=== PATIENT | female | born 1970 | race Caucasian/White ===

== ENCOUNTER 2018-11-06 10:55 | Outpatient (REF) | payer MEDICAID, SELFPAY ==
[2018-11-06 13:35] LABS: HCT 43.5 % (36.0-46.0); HGB 14.4 g/dL (12.0-15.5); Mean Corp. HGB Concentration 33.1 g/dL (32.0-36.0); Mean Corpuscular Hemoglobin 27.6 pg (27.0-33.0); Mean Corpuscular Volume 83.5 fL (80-95); Mean Platelet Volume 10.7 fL (8.0-11.0); Platelet Count 250 x1000/uL (130-400); RBC 5.21 m/cumm (4.00-5.20); RBC Distribution Width 13.8 % (11.7-14.6); White Blood Cell Count 7.76 k/cumm (4.4-10.8)
[2018-11-06 13:46] LABS: Anion Gap 10.7 mmol/L (3-11); BUN 11 mg/dL (7-18); CO2 26.3 mmol/L (21.0-32.0); CREATININE 0.56 mg/dL (0.55-1.02); Chloride 102 mmol/L (98-107); Glucose 98 mg/dL (70-100); Potassium 4.4 mmol/L (3.5-5.1); Sodium 139 mmol/L (136-145)
[2018-11-06 13:55] LABS: Calcium 9.2 mg/dL (8.5-10.1)
[2018-11-11 16:54] LABS: Alpha-1-Antitrypsin 156 mg/dL (100 - 190)
== END 2018-11-06 11:15 ==
LOC: NCHCN 10:55
PROVIDERS: PCP Nurse Practitioner; Visit Provider Family Medicine
DX: R76.0 Raised antibody titer (principal); J44.9 Chronic obstructive pulmonary disease, unspecified
CPT/HCPCS: 80048; 85027; 82103; 82104

== ENCOUNTER 2018-11-20 09:22 | Day surgery (SDC) | payer MEDICAID, SELFPAY ==
--- NOTE | 2018-11-20 07:29 | PDOC.DSDIS_ITS ---
Discharge Plan Disposition Patient Disposition: HOME Condition: Good Discharge Details Reason For Visit: RRF EXCISIONAL BIOPSY Attending Provider: Nitin Bella Primary Care Provider: Rani Turner Home Meds and New Rx's Prescriptions: New meloxicam 7.5 mg tablet 7.5 mg PO BID Qty: 60 RF: 0 acetaminophen 500 mg capsule 1,000 mg PO Q8H PRN (Reason: pain) Qty: 90 RF: 0 Continued atorvastatin 10 mg tablet 10 mg PO DAILY RF: 0 oxybutynin chloride 5 mg tablet 5 mg PO BID RF: 0 aspirin 81 mg tablet,delayed release (DR/EC) 81 mg PO DAILY RF: 0 leflunomide 10 mg tablet 10 mg PO DAILY RF: 0 Protonix [address] for susp in packet 40 mg PO HS RF: 0 Flovent Diskus 50 MCG blister with device 50 mcg Inhalation PRN RF: 0 gabapentin 100 MG capsule 100 mg PO HS RF: 0 Discharge Instructions Stand Alone Forms: Shayne Fairbanks Finger Release Referrals: Nitin Bella MD [ [facility] STAFF PHYSICIAN] - Activity:: Elevate Remove Dressings/Wound Care:: 72 hours Shower/Bathe:: 72 hours Diet:: As Tolerated Discharge Orders Discharge Orders: Discharge Order (Routine); Ordered 11/20/18 Ordered By: Nitin Bella DS: Diagnosis Discharge Diagnosis (1) Mass of right hand: Status: Acute
[2018-11-20 09:41] VITALS: BP 133/46; PULSE 79; RESP 16; TEMP 36.6; O2SAT 98
[2018-11-20] MEDS: Cephalexin 500 MG CAP PO (09:50)
[2018-11-20] MEDS: Bupivacaine 0.25% Pres-Free 30 ML VIAL (10:09)
[2018-11-20] MEDS: Lidocaine 1% Multi-Dose 50 ML VIAL (10:10)
[2018-11-20] MEDS: Sodium Bicarbonate 50 MEQ/50 ML VIAL (10:13)
--- NOTE | 2018-11-21 07:26 | W.PM.OP ---
Date of service: 11/20/18 Time of Service: 13:26 Operative Note DATE OF PROCEDURE: 11/20/18 PRE-OP DIAGNOSIS: Right Ring Finger Mass POST-OP DIAGNOSIS: other (Right Ring Finger Trigger Finger, Flexor Tenosynovitis) PROCEDURE: Trigger Finger Release -right ring finger SURGEON: Nitin Bella ANESTHESIA: local ESTIMATED BLOOD LOSS: 5 PATHOLOGY: none sent COMPLICATIONS: None Patient was transported to: same day Patient's condition: stable Indications: I have seen Gunjan in clinic for symptoms painful mass overlying the A1 patricia of the right ring finger. There had been some catching, clicking, locking, but it was pain that limited function. My initial thoughts is that this was a ganglion cyst arising from the flexor tendon sheath which was symptomatic with direct pressure and some symptoms of triggering. The symptoms had not responded to conservative measures. I discussed the surgery with the patient. I reviewed the risks of the procedure to include, but not limited to, bleeding, infection, pain, stiffness, incomplete release, damage to nerves or vessels, continued catching, recurrence. Despite these risks, the patient elected to proceed. Findings: There was a tightened A1 patricia which was released. The painful nodule was palpated on the A1 patricia itself. This portion of the patricia was excised. The flexor tendons were inspected. There was significant synovitis which was also excised. The patient was able to move the finger without any catching, clicking, or locking. Procedure Description: Gunjan was greeted in the preoperative holding area where the correct side was identified and marked. The consent was reviewed with the patient and signed. All questions were answered. Gunjan was taken back to the operating room. The patient was placed into the supine position on the operating room table with the right arm on an arm board. All bony prominences were well padded. No prophylactic antibiotics were administered since this was a clean, elective hand surgical case. The right arm was then prepped with Chloraprep and draped in a standard fashion with stockinette and extremity drape. A timeout to confirm correct identity, side and site, procedure, allergies, anesthesia, and medical concerns was performed. The surgical site was marked as a longitudinal incision directly over the A1 patricia of the involved digit. This was confirmed with palpation during finger flexion. This area, overlying the metacarpal head, was then anesthetized with 1% Lidocaine. The patient tolerated this well and once the anesthetic had setup, the procedure began. A longitudinal incision was made through skin only, approximately 1cm. The deep tissues were dissected bluntly. The mass was marked on the skin prior and was use a reference point and identified. The prominence appeared to be directly related to the A1 patricia. The A1 patricia was fully identified and there appeared to be no cystic structure but yet a thickening of the distal edge of the A1 patricia. There were no crossing structures over the A1 patricia. The proximal edge of the patricia was identified and the patricia was incised with tenotomy scissors. There was a release of the tendons once this was fully released. This prominence of the patricia was then excised. The tendons were then removed from the wound and inspected. There was significant synovitis of the flexor tendons. Excess synovium was resected. The tendons were then returned and the patient was asked to move the finger into deep flexion and back to extension. The wound was thoroughly inspected and the hand thoroughly palpated for any signs of remnant mass but there was none. Therefore, the mass which she was feeling was simply a thickening of the A1 patricia associate with significant flexor tenosynovitis. The wound was then irrigated and the skin was closed with a 4-0 Nylon. This was dressed with gauze and a Conform dressing. The patient tolerated the procedure well and was returned to the Same Day Surgery area in a stable condition suffering no known complication.
== END 2018-11-20 10:42 | disposition home or self-care (01) ==
PROVIDERS: PCP Nurse Practitioner; Visit Provider Student in an Organized Health Care Education/Training Program
PROC: (CPT 26160; principal; 2018-11-20 11:30)
DX: M65.341 Trigger finger, right ring finger (principal); M65.841 Other synovitis and tenosynovitis, right hand; R22.31 Localized swelling, mass and lump, right upper limb
CPT/HCPCS: 26055

== ENCOUNTER 2019-02-24 12:06 | Emergency (ER) | payer MEDICAID, SELFPAY ==
[2019-02-24 12:23] VITALS: BP 122/74; PULSE 74; RESP 16; TEMP 36.6; O2SAT 94
[2019-02-24] MEDS: Lidocaine 4% Cream 5 GM TUBE TP (13:11)
--- NOTE | 2019-02-24 13:47 | ED.GENADUL_ITS ---
Discharge Plan Disposition Patient Disposition: HOME Discharge Details Chief Complaint: Laceration Clinical Impression: Laceration of right thumb Primary Care Provider: Rani Turner ED Provider: Chad Jacobs Home Meds and New Rx's Prescriptions: Continued oxybutynin chloride 5 mg tablet 5 mg PO BID RF: 0 aspirin 81 mg tablet,delayed release (DR/EC) 81 mg PO DAILY RF: 0 Protonix [address] for susp in packet 40 mg PO HS RF: 0 Flovent Diskus 50 MCG blister with device 50 mcg Inhalation PRN RF: 0 meloxicam 7.5 mg tablet 7.5 mg PO BID Qty: 60 RF: 0 acetaminophen 500 mg capsule 1,000 mg PO Q8H PRN (Reason: pain) Qty: 90 RF: 0 gabapentin 100 MG capsule 100 mg PO HS RF: 0 Discharge Instructions Instructions: Laceration (ED) Additional Instructions: Please keep wound clean, dry and protected. Use finger splint for the next 4 days. Change dressing daily and monitor for signs of infection including increased redness, swelling, pain. Apply topical [id number] antibiotic ointment, Neosporin daily. Return for suture removal in 10 days. Return to the ER for any worsening or new concerning symptoms. Discharge Data Discharge Date/Time-TO BE ENTERED AT DEPARTURE: 02/24/19 13:52 Medical Decision Making 48yo f here with right thumb laceration. Distal neuro intact. Tendons intact. Wound irrigated with copious sterile saline. After obtaining verbal consent, wound repaired (see procedure note) without complications. Tetanus utd. Usual and customary discharge instructions were provided. HPI General Mode of arrival: ambulatory . Date/Time Provider Initiated Documentation: 02/24/19 12:47 . Limitations to Documentation: no limitations . Information obtained by: patient . HPI Narrative: 48yo f here with laceration. Laceration occurred today prior to arrival, cut with knife accidentally while slicing an onion. Laceration moderate. Laceration located right thumb. Laceration was bleeding. Bleeding improved with pressure. No associated numbness or weakness. Related Data Home Medications Medication Instructions Recorded Confirmed Protonix 40 mg PO HS NS 01/31/13 02/24/19 Flovent Diskus 50 mcg INHALATION PRN NS 02/28/13 02/24/19 gabapentin 100 mg PO HS 02/13/18 02/24/19 aspirin 81 mg tablet,delayed 81 mg PO DAILY 10/07/18 02/24/19 release oxybutynin chloride 5 mg tablet 5 mg PO BID 10/07/18 02/24/19 acetaminophen 1,000 mg PO Q8H PRN #90 cap 11/20/18 02/24/19 meloxicam 7.5 mg PO BID #60 tab 11/20/18 02/24/19 Previous Rx's Medication Instructions Recorded acetaminophen 1,000 mg PO Q8H PRN #90 cap 11/20/18 meloxicam 7.5 mg PO BID #60 tab 11/20/18 Allergies Allergy/AdvReac Type Severity Reaction Status Date / Time ibuprofen Allergy Intermediate Swelling/Ed Unverified 02/24/19 12:24 mily ketorolac tromethamine Allergy Mild Hives Unverified 02/24/19 12:24 [From Toradol] latex Allergy Mild Skin Rash Unverified 02/24/19 12:24 tramadol Allergy Hives Unverified 02/24/19 12:24 adhesive AdvReac Mild Skin Rash Unverified 02/24/19 12:24 PLASTIC TAPE Allergy Intermediate Skin Rash, Uncoded 02/24/19 12:24 BLISTERS General Stated Complaint: Laceration LIZETTE: 4 Review of Systems Musculoskeletal Denies numbness Integumentary/Breasts Reports as per HPI Neurologic Denies numbness and Denies paresthesias PFSH Medical History COPD (chronic obstructive pulmonary disease) GERD (gastroesophageal reflux disease) Hydradenitis Inclusion cyst SC (myocardial infarction) Surgical History Abdominal hysterectomy (~2009) Angiogram Incision & Drainage, Abscess or Hematoma Social History Smoking/Tobacco Use Status: Current every day Tobacco Type: cigarettes Alcohol Intake: never Drug use: Never Substance use type: does not use Do you feel safe in your relationship?: Yes Exam Const General: cooperative and healthy appearing Cardio Pulses: radial pulses present on the right 2+ Skin Wounds: wounds noted (laceration right thumb, flap, oozing blood, full thickness skin) Extrem Right upper extremity: hand (rt thumb lac, no tendon invovlement) Details: neurosensory exam normal (2 pt discrimination intact), tendon exam normal and normal ROM of fingers Course Vital Signs Temperature 36.6 C 02/24/19 12:23 Pulse 74 02/24/19 12:23 Respiratory Rate 16 02/24/19 12:23 Blood Pressure 122/74 02/24/19 12:23 Pulse Oximetry 94 L 02/24/19 12:23 Temperature 36.6 C 02/24/19 12:23 Temperature Source Skin 02/24/19 12:23 Pulse 74 02/24/19 12:23 Respiratory Rate 16 02/24/19 12:23 Respiratory Effort Non-Labored 02/24/19 12:23 Blood Pressure 122/74 02/24/19 12:23 Blood Pressure Position Sitting 02/24/19 12:23 Pulse Oximetry 94 L 02/24/19 12:23 Oxygen Delivery Method Room Air 02/24/19 12:23 Oxygen Flow Rate 0 02/24/19 12:23 Pain Level 6 02/24/19 12:23 Procedures Laceration Laceration 1: Site: other (thumb) Side (If applicable): right Size (cm): 1.5 Description: flap Depth: simple, single layer Local Anesthetic: other anesthetic (LMX) Skin layer closed with: other (prolene) Size (cm): 5-0 Number of sutures: 2 Technique: simple, interrupted
[2019-02-24 13:53] VITALS: BP 122/74; PULSE 74; RESP 16; TEMP 36.6; O2SAT 94
== END 2019-02-24 13:52 | disposition home or self-care (01) ==
PROVIDERS: Emergency Provider Student in an Organized Health Care Education/Training Program; PCP Nurse Practitioner
DX: S61.011A Laceration without foreign body of right thumb without damage to nail, initial encounter (principal); W26.0XXA Contact with knife, initial encounter
CPT/HCPCS: 12001

== ENCOUNTER 2019-12-16 09:20 | Day surgery (SDC) | payer MEDICAID, SELFPAY ==
[2019-12-16 09:25] VITALS: BP 104/62; PULSE 63; RESP 18; TEMP 36.7; O2SAT 96
[2019-12-16] MEDS: Lactated Ringers 1,000 ML 80 ML IV (10:01)
[2019-12-16] MEDS: ceFAZolin 2 GM/50 ML BAG IVPB (10:42)
--- NOTE | 2019-12-16 10:56 | W.PM.DSUDISC ---
Documented by User: ELISABETH Bianchi 12/16/19 11:02 Discharge Plan Disposition Patient Disposition: HOME Condition: Good Discharge Details Reason For Visit: Left ECTR, Left 1st dorsal compartment release Attending Provider: Nitin Bella Primary Care Provider: Rani Turner Home Meds and New Rx's Prescriptions: New hydrocodone-acetaminophen 5-325 mg tablet 1 tab PO Q6H PRN PRN (Reason: pain) Qty: 8 RF: 0 Continued oxybutynin chloride 5 mg tablet 5 mg PO BID RF: 0 aspirin 81 mg tablet,delayed release (DR/EC) 81 mg PO DAILY RF: 0 Protonix [address] for susp in packet 40 mg PO HS RF: 0 Flovent Diskus 50 MCG blister with device 50 mcg Inhalation PRN RF: 0 meloxicam 7.5 mg tablet 7.5 mg PO BID Qty: 60 RF: 0 acetaminophen 500 mg capsule 1,000 mg PO Q8H PRN (Reason: pain) Qty: 90 RF: 0 albuterol sulfate [ProAir HFA] 90 mcg/actuation Hfa Aerosol Inhaler 2 puff INHALATION PRN PRNRF: 0 gabapentin 100 MG capsule 100 mg PO HS RF: 0 Discharge Instructions Additional Instructions: Ivan's Discharge Instructions Activity: You should keep the hand elevated as much as possible for the first few days. You may use the other fingers as tolerated but avoid trying to do too much too soon. You may perform light activities with the splint in place. Dressing/Cast: Your dressing may stay in place until follow-up. Do NOT get it wet. You may loosen the INDIRA wrap if you feel it is too tight and then rewrap more loosely. If it gets wet, you may remvoe and cover with a bandaid or other dry dressing. Medications: - You should take Tylenol and Meloxicam for your baseline pain. - You have Hydrocodone for breakthrough pain. - You may apply ice over the thumb. Follow-up: 7-10 days Referrals: Nitin Bella MD [ [facility] STAFF PHYSICIAN] - Equipment/Supplies: Sling Activity:: Elevate Remove Dressings/Wound Care:: Do Not Remove Shower/Bathe:: Cover Diet:: As Tolerated Discharge Orders Discharge Orders: Discharge Order (Routine); Ordered 12/16/19 Ordered By: Henri Cárdenas DS: Diagnosis Discharge Diagnosis (1) De Quervain's tenosynovitis, left: Status: Acute (2) Carpal tunnel syndrome, left: Status: Acute Documented by User: Nitin Bella MD 12/16/19 11:21 Discharge Plan Disposition Patient Disposition: HOME Condition: Good Discharge Details Reason For Visit: Left ECTR, Left 1st dorsal compartment release Attending Provider: Nitin Bella Primary Care Provider: Rani Turner Home Meds and New Rx's Prescriptions: New hydrocodone-acetaminophen 5-325 mg tablet 1 tab PO Q6H PRN PRN (Reason: pain) Qty: 8 RF: 0 Continued oxybutynin chloride 5 mg tablet 5 mg PO BID RF: 0 aspirin 81 mg tablet,delayed release (DR/EC) 81 mg PO DAILY RF: 0 Protonix [address] for susp in packet 40 mg PO HS RF: 0 Flovent Diskus 50 MCG blister with device 50 mcg Inhalation PRN RF: 0 meloxicam 7.5 mg tablet 7.5 mg PO BID Qty: 60 RF: 0 acetaminophen 500 mg capsule 1,000 mg PO Q8H PRN (Reason: pain) Qty: 90 RF: 0 albuterol sulfate [ProAir HFA] 90 mcg/actuation Hfa Aerosol Inhaler 2 puff INHALATION PRN PRNRF: 0 gabapentin 100 MG capsule 100 mg PO HS RF: 0 Discharge Instructions Additional Instructions: Ivan's Discharge Instructions Activity: You should keep the hand elevated as much as possible for the first few days. You may use the other fingers as tolerated but avoid trying to do too much too soon. You may perform light activities with the splint in place. Dressing/Cast: Your dressing may stay in place until follow-up. Do NOT get it wet. You may loosen the INDIRA wrap if you feel it is too tight and then rewrap more loosely. If it gets wet, you may remvoe and cover with a bandaid or other dry dressing. Medications: - You should take Tylenol and Meloxicam for your baseline pain. - You have Hydrocodone for breakthrough pain. - You may apply ice over the thumb. Follow-up: 7-10 days Referrals: Nitin Bella MD [ [facility] STAFF PHYSICIAN] - Equipment/Supplies: Sling Activity:: Elevate Remove Dressings/Wound Care:: Do Not Remove Shower/Bathe:: Cover Diet:: As Tolerated Discharge Orders Discharge Orders: Discharge Order (Routine); Ordered 12/16/19 Ordered By: Henri Cárdenas
[2019-12-16] MEDS: Sodium Bicarbonate 50 MEQ/50 ML VIAL (11:00)
[2019-12-16 11:45] VITALS: BP 101/52; PULSE 69; RESP 18; TEMP 36.4; O2SAT 92
--- NOTE | 2019-12-17 05:55 | W.PM.OP ---
Date of service: 12/16/19 Time of Service: 12:55 Operative Note Operative Note DATE OF PROCEDURE: 12/16/19 PRE-OP DIAGNOSIS: Left carpal tunnel syndrome and left de Quervain's tenosynovitis POST-OP DIAGNOSIS: same PROCEDURE: Left First Extensor Compartment Release and left endoscopic carpal tunnel release SURGEON: Nitin Bella ANESTHESIA: MAC ESTIMATED BLOOD LOSS: 0 PATHOLOGY: none sent TOURNIQUET TIME: 25 COMPLICATIONS: None Patient was transported to: same day Patient's condition: stable Indications: Gunjan is a 49-year-old female who has had symptoms of carpal tunnel syndrome and de Quervain's tenosynovitis on the left side. Nonoperative treatment options had been trialed. Given their failure, I offered operative intervention. I reviewed the technical details of a first extensor compartment release along with carpal tunnel release. I reviewed the risk of the procedure to include bleeding, infection, pain, stiffness, tendon instability, damage to the superficial radial nerve, and complete release as well as persistent numbness or incomplete release. Despite these risks, the patient elected to proceed. Findings: The transverse carpal ligament was clearly identified and was notably tight. It was released with endoscopic techniques. There was a tightened first excessive compartment. No subcompartments were seen encasing the EPB tendon. There was extensive synovitis seen and thickened synovium. This was resected. Procedure Description: Gunjan was greeted in the preoperative holding area. Name and surgical site were confirmed. The history and physical was completed. The consent was reviewed the patient and signed. Gunjan was taken back to the operating room. The patient was placed and monitored anesthesia care. The left was then prepped with ChloraPrep and draped in a standard fashion after a nonsterile tourniquet was placed high up onto the arm. Prophylactic antibiotics in the form of cefazolin were administered. A timeout was performed for safe surgery. The surgical sites were drawn on the skin. The planned surgical field was anesthetized with 0.25% bupivacaine with epinephrine. The limb was exsanguinated and the tourniquet was inflated where it stayed for 25 minutes. The skin of the volar wrist was incised with a 15 blade, approximately 1cm. The skin only was cut and the deeper tissue was dissected bluntly with a tenotomy scissor, avoiding passing nerve and venous structures. The fascia was penetrated and opened bluntly. A two-prong skin hook was placed under this proximal fascial edge. A series of hamate finders were used to identify and dilate the carpal tunnel. Synovial elevator was used to free synovial attachments to the underside of the transverse carpal ligament. My thumb was kept in the palm to tania the distal extent of the carpal tunnel and correctly position the hand. The Microaire endoscope was inserted without difficulty and without resistance. Excellent visualization showed horizontally running fibers of the transverse carpal ligament (TCL). The distal extent of the TCL was visualized and the end of the scope palpated with the thumb. The blade was elevated and withdrawn from distal to proximal. The TCL was split into two flaps. The endoscope was reinserted to confirm complete release and any remnant ligament was incised. The scope was withdrawn and the proximal aspect of the carpal tunnel was grossly inspected and appeared released. The antebrachial fascia at the level of the wrist was then freed from the overlying skin and then the underlying median nerve with blunt dissection. This was transected longitudinally for about 3cm proximal to the wrist incision. The wound was then irrigated with easy flow of irrigant distally and proximally. The incision was closed with a single 4-0 Nylon suture. A 2 cm incision was then made longitudinally over the radial styloid. The skin was incised only. The deep tissue and subcutaneous fat was dissected with a tenotomy scissors trying to protect bridge of the superficial radial nerve. Any branches that were identified were retracted out of the way. The first compartment extensor tendons were then identified. The distal aspect of the first compartment was noted and were released. This release was performed more on the dorsal side to prevent tendon subluxation. The entirety of the first extensor compartment was then released. The slips of the abductor pollicis longus tendon were inspected. They removed to confirm the appropriate motion of the thumb. The extensor pollicis brevis tendon was then identified. There is no true sub-compartment. Traction on the tendon was also used to confirm appropriate extension of the thumb confirming the release of the appropriate tendon. The dorsal radial surface of the radius was once again inspected to make sure there is no other sub-compartments or other restrictions to tendon motion. There was notable synovitis seen around the tendons. There was quite thickened in this area and was resected and debrided. The wound was then thoroughly irrigated. The deep tissue was closed with a 3-0 Vicryl. The skin was closed with a 4-0 nylon. The tourniquet is released without significant bleeding. The hand was dressed with 4 x 4's, web roll, thumb spica splint. All counts were correct. Patient was transferred back to same day surgery area in stable condition.
== END 2019-12-16 12:05 | disposition home or self-care (01) ==
PROVIDERS: PCP Nurse Practitioner; Visit Provider Student in an Organized Health Care Education/Training Program
PROC: 01N54ZZ Release Median Nerve, Percutaneous Endoscopic Approach (ICD-10-PCS; CPT 29848; principal; 2019-12-16 12:30)
PROC: (CPT 25000; 2019-12-16 12:30)
DX: G56.02 Carpal tunnel syndrome, left upper limb (principal); M65.4 Radial styloid tenosynovitis [de Quervain]
CPT/HCPCS: 29848; 25000; J0690; J2001; J2250; J2704; J3010; L3650

== ENCOUNTER 2020-02-10 06:07 | Day surgery (SDC) | payer MEDICAID, SELFPAY ==
--- NOTE | 2020-02-09 17:59 | PDOC.ANES ---
Date of service: 02/09/20 Time of Service: 17:59 Anesthesia Note Report Anesthesia Note: Called to speak with Gunjan in regards to possibly rescheduling her elective surgery. I explained that it has been recommended for all groups to minimize exposure to the virus. She understands the risk and would like to proceed as scheduled understanding that her overall risk of exposure is unknown.
[2020-02-10 06:18] VITALS: BP 107/65; PULSE 75; RESP 18; TEMP 36.6; O2SAT 96
[2020-02-10] MEDS: Lactated Ringers 1,000 ML 80 ML IV (07:09)
--- NOTE | 2020-02-10 07:16 | W.PM.DSUDISC ---
Discharge Plan Disposition Patient Disposition: HOME Condition: Good Discharge Details Reason For Visit: Recurrent left carpal tunnel syndrome Attending Provider: Nitin Bella Primary Care Provider: Rani Turner Home Meds and New Rx's Prescriptions: New hydrocodone-acetaminophen 5-325 mg tablet 1 tab PO Q6H PRN PRN (Reason: pain) Qty: 12 RF: 0 Continued oxybutynin chloride 5 mg tablet 5 mg PO BID RF: 0 aspirin 81 mg tablet,delayed release (DR/EC) 81 mg PO DAILY RF: 0 Protonix [address] for susp in packet 40 mg PO HS RF: 0 Flovent Diskus 50 MCG blister with device 50 mcg Inhalation PRN RF: 0 ondansetron 4 mg film 4 mg PO Q8H PRN (Reason: nausea and vomiting) Qty: 12 RF: 0 albuterol sulfate [ProAir HFA] 90 mcg/actuation Hfa Aerosol Inhaler 2 puff INHALATION PRN PRNRF: 0 meloxicam 7.5 mg tablet 7.5 mg PO BID Qty: 60 RF: 0 acetaminophen 500 mg capsule 1,000 mg PO Q8H PRN (Reason: pain) Qty: 90 RF: 0 gabapentin 100 MG capsule 100 mg PO HS RF: 0 Discharge Instructions Additional Instructions: Activity: You may use your fingers as tolerated. You should keep the hand and wrist elevated for the first week or so. You should use the brace for all activity of the wrist but may remove it when not doing anything vigorous with your left hand. Dressings: You should keep the dressing on for 3 days. After that, you may remove the dressing and replace with light gauze or a large bandaid. You may leave the initial dressing on for 7 days if you desire. The wound may get wet after 3 days. Medications: - You should take Meloxicam and Acetaminophen for baseline pain control. - You have been prescribed Hydrocodone for breakthrough pain control. Follow-up: 7-10 days Referrals: Nitin Bella MD [ [facility] STAFF PHYSICIAN] - Equipment/Supplies: Brace Activity:: Elevate Remove Dressings/Wound Care:: 72 hours Shower/Bathe:: 72 hours Diet:: As Tolerated Discharge Orders Discharge Orders: Discharge Order (Routine); Ordered 02/10/20 Ordered By: Nitin Bella DS: Diagnosis Discharge Diagnosis (1) Carpal tunnel syndrome, left: Status: Acute
[2020-02-10] MEDS: ceFAZolin 2 GM/50 ML BAG IVPB (07:28)
[2020-02-10] MEDS: Sodium Bicarbonate 50 MEQ/50 ML VIAL (07:45)
[2020-02-10 08:35] VITALS: BP 110/54; PULSE 72; RESP 16; TEMP 36.5; O2SAT 95
--- NOTE | 2020-02-10 15:38 | W.PM.OP ---
Date of service: 02/10/20 Time of Service: 08:12 Operative Note Operative Note DATE OF PROCEDURE: 02/10/20 PRE-OP DIAGNOSIS: Recurrent Carpal Tunnel Syndrome - Left POST-OP DIAGNOSIS: same PROCEDURE: Open Carpal Tunnel Release - Left SURGEON: Nitin Bella ANESTHESIA: MAC ESTIMATED BLOOD LOSS: 0 PATHOLOGY: none sent TOURNIQUET TIME: 16 COMPLICATIONS: None Patient was transported to: same day Patient's condition: stable Indications: Gunjan is a 49yo female who I have seen for carpal tunnel syndrome. She underwent an endoscopic release but continued to have persistent numbness and pain. I reviewed the risk of the procedure to include bleeding, infection, pain, stiffness, continued numbness, damage to nerves and vessels, damage to muscles and tendons, need for repeat procedures. Despite these risk, patient desired to proceed. Findings: There was a tightened transverse carpal ligament. It was released fully released. The median nerve was inspected and showed no signs of adhesions or injury. Procedure Description: Gunjan was greeted in the preoperative holding area. The correct site was identified and marked. The consent was reviewed the patient and signed. The history physical was updated. Patient was taken back to the operating room and placed in the supine position with the left hand placed on a hand table. A nonsterile tourniquet was placed high up onto the arm. The hand and forearm was then prepped with ChloraPrep and draped in standard fashion. Prophylactic antibiotics in the form of cefazolin were given. A timeout was performed for safe surgery. The surgical site was then injected and anesthetized with 1% lidocaine with epinephrine buffered with sodium bicarbonate. The radial border of the fourth ray was marked on the skin as well as any other pertinent surface anatomy. The limb was exsanguinated and cuff inflated to 250 mmHg. Using 15 blade the skin was incised sharply. Blunt dissection was carried down to the level of the palmar fascia. This was sharply divided making sure to protect any crossing neurovascular branches. Once this was divided the fibers of the transverse carpal ligament were identified. Using a [place], I was able to place this underneath a portion of the transverse carpal ligament. There appeared to be thinning of this proximally but there was a notable band distally. A knife was then used to cut directly onto the [place]. This release the transverse carpal ligament. Using the [place] to protect underlying tendons and the median nerve, I released the remainder of the transverse carpal ligament. It was notably thickened and tight. A scissor was used to complete the far aspects after making sure there is no interposed tissue. There is notable separation of the leaflets. Elevating, lifting up, the radial flap of the transverse carpal ligament exposed the median nerve. Any adhesions between it and the transverse carpal ligament were released. He was fully inspected and showed no signs of injury or damage. The wound was then fully irrigated. The skin and deeper tissues were closed with a interrupted 4-0 nylon suture. The tourniquet was deflated and there was return of blood flow to all digits. No excessive bleeding from the wound. 4 x 4 gauze was applied followed by Kerlix wrap and an Krishna wrap. The hand was placed into a removable brace. At the end the case all counts are correct. The patient tolerated the procedure well and was transferred back to the day surgery area in a stable condition.
== END 2020-02-10 08:50 | disposition home or self-care (01) ==
PROVIDERS: PCP Nurse Practitioner; Visit Provider Student in an Organized Health Care Education/Training Program
PROC: (CPT 64721; principal; 2020-02-10 07:30)
DX: G56.02 Carpal tunnel syndrome, left upper limb (principal)
CPT/HCPCS: 64721; J0690; J2001; J2704; L3650; L3908

== ENCOUNTER 2020-07-16 03:19 | Outpatient (CLI) | payer MEDICAID, SELFPAY ==
--- NOTE | 2020-07-16 15:12 | DI.RAD_ITS ---
EXAM: XR CHEST 2V PA LATERAL CLINICAL HISTORY: COPD,J44.9 TECHNIQUE: 2D digital imaging was performed. COMPARISON: CR CHEST 2 VIEWS PA,LAT from 03/29/2014 FINDINGS: MEDIASTINUM: Normal. HEART: Normal. PULMONARY VASCULATURE: Normal. LUNGS: Emphysematous changes in the upper lobes, right greater than left. Mild fibrotic changes, gre ater at the lung bases. Mild hyperinflation.. No focal area of consolidation or mass is visible. PLEURAL SPACE: No pleural effusion or pneumothorax. BONE:Mild degenerative changes OTHER FINDINGS:Normal. IMPRESSION: Changes of COPD. No acute pulmonary findings. DATA REPOSITORY: RADIATION DOSE DELIVERED:
== END 2020-07-16 03:39 ==
PROVIDERS: PCP Nurse Practitioner; Visit Provider Internal Medicine
DX: J44.9 Chronic obstructive pulmonary disease, unspecified (principal)
CPT/HCPCS: 71046

== ENCOUNTER 2020-07-16 03:58 | Outpatient (CLI) | payer MEDICAID, SELFPAY ==
--- NOTE | 2020-07-16 | DI.MAMMO_ITS ---
EXAM: MAMMO SCREENING CLINICAL HISTORY: SCREENING, Z12.39 TECHNIQUE: Mammograms were interpreted according to the usual protocol including computer analysis w [employer] CAD system, tomosynthesis and C-view imaging. COMPARISON: 2010 FINDINGS: The breasts are composed of scattered fibroglandular densities, Breast Density category B. No suspicious masses or suspicious microcalcifications are seen. No skin thickening or abnormal axillary lymph nodes are seen. There has been no significant change from prior exams. IMPRESSION: BI-RADS Category 1, Negative mammogram Yearly screening mammography is recommended. Breast Density - Category B, scattered fibroglandular densities. A negative radiographic report should not delay biopsy if a dominant or clinically suspicious mass is present. Up to ten percent of cancers are not identified on mammography. A negative report may reinforce clinical impression. Adenosis and dense breasts may obscure an underlying neoplasm. False positive reports average 6 to 10%. Patient will receive a letter notifying them of these results.
== END 2020-07-16 04:18 ==
PROVIDERS: PCP Nurse Practitioner; Visit Provider Nurse Practitioner
DX: Z12.31 Encounter for screening mammogram for malignant neoplasm of breast (principal); R92.2 Inconclusive mammogram
CPT/HCPCS: 77063; 77067

== ENCOUNTER 2020-07-16 10:22 | Outpatient (REF) | payer MEDICAID, SELFPAY ==
[2020-07-16 23:29] LABS: ALT 21 U/L (14-59); AST 21 U/L (15-37); Albumin 3.9 g/dL (3.4-5.0); Anion Gap 11.3 mmol/L (3-11); BUN 13 mg/dL (7-18); Bilirubin, Total 0.3 mg/dL (0.2-1.0); CO2 24.7 mmol/L (21.0-32.0); CREATININE 0.39 mg/dL (0.55-1.02); Calcium 9.2 mg/dL (8.5-10.1); Calculated LDL 143 mg/dL (<100); Chloride 102 mmol/L (98-107); Cholesterol 210 mg/dL (<200); Glucose 85 mg/dL (74-106); HDL Cholesterol 41 mg/dL (40-60); Potassium 4.4 mmol/L (3.5-5.1); Sodium 138 mmol/L (136-145); Total Protein 7.1 g/dL (6.4-8.2); Triglyceride 130 mg/dL (<150)
[2020-07-17 00:38] LABS: Alkaline Phosphatase 80 U/L (46-116)
== END 2020-07-16 10:42 ==
LOC: NCHCN 10:22
PROVIDERS: PCP Nurse Practitioner; Visit Provider Nurse Practitioner Family
DX: E78.5 Hyperlipidemia, unspecified (principal); L93.0 Discoid lupus erythematosus; H66.90 Otitis media, unspecified, unspecified ear
CPT/HCPCS: 80053; 80061; 87070; 87205

== ENCOUNTER 2022-06-14 21:18 | Outpatient (REF) | payer MEDICAID, SELFPAY | END 2022-06-14 21:19 | disposition home or self-care (01) | LOC: LBN 21:18 | PROVIDERS: PCP Nurse Practitioner; Visit Provider Physician Assistant | DX: N89.8 Other specified noninflammatory disorders of vagina (principal) | CPT/HCPCS: 87480; 87510; 87660 ==

== ENCOUNTER 2022-08-21 12:30 | Outpatient (CLI) | payer MEDICAID, SELFPAY ==
[2022-08-21 12:38] LABS: HCT 38.2 % (36.0-46.0); MCH 26.6 pg (27.0-33.0); MCHC 31.4 % (32.0-36.0); MCV 85 fL (80-95); Platelet Count 273 10^3/uL (130-400); RBC 4.51 10^6/uL (3.93-5.22); RDW 13.2 % (11.7-14.6); RDW-SD 40.6 fL; WBC 11.18 10^3/uL (4.4-10.8)
[2022-08-21 13:13] LABS: ALT 18 U/L (14-59); AST 10 U/L (15-37); Alkaline Phosphatase 75 U/L (46-116); Anion Gap 8.9 mmol/L (3-11); BUN 12 mg/dL (7-18); Bilirubin, Total 0.2 mg/dL (0.2-1.0); CO2 28.1 mmol/L (21.0-32.0); CREATININE 0.5 mg/dL (0.55-1.02); Calcium 8.7 mg/dL (8.5-10.1); Calculated LDL 90 mg/dL (<100); Chloride 102 mmol/L (98-107); Cholesterol 148 mg/dL (<200); Estimated GFR 112.08 (mL/min/1.73m2); Glucose 88 mg/dL (74-106); HDL Cholesterol 35 mg/dL (40-60); Potassium 3.8 mmol/L (3.5-5.1); Sodium 139 mmol/L (136-145); Total Protein 7.1 g/dL (6.4-8.2); Triglyceride 117 mg/dL (<150)
== END 2022-08-21 12:31 | disposition home or self-care (01) ==
LOC: LBO 12:39
PROVIDERS: PCP Nurse Practitioner; Visit Provider Nurse Practitioner Family
DX: L93.0 Discoid lupus erythematosus (principal); E78.5 Hyperlipidemia, unspecified
CPT/HCPCS: 36415; 80053; 80061; 85027

== ENCOUNTER 2022-08-24 20:28 | Outpatient (REF) | payer MEDICAID, SELFPAY | END 2022-08-24 20:29 | disposition home or self-care (01) | LOC: NCHCN 20:28 | PROVIDERS: PCP Nurse Practitioner; Visit Provider Nurse Practitioner Family | DX: R30.0 Dysuria (principal) | CPT/HCPCS: 87077; 87086; 87186 ==

== ENCOUNTER 2022-10-05 18:26 | Outpatient (REF) | payer MEDICAID, SELFPAY ==
[2022-10-05 15:54] LABS: Abs Immature Grans 0.02 10^3/uL (0.0-0.06); Absolute Basophil Count 0.08 10^3/uL (0.0-0.2); Absolute Eosinophil Count 0.94 10^3/uL (0.0-0.7); Absolute Lymphocyte Count 2.48 10^3/uL (1.2-3.4); Absolute Monocyte Count 0.73 10^3/uL (0.1-0.8); Absolute Neutrophil Count 4.79 10^3/uL (1.2-6.7); Basophils % 0.9; Eosinophils % 10.4; HCT 38.2 % (36.0-46.0); HGB 11.9 g/dL (11.2-15.7); Immature Grans % 0.2; Lymphocytes % 27.4; MCH 25.3 pg (27.0-33.0); MCHC 31.2 % (32.0-36.0); MCV 81 fL (80-95); MPV 10.4 fL (8.0-11.0); Monocytes % 8.1; Platelet Count 277 10^3/uL (130-400); RBC 4.71 10^6/uL (3.93-5.22); RDW 14.7 % (11.7-14.6); RDW-SD 43.4 fL; WBC 9.04 10^3/uL (4.4-10.8)
[2022-10-05 16:08] LABS: ALT 15 U/L (14-59); AST 14 U/L (15-37); Albumin 3.6 g/dL (3.4-5.0); Alkaline Phosphatase 90 U/L (46-116); BUN 10 mg/dL (7-18); Bilirubin, Total 0.3 mg/dL (0.2-1.0); CREATININE 0.4 mg/dL (0.55-1.02); Calcium 8.9 mg/dL (8.5-10.1); Chloride 102 mmol/L (98-107); Estimated GFR 118.27 (mL/min/1.73m2); Glucose 88 mg/dL (74-106); Potassium 3.8 mmol/L (3.5-5.1); Sodium 140 mmol/L (136-145); Total Protein 7.4 g/dL (6.4-8.2)
== END 2022-10-05 18:27 | disposition home or self-care (01) ==
LOC: NCHCN 18:26
PROVIDERS: PCP Nurse Practitioner; Visit Provider Nurse Practitioner Family
DX: L93.0 Discoid lupus erythematosus (principal); Z51.81 Encounter for therapeutic drug level monitoring
CPT/HCPCS: 80053; 85025

== ENCOUNTER 2022-11-09 12:00 | Outpatient (REF) | payer MEDICAID, SELFPAY ==
[2022-11-09 14:49] LABS: HCT 35.3 % (36.0-46.0); HGB 11.1 g/dL (11.2-15.7); MCH 24.9 pg (27.0-33.0); MCHC 31.4 % (32.0-36.0); MCV 79 fL (80-95); MPV 10.2 fL (8.0-11.0); Platelet Count 375 10^3/uL (130-400); RBC 4.46 10^6/uL (3.93-5.22); RDW 15.5 % (11.7-14.6); RDW-SD 44.6 fL; WBC 20.64 10^3/uL (4.4-10.8)
[2022-11-09 15:01] LABS: ALT 14 U/L (14-59); AST 17 U/L (15-37); Albumin 2.8 g/dL (3.4-5.0); Alkaline Phosphatase 90 U/L (46-116); Anion Gap 8.8 mmol/L (3-11); BUN 9 mg/dL (7-18); Bilirubin, Total 0.2 mg/dL (0.2-1.0); CO2 28.2 mmol/L (21.0-32.0); CREATININE 0.6 mg/dL (0.55-1.02); Calcium 8.8 mg/dL (8.5-10.1); Chloride 98 mmol/L (98-107); Estimated GFR 107.26 (mL/min/1.73m2); Glucose 88 mg/dL (74-106); Potassium 4.2 mmol/L (3.5-5.1); Sodium 135 mmol/L (136-145); Total Protein 7.2 g/dL (6.4-8.2)
[2022-11-09 15:02] LABS: Bilirubin Small (Negative); Blood Negative (Negative); Clarity Cloudy (Clear); Glucose Negative (Negative); Ketones Trace mg/dL (Negative); Leukocyte Esterase Negative (Negative); Nitrite Positive (Negative); Specific Gravity >= 1.030 (1.005-1.025)
[2022-11-09 15:11] LABS: Bacteria Moderate HPF (Negative); C & S Indicated? Yes; Casts Negative LPF (Negative); Crystals Many Amorphous HPF (Negative); Epithelial Cells Rare HPF (Negative); Mucus Negative (Negative); RBC 0-2 HPF (0-2); WBC 0-2 HPF (0-5)
[2022-11-09 15:27] LABS: Absolute Basophil Count 0.21 10^3/uL (0.0-0.2); Absolute Eosinophil Count 3.92 10^3/uL (0.0-0.7); Absolute Lymphocyte Count 2.89 10^3/uL (1.2-3.4); Absolute Monocyte Count 0.41 10^3/uL (0.1-0.8); Absolute Neutrophil Count 13.21 10^3/uL (1.2-6.7); Diff Comment Manual Differential; RBC Morphology Normal
== END 2022-11-09 12:01 | disposition home or self-care (01) ==
LOC: NCHCN 12:00
PROVIDERS: PCP Nurse Practitioner; Visit Provider Nurse Practitioner Family
DX: K46.9 Unspecified abdominal hernia without obstruction or gangrene (principal); R10.84 Generalized abdominal pain
CPT/HCPCS: 80053; 87077; 81003; 81015; 85025; 87086; 87186

== ENCOUNTER 2022-12-07 16:24 | Emergency (ER) | payer MEDICAID, SELFPAY ==
[2022-12-07 16:43] VITALS: BP 107/47; PULSE 89; RESP 16; TEMP 37.3; O2SAT 96
--- NOTE | 2022-12-07 16:45 | RT.EKG_ITS ---
APPROVED REPORT Exam: Resting ECG Reason for Exam: Patient Location: E HR:81 bpm ECG Measurements Heart Rate 81 AXIS HI 122 P 81 QRSd 86 QRS 50 QT 360 T 41 QTc 420 Conclusion Sinus rhythm...normal P axis, V-rate 60- 99. Sinus. Normal axis. No STEMI. I have reviewed and interpreted ECG and agree with software generated interpretation.
--- NOTE | 2022-12-07 16:53 | ED.GENADUL_ITS ---
Discharge Plan Disposition Patient Disposition: Home Condition: Stable Discharge Details Clinical Impression: Abdominal mass, right lower quadrant, UTI (urinary tract infection), Hyponatremia, Hemorrhoids Primary Care Provider: Rani Turner ED Provider: Wade Claros Home Meds and New Rx's Prescriptions: New Stool Softener 50 mg capsule 50 mg PO BID Qty: 20 0RF hydrocortisone [Anusol-HC] 2.5 % cream with perineal applicator 1 applic SC BID-QID PRNQty: 30 0RF nitrofurantoin monohyd/m-cryst [Macrobid] 100 mg capsule 100 mg PO Q12H 5 Days Qty: 10 0RF Rx Instructions: must administer with a meal/food Continued aspirin 81 mg tablet,delayed release (DR/EC) 81 mg PO DAILY pantoprazole [Protonix] [address] for susp in packet 40 mg PO HS Flovent Diskus 50 MCG blister with device 50 mcg Inhalation PRN ondansetron 4 mg film 4 mg PO Q8H PRN (Reason: nausea and vomiting) Qty: 12 0RF albuterol sulfate [ProAir HFA] 90 mcg/actuation Hfa Aerosol Inhaler 2 puff INHALATION PRN PRN acetaminophen 500 mg capsule 1,000 mg PO Q8H PRN (Reason: pain) Qty: 90 0RF gabapentin 100 MG capsule 100 mg PO HS Discharge Instructions Instructions: Hyponatremia (ED), Urinary Tract Infection in Women (ED), Hemorrhoids (ED) Additional Instructions: Your work-up is extremely concerning for an abdominal mass which is likely cancer, admission was recommended but declined. Instead please follow-up with our surgical team, Dr. Sandhu tomorrow at 11 AM. I am providing you a prescription of Macrobid for a mild urinary tract infection, a stool softener for your constipation, and Anusol for your hemorrhoids. As we discussed your sodium levels are low and I would recommend that you increase your sodium intake over the next few days. I have placed you on the care management list to help expedite outpatient follow-up through your primary care provider, surgical team, and likely oncologist. Please watch for new or worsening symptoms and return immediately to the ER. Referrals: Renetta Sandhu DO [OSTEOPATHIC DOCTOR] - Medical Decision Making This is a 52-year-old female, current smoker, past medical history of COPD, chronic pain, GERD, presenting to the ER reporting ongoing abdominal pain associate with nausea, intermittent diarrhea, constipation, now dealing with hemorrhoids. Has not tried any [id number] medication for her symptoms. Patient also reports intermittent chest pain for the past week, started on the left, now on the right, but currently denies any chest pain whatsoever. Plan to obtain IV access, give IV Zofran and fluids, initiate routine laboratory values including, will obtain CT imaging of her abdomen and pelvis. Laboratory values reveal the leukocytosis of 36.89. Concern for potential metastatic disease, will add on chest CT as well. We will also obtain lactate. Hemoglobin 9.8 hematocrit 31.6 platelet count 381. Sodium 128. Patient rec eiving 1 L normal saline. Patient reports given her discomfort with bowel movements, she has tried to avoid mostly solid foods and has been drinking a lot of liquids. Reports that in reality she has likely decreased her sodium intake over the past week or so. Troponin less than 50. Urine sample reveals moderate leuk esterase, 10-20 white cells, negative nitrate, moderate bacteria, culture indicated. She denies any dysuria. CT imaging reveals an 8 x 7 x 8 cm centrally necrotic appearing expansile lesion right lower quadrant, appearing to communicate with the small bowel lumen, most concerning for either adenocarcinoma or lymphoma. Discussed work-up with the patient. Patient reports that she has to be going home tonight, does not want to consider admission or transfer now. She has a gender reveal for her family over the weekend but would consider seeking medical treatment on Sunday. Patient is demanding that her IV be taken out. Lactate normal at 0.[address] images and case was discussed with Dr. Sidhu. She plans to personally review the case and call me back. Patient went outside to smoke a cigarette but assures me that she has not eloping from the ER. She tells me after her cigarette she will come back in to discuss what the surgeon has to say. She does not want her blood redrawn for the delta troponin. Low suspicion for cardiac etiology, I believe this to be reasonable. Patient came in from outside after smoking her cigarette. She is making phone calls and wants to wait in the waiting room, will not come back into room 7. She understands that she has not been discharged, I am still awaiting the surgical consultation. I spoke again with Dr. Sidhu who evaluated the imaging and presentation. She recommends admission for a scope, biopsy, further evaluation tomorrow. Unfortunately, patient declines this. Instead Dr. Sidhu would like the patient to follow-up in the surgical clinic tomorrow at [address] Sandhu who she personally spoke with today regarding the case. Patient is currently hemodynamically stable and has capacity to make her own decision. There is no clear indication to make her leave AGAINST MEDICAL ADVICE but she does understa nd the of the situation and will return immediately for new or worsening symptoms. She will be provided a prescription for Anusol for her hemorrhoids, Macrobid for UTI, and a stool softener. Patient updated her emergency contact information with the number of her niece as well as her patient's updated address. Unfortunately she does not have a home phone number, has transportation issues, and she does not have cell phone service at her house. She does have a cell phone but unfortunately will have difficulty receiving her messages at home. I once again expressed my concerns regarding her visit tonight, her social constraints, and strongly recommended admission, she understands but continues to decline. She is grateful for the care this evening but reports that she would like to be home over the weekend and has a lot to digest mentally. She does understand that her likely diagnosis is that of a large cancerous tumor in her abdomen which will require surgery and oncology follow-up. I also placed her on the care management list with a detailed list of her unfortunate social circumstances so that they know it may be difficult to reach her and how important outpatient follow-up will be whether it be through our facility and our surgical team or [facility] and their oncology team. Standard discharge and return precautions were provided. Patient understands, is agreeable to this plan, and has no additional questions or concerns upon discharge. This documentation was generated using [employer] system, please disregard any oddities of phrase or misspellings. Medical Records Medical records reviewed: Yes I reviewed the patient's medical records. Imaging Data Radiologic Study: Attestation: I personally reviewed and interpreted this imaging study as follows: Imaging: CT Scan Radiologist's impression: PROCEDURE INFORMATION: Exam: CT Chest With Contrast; Diagnostic Exam date and time: 12/07/2022 18:02 Age: 52 years old Clinical indication: Abdominal pain; Patient HX: Abd pain, cough, wbc 36.89 TECHNIQUE: Imaging protocol: Diagnostic computed tomography of the chest with contrast. 3D rendering (Not supervised by radiologist): MIP and/or 3D reconstructed images were created by the technologist. COMPARISON: CR XR CHEST 2V PA LATERAL 07/16/2020 15:09 FINDINGS: Lungs: Dnnp-[id number] pulmonary emphysema. Subcentimeter nodules most pron ounced right upper lobe. Somewhat irregular lesion associated with emphysema right upper lobe measuring up to 2 cm in diameter. These findings are indeterminate given findings in the abdomen and pelvis Followup as per institutional protocol. No airspace consolidation. Pleural spaces: No pneumothorax. No pleural effusion. Heart: No cardiomegaly. No pericardial effusion. Lymph nodes: Prominent distal paratracheal lymph node. Follow-up as per institutional protocol. Vasculature: No aortic aneurysm. Bones/joints: No acute fracture. Soft tissues: No suspicious lesions. IMPRESSION: 1. No acute findings. No source of infection is seen in the thorax. 2. Non urgent findings as above PROCEDURE INFORMATION: Exam: CT Abdomen And Pelvis With Contrast Exam date and time: 12/07/2022 18:02 Age: 52 years old Clinical indication: Abdominal pain; Patient HX: Abd pain, cough, wbc 36.89 TECHNIQUE: Imaging protocol: Computed tomography of the abdomen and pelvis with contrast. 3D rendering (Not supervised by radiologist): MIP and/or 3D reconstructed images were created by the technologist. COMPARISON: CR ABDOMEN 2 VIEW FLAT,LATERAL 05/15/2016 08:18 FINDINGS: Liver: Faint subtle h ypervascularity subcapsular right liver which appears not definitely masslike. The liver is slightly heterogeneous and likely somewhat fatty. Hepatomegaly. Gallbladder and bile ducts: No calcified stones. No ductal dilation. Pancreas: No ductal dilation. No masses. Spleen: Splenomegaly. No focal splenic lesions. Adrenal glands: No mass. Kidneys and ureters: No renal masses or hydronephrosis bilaterally. Stomach and bowel: 8 x 7 x 8 cm centrally necrotic appearing expansile lesion right lower quadrant, appearing to communicate with small bowel lumen, peripheral enhancement, mild surrounding edema, irregular wall thickening. No small bowel obstruction. No colitis or diverticular disease. Appendix: No evidence of appendicitis. Intraperitoneal space: Small free fluid in the pelvic cul-de-sac. Vasculature: Atherosclerosis. No aortic aneurysm. Lymph nodes: No significantly enlarged lymph nodes. Urinary bladder: Unremarkable as visualized. Reproductive: Hysterectomy. Bones/joints: No acute fracture. Soft tissues: Tiny fat-containing umbilical hernia. IMPRESSION: 1. 8 x 7 x 8 cm centrally necrotic appearing expansile lesion right lower quadrant, appearing to communicate with small bowel lumen; most concerning for either adenocarcinoma or lymphoma 2. Small free fluid in the pelvic cul-de-sac. 3. Additional findings as described. Lab Data Lab results reviewed: Yes I reviewed the patient's lab results. Labs: 12/07/22 17:26 Urine - Reflex from Ua Urine Culture - Pending Laboratory Tests Range/Units 12/07/22 12/07/22 12/07/22 16:50 16:50 17:26 WBC (4.4-10.8) 10^3/uL 36.89 H* RBC (3.93-5.22) 10^6/uL 4.09 Hgb (11.2-15.7) g/dL 9.8 L Hct (36.0-46.0) % 31.6 L MCV (80-95) fL 77 L MCH (27.0-33.0) pg 24.0 L MCHC (32.0-36.0) % 31.0 L RDW (11.7-14.6) % 15.9 H Plt Count (130-400) 10^3/uL 381 MPV (8.0-11.0) fL 9.9 Immature Gran % 0.0 Neutrophils % 55.0 Band Neutrophils % 8 Lymphocytes % 16.0 Monocytes % 6.0 Eosinophils % 15.0 Basophils % 0.0 Nucleated RBC % (0.0-0.3) % 0.0 Absolute Neutrophils (1.2-6.7) 10^3/uL 23.24 H Absolute Lymphocytes (1.2-3.4) 10^3/uL 5.90 H Absolute Monocytes (0.1-0.8) 10^3/uL 2.21 H Absolute Eosinophils (0.0-0.7) 10^3/uL 5.53 H Absolute Basophils (0.0-0.2) 10^3/uL 0.00 RBC Morphology See Below Polychromasia Present Hypochromasia 1+ Poikilocytosis 1+ Microcytosis 1+ VBG Lactate (0.6-1.4) mmol/L Sodium (136-145) mmol/L 128 L Potassium (3.5-5.1) mmol/L 4.5 Chloride (98-107) mmol/L 94 L Carbon Dioxide (21.0-32.0) mmol/L 25.5 Anion Gap (3-11) mmol/L 8.5 BUN (7-18) mg/dL 7 Creatinine (0.55-1.02) mg/dL 0.6 Est GFR (CKD-EPI 2020) (mL/min/1.73m2) 107.26 Glucose (74-106) mg/dL 104 Calcium (8.5-10.1) mg/dL 8.6 Magnesium (1.8-2.4) mg/dL 2.0 Total Bilirubin (0.2-1.0) mg/dL 0.6 AST (15-37) U/L 32 ALT (14-59) U/L 21 Alkaline Phosphatase (46-116) U/L 148 H Troponin I (<or=60) ng/L < 50 Total Protein (6.4-8.2) g/dL 7.3 Albumin (3.4-5.0) g/dL 2.5 L Urine Color (Yellow) Yellow Urine Clarity (Clear) Sl Cloudy Urine pH (5-8) 6.0 Ur Specific Marion (1.005-1.025) 1.020 Urine Protein (Negative) mg/dL 30 H Urine Ketones (Negative) mg/dL Negative Urine Blood (Negative) Negative Urine Nitrite (Negative) Negative Urine Bilirubin (Negative) Small H Urine Urobilinogen (Up TO 0.2) EU/dL >=8.0 Ur Leukocyte Esterase (Negative) Moderate H Urine RBC (0-2) HPF 0-2 Urine WBC (0-5) HPF 10-20 H Ur Epithelial Cells (Negative) HPF Few Urine Crystals (Negative) HPF Negative Urine Bacteria (Negative) HPF Moderate Urine Casts (Negative) LPF Negative Urine Mucus (Negative) Negative Ur Culture Indicated? Yes Urine Glucose (Negative) mg/dL 100 COVID-19 Source SARS-CoV-2 (PCR) (Negative) Influenza Type A (PCR) (Negative) Influenza Type B (PCR) (Negative) RSV (PCR) (Negative) Range/Units 12/07/22 12/07/22 17:27 17:30 WBC (4.4-10.8) 10^3/uL RBC (3.93-5.22) 10^6/uL Hgb (11.2-15.7) g/dL Hct (36.0-46.0) % MCV (80-95) fL MCH (27.0-33.0) pg MCHC (32.0-36.0) % RDW (11.7-14.6) % Plt Count (130-400) 10^3/uL MPV (8.0-11.0) fL Immature Gran % Neutrophils % Band Neutrophils % Lymphocytes % Monocytes % Eosinophils % Basophils % Nucleated RBC % (0.0-0.3) % Absolute Neutrophils (1.2-6.7) 10^3/uL Absolute Lymphocytes (1.2-3.4) 10^3/uL Absolute Monocytes (0.1-0.8) 10^3/uL Absolute Eosinophils (0.0-0.7) 10^3/uL Absolute Basophils (0.0-0.2) 10^3/uL RBC Morphology Polychromasia Hypochromasia Poikilocytosis Microcytosis VBG Lactate (0.6-1.4) mmol/L 0.9 Sodium (136-145) mmol/L Potassium (3.5-5.1) mmol/L Chloride (98-107) mmol/L Carbon Dioxide (21.0-32.0) mmol/L Anion Gap (3-11) mmol/L BUN (7-18) mg/dL Creatinine (0.55-1.02) mg/dL Est GFR (CKD-EPI 2020) (mL/min/1.73m2) Glucose (74-106) mg/dL Calcium (8.5-10.1) mg/dL Magnesium (1.8-2.4) mg/dL Total Bilirubin (0.2-1.0) mg/dL AST (15-37) U/L ALT (14-59) U/L Alkaline Phosphatase (46-116) U/L Troponin I (<or=60) ng/L Total Protein (6.4-8.2) g/dL Albumin (3.4-5.0) g/dL Urine Color (Yellow) Urine Clarity (Clear) Urine pH (5-8) Ur Specific Marion (1.005-1.025) Urine Protein (Negative) mg/dL Urine Ketones (Negative) mg/dL Urine Blood (Negative) Urine Nitrite (Negative) Urine Bilirubin (Negative) Urine Urobilinogen (Up TO 0.2) EU/dL Ur Leukocyte Esterase (Negative) Urine RBC (0-2) HPF Urine WBC (0-5) HPF Ur Epithelial Cells (Negative) HPF Urine Crystals (Negative) HPF Urine Bacteria (Negative) HPF Urine Casts (Negative) LPF Urine Mucus (Negative) Ur Culture Indicated? Urine Glucose (Negative) mg/dL COVID-19 Source Nasopharynx SARS-CoV-2 (PCR) (Negative) Negative Influenza Type A (PCR) (Negative) Negative Influenza Type B (PCR) (Negative) Negative RSV (PCR) (Negative) Negative ECG Data Attestation: I personally reviewed and interpreted this ECG (s) as follows: Interpretation: Sinus rhythm, ventricular rate of 81, no STEMI. HPI General Mode of arrival: ambulatory . Date/Time Provider Initiated Documentation: 12/07/22 16:27 . Limitations to Documentation: no limitations . Information obtained by: patient . HPI Narrative: This is a 52-year-old female, current smoker, past medical history of COPD, CT, chronic pain, presented to the ER reporting that 3 weeks ago she ate beef, it did not sit well with her, she developed some abdominal pain as well as diarrhea. She states that the pain has been intermittent associate with some nausea but no vomiting. She has been drinking plenty of fluids but has had decreased solid intake. Reports that about a week ago her diarrhea turned into constipation, she thought about taking a stool softener and/or fiber but has not. She also reports intermittent chest pain for the past week or so, nothing really makes it worse or better, it switches sides from the left to the right, no chest pain now. When present is a dull ache. Patient reports external hemorrhoid, has not tried any [id number] medication for the symptoms. She states that prior to all of these episodes she contacted her PCP regarding her concern for abdominal wall hernia, was supposed visit up for a CT but this has not happened yet. Currently her only complaint is mild nausea and a 4 out of 10 central abdominal pain, aching in nature. She denies recent trauma, fever, shortness of breath, worsening cough than baseline, vomiting, dysuria, black tarry stools or bright red blood in her stools. She reports this morning she attempted to eat pork and Uzbek fries. Related Data Home Medications Medication Instructions Recorded Confirmed Protonix 40 mg granules 40 mg PO HS 01/31/13 12/07/22 delayed-release packet (pantoprazole) Flovent Diskus 50 mcg/actuation 50 mcg inhalation PRN 02/28/13 12/07/22 powder for inhalation (fluticasone propionate) gabapentin 100 mg capsule 100 mg PO HS 02/13/18 12/07/22 aspirin 81 mg tablet,delayed 81 mg PO DAILY 10/07/18 12/07/22 release albuterol sulfate 90 mcg/actuation 2 puff inhalation PRN PRN 12/15/19 12/07/22 aerosol inhaler (ProAir HFA) ondansetron 4 mg oral soluble film 4 mg PO Q8H PRN nausea and 12/17/19 02/19/20 vomiting #12 ea acetaminophen 500 mg capsule 1,000 mg PO Q8H PRN pain #90 caps 02/10/20 12/07/22 docusate sodium 50 mg capsule 50 mg PO BID #20 caps 12/07/22 (Stool Softener) hydrocortisone 2.5 % topical cream 1 applic SC BID-QID PRN #30 grams 12/07/22 with perineal applicator (Anusol-HC) nitrofurantoin 100 mg PO Q12H 5 days #10 caps 12/07/22 monohydrate/macrocrystals 100 mg capsule (Macrobid) Previous Rx's Medication Instructions Recorded ondansetron 4 mg oral soluble film 4 mg PO Q8H PRN nausea and 12/17/19 vomiting #12 ea acetaminophen 500 mg capsule 1,000 mg PO Q8H PRN pain #90 caps 02/10/20 docusate sodium 50 mg capsule 50 mg PO BID #20 caps 12/07/22 (Stool Softener) hydrocortisone 2.5 % topical cream 1 applic SC BID-QID PRN #30 grams 12/07/22 with perineal applicator (Anusol-HC) nitrofurantoin 100 mg PO Q12H 5 days #10 caps 12/07/22 monohydrate/macrocrystals 100 mg capsule (Macrobid) Allergies Allergy/AdvReac Type Severity Reaction Status Date / Time ibuprofen Allergy Intermediate Swelling/Ed Unverified 02/19/20 08:03 mily ketorolac tromethamine Allergy Mild Hives Unverified 02/19/20 08:03 [From Toradol] latex Allergy Mild Skin Rash Unverified 02/19/20 08:03 tramadol Allergy Hives Unverified 02/19/20 08:03 adhesive AdvReac Mild Skin Rash Unverified 02/19/20 08:03 PLASTIC TAPE Allergy Intermediate Skin Rash, Uncoded 02/19/20 08:03 BLISTERS General Stated Complaint: Abd Prob LIZETTE: 3 Review of Systems Constitutional Constitutional: Denies fever(s) Cardiovascular Cardiovascular: Reports chest pain and Denies dyspnea Respiratory Respiratory: Reports cough and Denies dyspnea Gastrointestinal Gastrointestinal: Reports abdominal pain, Denies melena, Denies hematochezia, Reports diarrhea, Reports loose stools and Reports vomiting Genitourinary Genitourinary: Denies dysuria Musculoskeletal Musculoskeletal: Reports back pain (Chronic) Integumentary/Breasts Skin/Breast: Denies rash Hematologic/Lymphatic Hematologic/Lymphatic: Denies easy bleeding and Denies easy bruising PFSH All Active Problems Abdominal mass, right lower quadrant (Acute) UTI (urinary tract infection) (Acute) Hyponatremia (Acute) Hemorrhoids (Acute) Carpal tunnel syndrome of right wrist (Acute) Abscess of groin, right (Acute 11/03/15) s/p surgical resection by Dr Douglas. Pt says she is having recurrent abscesses in tract, [place] [facility] [place] concern for nerve involvement but pt went to [facility] instead and was put on abx and told her infections were Pt extremely disappointed. Cervical disc disease (Acute 11/03/15) MR showed cervical involvement Status post carpal tunnel release of both wrists (Acute) Mass of right hand (Acute) Status post trigger finger release (Acute) DOS: 11/20/18 Right ring finger Carpal tunnel syndrome, left (Acute) S/P ECTR 12/16/2019 S/P OCTR 02/10/2020 De Quervain's tenosynovitis, left (Acute) S/P release 12/16/2019 Medical History COPD (chronic obstructive pulmonary disease) GERD (gastroesophageal reflux disease) Hydradenitis right groin Inclusion cyst Lupus CT (myocardial infarction) 2015- pt. states she F/U with PCP once a month Surgical History Abdominal hysterectomy (~2009) Angiogram History of carpal tunnel release History of shoulder surgery Left rotator cuff. Incision & Drainage, Abscess or Hematoma Social History Smoking/Tobacco Use Status: Current every day Tobacco Type: cigarettes Smoking risk assessment performed?: Yes Alcohol Intake: never Drug use: Never Substance use type: does not use Current gender identity: female Do you feel safe at home: Yes Do you feel safe in your relationship?: Yes Additional Social history: Not in a relationship Exam Const General: cooperative, healthy appearing, comfortable, no acute distress and other (Appears older than stated age) Orientation: alert and awake HENMT Head: normal to inspection, normocephalic and atraumatic Face and sinus: normal facial exam Mouth: moist mucous membranes Eyes General: appearance normal, both eyes and all related structures Conjunctivae: conjunctivae normal Neck Neck: normal visual inspection, full ROM, no meningeal signs, trachea midline and supple Resp Effort & Inspection: normal respiratory effort, able to speak in complete sentences and cough (dry,mild) Auscultation: diminished lung sounds bilaterally in the lower lung coyle Cardio Rate: regular rate Rhythm: regular rhythm GI Palpation: soft, not firm, no guarding, no pulsatile masses and tender (Diffuse, mild) not at McBurney's point, Chowdhury's sign negative and with no rebound tenderness Rectal Exam - female: hemorrhoids (2 external, tender, nonthrombosed) Back/Spine/Pelvis Back: back tenderness (Diffuse, mild lumbar) Skin General skin exam: no rashes or lesions noted Neuro General: patient alert, patient awake, moves all extremities and no focal motor deficits Cognition: normal cognition Speech: speech normal Gait: normal gait Sensory Exam: no sensory deficits noted Extrem General: normal to inspection, full ROM and capillary refill normal Psych Appearance: grossly normal Mental Status: mental status grossly normal Course Vital Signs Vital signs: Vital Signs Temperature 37.3 C 12/07/22 16:43 Pulse 89 12/07/22 16:43 Respiratory Rate 16 12/07/22 16:43 Blood Pressure 107/47 L 12/07/22 16:43 Pulse Oximetry 96 12/07/22 16:43 Temperature 37.3 C 12/07/22 16:43 Temperature Source Oral 12/07/22 16:43 Pulse 89 12/07/22 16:43 Respiratory Rate 16 12/07/22 16:43 Blood Pressure 107/47 L 12/07/22 16:43 Pulse Oximetry 96 12/07/22 16:43 Oxygen Delivery Method Room Air 12/07/22 16:43 Oxygen Flow Rate 0 12/07/22 16:43
[2022-12-07 17:15] LABS: Abs Immature Grans 1.26 10^3/uL (0.0-0.06); HCT 31.6 % (36.0-46.0); HGB 9.8 g/dL (11.2-15.7); MCV 77 fL (80-95); MPV 9.9 fL (8.0-11.0); Platelet Count 381 10^3/uL (130-400); RBC 4.09 10^6/uL (3.93-5.22); RDW 15.9 % (11.7-14.6); RDW-SD 44.4 fL
--- NOTE | 2022-12-07 17:15 | DI.CT_ITS ---
Exam(s) CT CHEST/ABD/PEL W EXAM: CT CHEST/ABD/PEL W CLINICAL HISTORY: abd pain, cough, wbc 36.89 TECHNIQUE: Imaging Protocol: Axial computed tomography images with coronal and sagittal reformatted images were created and reviewed CONTRAST MATERIAL: Intravenous: Omnipaque 350 contrast volume:100 mL Oral: No COMPARISON: None for comparison. FINDINGS: CHEST: Tracheobronchial tree: Patent where visualized. Pulmonary parenchyma: Moderately severe emphysematous changes in the lungs. There is a 0.5 cm noncal cified nodule in the right upper lobe. There is a 2 cm irregular density in the central right upper lobe. Visualized thyroid gland: Unremarkable. Mediastinum and Yee: No dominant adenopathy or fluid collection. The esophagus is unremarkable. Pleura: No effusion or pneumothorax. Heart: The heart is not dilated. Mild coronary artery calcification is present. No pericardial effus ion. Pulmonary arteries: Bolus timing was suboptimal for pulmonary arterial evaluation for embolic disease . No large central pulmonary embolus is seen. Aorta: Thoracic aorta non-dilated. Mild atherosclerosis. Lymph nodes: Within normal limits. Soft tissues: Unremarkable. Bones:Within normal limits for the patient's age. ABDOMEN: Liver: The liver measures 21.8 cm long. No measurable mass. Portal, Superior Mesenteric, and Splenic Veins: Unremarkable. Gallbladder and Biliary Tract: No radiodense calculus or dilation. Pancreas: Normal density, no abnormal calcifications or inflammatory process. Spleen: The spleen measures 13.7 cm. Adrenals: No masses seen. Kidneys: Normal size, contour and axis. No radiodense stones or obstructive uropathy. There is a simp le 0.9 cm cyst in the right kidney. Abdominal Aorta: Abdominal portion non-dilated. Atherosclerosis. Bowel: There is an 8.4 x 7.2 x 8.6 cm necrotic appearing mass in the small bowel mass in the right lo wer quadrant. There is no obstruction. There is infiltration in the surrounding soft tissues. No e vidence of appendicitis. Peritoneal Cavity: There is a trace amount of free fluid in the pelvis. No free air. Lymph Nodes: Within normal limits. Bones: Within normal limits for the patient's age. Soft Tissues: Unremarkable. PELVIS: Bladder: Symmetric distention, no gross wall thickening. Reproductive Organs: The patient is status post hysterectomy. Lymph Nodes: Within normal limits. Bones: Within normal limits. IMPRESSION: 1. 8.4 x 7.2 x 8.6 cm in a conduct appearing mass in the small bowel in the right lower quadrant. Th e findings suspicious for neoplasm such as an and no carcinoma or lymphoma. 2. Irregular 2 cm density in the right upper lobe of the lung. While this may reflect chronic change s for root secondary to the patient's COPD, given the findings in the abdomen metastatic disease or n eoplasm should be considered. 3. 5 mm right upper lobe noncalcified pulmonary nodule. 4. Small amount of abdominal ascites. RADIATION DOSE DELIVERED: 1,320.68mGy.cm Total DLP DATA REPOSITORY: All CT scans at this facility are submitted to the National Radiology Data Registry (NRDR) Dose Index Registry (DIR) with the [employer] (ACR). RADIATION OPTIMIZATION: All CT scans at this facility use at least one of these dose optimization te chniques: automated exposure control; mA and/or kV adjustment per patient size (includes targeted exa ms where dose is matched to clinical indication); or iterative reconstruction.
[2022-12-07 17:21] LABS: WBC 36.89 10^3/uL (4.4-10.8)
[2022-12-07 17:34] LABS: Lactate 0.9 mmol/L (0.6-1.4)
[2022-12-07] MEDS: Ondansetron 4 MG/2 ML VIAL IVP (17:35)
[2022-12-07] MEDS: Normal Saline 1,000 ML 1000 ML IV (17:35)
[2022-12-07 17:36] LABS: Absolute Eosinophil Count 5.53 10^3/uL (0.0-0.7); Absolute Monocyte Count 2.21 10^3/uL (0.1-0.8); Absolute Neutrophil Count 23.24 10^3/uL (1.2-6.7); Bands % 8; Diff Comment Manual Differential; Hypochromasia 1+; Microcytosis 1+; Polychromasia Present
[2022-12-07 17:37] LABS: Poikilocytes 1+
[2022-12-07 17:39] LABS: ALT 21 U/L (14-59); AST 32 U/L (15-37); Albumin 2.5 g/dL (3.4-5.0); Alkaline Phosphatase 148 U/L (46-116); Anion Gap 8.5 mmol/L (3-11); BUN 7 mg/dL (7-18); Bilirubin, Total 0.6 mg/dL (0.2-1.0); CO2 25.5 mmol/L (21.0-32.0); CREATININE 0.6 mg/dL (0.55-1.02); Calcium 8.6 mg/dL (8.5-10.1); Chloride 94 mmol/L (98-107); Estimated GFR 107.26 (mL/min/1.73m2); Glucose 104 mg/dL (74-106); Potassium 4.5 mmol/L (3.5-5.1); Sodium 128 mmol/L (136-145); Total Protein 7.3 g/dL (6.4-8.2); Troponin I < 50 ng/L (<or=60)
[2022-12-07 17:43] LABS: Bilirubin Small (Negative); Blood Negative (Negative); Clarity Sl Cloudy (Clear); Glucose 100 mg/dL (Negative); Ketones Negative (Negative); Leukocyte Esterase Moderate (Negative); Nitrite Negative (Negative); Urobilinogen >=8.0 EU/dL (Up TO 0.2)
[2022-12-07 17:53] LABS: Bacteria Moderate HPF (Negative); C & S Indicated? Yes; Casts Negative LPF (Negative); Crystals Negative HPF (Negative); Epithelial Cells Few HPF (Negative); Mucus Negative (Negative); RBC 0-2 HPF (0-2)
[2022-12-07] MEDS: Omnipaque 350 MG/ML 100 ML BTL IJ (17:56)
[2022-12-07] MEDS: Normal Saline - Diluent 50 ML VIAL IJ (17:57)
[2022-12-07 18:14] LABS: COVID-19 PCR Negative (Negative); Influenza A PCR Negative (Negative); Influenza B PCR Negative (Negative); RSV PCR Negative (Negative)
[2022-12-07 18:30] LABS: Source Nasopharynx
[2022-12-07 18:51] VITALS: BP 108/47; PULSE 86; RESP 16; O2SAT 95
--- NOTE | 2022-12-07 19:11 | DI.VRAD_ITS ---
PROCEDURE INFORMATION: Exam: CT Chest With Contrast; Diagnostic Exam date and time: 12/07/2022 18:02 Age: 52 years old Clinical indication: Abdominal pain; Patient HX: Abd pain, cough, wbc 36.89 TECHNIQUE: Imaging protocol: Diagnostic computed tomography of the chest with contrast. 3D rendering (Not supervised by radiologist): MIP and/or 3D reconstructed images were created by the technologist. COMPARISON: CR XR CHEST 2V PA LATERAL 07/16/2020 15:09 FINDINGS: Lungs: [id number] pulmonary emphysema. Subcentimeter nodules most pronounced right upper lobe. Somewhat irregular lesion associated with emphysema right upper lobe measuring up to 2 cm in diameter. These findings are indeterminate given findings in the abdomen and pelvis Follow-up as per institutional protocol. No airspace consolidation. Pleural spaces: No pneumothorax. No pleural effusion. Heart: No cardiomegaly. No pericardial effusion. Lymph nodes: Prominent distal paratracheal lymph node. Follow-up as per institutional protocol. Vasculature: No aortic aneurysm. Bones/joints: No acute fracture. Soft tissues: No suspicious lesions. IMPRESSION: 1. No acute findings. No source of infection is seen in the thorax. 2. Non urgent findings as above PROCEDURE INFORMATION: Exam: CT Abdomen And Pelvis With Contrast Exam date and time: 12/07/2022 18:02 Age: 52 years old Clinical indication: Abdominal pain; Patient HX: Abd pain, cough, wbc 36.89 TECHNIQUE: Imaging protocol: Computed tomography of the abdomen and pelvis with contrast. 3D rendering (Not supervised by radiologist): MIP and/or 3D reconstructed images were created by the technologist. COMPARISON: CR ABDOMEN 2 VIEW FLAT,LATERAL 05/15/2016 08:18 FINDINGS: Liver: Faint subtle hypervascularity subcapsular right liver which appears not definitely masslike. The liver is slightly heterogeneous and likely somewhat fatty. Hepatomegaly. Gallbladder and bile ducts: No calcified stones. No ductal dilation. Pancreas: No ductal dilation. No masses. Spleen: Splenomegaly. No focal splenic lesions. Adrenal glands: No mass. Kidneys and ureters: No renal masses or hydronephrosis bilaterally. Stomach and bowel: 8 x 7 x 8 cm centrally necrotic appearing expansile lesion right lower quadrant, appearing to communicate with small bowel lumen, peripheral enhancement, mild surrounding edema, irregular wall thickening. No small bowel obstruction. No colitis or diverticular disease. Appendix: No evidence of appendicitis. Intraperitoneal space: Small free fluid in the pelvic cul-de-sac. Vasculature: Atherosclerosis. No aortic aneurysm. Lymph nodes: No significantly enlarged lymph nodes. Urinary bladder: Unremarkable as visualized. Reproductive: Hysterectomy. Bones/joints: No acute fracture. Soft tissues: Tiny fat-containing umbilical hernia. IMPRESSION: 1. 8 x 7 x 8 cm centrally necrotic appearing expansile lesion right lower quadrant, appearing to communicate with small bowel lumen; most concerning for either adenocarcinoma or lymphoma 2. Small free fluid in the pelvic cul-de-sac. 3. Additional findings as described. Dictated and Authenticated by: Amira Shields MD. Ordering:LINDA Olvera MD
[2022-12-07] MEDS: MacroBID 100 MG CAP PO (20:47)
== END 2022-12-07 20:55 | disposition home or self-care (01) ==
PROVIDERS: Emergency Provider Physician Assistant; PCP Nurse Practitioner
DX: N39.0 Urinary tract infection, site not specified (principal); E87.1 Hypo-osmolality and hyponatremia; K64.9 Unspecified hemorrhoids; J44.9 Chronic obstructive pulmonary disease, unspecified; I25.2 Old myocardial infarction; R19.03 Right lower quadrant abdominal swelling, mass and lump; D72.829 Elevated white blood cell count, unspecified; F17.210 Nicotine dependence, cigarettes, uncomplicated; Z53.29 Procedure and treatment not carried out because of patient's decision for other reasons; Z79.82 Long term (current) use of aspirin; Z20.822 Contact with and (suspected) exposure to COVID-19; Z79.51 Long term (current) use of inhaled steroids
CPT/HCPCS: 36415; 74177; 80053; 87637; 93005; 96361; 96374; 99285; 71260; 81003; 81015; 83605; 83735; 84484; 85025; 87086; 93010; 99284; J2405; J3490

== ENCOUNTER 2022-12-15 18:42 | Inpatient (IN) | payer MEDICAID, SELFPAY ==
[2022-12-15] VITALS (60 sets, daily range): BP systolic 70–118; BP diastolic 22–69; PULSE 64–82; RESP 9–31; TEMP 37.3; O2SAT 94–99
--- NOTE | 2022-12-15 18:45 | RT.EKG_ITS ---
APPROVED REPORT Exam: Resting ECG Reason for Exam: Chest pain Patient Location: E HR:79 bpm ECG Measurements Heart Rate 79 AXIS NJ 122 P 84 QRSd 85 QRS 2 QT 363 T 75 QTc 415 Conclusion Sinus rhythm...normal P axis, V-rate 60- 99 Anteroseptal infarct, old...Q >40mS, V1-V2 Normal [place] There are no significant changes compared to prior EKG performed on 12/07/2022 at 16:55.
--- NOTE | 2022-12-15 18:56 | ED.GENADUL_ITS ---
Discharge Plan Disposition Patient Disposition: Admit to [facility] Condition: Fair Discharge Details Clinical Impression: Atypical chest pain, Abdominal mass, right lower quadrant Primary Care Provider: Rani Turner ED Provider: Shaun Alfaro [place] and New Rx's Prescriptions: No Action aspirin 81 mg tablet,delayed release (DR/EC) 81 mg PO DAILY pantoprazole [Protonix] [address] for susp in packet 40 mg PO HS Flovent Diskus 50 MCG blister with device 50 mcg Inhalation PRN ondansetron 4 mg film 4 mg PO Q8H PRN (Reason: nausea and vomiting) Qty: 12 0RF albuterol sulfate [ProAir HFA] 90 mcg/actuation Hfa Aerosol Inhaler 2 puff INHALATION PRN PRN acetaminophen 500 mg capsule 1,000 mg PO Q8H PRN (Reason: pain) Qty: 90 0RF gabapentin 100 MG capsule 100 mg PO HS Stool Softener 50 mg capsule 50 mg PO BID Qty: 20 0RF hydrocortisone [Anusol-HC] 2.5 % cream with perineal applicator 1 applic TN BID-QID PRNQty: 30 0RF Medical Decision Making Patient presenting with chest pain that is worse when lying down with associated shortness of breath. Recently diagnosed with an abdominal mass and has follow- up with surgery Sunday of next week. Continues to have abdominal pain which is unchanged. She has constipation at this point no diarrhea. Left lower extremity does look a little swollen compared to the right but there is no calf tenderness. Given the possibility of this abdominal mass being cancer and she now having chest pain or shortness of breath will obtain CTA of the chest rule out PE. Her EKG is sinus rhythm with no acute ST changes and no significant change from previous done earlier this month. Laboratory studies obtained. Fluids started. Patient's white count remains elevated now at 38 thousand, hemoglobin stable at 9.5. Kidney function is normal. Sodium improved to 131. Liver function is nor mal. Troponin is elevated at 230. It was normal on the . CTA is negative for pulmonary embolus. Patient states that her chest pain and shortness of breath are worse when she is lying down. Neither is worse with activity. She feels best sitting up. She reports a history of a small LA in the past but in reviewing her primary care notes dating back to 2009 there is no record of LA just COPD, GERD, lupus, hyperlipidemia. Planning a repeat EKG and troponin at 3 hours. Will discuss with cardiology at [facility]. Discussed with cardiology at [facility]. Agrees that this does not sound like ACS given the positional change and lack of worsening symptoms with activity. Requested sed rate and CRP to be added on as it sounds more like pericarditis/myopericarditis. BNP added on as well thought doesn't seem like CHF. A repeat EKG does not look different than earlier tonight. The repeat troponin is pending. Discussed with hospitalist, patient to be admitted to [facility] for further monitoring, trending of enzymes, possible echo. Medical Records Medical records reviewed: Yes I reviewed the patient's medical records. Lab Data Lab results reviewed: Yes I reviewed the patient's lab results. ECG Data Attestation: I personally reviewed and interpreted this ECG (s) as follows: Prior ECG tracings: available for review Interpretation: see EKG HPI General Mode of arrival: EMS . Date/Time Provider Initiated Documentation: 12/15/22 18:56 . Limitations to Documentation: no limitations . Information obtained by: patient . HPI Narrative: Patient presents to ED with complaint of chest pain and shortness of breath. Patient reports episodes of intermittent chest pain for few weeks. For the last 2 days she has had persistent/constant chest pain. She describes it as sharp and pain like. It is worse if she lies down. She develops shortness of breath if she lies down. She denies fever or URI symptoms. She has a chronic unchanged cough. She continues to have abdominal pain after an ED visit here earlier this month which discovered a mass in the right abdomen. She has an appointment to be seen by Dr. Sandhu on Sunday. She denies any leg pain but thinks her left leg is swollen compared to the right. Related Data Home Medications Medication Instructions Recorded Confirmed Protonix 40 mg granules 40 mg PO HS 01/31/13 12/15/22 delayed-release packet (pantoprazole) Flovent Diskus 50 mcg/actuation 50 mcg inhalation PRN 02/28/13 12/15/22 powder for inhalation (fluticasone propionate) gabapentin 100 mg capsule 100 mg PO HS 02/13/18 12/15/22 aspirin 81 mg tablet,delayed 81 mg PO DAILY 10/07/18 12/15/22 release albuterol sulfate 90 mcg/actuation 2 puff inhalation PRN PRN 12/15/19 12/15/22 aerosol inhaler (ProAir HFA) ondansetron 4 mg oral soluble film 4 mg PO Q8H PRN nausea and 12/17/19 12/15/22 vomiting #12 ea acetaminophen 500 mg capsule 1,000 mg PO Q8H PRN pain #90 caps 02/10/20 12/15/22 docusate sodium 50 mg capsule 50 mg PO BID #20 caps 12/07/22 12/15/22 (Stool Softener) hydrocortisone 2.5 % topical cream 1 applic TN BID-QID PRN #30 grams 12/07/22 12/15/22 with perineal applicator (Anusol-HC) Previous Rx's Medication Instructions Recorded ondansetron 4 mg oral soluble film 4 mg PO Q8H PRN nausea and 12/17/19 vomiting #12 ea acetaminophen 500 mg capsule 1,000 mg PO Q8H PRN pain #90 caps 02/10/20 docusate sodium 50 mg capsule 50 mg PO BID #20 caps 12/07/22 (Stool Softener) hydrocortisone 2.5 % topical cream 1 applic TN BID-QID PRN #30 grams 12/07/22 with perineal applicator (Anusol-HC) Allergies Allergy/AdvReac Type Severity Reaction Status Date / Time ibuprofen Allergy Intermediate Swelling/Ed Unverified 12/15/22 18:51 mily ketorolac tromethamine Allergy Mild Hives Unverified 12/15/22 18:51 [From Toradol] latex Allergy Mild Skin Rash Unverified 12/15/22 18:51 tramadol Allergy Hives Unverified 12/15/22 18:51 adhesive AdvReac Mild Skin Rash Unverified 12/15/22 18:51 PLASTIC TAPE Allergy Intermediate Skin Rash, Uncoded 12/15/22 18:51 BLISTERS General Stated Complaint: Chest Pain LIZETTE: 2 Review of Systems Narrative: Per HPI PFSH All Active Problems Abdominal mass, right lower quadrant (Acute) UTI (urinary tract infection) (Acute) Hyponatremia (Acute) Hemorrhoids (Acute) Atypical chest pain (Acute) Carpal tunnel syndrome of right wrist (Acute) Abscess of groin, right (Acute 11/03/15) s/p surgical resection by Dr Douglas. Pt says she is having recurrent abscesses in tract, referred to [facility] Neurology as concern for nerve involvement but pt went to [facility] instead and was put on abx and told her infections were Pt extremely disappointed. Cervical disc disease (Acute 11/03/15) MR showed cervical involvement Status post carpal tunnel release of both wrists (Acute) Mass of right hand (Acute) Status post trigger finger release (Acute) DOS: 11/20/18 Right ring finger Carpal tunnel syndrome, left (Acute) S/P ECTR 12/16/2019 S/P OCTR 02/10/2020 De Quervain's tenosynovitis, left (Acute) S/P release 12/16/2019 Medical History COPD (chronic obstructive pulmonary disease) GERD (gastroesophageal reflux disease) Hydradenitis right groin Inclusion cyst Lupus LA (myocardial infarction) 2015- pt. states she F/U with PCP once a month Surgical History Abdominal hysterectomy (~2009) Angiogram History of carpal tunnel release History of shoulder surgery Left rotator cuff. Incision & Drainage, Abscess or Hematoma Social History Smoking/Tobacco Use Status: Current every day Tobacco Type: cigarettes Smoking risk assessment performed?: Yes Alcohol Intake: never Drug use: Never Substance use type: does not use Current gender identity: female Do you feel safe at home: Yes Do you feel safe in your relationship?: Yes Additional Social history: Not in a relationship Exam Narrative Exam Narrative: Const: WDWN female in NAD. HEENT: NC/AT. Normal facial exam. Eyes: Normal conjunctiva and sclera. Neck: Supple. Trachea midline. Lungs: Normal respiratory effort. Lungs are clear. Cor: RRR without murmur/gallop. Good radial pulses. GI: Soft and ND. No focal tenderness. Neuro: A+O x 3. Normal speech, mentation, gait. Cranial nerves II - XII grossly intact. No gross motor or sensory deficit. Ext: No C/C/E. LLE does appear a little larger then right. Skin: Warm and dry without rash. Course Vital Signs Vital signs: Vital Signs Temperature 99.2 F 12/15/22 18:47 Pulse 80 12/15/22 18:47 Respiratory Rate 18 12/15/22 18:47 Blood Pressure 118/49 L 12/15/22 18:47 Pulse Oximetry 96 12/15/22 18:47 Temperature 99.2 F 12/15/22 18:47 Temperature Source Temporal Artery Scan 12/15/22 18:47 Pulse 80 12/15/22 18:47 Respiratory Rate 18 12/15/22 18:47 Respiratory Effort 12/15/22 18:47 Blood Pressure 118/49 L 12/15/22 18:47 Blood Pressure Position Supine 12/15/22 18:47 Pulse Oximetry 96 12/15/22 18:47 Oxygen Delivery Method Room Air 12/15/22 18:47 Oxygen Flow Rate 0 12/15/22 18:47 Pain Level 8 12/15/22 18:47
--- NOTE | 2022-12-15 19:00 | DI.CT_ITS ---
Exam(s) CT CHEST PE CTA EXAM: CT CHEST PE CTA CLINICAL HISTORY: CP/SOB. TECHNIQUE: Imaging Protocol: CT angiography of the chest was performed using pulmonary embolus cortney col. Multi planar reconstructions were performed. CONTRAST MATERIAL: Intravenous: Omnipaque 350 Contrast volume: 100 cc COMPARISON: CR XR CHEST 2V PA LATERAL from 07/16/[address] CHEST/ABD/PEL W from 12/07/2022 FINDINGS: LUNGS: Again noted are COPD emphysematous changes. The previously described nodule on nodular infilt rates in the right upper lobe are unchanged from 12/07/2022, as is a pleural based nodular density in the lateral right lung base anterior basal segment. There are no significant focal left lung findin gs. There is a tiny unilateral right pleural effusion. MEDIASTINUM: There is no hilar nor mediastinal adenopathy. Visualized thyroid unremarkable. CARDIAC: Heart size is upper normal. There is no pericardial effusion.Caliber of the thoracic aorta is within normal limits. No dissection. There is no significant shift of the interventricular septum . PARTIALLY VISUALIZED UPPERMOST ABDOMEN: No obvious findings OSSEOUS: No significant osseous lesions.. IMPRESSION: 1. No evidence of acute pulmonary emboli. No evidence of pulmonary infarction.Trace right pleural ef fusion. 2. There is a 6 millimeter nodule in the right upper lobe and to nearby nodular infiltrates which are unchanged from the recent study of 12/07/2022. Requires close follow-up to rule out neoplasm.. 3. No intrathoracic adenopathy evident. RADIATION DOSE DELIVERED: 243.6mGy.cm Total DLP DATA REPOSITORY: All CT scans at this facility are submitted to the National Radiology Data Registry (NRDR) Dose Index Registry (DIR) with the [employer] (ACR). RADIATION OPTIMIZATION: All CT scans at this facility use at least one of these dose optimization te chniques: automated exposure control; mA and/or kV adjustment per patient size (includes targeted exa ms where dose is matched to clinical indication); or iterative reconstruction.
[2022-12-15] MEDS: Normal Saline 500 ML IV ×2 (19:26→20:37)
[2022-12-15 19:27] LABS: Abs Immature Grans 0.81 10^3/uL (0.0-0.06); HCT 30.5 % (36.0-46.0); HGB 9.5 g/dL (11.2-15.7); MCH 24.4 pg (27.0-33.0); MCHC 31.1 % (32.0-36.0); MCV 78 fL (80-95); MPV 9.5 fL (8.0-11.0); Platelet Count 367 10^3/uL (130-400); RDW 16.4 % (11.7-14.6); RDW-SD 46.2 fL
[2022-12-15 19:46] LABS: ALT 14 U/L (14-59); AST 11 U/L (15-37); Albumin 2.4 g/dL (3.4-5.0); Alkaline Phosphatase 110 U/L (46-116); Anion Gap 9.4 mmol/L (3-11); BUN 9 mg/dL (7-18); Bilirubin, Total 0.4 mg/dL (0.2-1.0); CO2 25.6 mmol/L (21.0-32.0); CREATININE 0.6 mg/dL (0.55-1.02); Calcium 8.8 mg/dL (8.5-10.1); Chloride 96 mmol/L (98-107); Estimated GFR 107.26 (mL/min/1.73m2); Glucose 121 mg/dL (74-106); Potassium 3.8 mmol/L (3.5-5.1); Sodium 131 mmol/L (136-145)
[2022-12-15 19:47] LABS: Troponin I 230 ng/L (<or=60)
[2022-12-15 19:53] LABS: WBC 38.34 10^3/uL (4.4-10.8)
[2022-12-15 19:54] LABS: Absolute Eosinophil Count 8.43 10^3/uL (0.0-0.7); Absolute Lymphocyte Count 1.92 10^3/uL (1.2-3.4); Absolute Monocyte Count 1.92 10^3/uL (0.1-0.8); Absolute Neutrophil Count 26.07 10^3/uL (1.2-6.7); Bands % 2
[2022-12-15 19:55] LABS: Diff Comment Manual Differential; Polychromasia Present
[2022-12-15] MEDS: Omnipaque 350 MG/ML 100 ML BTL IJ (20:08)
--- NOTE | 2022-12-15 20:55 | DI.VRAD_ITS ---
PROCEDURE INFORMATION: Exam: CTA Chest With Contrast Exam date and time: 12/15/2022 8:02 PM Age: 52 years old Clinical indication: Other: Cp/ SOB TECHNIQUE: Imaging protocol: Computed tomographic angiography of the chest with contrast. 3D rendering (Not supervised by radiologist): MIP and/or 3D reconstructed images were created by the technologist. Radiation optimization: All CT scans at this facility use at least one of these dose optimization techniques: automated exposure control; mA and/or kV adjustment per patient size (includes targeted exams where dose is matched to clinical indication); or iterative reconstruction. Contrast material: 350; Contrast volume: 100 ml; Contrast route: INTRAVENOUS (IV); COMPARISON: CT CHEST/ABD/PEL W 12/07/2022 6:02 PM FINDINGS: Pulmonary arteries: No evidence of pulmonary embolism. Aorta: Normal thoracic aorta without aneurysm or dissection. Lungs: Emphysema. Stable nodule in the right upper lobe measuring 3 mm. Probable scarring in the right apex. Pleural spaces: Interval development of a trace right pleural effusion. No pneumothorax. Heart: Unremarkable. No cardiomegaly. No pericardial effusion. Lymph nodes: Unremarkable. No enlarged lymph nodes. Bones/joints: No acute fracture. Soft tissues: Unremarkable. IMPRESSION: 1. No evidence of pulmonary embolism. 2. Trace right pleural effusion. Dictated and Authenticated by: Moses Oneill MD. Ordering:DIANA Dunn MD
[2022-12-15] MEDS: Acetaminophen 500 MG TAB 1000 MG PO (21:10)
--- NOTE | 2022-12-15 22:15 | RT.EKG_ITS ---
APPROVED REPORT Exam: Resting ECG Reason for Exam: Patient Location: E HR:72 bpm ECG Measurements Heart Rate 72 AXIS [place] 129 P 80 QRSd 86 QRS 6 QT 391 T 80 QTc 429 Conclusion Sinus rhythm...normal P axis, V-rate 60- 99 ST elev, probable normal early repol pattern...ST elevation, age<55 Sinus at 72. Normal Intervals Normal [place] No acute ST changes and no significant changes compared to earlier tonight.
[2022-12-15 22:48] LABS: ESR 80 mm/hr (0-30)
[2022-12-15] MEDS: Aspirin 325 MG TAB 650 MG PO (23:03)
[2022-12-15 23:14] LABS: C-Reactive Protein 14.72 mg/dL (0.0-0.3); NT-proBNP 6767 pg/mL (<300)
[2022-12-15 23:20] LABS: Troponin I 238 ng/L (<or=60)
--- NOTE | 2022-12-15 23:23 | HPE_ITS ---
Date of service: 12/15/22 Time of Service: 23:23 Assessment and Plan Assessment and plan (1) Atypical chest pain: Start date: 12/15/22 Status: Acute Assessment and plan: This is a 52-year-old lady with recent diagnosis of abdominal mass and possible lymphoma who has had a 2 to 3-day history of positional chest pain. With her elevated inflammatory test it was thought she has probable pericarditis and was initiated on treatment per [facility] cardiology recommendations. She will be on 650 mg of aspirin 3 times daily for the initial treatment and then wean down to twice daily and then once daily with colchicine 0.6 mg. Troponins were slightly elevated and will be trended. This was thought to be secondary to the inflammatory process and not primary ischemia with the patient has a history of myocardial infarction which is not well documented. She is a vague historian. As an outpatient she will need follow-up with cardiology and echocardiogram. Pain management with morphine low-dose IV upon admission to get the patient comfortable while the aspirin is initiated. She is agitated and easily angered and appears to be coping poorly. She is a smoker. She is a full code. (2) Acute myopericarditis: Start date: 12/15/22 Status: Acute Assessment and plan: This is most likely cause of the patient's atypical chest pain and will be treated with aspirin and colchicine as described under atypical chest pain. She will need follow-up imaging and cardiology. (3) Leukocytosis (leucocytosis): Start date: 12/07/22 Status: Acute Assessment and plan: Markedly elevated WBC above 30,000 with abdominal mass which is suspicious for lymphoma. There is no evidence of acute infection at this time but procalcitonin could be entertained though the patient has no fever or other symptoms of infection. Hematology oncology consultation should be sought. (4) Abdominal mass, right lower quadrant: Start date: 12/08/22 Status: Acute Assessment and plan: Symptomatic with patient having problem moving her bowels and feeling bloated. She is not having eleno bowel obstruction. Surgical follow-up as planned. Diagnostic biopsies and consideration of lymphoma as discussed. If this is not lymphoma there is evidence of possible metastatic disease with findings on CT of the chest. (5) Hyponatremia: Start date: 12/15/22 Status: Acute Assessment and plan: Gentle IV hydration with normal saline with the patient having an elevated BNP which may be secondary to more right heart strain with lung disease. Echocardiogram will be helpful. Hyponatremia is mild and may also be secondary to tumor process. Consider free water restriction. (6) COPD (chronic obstructive pulmonary disease): Assessment and plan: Continue outpatient inhaler therapy. Patient continues to smoke tobacco. (7) GERD (gastroesophageal reflux disease): Assessment and plan: Continue PPI especially with higher dose aspirin initially. History of Present Illness History of Present Illness Chief Complaint: Positional chest pain with abdominal mass Narrative: This is a 52-year-old female patient who presented to the ED 7 days ago with abdominal pain and change in bowel habits being evaluated with CT of the abdomen chest and pelvis which revealed a right lower quadrant abdominal mass which appears to be in the small intestine and a question of lymphoma. There also was a mass in the lungs which was thought to be possible metastatic with a small nodule and outpatient evaluation was scheduled with surgery to see her next week. She returned to the ED with chest pain and shortness of breath which was worse with position of lying down. This is been worsening over the last 2 to 3 days. She has had a persistent cough and chest discomfort which is global and not focal without radiation. It is sharp in nature. She has not had any fever or upper respiratory symptoms other than her usual smokers COPD with the patient smoked about 1/2 pack a day. She was asking to go outside and smoke whenever I saw her in the ED. She was very agitated and easily angered when trying to speak over the loud air compressor in the room but also when being examined she seemed to be overactive to her discomfort such as with gentle touching of the stomach she screamed out in pain. She claims that her abdomen has been tender and uncomfortable because she cannot pass her bowels completely though she does have loose stools intermittently and small amounts of stool. She also is hungry but cannot eat. Her abdominal mass appears to be causing most of the symptoms over the last weeks. She has had no eleno obstruction noted. She is just beginning to be seen by a local PCP who does not know her well and has not completely reviewed her record for treatment of her lupus which she is not being treated for at this time. In the ED the patient did have a CTA of the chest which did not reveal any pulmonary embolus and did not comment on pericardial effusion but did mention pleural effusion. Labs showed markedly elevated inflammatory test with CRP and ESR elevated as well as WBC at 38,000 which may be more secondary to her abdominal mass and possible lymphoma. Her EKG was interpreted as no acute ST-T changes but J-point elevations noted. Troponins were elevated but flat with repeat measurement and this will be trended. She has slight low sodium which may be secondary to her abdominal and lung processes with masses. The sodium is still above 130. Patient BNP is elevated but she did not have any weight gain or peripheral edema though she mentioned she thought 1 leg was larger than the other to the ED physician. She is a vague historian. The ED physician did discuss the case with [facility] cardiology who recommended treating for pericarditis/myopericarditis with her elevated CRP and sed rate as well as her positional discomfort and sharp pain. This would be include aspirin 650 mg 3 times a day initially with colchicine 0.6 mg daily and then to wean to 650 mg twice daily and then once daily over the next several weeks. Patient on how the patient responds and how her troponins trend, we discussion with cardiology at [facility] would be appropriate. Patient is agreeable with staying on observation to trend lab and initiate therapy. She is a full code. Review of Systems Narrative: 13 point review of systems otherwise unrevealing or stable. PFSH All Active Problems Leukocytosis (leucocytosis) (Acute) Acute myopericarditis (Acute) Abdominal mass, right lower quadrant (Acute) UTI (urinary tract infection) (Acute) Hyponatremia (Acute) Hemorrhoids (Acute) Atypical chest pain (Acute) Carpal tunnel syndrome of right wrist (Acute) Abscess of groin, right (Acute 11/03/15) s/p surgical resection by Dr Douglas. Pt says she is having recurrent abscesses in tract, referred to [facility] Neurology as concern for nerve involvement but pt went to [facility] instead and was put on abx and told her infections were Pt extremely disappointed. Cervical disc disease (Acute 11/03/15) MR showed cervical involvement Status post carpal tunnel release of both wrists (Acute) Mass of right hand (Acute) Status post trigger finger release (Acute) DOS: 11/20/18 Right ring finger Carpal tunnel syndrome, left (Acute) S/P ECTR 12/16/2019 S/P OCTR 02/10/2020 De Quervain's tenosynovitis, left (Acute) S/P release 12/16/2019 Medical History COPD (chronic obstructive pulmonary disease) GERD (gastroesophageal reflux disease) Hydradenitis right groin Inclusion cyst Lupus [place] (myocardial infarction) 2015- pt. states she F/U with PCP once a month Surgical History Abdominal hysterectomy (~2009) Angiogram History of carpal tunnel release History of shoulder surgery Left rotator cuff. Incision & Drainage, Abscess or Hematoma Social History Smoking/Tobacco Use Status: Current every day Tobacco Type: cigarettes Smoking risk assessment performed?: Yes Alcohol Intake: never Drug use: Never Substance use type: does not use Current gender identity: female Do you feel safe at home: Yes Do you feel safe in your relationship?: Yes Additional Social history: Not in a relationship Meds Allergies and Home Medications Allergies Allergy/AdvReac Type Severity Reaction Status Date / Time ibuprofen Allergy Intermediate Swelling/Ed Unverified 12/15/22 18:51 mily ketorolac tromethamine Allergy Mild Hives Unverified 12/15/22 18:51 [From Toradol] latex Allergy Mild Skin Rash Unverified 12/15/22 18:51 tramadol Allergy Hives Unverified 12/15/22 18:51 adhesive AdvReac Mild Skin Rash Unverified 12/15/22 18:51 PLASTIC TAPE Allergy Intermediate Skin Rash, Uncoded 12/15/22 18:51 BLISTERS Home Medications Medication Instructions Recorded Confirmed Type Protonix 40 mg granules 40 mg PO HS 01/31/13 12/15/22 History delayed-release packet (pantoprazole) Flovent Diskus 50 mcg/actuation 50 mcg inhalation PRN 02/28/13 12/15/22 History powder for inhalation (fluticasone propionate) gabapentin 100 mg capsule 100 mg PO HS 02/13/18 12/15/22 History aspirin 81 mg tablet,delayed 81 mg PO DAILY 10/07/18 12/15/22 History release albuterol sulfate 90 mcg/actuation 2 puff inhalation PRN PRN 12/15/19 12/15/22 History aerosol inhaler (ProAir HFA) ondansetron 4 mg oral soluble film 4 mg PO Q8H PRN nausea and 12/17/19 12/15/22 Rx vomiting #12 ea acetaminophen 500 mg capsule 1,000 mg PO Q8H PRN pain #90 caps 02/10/20 12/15/22 Rx docusate sodium 50 mg capsule 50 mg PO BID #20 caps 12/07/22 12/15/22 Rx (Stool Softener) hydrocortisone 2.5 % topical cream 1 applic TX BID-QID PRN #30 grams 12/07/22 12/15/22 Rx with perineal applicator (Anusol-HC) Exam Narrative Exam Narrative: General: Patient appears older than stated age, easily agitated with flattened affect and labile mood be coming angry at times and cursing. She is cooperative intermittently. She is alert and oriented to person, place and time. She is not moderate distress not being able to lie flat because of her symptoms. HEENT: Normocephalic, eyes with pupils equal and reactive to light symmetrically, extraocular movement tact and sclera anicteric. Oropharynx with dry mucosa. Neck: Supple without JVD. Back: Stooped posture without CVA tenderness. Lungs: Poor aeration with slightly increased expiratory phase but no expiratory wheeze noted and no focal inspiratory rales or rhonchi. Breast: Exam deferred. Heart: Regular rate and rhythm with no appreciable murmur, rubs or gallop. Abdomen: Protuberant and soft but very tender to any attempt to palpation. Bowel sounds are markedly decreased in all quadrants. Patient did not allow exam for palpable masses or to palpate the spleen and liver. Genitalia: Exam deferred. Extremity: Without clubbing, cyanosis or pitting edema. Patient does have olecranon swelling in the right more than left olecranon process without erythema or increased warmth to touch. No joint swelling or synovitis the findings. Skin: Pale, warm and dry. Rough texture with slightly decreased turgor. Neuro: Cranial nerves II to XII gross intact, no focalizing motor deficits. No tremor. Psych: Agitated and flattened affect with labile affect becoming easily agitated and angry with discussion as well as when attempting exam. No abnormal thought processes. Remote and recent memory appear to be grossly intact. Results Imaging Imaging Studies: Exam: CTA Chest With Contrast Exam date and time: 12/15/2022 8:02 PM Age: 52 years old Clinical indication: Other: Cp/ SOB TECHNIQUE: Imaging protocol: Computed tomographic angiography of the chest with contrast. 3D rendering (Not supervised by radiologist): MIP and/or 3D reconstructed images were created by the technologist. Radiation optimization: All CT scans at this facility use at least one of these dose optimization techniques: automated exposure control; mA and/or kV adjustment per patient size (includes targeted exams where dose is matched to clinical indication); or iterative reconstruction. Contrast material: 350; Contrast volume: 100 ml; Contrast route: INTRAVENOUS (IV);? COMPARISON: CT CHEST/ABD/PEL W 12/07/2022 6:02 PM FINDINGS: Pulmonary arteries: No evidence of pulmonary embolism. Aorta: Normal thoracic aorta without aneurysm or dissection. Lungs: Emphysema. Stable nodule in the right upper lobe measuring 3 mm. Probable scarring in the right apex. Pleural spaces: Interval development of a trace right pleural effusion. No pneumothorax. Heart: Unremarkable. No cardiomegaly. No pericardial effusion. Lymph nodes: Unremarkable. No enlarged lymph nodes. Bones/joints: No acute fracture. Soft tissues: Unremarkable. IMPRESSION: 1. No evidence of pulmonary embolism. 2. Trace right pleural effusion. CT CHEST/ABD/PEL W 12/08/2022 EXAM:? CT CHEST/ABD/PEL W CLINICAL HISTORY: ? abd pain, cough, wbc 36.89 ? TECHNIQUE:? Imaging Protocol: Axial computed tomography images with coronal and sagittal reformatted images were created and reviewed CONTRAST MATERIAL:? Intravenous: Omnipaque 350 contrast volume:100 mL Oral: No COMPARISON:? None for comparison.? FINDINGS: CHEST: Tracheobronchial tree: Patent where visualized. Pulmonary parenchyma: Moderately severe emphysematous changes in the lungs.? There is a 0.5 cm noncalcified nodule in the right upper lobe.? There is a 2 cm irregular density in the central right upper lobe. Visualized thyroid gland: Unremarkable. Mediastinum and Yee: No dominant adenopathy or fluid collection. The esophagus is unremarkable.? Pleura: No effusion or pneumothorax. Heart: The heart is not dilated. Mild coronary artery calcification is present.? No pericardial effusion. Pulmonary arteries: Bolus timing was suboptimal for pulmonary arterial evaluation for embolic disease.? No large central pulmonary embolus is seen.? Aorta: Thoracic aorta non-dilated. Mild atherosclerosis. Lymph nodes: Within normal limits. Soft tissues: Unremarkable.? Bones:Within normal limits for the patient's age.? ABDOMEN: Liver: The liver measures 21.8 cm long.? No measurable mass. Portal, Superior Mesenteric, and Splenic Veins: Unremarkable.? Gallbladder and Biliary Tract: No radiodense calculus or dilation. Pancreas: Normal density, no abnormal calcifications or inflammatory process. Spleen: The spleen measures 13.7 cm.? Adrenals: No masses seen. Kidneys: Normal size, contour and axis. No radiodense stones or obstructive uropathy. There is a simple 0.9 cm cyst in the right kidney.? Abdominal Aorta: Abdominal portion non-dilated. Atherosclerosis. Bowel: There is an 8.4 x 7.2 x 8.6 cm necrotic appearing mass in the small bowel mass in the right lower quadrant.? There is no obstruction.? There is infiltration in the surrounding soft tissues.? No evidence of appendicitis.? Peritoneal Cavity: There is a trace amount of free fluid in the pelvis.? No free air.? Lymph Nodes: Within normal limits. Bones: Within normal limits for the patient's age.? Soft Tissues: Unremarkable. PELVIS: Bladder: Symmetric distention, no gross wall thickening. Reproductive Organs: The patient is status post hysterectomy.? Lymph Nodes: Within normal limits. Bones: Within normal limits. IMPRESSION: 1. 8.4 x 7.2 x 8.6 cm in a conduct appearing mass in the small bowel in the right lower quadrant.? The findings suspicious for neoplasm such as an and no carcinoma or lymphoma. 2. Irregular 2 cm density in the right upper lobe of the lung.? While this may reflect chronic changes for root secondary to the patient's COPD, given the findings in the abdomen metastatic disease or neoplasm should be considered. 3. 5 mm right upper lobe noncalcified pulmonary nodule.? 4. Small amount of abdominal ascites.? Labs Result diagrams: 12/16/22 06:10 12/16/22 06:10 Labs: Laboratory Results - last 24 hr 12/15/22 12/15/22 12/15/22 19:18 19:18 19:18 WBC 38.34 H* RBC 3.90 L Hgb 9.5 L Hct 30.5 L MCV 78 L MCH 24.4 L MCHC 31.1 L RDW 16.4 H Plt Count 367 MPV 9.5 Immature Gran % 0.0 Neutrophils % 66.0 Band Neutrophils % 2 Lymphocytes % 5.0 Monocytes % 5.0 Eosinophils % 22.0 Basophils % 0.0 Nucleated RBC % 0.0 Absolute Neutrophils 26.07 H Absolute Lymphocytes 1.92 Absolute Monocytes 1.92 H Absolute Eosinophils 8.43 H Absolute Basophils 0.00 RBC Morphology See Below Polychromasia Present ESR 80 H Sodium 131 L Potassium 3.8 Chloride 96 L Carbon Dioxide 25.6 Anion Gap 9.4 BUN 9 Creatinine 0.6 Est GFR (CKD-EPI 2020) 107.26 Glucose 121 H Calcium 8.8 Magnesium 2.0 Total Bilirubin 0.4 AST 11 L ALT 14 Alkaline Phosphatase 110 Troponin I 230 H* C-Reactive Protein NT-Pro-B Natriuret Pep Total Protein 7.0 Albumin 2.4 L 12/15/22 12/15/22 22:31 22:31 WBC RBC Hgb Hct MCV MCH MCHC RDW Plt Count MPV Immature Gran % Neutrophils % Band Neutrophils % Lymphocytes % Monocytes % Eosinophils % Basophils % Nucleated RBC % Absolute Neutrophils Absolute Lymphocytes Absolute Monocytes Absolute Eosinophils Absolute Basophils RBC Morphology Polychromasia ESR Sodium Potassium Chloride Carbon Dioxide Anion Gap BUN Creatinine Est GFR (CKD-EPI 2020) Glucose Calcium Magnesium Total Bilirubin AST ALT Alkaline Phosphatase Troponin I 238 H* C-Reactive Protein 14.72 H NT-Pro-B Natriuret Pep 6767 H Total Protein Albumin Last Vital Signs Temp 37.3 C 12/15/22 18:47 Pulse 76 12/15/22 22:57 Resp 18 12/15/22 20:32 BP 91/36 L 12/15/22 22:57 Pulse Ox 98 12/15/22 22:34 Time Spent Time spent with Patient: >75 minutes Time was spent: preparing to see the patient(eg.review tests), obtaining and/or reviewing separately otained hiistory, ordering medications,tests, procedures, referring, communicating with other health family member caretaker, indepentently interpreting results and care coordination
[2022-12-16] VITALS (52 sets, daily range): BP systolic 73–115; BP diastolic 30–60; PULSE 65–87; RESP 13–30; TEMP 35.1–37.9; O2SAT 95–99
[2022-12-16 00:49] LABS: Source Nasal/Nares
[2022-12-16 01:22] LABS: COVID-19 PCR Negative (Negative)
[2022-12-16] MEDS: Normal Saline 1,000 ML 80 ML IV ×2 (01:38→14:25)
[2022-12-16] MEDS: Pantoprazole 40 MG TABCR PO ×2 (01:51→22:24)
[2022-12-16] MEDS: Gabapentin 100 MG CAP PO ×2 (01:52→22:24)
[2022-12-16] MEDS: MORPHine 2 MG/ML SYR IVP ×3 (03:59→23:44)
[2022-12-16 06:21] LABS: Abs Immature Grans 0.66 10^3/uL (0.0-0.06); Absolute Lymphocyte Count 2.68 10^3/uL (1.2-3.4); Basophils % 0.6; Eosinophils % 18.7; HCT 29.7 % (36.0-46.0); HGB 9.1 g/dL (11.2-15.7); MCHC 30.6 % (32.0-36.0); MCV 78 fL (80-95); MPV 9.6 fL (8.0-11.0); Monocytes % 5.5; Neutrophils % 65.2; Platelet Count 329 10^3/uL (130-400); RBC 3.79 10^6/uL (3.93-5.22); RDW 16.7 % (11.7-14.6); RDW-SD 47.8 fL
[2022-12-16 06:28] LABS: Absolute Eosinophil Count 6.28 10^3/uL (0.0-0.7); Absolute Monocyte Count 1.85 10^3/uL (0.1-0.8); Absolute Neutrophil Count 21.88 10^3/uL (1.2-6.7)
[2022-12-16 06:39] LABS: ALT 12 U/L (14-59); AST 9 U/L (15-37); Albumin 2.1 g/dL (3.4-5.0); Alkaline Phosphatase 99 U/L (46-116); Anion Gap 6.5 mmol/L (3-11); BUN 9 mg/dL (7-18); Bilirubin, Total 0.3 mg/dL (0.2-1.0); CO2 27.5 mmol/L (21.0-32.0); CREATININE 0.6 mg/dL (0.55-1.02); Calcium 8.4 mg/dL (8.5-10.1); Chloride 100 mmol/L (98-107); Estimated GFR 107.26 (mL/min/1.73m2); Glucose 109 mg/dL (74-106); Potassium 3.9 mmol/L (3.5-5.1); Sodium 134 mmol/L (136-145); Total Protein 6.3 g/dL (6.4-8.2)
[2022-12-16 06:42] LABS: Diff Comment Diff Reviewed; RBC Morphology Normal; WBC 33.56 10^3/uL (4.4-10.8)
[2022-12-16 06:44] LABS: Troponin I 232 ng/L (<or=60)
--- NOTE | 2022-12-16 08:30 | PDOC.CMIN ---
- If Service Date Differs Date of service: 12/16/22 Time of Service: 08:30 Care Management Initial Assess REASON FOR HOSPITALIZATION:: Atypical chest pain, abdominal mass with leukocytosis. PAST MEDICAL HISTORY/PAST SURGICAL HISTORY:: All Active Problems: Leukocytosis (leucocytosis) (Acute). Acute myopericarditis (Acute). Abdominal mass, right lower quadrant (Acute). UTI (urinary tract infection) (Acute). Hyponatremia (Acute). Hemorrhoids (Acute). Atypical chest pain (Acute). Carpal tunnel syndrome of right wrist (Acute). Abscess of groin, right (Acute 11/03/15) - s/p surgical resection by Dr Douglas. Pt says she is having recurrent abscesses in tract, referred to [facility] Neurology as concern for nerve involvement but pt went to [facility] instead and was put on abx and told her infections were. Pt extremely disappointed. Cervical disc disease (Acute 11/03/15) - MR showed cervical involvement. Status post carpal tunnel release of both wrists (Acute). Mass of right hand (Acute). Status post trigger finger release (Acute) - DOS: 11/20/18, Right ring finger. Carpal tunnel syndrome, left (Acute) - S/P ECTR 12/16/2019, S/P OCTR 02/10/2020. De Quervain's tenosynovitis, left (Acute) - S/P release 12/16/2019. Medical History: COPD (chronic obstructive pulmonary disease). GERD (gastroesophageal reflux disease). Hydradenitis - right groin. Inclusion cyst. Lupus. [place] (myocardial infarction) - 2015- pt. states she F/U with PCP once a month. Surgical History: Abdominal hysterectomy (~2009). Angiogram. History of carpal tunnel release. History of shoulder surgery - Left rotator cuff. Incision & Drainage, Abscess or Hematoma. PREVIOUS FUNCTIONAL STATUS/SOCIAL/FAMILY SUPPORTS:: Gunjan resides in [place], [place], with two adult sons and a dog. She states she has nine children and they are scattered throughout the country. Gunjan shares she has moved numerous times over the past year and recently received an eviction notice at her current place of residence. She is feeling overwhelmed and is unsure where she will move to next. will provide her with resources prior to discharge. CURRENT FUNCTIONAL STATUS:: Gunjan is lying in bed on her side when CM comes to meet with her. She states she is having a lot of chest pain and looks uncomfortable. Her nurse is notified and Gunjan is given morphine and baby aspirin. ADVANCE DIRECTIVES:: None on file. Has patient been provided with info about the portal/API?: Yes Did the patient sign up for the portal?: No CODE STATUS:: Full Code INSURANCE COVERAGE / FINANCIAL ISSUES:: Medicaid. CURRENT HOME/COMMUNITY SERVICES/EQUIPMENT:: No home services. Gunjan has a nebulizer but says it is in storage and she is unable to retrieve it because she does not have transportation. PRIMARY CARE PHYSICIAN:: KAIA Branch. POTENTIAL DISCHARGE NEEDS:: Follow up appointments with PCP, cardiology, and [facility] hematology oncology. PATIENT/FAMILY EDUCATION NEEDS:: Review of discharge instructions and discuss Ask Me Three. ANTICIPATED BARRIERS TO DISCHARGE:: None identified at this time. TRANSPORTATION:: Via RCT arranged by CM. PLAN:: Gunjan will discharge home with no services when medically cleared by provider. She will follow up with her PCP, cardiology, [facility] hematology oncology and plan of care as directed. She will be transported home via RCT arranged by CM when ready. CM will continue to support patient and any discharge planning needs.
[2022-12-16] MEDS: Acetaminophen 325 MG TAB PO ×2 (08:33→19:59)
[2022-12-16] MEDS: Aspirin 81 MG CHEW 648 MG CH ×2 (08:34→14:26)
[2022-12-16] MEDS: Enoxaparin 40 MG/0.4 ML SYR SC (08:36)
--- NOTE | 2022-12-16 16:15 | PGE_ITS ---
Date of Service Date of service: 12/16/22 Time of Service: 07:45 Assessment and Plan Assessment and plan (1) Atypical chest pain: Start date: 12/15/22 Status: Acute Assessment and plan: This is a 52-year-old lady with recent diagnosis of abdominal mass and possible lymphoma who has had a 2 to 3-day history of positional chest pain. With her elevated inflammatory test it was thought she has probable pericarditis and was initiated on treatment per [facility] cardiology recommendations. She was prescribed 650 mg of aspirin 3 times daily for the initial treatment and then wean down to twice daily and then once daily with colchicine 0.6 mg. However, pt is only accepting 81mg of aspirin daily and refuses colchicine; states she is allergic. Troponins were slightly elevated; peaked and then trended down. This was thought to be secondary to the inflammatory process and not primary ischemia. The patient has an history of myocardial infarction which is not well documented. She is a vague historian. As an outpatient she will need follow-up with cardiology. Echocardiogram ordered for Sunday. Pain management with morphine low-dose IV upon admission to get the patient comfortable while the aspirin is initiated. She was initially agitated and easily angered and appeared to be coping poorly. Today, her mood was more appropriate. (2) Acute myopericarditis: Start date: 12/15/22 Status: Acute Assessment and plan: This is most likely cause of the patient's atypical chest pain and will be treated with aspirin and colchicine as described under atypical chest pain. Again, she is refusing colchicine and only accepting 81mg aspirin daily. Echocardiogram ordered. (3) Leukocytosis (leucocytosis): Start date: 12/07/22 Status: Acute Assessment and plan: Markedly elevated WBC above 30,000 with abdominal mass which is suspicious for lymphoma. There is no evidence of acute infection at this time but procalcitonin could be entertained though the patient has no fever or other symptoms of infection. She has surgical appt with Dr Phoebe Chatterjee for evaluation and discussion of obtaining tissue sample. Hematology oncology consultation should be sought. (4) Abdominal mass, right lower quadrant: Start date: 12/08/22 Status: Acute Assessment and plan: Symptomatic with patient having problem moving her bowels and feeling bloated. Better today. No eleno bowel obstruction. Surgical follow-up as planned. Diagnostic biopsies and consideration of lymphoma as discussed. If this is not lymphoma there is evidence of possible metastatic disease with findings on CT of the chest. (5) Hyponatremia: Start date: 12/15/22 Status: Acute Assessment and plan: Gentle IV hydration with normal saline given initially; now d/c'd. + elevated BNP which may be secondary to more right heart strain with lung disease. Echocardiogram will be helpful. Hyponatremia is mild and may also be secondary to tumor process. Consider free water restriction. (6) COPD (chronic obstructive pulmonary disease): Assessment and plan: Continue outpatient inhaler therapy. Patient continues to smoke tobacco. She refused nicotine replacement tx. (7) GERD (gastroesophageal reflux disease): Assessment and plan: Continue PPI especially with higher dose aspirin initially. Subjective Subjective Patient reports: no new complaints, still having pain and afebrile; denies nausea, vomiting or shortness of breath Interval history since last seen: Mid chest to left lower chest discomfort if not sitting up. Exam Narrative Exam Narrative: General: Sitting upright in bed. Conversant. Lungs: Poor aeration with slightly increased expiratory phase but no expiratory wheeze noted and no focal inspiratory rales or rhonchi. Speaks in complete sentences. Heart: Regular rate and rhythm with no appreciable murmur, rubs or gallop. Chest: no tenderness with palpation/compression. Abdomen: Protuberant, soft, NT. Extremity: No pitting edema. No calf tenderness Neuro: No focal motor weakness. Speech normal. Psych: Alert and oriented. Affect appropriate. Objective Last Vital Signs Temp 37.9 C H 12/16/22 15:02 Pulse 67 12/16/22 16:05 Resp 22 12/16/22 15:02 BP 109/50 L 12/16/22 15:02 Pulse Ox 98 12/16/22 15:02 Laboratory Results - last 24 hr 12/15/22 12/15/22 12/15/22 19:18 19:18 19:18 WBC 38.34 H* RBC 3.90 L Hgb 9.5 L Hct 30.5 L MCV 78 L MCH 24.4 L MCHC 31.1 L RDW 16.4 H Plt Count 367 MPV 9.5 Immature Gran % 0.0 Neutrophils % 66.0 Band Neutrophils % 2 Lymphocytes % 5.0 Monocytes % 5.0 Eosinophils % 22.0 Basophils % 0.0 Nucleated RBC % 0.0 Absolute Neutrophils 26.07 H Absolute Lymphocytes 1.92 Absolute Monocytes 1.92 H Absolute Eosinophils 8.43 H Absolute Basophils 0.00 RBC Morphology See Below Polychromasia Present ESR 80 H Sodium 131 L Potassium 3.8 Chloride 96 L Carbon Dioxide 25.6 Anion Gap 9.4 BUN 9 Creatinine 0.6 Est GFR (CKD-EPI 2020) 107.26 Glucose 121 H Calcium 8.8 Magnesium 2.0 Total Bilirubin 0.4 AST 11 L ALT 14 Alkaline Phosphatase 110 Troponin I 230 H* C-Reactive Protein NT-Pro-B Natriuret Pep Total Protein 7.0 Albumin 2.4 L COVID-19 Source SARS-CoV-2 (PCR) 12/15/22 12/15/22 12/16/22 22:31 22:31 00:35 WBC RBC Hgb Hct MCV MCH MCHC RDW Plt Count MPV Immature Gran % Neutrophils % Band Neutrophils % Lymphocytes % Monocytes % Eosinophils % Basophils % Nucleated RBC % Absolute Neutrophils Absolute Lymphocytes Absolute Monocytes Absolute Eosinophils Absolute Basophils RBC Morphology Polychromasia ESR Sodium Potassium Chloride Carbon Dioxide Anion Gap BUN Creatinine Est GFR (CKD-EPI 2020) Glucose Calcium Magnesium Total Bilirubin AST ALT Alkaline Phosphatase Troponin I 238 H* C-Reactive Protein 14.72 H NT-Pro-B Natriuret Pep 6767 H Total Protein Albumin COVID-19 Source Nasal/Nares SARS-CoV-2 (PCR) Negative 12/16/22 12/16/22 12/16/22 06:10 06:10 06:10 WBC 33.56 H* RBC 3.79 L Hgb 9.1 L Hct 29.7 L MCV 78 L MCH 24.0 L MCHC 30.6 L RDW 16.7 H Plt Count 329 MPV 9.6 Immature Gran % 2.0 Neutrophils % 65.2 Band Neutrophils % Lymphocytes % 8.0 Monocytes % 5.5 Eosinophils % 18.7 Basophils % 0.6 Nucleated RBC % 0.0 Absolute Neutrophils 21.88 H Absolute Lymphocytes 2.68 Absolute Monocytes 1.85 H Absolute Eosinophils 6.28 H Absolute Basophils 0.20 RBC Morphology Normal Polychromasia ESR Sodium 134 L Potassium 3.9 Chloride 100 Carbon Dioxide 27.5 Anion Gap 6.5 BUN 9 Creatinine 0.6 Est GFR (CKD-EPI 2020) 107.26 Glucose 109 H Calcium 8.4 L Magnesium 2.0 Total Bilirubin 0.3 AST 9 L ALT 12 L Alkaline Phosphatase 99 Troponin I 232 H* C-Reactive Protein NT-Pro-B Natriuret Pep Total Protein 6.3 L Albumin 2.1 L COVID-19 Source SARS-CoV-2 (PCR) 12/16/22 06:10 WBC RBC Hgb Hct MCV MCH MCHC RDW Plt Count MPV Immature Gran % Neutrophils % Band Neutrophils % Lymphocytes % Monocytes % Eosinophils % Basophils % Nucleated RBC % Absolute Neutrophils Absolute Lymphocytes Absolute Monocytes Absolute Eosinophils Absolute Basophils RBC Morphology Polychromasia ESR Sodium Potassium Chloride Carbon Dioxide Anion Gap BUN Creatinine Est GFR (CKD-EPI 2020) Glucose Calcium Magnesium Total Bilirubin AST ALT Alkaline Phosphatase Troponin I C-Reactive Protein 14.70 H NT-Pro-B Natriuret Pep Total Protein Albumin COVID-19 Source SARS-CoV-2 (PCR) Time Spent with Patient Time Spent with Patient: 25-34 minutes Time was spent: preparing to see the patient(eg.review tests), ordering medications,tests, procedures, indepentently interpreting results and counseling the patient
[2022-12-16] MEDS: Normal Saline Flush 10 ML SYR IVP (19:59)
[2022-12-17 03:26] VITALS: BP 112/58; PULSE 86; RESP 17; TEMP 36.3; O2SAT 95
[2022-12-17] MEDS: Acetaminophen 325 MG TAB PO (05:02)
[2022-12-17 05:58] LABS: Abs Immature Grans 1.29 10^3/uL (0.0-0.06); HCT 26.2 % (36.0-46.0); HGB 8.1 g/dL (11.2-15.7); MCH 24.6 pg (27.0-33.0); MCHC 30.9 % (32.0-36.0); MCV 80 fL (80-95); MPV 9.9 fL (8.0-11.0); Platelet Count 385 10^3/uL (130-400); RBC 3.29 10^6/uL (3.93-5.22); RDW 16.7 % (11.7-14.6); RDW-SD 47.3 fL
[2022-12-17 06:01] LABS: ESR 55 mm/hr (0-30)
[2022-12-17 06:08] LABS: C-Reactive Protein 13.02 mg/dL (0.0-0.3)
[2022-12-17 06:17] LABS: WBC 30.73 10^3/uL (4.4-10.8)
[2022-12-17 06:25] LABS: Absolute Eosinophil Count 4.61 10^3/uL (0.0-0.7); Absolute Monocyte Count 0.92 10^3/uL (0.1-0.8); Absolute Neutrophil Count 20.59 10^3/uL (1.2-6.7); Bands % 2; Metamyelocytes % 1
[2022-12-17 06:26] LABS: Hypochromasia 1+; Poikilocytes 1+
[2022-12-17 07:00] VITALS: PULSE 96
[2022-12-17 07:19] VITALS: BP 142/70; PULSE 69; RESP 18; TEMP 37; O2SAT 98
--- NOTE | 2022-12-17 08:12 | NUR.NOTE ---
Nursing Note: Patient reporting active chest pain, per patient pain is sharp, radiates from left chest down the left side to abdomen, per patient pain improves with sitting up but does not completely resolve, nurse confirmed current rate and rhythm with ICU telemetry is 77 bmp, normal sinus, nurse will update provided
[2022-12-17] MEDS: Colchicine 0.6 MG TAB PO (08:26)
[2022-12-17] MEDS: Aspirin 81 MG CHEW PO (08:26)
[2022-12-17] MEDS: Pantoprazole 40 MG TABCR PO (08:30)
[2022-12-17] MEDS: predniSONE 20 MG TAB PO (08:32)
[2022-12-17 09:50] LABS: Troponin I 122 ng/L (<or=60)
[2022-12-17 11:10] VITALS: BP 118/40; PULSE 77; RESP 18; TEMP 37.6; O2SAT 95
[2022-12-17 11:14] VITALS: PULSE 89
--- NOTE | 2022-12-17 14:03 | W.PM.DS.N ---
Date of service: 12/17/22 Time of Service: 14:03 DS: Diagnosis Discharge Diagnosis (1) Atypical chest pain: Status: Acute (2) Acute myopericarditis: Status: Acute (3) Leukocytosis (leucocytosis): Status: Acute (4) Abdominal mass, right lower quadrant: Status: Acute (5) Hyponatremia: Status: Acute (6) COPD (chronic obstructive pulmonary disease): (7) GERD (gastroesophageal reflux disease): Discharge Plan Disposition Patient Disposition: Against Medical Advice Condition: Stable Discharge Details Reason For Visit: Atypical Chest Pain,Abdominal Mass w/Leukocytosis Admit Date/Time: 12/15/22 23:09 Admit Provider: Miguel Vásquez Attending Provider: Miguel Vásquez Primary Care Provider: Rani Turner Hospital Course Hospital Course: This is a 52-year-old female patient who presented to the ED 7 days ago with abdominal pain and change in bowel habits being evaluated with CT of the abdomen chest and pelvis which revealed a right lower quadrant abdominal mass which appears to be in the small intestine and a question of lymphoma.? There also was a mass in the lungs which was thought to be possible metastatic with a small nodule and outpatient evaluation was scheduled with surgery to see her next week.? She returned to the ED with chest pain and shortness of breath which was worse with position of lying down.? This is been worsening over the last 2 to 3 days.? She has had a persistent cough and chest discomfort which is global and not focal without radiation.? It is sharp in nature.? She has not had any fever or upper respiratory symptoms other than her usual smokers COPD with the patient smoked about 1/2 pack a day.? She was asking to go outside and smoke whenever I saw her in the ED.? She was very agitated and easily angered when trying to speak over the loud air compressor in the room but also when being examined she seemed to be overactive to her discomfort such as with gentle touching of the stomach she screamed out in pain.? She claims that her abdomen has been tender and uncomfortable because she cannot pass her bowels completely though she does have loose stools intermittently and small amounts of stool.? She also is hungry but cannot eat.? Her abdominal mass appears to be causing most of the symptoms over the last weeks.? She has had no eleno obstruction noted.? She is just beginning to be seen by a local PCP who does not know her well and has not completely reviewed her record for treatment of her lupus which she is not being treated for at this time. In the ED the patient did have a CTA of the chest which did not reveal any pulmonary embolus and did not comment on pericardial effusion but did mention pleural effusion.? Labs showed markedly elevated inflammatory test with CRP and ESR elevated as well as WBC at 38,000 which may be more secondary to her abdominal mass and possible lymphoma.? Her EKG was interpreted as no acute ST-T changes but J-point elevations noted.? Troponins were elevated but flat with repeat measurement and this will be trended.? She has slight low sodium which may be secondary to her abdominal and lung processes with masses.? The sodium is still above 130.? Patient BNP is elevated but she did not have any weight gain or peripheral edema though she mentioned she thought 1 leg was larger than the other to the ED physician.? She is a vague historian. The ED physician did discuss the case with [facility] cardiology who recommended treating for pericarditis/myopericarditis with her elevated CRP and sed rate as well as her positional discomfort and sharp pain.? This would be include aspirin 650 mg 3 times a day initially with colchicine 0.6 mg daily and then to wean to 650 mg twice daily and then once daily over the next several weeks.? Patient on how the patient responds and how her troponins trend, we discussion with cardiology at [facility] would be appropriate.? Patient was agreeable with staying on observation to trend lab and initiate therapy.? She is a full code.\ Pt refused to take aspirin 650mg TID except for one dose; agreed to only 81mg daily. She also endorsed N/V with colchicine in the past. Prednisone 20mg po daily then initiated. An echocardiogram was planned for Sunday, 12/18. Pt had initially agreed to this but then in the early afternoon of 12/17 she stated she was leaving. She was made aware that her leaving was against medical advice. Home Meds and New Rx's Prescriptions: No Action aspirin 81 mg tablet,delayed release (DR/EC) 81 mg PO DAILY pantoprazole [Protonix] [address] for susp in packet 40 mg PO HS Flovent Diskus 50 MCG blister with device 50 mcg Inhalation PRN ondansetron 4 mg film 4 mg PO Q8H PRN (Reason: nausea and vomiting) Qty: 12 0RF albuterol sulfate [ProAir HFA] 90 mcg/actuation Hfa Aerosol Inhaler 2 puff INHALATION PRN PRN acetaminophen 500 mg capsule 1,000 mg PO Q8H PRN (Reason: pain) Qty: 90 0RF gabapentin 100 MG capsule 100 mg PO HS Stool Softener 50 mg capsule 50 mg PO BID Qty: 20 0RF hydrocortisone [Anusol-HC] 2.5 % cream with perineal applicator 1 applic RI BID-QID PRNQty: 30 0RF Discharge Data Discharge Date/Time-TO BE ENTERED AT DEPARTURE: 12/17/22 13:16 DS: Summary Time Spent with Patient providing and/or coordinating discharge services: Less than 30 minutes Status at Discharge Functional status at discharge: independent ambulation Overall status at discharge: patient is not back to baseline Mental Status: mental status grossly normal Speech and Movement: speech and movement normal Mood: congruent mood Affect: normal affect Exam Psych Mental Status: mental status grossly normal Speech and Movement: speech and movement normal Mood: congruent mood Affect: normal affect DS: Data Vitals/I&O Vitals and I&O: Vital Signs Temperature 37.6 C H 12/17/22 11:10 Temperature Source Tympanic 12/17/22 11:10 Pulse 89 12/17/22 11:14 Pulse Rhythm Regular 12/17/22 08:15 Pulse 79 12/16/22 01:20 Respiratory Rate 18 12/17/22 11:10 Respiratory Effort 12/17/22 08:15 Respiratory Depth Normal 12/17/22 08:15 Respiratory Pattern Normal 12/17/22 08:15 Blood Pressure 118/40 L 12/17/22 11:10 Blood Pressure Mean 47 12/16/22 00:31 Blood Pressure Position Supine 12/15/22 18:47 Pulse Oximetry 95 12/17/22 11:10 Oxygen Delivery Method Room Air 12/17/22 11:10 Oxygen Flow Rate 0 12/17/22 11:10 Pain Level 8 12/17/22 11:10 Comment 12/16/22 03:41 Intake & Output 12/16/22 12/17/22 12/17/22 23:59 11:59 23:59 Intake Total 1997.333 / 7.333 240 / 600 360 / 600 Output Total 795 / 1295 600 / 600 Balance 1202.333 / 822.333 -360 / 0 360 / 0 Intake: IV 1217.333 / 1217.333 Oral 780 / 900 240 / 600 360 / 600 Output: Urine 795 / 1295 600 / 600 Other: Urine Color Dark Lola Light Lola Urine Appearance Clear Clear Urine Odor None Strong Stool Characteristics Soft Brown Voiding Methods Toilet Toilet Data Completed and Pending Labs on day of discharge: Labs from last 24 hours 12/17/22 12/17/22 12/17/22 09:05 05:19 05:19 WBC 30.73 H* RBC 3.29 L Hgb 8.1 L Hct 26.2 L MCV 80 MCH 24.6 L MCHC 30.9 L RDW 16.7 H Plt Count 385 MPV 9.9 Immature Gran % 0.0 Neutrophils % 65.0 Band Neutrophils % 2 Lymphocytes % 14.0 Monocytes % 3.0 Eosinophils % 15.0 Basophils % 0.0 Metamyelocytes % 1 Nucleated RBC % 0.0 Absolute Neutrophils 20.59 H Absolute Lymphocytes 4.30 H Absolute Monocytes 0.92 H Absolute Eosinophils 4.61 H Absolute Basophils 0.00 Hypochromasia 1+ Poikilocytosis 1+ ESR 55 H Troponin I 122 H* C-Reactive Protein 12/17/22 05:19 WBC RBC Hgb Hct MCV MCH MCHC RDW Plt Count MPV Immature Gran % Neutrophils % Band Neutrophils % Lymphocytes % Monocytes % Eosinophils % Basophils % Metamyelocytes % Nucleated RBC % Absolute Neutrophils Absolute Lymphocytes Absolute Monocytes Absolute Eosinophils Absolute Basophils Hypochromasia Poikilocytosis ESR Troponin I C-Reactive Protein 13.02 H PFSH All Active Problems Leukocytosis (leucocytosis) (Acute) Acute myopericarditis (Acute) Abdominal mass, right lower quadrant (Acute) UTI (urinary tract infection) (Acute) Hyponatremia (Acute) Hemorrhoids (Acute) Atypical chest pain (Acute) Carpal tunnel syndrome of right wrist (Acute) Abscess of groin, right (Acute 11/03/15) s/p surgical resection by Dr Douglas. Pt says she is having recurrent abscesses in tract, referred to [facility] Neurology as concern for nerve involvement but pt went to [facility] instead and was put on abx and told her infections were Pt extremely disappointed. Cervical disc disease (Acute 11/03/15) MR showed cervical involvement Status post carpal tunnel release of both wrists (Acute) Mass of right hand (Acute) Status post trigger finger release (Acute) DOS: 11/20/18 Right ring finger Carpal tunnel syndrome, left (Acute) S/P ECTR 12/16/2019 S/P OCTR 02/10/2020 De Quervain's tenosynovitis, left (Acute) S/P release 12/16/2019 Medical History COPD (chronic obstructive pulmonary disease) GERD (gastroesophageal reflux disease) Hydradenitis right groin Inclusion cyst Lupus [place] (myocardial infarction) 2015- pt. states she F/U with PCP once a month Surgical History Abdominal hysterectomy (~2009) Angiogram History of carpal tunnel release History of shoulder surgery Left rotator cuff. Incision & Drainage, Abscess or Hematoma Social History Smoking/Tobacco Use Status: Current every day Tobacco Type: cigarettes Smoking risk assessment performed?: Yes Alcohol Intake: never Drug use: Never Substance use type: does not use Current gender identity: female Do you feel safe at home: Yes Do you feel safe in your relationship?: Yes Additional Social history: Not in a relationship Time Spent with Patient Time Spent with Patient: <45 minutes Time was spent: other (Pt left AMA)
== END 2022-12-17 13:16 | disposition left against medical advice (07) | DRG 315 ==
LOC: ER 23:19 → MS 12-16 00:42
PROVIDERS: Family Medicine; Admitting Provider Family Medicine; Emergency Provider Emergency Medicine; PCP Nurse Practitioner; Visit Provider Family Medicine
DX: I30.9 Acute pericarditis, unspecified (principal); E87.1 Hypo-osmolality and hyponatremia; D72.829 Elevated white blood cell count, unspecified; J44.9 Chronic obstructive pulmonary disease, unspecified; K21.9 Gastro-esophageal reflux disease without esophagitis; R19.03 Right lower quadrant abdominal swelling, mass and lump; F17.210 Nicotine dependence, cigarettes, uncomplicated
CPT/HCPCS: 36415; 71275; 80053; 85652; 87635; 93005; 99285; J1650; 83735; 83880; 84484; 85025; 86140; 93010; 99223; 99233; 99238; J2270; J3490; J7512

== ENCOUNTER 2022-12-23 16:13 | Inpatient (IN) | payer MEDICAID, SELFPAY ==
[2022-12-23] VITALS (72 sets, daily range): BP systolic 64–127; BP diastolic 18–60; PULSE 79–111; RESP 15–37; TEMP 37.2; O2SAT 98
--- NOTE | 2022-12-23 16:15 | RT.EKG_ITS ---
APPROVED REPORT Exam: Resting ECG Reason for Exam: chest pain Patient Location: E HR:101 bpm ECG Measurements Heart Rate 101 AXIS AR 111 P 69 QRSd 80 QRS -16 QT 321 T 79 QTc 417 Conclusion Sinus tachycardia...rate> 99 Nonspecific T abnrm, anterolateral leads...T <-0.10mV, I aVL V2-V6
--- NOTE | 2022-12-23 16:45 | DI.RAD_ITS ---
Exam(s) XR PORTABLE CHEST AP EXAM: XR PORTABLE CHEST AP CLINICAL HISTORY: Chest Pain TECHNIQUE: 2D digital imaging was performed. COMPARISON: CT CT CHEST PE CTA from 12/15/2022 FINDINGS: Leads overlie the chest. LUNGS: Not well inflated but grossly clear. Emphysematous changes upper lobes. Mild fibrotic change s. No pleural abnormality seen. HEART: Normal size. AORTA: Normal diameter. BONES: Unremarkable for age. Soft tissues: Unremarkable. IMPRESSION: No acute findings. DATA REPOSITORY: RADIATION DOSE DELIVERED:
[2022-12-23 17:21] LABS: Bilirubin Negative (Negative); Blood Negative (Negative); Clarity Clear (Clear); Glucose Negative (Negative); Ketones Negative (Negative); Leukocyte Esterase Small (Negative); Nitrite Negative (Negative)
--- NOTE | 2022-12-23 17:24 | ED.GENADUL_ITS ---
Discharge Plan Discharge Details Chief Complaint: Chest Pain Primary Care Provider: KUN LI ED Provider: Kandice Glover Home Meds and New Rx's Prescriptions: No Action pantoprazole [Protonix] [address] for susp in packet 40 mg PO HS albuterol sulfate [ProAir HFA] 90 mcg/actuation Hfa Aerosol Inhaler 2 puff INHALATION PRN PRN acetaminophen 500 mg capsule 1,000 mg PO Q8H PRN (Reason: pain) Qty: 90 0RF gabapentin 100 MG capsule 100 mg PO HS hydrocortisone [Anusol-HC] 2.5 % cream with perineal applicator 1 applic OR BID-QID PRNQty: 30 0RF aspirin 325 mg Tablet 325 mg PO DAILY Medical Decision Making 52-year-old female presents to the ER with a chief complaint of chest and abdominal pain which has been ongoing for months. She was seen here recently and left AMA. She reports that she has had increased shortness of breath and worsening pain. She reports that her last bowel movement was 2 days ago. Past medical history includes COPD GERD lupus she is had an ID, status asthma. She did take 325 mg of aspirin p.o. today. She is not normally on oxygen. Attempted ultrasound peripheral IV in the left AC which was unsuccessful. staff interpreter actively attempting to get IV access and blood draw. EKG was reviewed by Dr. Carla RODRIGUEZ and myself ER attending, nonspecific T wave abnormality no STEMI. Old EKG available for review. Cardiac work-up ordered including chest x-ray. She did last have a CT of her chest on [address] abdomen pelvis on the . She was admitted to the hospital on the and discharged on the . She did see general surgery on the and received a referral to [facility] [place]. 1852: Patient drinking p.o. contrast for CT abdomen pelvis to rule out obstruction, blood cultures lactate ordered. Critical result received from lab that white blood cell count is 48, sodium is 133 potassium 3.3 chloride 96 magnesium is 1.7 alk phos is 184 initial troponin within normal limits. Urinalysis shows small leukocytes 10-20 WBCs culture is pending at this time. Lab is at bedside at this time. There was a delay getting the initial labs. lactate 1.9. 2101: [facility] [place] called to speak with Surgery or oncology regarding patient, images pushed, patient c/p pain, Morphine 2mg IV ordered. General surgery to call back. Morphine held. Due to blood pressure 100 systolic. 2133: Spoke with Dr. Christie with General Surgery at [facility] [place], Per record review at [facility] [place] a surgical oncologist to plan for colonoscopy and further eval prior to surgery. She does not recommend urgent or acute surgery at this time and recommends further eval as an outpatient. 2145: Hospitalist paged, patient's blood pressure is 94/42 via manual blood pressure. This is down from 100/37 prior to this. Patient is up sitting talking mentating well at this time. She refuses to lay down. She is getting normal saline at 150 an hour. She is not tachycardic. She is requesting some nikolai mayra. Gram of Tylenol IV was ordered. Spoke with Dr. Munoz who agrees to accept patient for admission. Will [place] stool, add on a BNP and repeat CBC due to hypotension. Repeat CBC shows white blood cell count of 50 H&H is now 7.[address] Munoz notified ER admission orders placed patient is alert and oriented at this time. Plan is to admit patient. This text was generated using [employer] system, please disregard any oddities of phrase or misspellings. Medical Records Medical records reviewed: Yes I reviewed the patient's medical records. Imaging Data Radiologic Study: Imaging: CT Scan Radiologist's impression: CT ABD Pelvis With PO Contrast: IMPRESSION: 1. No acute bowel obstruction evident. 2. Irregular dilated segment of distal small bowel which may represent distal jejunum. This dilated segment is 8.7 x 6.9 cm. This contains feculent appearing bowel contents. There is irregular wall thickening and nodularity. Possibility of a small bowel neoplasm can not be excluded. This could represent a process such as small bowel lymphoma. Recommend clinical correlation. There is no acute obstruction at this time. 3. Mildly enlarged retroperitoneal and elisabeth hepatic lymph nodes 4. Minor free fluid in the posterior pelvis with simple appearance. 5. Previous hysterectomy. 6. Benign-appearing bilateral renal cysts. 7. Mild splenomegaly. 8. Fatty liver change. 9. No significant change since 12/07/2022. Thank you for allowing us to participate in the care of your patient. Dictated and Authenticated by: Victorino Yost MD Radiologic Study #2: Imaging: X-Ray Radiologist's impression: CXR Views: 1 view. COMPARISON: CT CHEST/ABD/PEL W 12/07/2022 6:02 PM FINDINGS: Lungs: No acute lung infiltrates or edema. Hyperinflation consistent with emphysema. Pleural spaces: No pleural effusion. Heart/Mediastinum: Normal heart size. Bones/joints: Thoracic spine degenerative changes. IMPRESSION: 1. Hyperinflation suggesting underlying emphysema. 2. No acute infiltrates or edema. 3. No pleural effusions. 4. Previous CT 12/07/2022 showing right upper lobe nodules. These are not identified by plain film. Thank you for allowing us to participate in the care of your patient. Lab Data Lab results reviewed: Yes I reviewed the patient's lab results. Labs: 12/23/22 19:06 Blood Blood Culture - Pending 12/23/22 18:41 Blood Blood Culture - Pending 12/23/22 17:08 Urine - Reflex from Ua Urine Culture - Pending Laboratory Tests Range/Units 12/23/22 12/23/22 12/23/22 17:08 18:10 18:10 WBC (4.4-10.8) 10^3/uL 48.06 H* RBC (3.93-5.22) 10^6/uL 3.93 Hgb (11.2-15.7) g/dL 9.4 L Hct (36.0-46.0) % 30.6 L MCV (80-95) fL 78 L MCH (27.0-33.0) pg 23.9 L MCHC (32.0-36.0) % 30.7 L RDW (11.7-14.6) % 17.2 H Plt Count (130-400) 10^3/uL 539 H MPV (8.0-11.0) fL 9.6 Immature Gran % 0.0 Neutrophils % 74.0 Band Neutrophils % 3 Lymphocytes % 3.0 Monocytes % 4.0 Eosinophils % 16.0 Basophils % 0.0 Nucleated RBC % (0.0-0.3) % 0.0 Absolute Neutrophils (1.2-6.7) 10^3/uL 37.01 H Absolute Lymphocytes (1.2-3.4) 10^3/uL 1.44 Absolute Monocytes (0.1-0.8) 10^3/uL 1.92 H Absolute Eosinophils (0.0-0.7) 10^3/uL 7.69 H Absolute Basophils (0.0-0.2) 10^3/uL 0.00 RBC Morphology Normal VBG Lactate (0.6-1.4) mmol/L Sodium (136-145) mmol/L 133 L Potassium (3.5-5.1) mmol/L 3.3 L Chloride (98-107) mmol/L 96 L Carbon Dioxide (21.0-32.0) mmol/L 26.7 Anion Gap (3-11) mmol/L 10.3 BUN (7-18) mg/dL 8 Creatinine (0.55-1.02) mg/dL 0.6 Est GFR (CKD-EPI 2020) (mL/min/1.73m2) 107.26 Glucose (74-106) mg/dL 103 Calcium (8.5-10.1) mg/dL 8.6 Magnesium (1.8-2.4) mg/dL 1.7 L Total Bilirubin (0.2-1.0) mg/dL 0.4 AST (15-37) U/L 7 L ALT (14-59) U/L 13 L Alkaline Phosphatase (46-116) U/L 184 H Troponin I (<or=60) ng/L 55 Total Protein (6.4-8.2) g/dL 7.0 Albumin (3.4-5.0) g/dL 2.2 L Urine Color (Yellow) Yellow Urine Clarity (Clear) Clear Urine pH (5-8) 6.0 Ur Specific Vevay (1.005-1.025) 1.020 Urine Protein (Negative) mg/dL 100 H Urine Ketones (Negative) mg/dL Negative Urine Blood (Negative) Negative Urine Nitrite (Negative) Negative Urine Bilirubin (Negative) Negative Urine Urobilinogen (Up TO 0.2) EU/dL 2.0 H Ur Leukocyte Esterase (Negative) Small H Urine RBC (0-2) HPF 0-2 Urine WBC (0-5) HPF 10-20 H Ur Epithelial Cells (Negative) HPF Few Urine Crystals (Negative) HPF Negative Urine Bacteria (Negative) HPF Few Urine Casts (Negative) LPF 3-5 Hyaline Urine Mucus (Negative) Moderate Urine Other (Negative) Few Trichomonas Ur Culture Indicated? Yes Urine Glucose (Negative) mg/dL Negative Range/Units 12/23/22 12/23/22 19:06 19:06 WBC (4.4-10.8) 10^3/uL RBC (3.93-5.22) 10^6/uL Hgb (11.2-15.7) g/dL Hct (36.0-46.0) % MCV (80-95) fL MCH (27.0-33.0) pg MCHC (32.0-36.0) % RDW (11.7-14.6) % Plt Count (130-400) 10^3/uL MPV (8.0-11.0) fL Immature Gran % Neutrophils % Band Neutrophils % Lymphocytes % Monocytes % Eosinophils % Basophils % Nucleated RBC % (0.0-0.3) % Absolute Neutrophils (1.2-6.7) 10^3/uL Absolute Lymphocytes (1.2-3.4) 10^3/uL Absolute Monocytes (0.1-0.8) 10^3/uL Absolute Eosinophils (0.0-0.7) 10^3/uL Absolute Basophils (0.0-0.2) 10^3/uL RBC Morphology VBG Lactate (0.6-1.4) mmol/L 1.9 H Sodium (136-145) mmol/L Potassium (3.5-5.1) mmol/L Chloride (98-107) mmol/L Carbon Dioxide (21.0-32.0) mmol/L Anion Gap (3-11) mmol/L BUN (7-18) mg/dL Creatinine (0.55-1.02) mg/dL Est GFR (CKD-EPI 2020) (mL/min/1.73m2) Glucose (74-106) mg/dL Calcium (8.5-10.1) mg/dL Magnesium (1.8-2.4) mg/dL Total Bilirubin (0.2-1.0) mg/dL AST (15-37) U/L ALT (14-59) U/L Alkaline Phosphatase (46-116) U/L Troponin I (<or=60) ng/L 55 Total Protein (6.4-8.2) g/dL Albumin (3.4-5.0) g/dL Urine Color (Yellow) Urine Clarity (Clear) Urine pH (5-8) Ur Specific Vevay (1.005-1.025) Urine Protein (Negative) mg/dL Urine Ketones (Negative) mg/dL Urine Blood (Negative) Urine Nitrite (Negative) Urine Bilirubin (Negative) Urine Urobilinogen (Up TO 0.2) EU/dL Ur Leukocyte Esterase (Negative) Urine RBC (0-2) HPF Urine WBC (0-5) HPF Ur Epithelial Cells (Negative) HPF Urine Crystals (Negative) HPF Urine Bacteria (Negative) HPF Urine Casts (Negative) LPF Urine Mucus (Negative) Urine Other (Negative) Ur Culture Indicated? Urine Glucose (Negative) mg/dL HPI General Mode of arrival: ambulatory . Date/Time Provider Initiated Documentation: 12/23/22 16:18 . Limitations to Documentation: no limitations . Information obtained by: patient, RN notes reviewed and old records reviewed . HPI Narrative: 52-year-old female presents to the ER with a chief complaint of chest and abdominal pain which has been ongoing for months. She was seen here recently and left AMA. She reports that she has had increased shortness of breath and worsening pain. She reports that her last bowel movement was 2 days ago. Past medical history includes COPD GERD lupus she is had an ID, status asthma. She did take 325 mg of aspirin p.o. today. She is not normally on oxygen. Related Data Home Medications Medication Instructions Recorded Confirmed Protonix 40 mg granules 40 mg PO HS 01/31/13 12/23/22 delayed-release packet (pantoprazole) gabapentin 100 mg capsule 100 mg PO HS 02/13/18 12/23/22 albuterol sulfate 90 mcg/actuation 2 puff inhalation PRN PRN 12/15/19 12/23/22 aerosol inhaler (ProAir HFA) acetaminophen 500 mg capsule 1,000 mg PO Q8H PRN pain #90 caps 02/10/20 12/23/22 hydrocortisone 2.5 % topical cream 1 applic OR BID-QID PRN #30 grams 12/07/22 12/23/22 with perineal applicator (Anusol-HC) aspirin 325 mg tablet 325 mg PO DAILY 12/23/22 12/23/22 Previous Rx's Medication Instructions Recorded acetaminophen 500 mg capsule 1,000 mg PO Q8H PRN pain #90 caps 02/10/20 hydrocortisone 2.5 % topical cream 1 applic OR BID-QID PRN #30 grams 12/07/22 with perineal applicator (Anusol-HC) Allergies Allergy/AdvReac Type Severity Reaction Status Date / Time ibuprofen Allergy Intermediate Swelling/Ed Unverified 12/23/22 16:25 mily ketorolac tromethamine Allergy Mild Hives Unverified 12/23/22 16:25 [From Toradol] latex Allergy Mild Skin Rash Unverified 12/23/22 16:25 tramadol Allergy Hives Unverified 12/23/22 16:25 adhesive AdvReac Mild Skin Rash Unverified 12/23/22 16:25 PLASTIC TAPE Allergy Intermediate Skin Rash, Uncoded 12/23/22 16:25 BLISTERS General Stated Complaint: Chest Pain LIZETTE: 2 Review of Systems All systems reviewed & are unremarkable except as noted in HPI and below Cardiovascular Cardiovascular: Reports chest pain and Reports dyspnea Respiratory Respiratory: Reports dyspnea Gastrointestinal Gastrointestinal: Reports abdominal pain, Reports constipation, Reports nausea and Denies vomiting PFSH All Active Problems Emphysema lung (Acute) Abdominal ascites (Acute) Smoker (Acute) Elevated troponin (Acute) COPD (chronic obstructive pulmonary disease) (Chronic) Early satiety (Acute) Abnormal weight loss (Acute) Iron deficiency anemia due to chronic blood loss (Acute) Small bowel tumor (Acute) Leukocytosis (leucocytosis) (Acute) Acute myopericarditis (Acute) Abdominal mass, right lower quadrant (Acute) UTI (urinary tract infection) (Acute) Hemorrhoids (Acute) Atypical chest pain (Acute) Carpal tunnel syndrome of right wrist (Acute) Abscess of groin, right (Acute 11/03/15) s/p surgical resection by Dr Douglas. Pt says she is having recurrent abscesses in tract, referred to [facility] [place] Neurology as concern for nerve involvement but pt went to [facility] instead and was put on abx and told her infections were Pt extremely disappointed. Cervical disc disease (Acute 11/03/15) MR showed cervical involvement Status post carpal tunnel release of both wrists (Acute) Mass of right hand (Acute) Status post trigger finger release (Acute) DOS: 11/20/18 Right ring finger Carpal tunnel syndrome, left (Acute) S/P ECTR 12/16/2019 S/P OCTR 02/10/2020 De Quervain's tenosynovitis, left (Acute) S/P release 12/16/2019 Medical History COPD (chronic obstructive pulmonary disease) GERD (gastroesophageal reflux disease) Hydradenitis right groin Inclusion cyst Lupus ID (myocardial infarction) 2015- pt. states she F/U with PCP once a month Surgical History Abdominal hysterectomy (~2009) Angiogram History of carpal tunnel release History of shoulder surgery Left rotator cuff. Incision & Drainage, Abscess or Hematoma Social History Smoking/Tobacco Use Status: Current every day Tobacco Type: cigarettes Smoking risk assessment performed?: Yes Alcohol Intake: never Drug use: Never Substance use type: does not use Current gender identity: female Do you feel safe at home: Yes Do you feel safe in your relationship?: Yes Additional Social history: Not in a relationship Exam Narrative Exam Narrative: Constitutional: Alert and oriented x3. Appears stated age. Normal body habitus. Head: Normocephalic, no trauma. Eyes: Pupils PERRL, Red reflex noted, EOM's intact. Eyelids symmetrical without lesions, discharge, or swelling. ENT: Bilateral TM's WNL, External ear normal to inspection, no mastoid TTP, swelling, or erythema, Nasal turbinates WNL, no nasal discharge. Normal dentition, Posterior pharynx WNL, no exudate. Chest: RRR, Normal S1, S2, distal pulses intact. Resp: Lungs clear to auscultation bilaterally, no wheezes, rales, or rhonchi. Abdomen: Soft, non-distended, Normoactive bowel sounds all 4 quads. Palpable mass periumbilical. Musculoskeletal: Normal gait, 5/5 strength to all four extremities. Skin: No suspicious rashes or lesions. Capillary refill less than 2 sec. pale. Neurologic: Cranial nerves II-XII intact. Alert and oriented x 3. Motor: No deficits noted. Sensory: Intact bilaterally all 4 extremities. Reflexes: DTR's intact bilaterally.. Hematologic/Lymphatic: No ecchymosis, no lymphadenopathy. Course Vital Signs Vital signs: Vital Signs Temperature 37.2 C 12/23/22 16:17 Pulse 111 H 12/23/22 16:17 Respiratory Rate 12/23/22 16:17 Blood Pressure 127/49 L 12/23/22 16:17 Pulse Oximetry 98 12/23/22 16:17 Temperature 37.2 C 12/23/22 16:17 Temperature Source Temporal Artery Scan 12/23/22 16:17 Pulse 111 H 12/23/22 16:17 Respiratory Rate 12/23/22 16:17 Respiratory Effort Non-Labored 12/23/22 16:23 Blood Pressure 127/49 L 12/23/22 16:17 Blood Pressure Position Sitting 12/23/22 16:17 Pulse Oximetry 98 12/23/22 16:17 Oxygen Delivery Method Room Air 12/23/22 16:17 Oxygen Flow Rate 0 12/23/22 16:17 Pain Level 8 12/23/22 16:32 Procedures Stool Hemoccult Procedural Steps Taken: stool placed in appropriate test area, developer placed on stool and control areas and controls appropriately positive and negative Hemoccult result: negative Additional Comments: Kristen CHAUHAN at [facility] for witness, pt c/o pain.
[2022-12-23 17:46] LABS: Bacteria Few HPF (Negative); C & S Indicated? Yes; Casts 3-5 Hyaline LPF (Negative); Crystals Negative HPF (Negative); Epithelial Cells Few HPF (Negative); Mucus Moderate (Negative); RBC 0-2 HPF (0-2)
--- NOTE | 2022-12-23 17:48 | DI.VRAD_ITS ---
PROCEDURE INFORMATION: Exam: XR Chest Exam date and time: 12/23/2022 5:13 PM Age: 52 years old Clinical indication: Other: Chest pain TECHNIQUE: Imaging protocol: Radiologic exam of the chest. Views: 1 view. COMPARISON: CT CHEST/ABD/PEL W 12/07/2022 6:02 PM FINDINGS: Lungs: No acute lung infiltrates or edema. Hyperinflation consistent with emphysema. Pleural spaces: No pleural effusion. Heart/Mediastinum: Normal heart size. Bones/joints: Thoracic spine degenerative changes. IMPRESSION: 1. Hyperinflation suggesting underlying emphysema. 2. No acute infiltrates or edema. 3. No pleural effusions. 4. Previous CT 12/07/2022 showing right upper lobe nodules. These are not identified by plain film. Dictated and Authenticated by: Victorino Yost MD. Ordering:RACHEL Woodson MD
--- NOTE | 2022-12-23 18:30 | DI.CT_ITS ---
Exam(s) CT ABDOMEN PELVIS W EXAM: CT ABDOMEN PELVIS W CLINICAL HISTORY: Hx Abdominal Mass, R/O SBO. TECHNIQUE: Imaging Protocol: Axial computed tomography images with coronal and sagittal reformatted images were created and reviewed CONTRAST MATERIAL: Intravenous: Omnipaque 350 Contrast volume:100 ml Oral: no COMPARISON: CT CT CHEST/ABD/PEL W from 12/07/[address] CHEST PE CTA from 12/15/2022 FINDINGS: ABDOMEN: Lung Bases: Tiny right pleural effusion, new since prior. Mild emphysematous changes. Liver: Enlarged, unchanged.. Hepatic steatosis. No measurable mass. Gallbladder and biliary tract: No radiodense calculus or dilation. Pancreas: Normal density, no abnormal calcifications or inflammatory process. Spleen: Borderline enlargement. Kidneys: Normal size, contour and axis. No radiodense stones or obstructive uropathy. No masses seen. Bilateral cysts. Adrenal glands: No masses seen. Abdominal Aorta: Abdominal portion non-dilated. Atherosclerotic changes. PELVIS: Bladder: Nearly empty, not well evaluated. No calculi.No focal mass. Bowel: Stable appearance of the roughly 8.5 centimeter diameter right lower quadrant thick-walled mas s containing feculent material arising from distal small bowel. No obstruction. No evidence of perf oration. Peritoneal cavity: Stable tiny amount of free fluid in the low pelvis. Bones: Stable appearance of L5 spondylolysis and mild spondylolisthesis. No lytic or blastic lesions identified. Reproductive organs: Status post hysterectomy. Lymph nodes: Mildly enlarged nodes in the retroperitoneum and elisabeth hepatis. Impression: Stable appearance presumed small bowel mass in the right lower quadrant no evidence of perforation or obstruction. Stable retroperitoneal and elisabeth hepatis mildly enlarged lymph nodes. RADIATION DOSE DELIVERED: 1,118.53mGy.cm Total DLP DATA REPOSITORY: All CT scans at this facility are submitted to the National Radiology Data Registry (NRDR) Dose Index Registry (DIR) with the [employer] (ACR). RADIATION OPTIMIZATION: All CT scans at this facility use at least one of these dose optimization te chniques: automated exposure control; mA and/or kV adjustment per patient size (includes targeted exa ms where dose is matched to clinical indication); or iterative reconstruction.
[2022-12-23 18:35] LABS: HCT 30.6 % (36.0-46.0); HGB 9.4 g/dL (11.2-15.7); MCH 23.9 pg (27.0-33.0); MCHC 30.7 % (32.0-36.0); MCV 78 fL (80-95); MPV 9.6 fL (8.0-11.0); Platelet Count 539 10^3/uL (130-400); RBC 3.93 10^6/uL (3.93-5.22); RDW 17.2 % (11.7-14.6); RDW-SD 48.6 fL
[2022-12-23 18:40] LABS: WBC 48.06 10^3/uL (4.4-10.8)
[2022-12-23 18:41] LABS: ALT 13 U/L (14-59); AST 7 U/L (15-37); Albumin 2.2 g/dL (3.4-5.0); Alkaline Phosphatase 184 U/L (46-116); Anion Gap 10.3 mmol/L (3-11); BUN 8 mg/dL (7-18); Bilirubin, Total 0.4 mg/dL (0.2-1.0); CO2 26.7 mmol/L (21.0-32.0); CREATININE 0.6 mg/dL (0.55-1.02); Calcium 8.6 mg/dL (8.5-10.1); Chloride 96 mmol/L (98-107); Estimated GFR 107.26 (mL/min/1.73m2); Glucose 103 mg/dL (74-106); Magnesium 1.7 mg/dL (1.8-2.4); Potassium 3.3 mmol/L (3.5-5.1); Sodium 133 mmol/L (136-145); Troponin I 55 ng/L (<or=60)
[2022-12-23] MEDS: Breeza Beverage 473 ML BTL PO (18:46)
[2022-12-23] MEDS: Omnipaque 350 MG/ML 50 ML BTL PO (18:47)
[2022-12-23 18:59] LABS: Absolute Neutrophil Count 37.01 10^3/uL (1.2-6.7); Bands % 3
[2022-12-23 19:00] LABS: Absolute Eosinophil Count 7.69 10^3/uL (0.0-0.7); Absolute Lymphocyte Count 1.44 10^3/uL (1.2-3.4); Absolute Monocyte Count 1.92 10^3/uL (0.1-0.8); Diff Comment Manual Differential; RBC Morphology Normal
[2022-12-23 19:12] LABS: Lactate 1.9 mmol/L (0.6-1.4)
[2022-12-23 19:31] LABS: Troponin I 55 ng/L (<or=60)
[2022-12-23] MEDS: Normal Saline 1,000 ML 150 ML IV (19:44)
[2022-12-23] MEDS: Omnipaque 350 MG/ML 100 ML BTL IJ (20:02)
[2022-12-23] MEDS: Normal Saline - Diluent 50 ML VIAL IJ (20:03)
--- NOTE | 2022-12-23 20:33 | DI.VRAD_ITS ---
PROCEDURE INFORMATION: Exam: CT Abdomen And Pelvis With Contrast Exam date and time: 12/23/2022 7:58 PM Age: 52 years old Clinical indication: Condition or disease; Other: HX abdominal mass; Patient HX: HX of abdominal mass, R/O sbo TECHNIQUE: Imaging protocol: Computed tomography of the abdomen and pelvis with contrast. COMPARISON: CT CHEST/ABD/PEL W 12/07/2022 6:02 PM FINDINGS: Lungs: No lung base infiltrates. Pleural spaces: Small right pleural effusion. Heart: Normal heart size. No pericardial effusion. No coronary artery atherosclerotic calcium. Liver: Moderate fatty liver change. No focal hepatic lesions. Mild hepatic enlargement. Gallbladder and bile ducts: Gallbladder is unremarkable. Pancreas: The pancreas is normal in contour and attenuation. Spleen: Splenomegaly with 14 cm cephalo caudal length. Nonspecific minor benign-appearing calcium deposition of the lateral aspect of the splenic capsule. Adrenal glands: Adrenal glands are unremarkable bilaterally. Kidneys and ureters: No acute renal changes. Subcentimeter bilateral renal cysts. No further imaging follow-up is recommended based on MIPS criteria. Stomach and bowel: Gastric contour morphology are unremarkable. There is a small hiatal hernia without acute features. Proximal small bowel loops are unremarkable. There is enteric contrast which passes to the distal small bowel. There is an irregular dilated segment of small bowel which appears to be distal jejunum. This contains feculent appearing type bowel contents. There is irregularity of the wall with some areas of thickening. Maximal thickness approximally 8 mm. Some wall nodularity is suggested. Significance of this focus is uncertain. A small-bowel neoplasm such as lymphoma can not be excluded. This region is present 12/07/2022 without significant change. There is no acute bowel obstruction evident. The administered enteric contrast has not passed through this region. Small bowel distal to this region does contain enteric contents. Large bowel is normal in course and caliber. There is formed feces. No large bowel edema. Appendix: No evidence of appendicitis. Intraperitoneal space: Nonspecific minor simple free fluid in the posterior pelvic cul-de-sac. Vasculature: Atherosclerotic aortoiliac calcium without aneurysmal change. Lymph nodes: Retroperitoneal lymph node para caval in location measuring 22 x 13 mm. Series 4, image 37. Stable since 12/07/2022. Elizabeth hepatic lymph node measuring 15 x 14 mm on axial series 4, image 31. Also previously present and stable. Urinary bladder: Unremarkable as visualized. Reproductive: Previous hysterectomy. No adnexal mass or cyst evident. Bones/joints: Unremarkable. No acute fracture. Soft tissues: Unremarkable. IMPRESSION: 1. No acute bowel obstruction evident. 2. Irregular dilated segment of distal small bowel which may represent distal jejunum. This dilated segment is 8.7 x 6.9 cm. This contains feculent appearing bowel contents. There is irregular wall thickening and nodularity. Possibility of a small bowel neoplasm can not be excluded. This could represent a process such as small bowel lymphoma. Recommend clinical correlation. There is no acute obstruction at this time. 3. Mildly enlarged retroperitoneal and elizabeth hepatic lymph nodes 4. Minor free fluid in the posterior pelvis with simple appearance. 5. Previous hysterectomy. 6. Benign-appearing bilateral renal cysts. 7. Mild splenomegaly. 8. Fatty liver change. 9. No significant change since 12/07/2022. Dictated and Authenticated by: Victorino Yost MD. Ordering:RACHEL Woodson MD
[2022-12-23] MEDS: ACETAMINOPHEN 1,000 MG/100 ML BTL 400 MG IVPB (21:13)
[2022-12-23] MEDS: Ondansetron 4 MG/2 ML VIAL IVP (21:25)
--- NOTE | 2022-12-23 21:56 | W.PM.PROGNOT ---
Date of Service Date of service: 12/23/22 Time of Service: 21:56 Subjective Subjective Interval history since last seen: Report received from Dr. Carlo Aguirre from the ED of a Objective Last Vital Signs Temp 99.0 F 12/23/22 16:17 Pulse 111 H 12/23/22 16:17 Resp 18 12/23/22 20:00 BP 94/52 L 12/23/22 21:43 Pulse Ox 98 12/23/22 16:17 Laboratory Results - last 24 hr 12/23/22 12/23/22 12/23/22 17:08 18:10 18:10 WBC 48.06 H* RBC 3.93 Hgb 9.4 L Hct 30.6 L MCV 78 L MCH 23.9 L MCHC 30.7 L RDW 17.2 H Plt Count 539 H MPV 9.6 Immature Gran % 0.0 Neutrophils % 74.0 Band Neutrophils % 3 Lymphocytes % 3.0 Monocytes % 4.0 Eosinophils % 16.0 Basophils % 0.0 Nucleated RBC % 0.0 Absolute Neutrophils 37.01 H Absolute Lymphocytes 1.44 Absolute Monocytes 1.92 H Absolute Eosinophils 7.69 H Absolute Basophils 0.00 RBC Morphology Normal VBG Lactate Sodium 133 L Potassium 3.3 L Chloride 96 L Carbon Dioxide 26.7 Anion Gap 10.3 BUN 8 Creatinine 0.6 Est GFR (CKD-EPI 2020) 107.26 Glucose 103 Calcium 8.6 Magnesium 1.7 L Total Bilirubin 0.4 AST 7 L ALT 13 L Alkaline Phosphatase 184 H Troponin I 55 Total Protein 7.0 Albumin 2.2 L Urine Color Yellow Urine Clarity Clear Urine pH 6.0 Ur Specific [employer] 1.020 Urine Protein 100 H Urine Ketones Negative Urine Blood Negative Urine Nitrite Negative Urine Bilirubin Negative Urine Urobilinogen 2.0 H Ur Leukocyte Esterase Small H Urine RBC 0-2 Urine WBC 10-20 H Ur Epithelial Cells Few Urine Crystals Negative Urine Bacteria Few Urine Casts 3-5 Hyaline Urine Mucus Moderate Urine Other Few Trichomonas Ur Culture Indicated? Yes Urine Glucose Negative 12/23/22 12/23/22 19:06 19:06 WBC RBC Hgb Hct MCV MCH MCHC RDW Plt Count MPV Immature Gran % Neutrophils % Band Neutrophils % Lymphocytes % Monocytes % Eosinophils % Basophils % Nucleated RBC % Absolute Neutrophils Absolute Lymphocytes Absolute Monocytes Absolute Eosinophils Absolute Basophils RBC Morphology VBG Lactate 1.9 H Sodium Potassium Chloride Carbon Dioxide Anion Gap BUN Creatinine Est GFR (CKD-EPI 2020) Glucose Calcium Magnesium Total Bilirubin AST ALT Alkaline Phosphatase Troponin I 55 Total Protein Albumin Urine Color Urine Clarity Urine pH Ur Specific [employer] Urine Protein Urine Ketones Urine Blood Urine Nitrite Urine Bilirubin Urine Urobilinogen Ur Leukocyte Esterase Urine RBC Urine WBC Ur Epithelial Cells Urine Crystals Urine Bacteria Urine Casts Urine Mucus Urine Other Ur Culture Indicated? Urine Glucose
[2022-12-23 22:21] LABS: Source Nasal/Nares
[2022-12-23 22:25] LABS: HCT 25.4 % (36.0-46.0); HGB 7.9 g/dL (11.2-15.7); MCH 24.1 pg (27.0-33.0); MCHC 31.1 % (32.0-36.0); MCV 77 fL (80-95); MPV 9.3 fL (8.0-11.0); Platelet Count 494 10^3/uL (130-400); RBC 3.28 10^6/uL (3.93-5.22); RDW 17.2 % (11.7-14.6); RDW-SD 48.3 fL
[2022-12-23 22:33] LABS: WBC 50.61 10^3/uL (4.4-10.8)
[2022-12-23 22:52] LABS: COVID-19 PCR Negative (Negative)
--- NOTE | 2022-12-23 22:53 | W.PM.HP.N ---
Date of service: 12/24/22 Time of Service: 01:52 Assessment and Plan Assessment and plan (1) Shortness of breath: Status: Acute Assessment and plan: With her recent elevation of troponins and her current elevation of BNP and orthopnea I suspect she may have some CHF, even though chest x-ray does not clearly demonstrate this. Will assess response to 40mg furosemide. She left before the echocardiogram could be done last admission, I have reordered this for Sunday. Her posture does support pericarditis, which could be related to malignancy or SLE. She has had some low normal BPs, but she had lower last visit and opioids may be playing a part. Her tumor affecting her lung could also be playing a part, though masses were not large enough to see in CXR. She also has COPD, though presentation does not suggest exacerbation. Continue inhalers, reassess treating COPD if she does not respond to furosemide diuresis. Anenemia likely playing a role, but unlikely the main cause. (2) Atypical chest pain: Status: Acute Assessment and plan: EKG not c/w acute ischemia. Her troponin has normalized. Will continue ASA 325mg for pericarditis as long as she is not activlty bleeding. She has been written for fentenyl prn for chest and abodminal pain a/w malignancy. (3) Anemia: Status: Chronic Assessment and plan: This may be a direct result of hematologic malignancy or related to GI blood loss from the tumor that appears to be in small boweol. H/H dropped since presenation but it is still about stable since last admission. Will use Hgb of 7 as transfusion threshold, continue ot follow. (4) Smoker: Status: Acute Assessment and plan: NRT for now, continue to support cessation (5) COPD (chronic obstructive pulmonary disease): Status: Chronic Assessment and plan: Tienmanojradha was on her PCP chart, will continue this as controler with AUGIE prn. See above, reconsider steroids if not improving. (6) Small bowel tumor: Status: Acute Assessment and plan: She will need colonoscopy for diagnosis/biopsy prior to considering surgery and overall treatment plan. [place] [facility] [place] (7) Hyponatremia: Status: Acute Assessment and plan: Mild, may be related to CHF. (8) DVT prophylaxis: Status: Acute Assessment and plan: LMWH (she was heme negative in ED) (9) Discharge planning issues: Status: Acute Assessment and plan: SHe need definitive diagnosis, and biopsy and treatment plan will be [place] [facility] [place] Goal here is to improve respiratory status and make sure BP and anemia stable. History of Present Illness History of Present Illness Chief Complaint: short of breath, abdominal pain Narrative: 52 yo F smoker with COPD, recently identified abdominal masses, anemia, and leukocytosis concerning for malignancy as well as a recent admission 12/15/22 to 12/17/22 with a diagnosis of perimyocarditis and elevated troponin during which she left early against medical advice, returning on the evening of admission with increasing shortness of breath and ongoing abdominal and chest pain. Pain is diffuse across chest, makes it hard to breath deep. Feels pressure. Constant. Feels worse when lays back, even a little, better when leaning forward. No cough or cold symptoms. Just using albuterol, only helps a little. She is taking aspirin. Abdominal pain in mid to right side, achy. No change with urination or eating or BM. No blood in urine or stool. Has been moving bowels. Of note, the patient [place] [facility] [place] the day prior to admission, and complained of increased SOB and swelling in her body, and that she can't breath when lying down. ED evaluation was recommended but she states she had to make arrangement for her dog. Also of note, she has a history of SLE and was until recently on leflunomide but discontinued this because she felt it wasn't helping. Review of Systems Constitutional Constitutional: Denies chills, Denies fever(s), Denies headache(s), Reports lethargy, Denies weakness and Reports weight loss Eyes Eyes: Denies change in vision and Denies irritation ENT Ears, Nose, Mouth, and Throat: Denies dizziness, Reports ear discharge (right otitis recently treated, still bothering her), Denies headache(s), Denies nasal congestion, Denies nasal discharge and Denies sore throat Cardiovascular Cardiovascular: Reports leg edema (new in the past few days) and Denies palpitations Respiratory Respiratory: Denies cough, Denies excessive phlegm production and Denies wheezing Gastrointestinal Gastrointestinal: Denies abdominal pain, Denies melena, Denies hematochezia, Denies heartburn and Denies vomiting Genitourinary Genitourinary: Denies hematuria, Denies dysuria and Denies urinary incontinence Integumentary/Breasts Skin/Breast: Denies rash and Denies skin ulcer Neurologic Neurologic: Denies dizziness, Denies headache(s), Denies sensory deficit and Denies weakness Psychiatric Psychiatric: Denies mood swings Endocrine Endocrine: Denies palpitations Hematologic/Lymphatic Hematologic/Lymphatic: Denies easy bleeding Allergic/Immunologic Allergic/Immunologic: Denies wheezing PFSH All Active Problems Discharge planning issues (Acute) DVT prophylaxis (Acute) Hyponatremia (Acute) Anemia (Chronic) Shortness of breath (Acute) Abdominal ascites (Acute) Smoker (Acute) Elevated troponin (Acute) COPD (chronic obstructive pulmonary disease) (Chronic) Early satiety (Acute) Abnormal weight loss (Acute) Iron deficiency anemia due to chronic blood loss (Acute) Small bowel tumor (Acute) Leukocytosis (leucocytosis) (Acute) Acute myopericarditis (Acute) Abdominal mass, right lower quadrant (Acute) UTI (urinary tract infection) (Acute) Hemorrhoids (Acute) Atypical chest pain (Acute) Carpal tunnel syndrome of right wrist (Acute) Abscess of groin, right (Acute 11/03/15) s/p surgical resection by Dr Douglas. Pt says she is having recurrent abscesses in tract, [place] [facility] [place] as concern for nerve involvement but pt went to [facility] instead and was put on abx and told her infections were Pt extremely disappointed. Cervical disc disease (Acute 11/03/15) MR showed cervical involvement Status post carpal tunnel release of both wrists (Acute) Mass of right hand (Acute) Status post trigger finger release (Acute) DOS: 11/20/18 Right ring finger Carpal tunnel syndrome, left (Acute) S/P ECTR 12/16/2019 S/P OCTR 02/10/2020 De Quervain's tenosynovitis, left (Acute) S/P release 12/16/2019 Medical History COPD (chronic obstructive pulmonary disease) GERD (gastroesophageal reflux disease) Hydradenitis right groin Inclusion cyst Lupus PR (myocardial infarction) 2015- pt. states she F/U with PCP once a month Surgical History Abdominal hysterectomy (~2009) Angiogram History of carpal tunnel release History of shoulder surgery Left rotator cuff. Incision & Drainage, Abscess or Hematoma Family History (Updated 12/24/22 @ 01:56 by Rah Munoz) Mother Heart disease Father Cancer throat Social History (Updated 12/24/22 @ 01:57 by Rah Munoz) Smoking/Tobacco Use Status: Current every day Tobacco Type: cigarettes Smoking risk assessment performed?: Yes Alcohol Intake: never Drug use: Never Substance use type: does not use Current gender identity: female Do you feel safe at home: Yes Do you feel safe in your relationship?: Yes Additional Social history: Not in a relationship. Living with family in [place] temporarily. Sarah is facing baster. Meds Allergies and Home Medications Allergies Allergy/AdvReac Type Severity Reaction Status Date / Time ibuprofen Allergy Intermediate Swelling/Ed Unverified 12/23/22 16:25 mily ketorolac tromethamine Allergy Mild Hives Unverified 12/23/22 16:25 [From Toradol] latex Allergy Mild Skin Rash Unverified 12/23/22 16:25 tramadol Allergy Hives Unverified 12/23/22 16:25 adhesive AdvReac Mild Skin Rash Unverified 12/23/22 16:25 PLASTIC TAPE Allergy Intermediate Skin Rash, Uncoded 12/23/22 16:25 BLISTERS Home Medications Medication Instructions Recorded Confirmed Type Protonix 40 mg granules 40 mg PO HS 01/31/13 12/23/22 History delayed-release packet (pantoprazole) gabapentin 100 mg capsule 100 mg PO HS 02/13/18 12/23/22 History albuterol sulfate 90 mcg/actuation 2 puff inhalation PRN PRN 12/15/19 12/23/22 History aerosol inhaler (ProAir HFA) acetaminophen 500 mg capsule 1,000 mg PO Q8H PRN pain #90 caps 02/10/20 12/23/22 Rx hydrocortisone 2.5 % topical cream 1 applic NV BID-QID PRN #30 grams 12/07/22 12/23/22 Rx with perineal applicator (Anusol-HC) aspirin 325 mg tablet 325 mg PO DAILY 12/23/22 12/23/22 History Exam Narrative Exam Narrative: GEN: Alert and oriented, pleasant and cooperative, gives linear history. Sitting up and leaning forward. HEENT: Head atraumatic. Conjunctiva clear, no icterus. PEERL, EOMI. TM whitish right, clear left.no rhinorrhea. MMM, OP benign. Neck is supple with no masses or lymphadenopathy, trachea midline. I could not appreciate JVP but she will not sit back enven to 60 degrees. LUNGS: CTAB, but shallow breaths. CV: RRR with no murmurs, gallops, or rubs. ABD: hypoactive BS, soft, very tender in mid/epigastric abdomen to palpation, more for percussion EXT: no cyanosis, clubbing. 1+ etta pitting edema to shins. MSK: No joint redness or swelling NEURO: CN 2-12 grossly intact. Normal movement of 4 extremities. Normal speech and coordination SKIN: No rashs or open wounds x 6mm crusted scab right ear tragus. PSYCH: normal mood and affect Results Imaging Chest x-ray: report reviewed (1. No acute bowel obstruction evident. 2. Irregular dilated segment of distal small bowel which may represent distal jejunum. This dilated segment is 8.7 x 6.9 cm. This contains feculent appearing bowel contents. There is irregular wall thickening and nodularity. Possibility of a small bowel neoplas) and image reviewed Abdomen CT scan report/results: report reviewed (1. No acute bowel obstruction evident. 2. Irregular dilated segment of distal small bowel which may represent distal jejunum. This dilated segment is 8.7 x 6.9 cm. This contains feculent appearing bowel contents. There is irregular wall thickening and nodularity. Possibility of a small bowel neoplas) EKG: report reviewed and image reviewed (no ischemic changes, similar to 12/15) Labs Result diagrams: 12/23/22 22:15 12/23/22 18:10 Labs: Laboratory Results - last 24 hr 12/23/22 12/23/22 12/23/22 17:08 18:10 18:10 WBC 48.06 H* RBC 3.93 Hgb 9.4 L Hct 30.6 L MCV 78 L MCH 23.9 L MCHC 30.7 L RDW 17.2 H Plt Count 539 H MPV 9.6 Immature Gran % 0.0 Neutrophils % 74.0 Band Neutrophils % 3 Lymphocytes % 3.0 Monocytes % 4.0 Eosinophils % 16.0 Basophils % 0.0 Nucleated RBC % 0.0 Absolute Neutrophils 37.01 H Absolute Lymphocytes 1.44 Absolute Monocytes 1.92 H Absolute Eosinophils 7.69 H Absolute Basophils 0.00 RBC Morphology Normal VBG Lactate Sodium 133 L Potassium 3.3 L Chloride 96 L Carbon Dioxide 26.7 Anion Gap 10.3 BUN 8 Creatinine 0.6 Est GFR (CKD-EPI 2020) 107.26 Glucose 103 Calcium 8.6 Magnesium 1.7 L Total Bilirubin 0.4 AST 7 L ALT 13 L Alkaline Phosphatase 184 H Troponin I 55 Total Protein 7.0 Albumin 2.2 L Urine Color Yellow Urine Clarity Clear Urine pH 6.0 Ur Specific [place] 1.020 Urine Protein 100 H Urine Ketones Negative Urine Blood Negative Urine Nitrite Negative Urine Bilirubin Negative Urine Urobilinogen 2.0 H Ur Leukocyte Esterase Small H Urine RBC 0-2 Urine WBC 10-20 H Ur Epithelial Cells Few Urine Crystals Negative Urine Bacteria Few Urine Casts 3-5 Hyaline Urine Mucus Moderate Urine Other Few Trichomonas Ur Culture Indicated? Yes Urine Glucose Negative COVID-19 Source 12/23/22 12/23/22 12/23/22 19:06 19:06 22:15 WBC 50.61 H* RBC 3.28 L Hgb 7.9 L Hct 25.4 L MCV 77 L MCH 24.1 L MCHC 31.1 L RDW 17.2 H Plt Count 494 H MPV 9.3 Immature Gran % Neutrophils % Band Neutrophils % Lymphocytes % Monocytes % Eosinophils % Basophils % Nucleated RBC % Absolute Neutrophils Absolute Lymphocytes Absolute Monocytes Absolute Eosinophils Absolute Basophils RBC Morphology VBG Lactate 1.9 H Sodium Potassium Chloride Carbon Dioxide Anion Gap BUN Creatinine Est GFR (CKD-EPI 2020) Glucose Calcium Magnesium Total Bilirubin AST ALT Alkaline Phosphatase Troponin I 55 Total Protein Albumin Urine Color Urine Clarity Urine pH Ur Specific [place] Urine Protein Urine Ketones Urine Blood Urine Nitrite Urine Bilirubin Urine Urobilinogen Ur Leukocyte Esterase Urine RBC Urine WBC Ur Epithelial Cells Urine Crystals Urine Bacteria Urine Casts Urine Mucus Urine Other Ur Culture Indicated? Urine Glucose COVID-19 Source 12/23/22 22:15 WBC RBC Hgb Hct MCV MCH MCHC RDW Plt Count MPV Immature Gran % Neutrophils % Band Neutrophils % Lymphocytes % Monocytes % Eosinophils % Basophils % Nucleated RBC % Absolute Neutrophils Absolute Lymphocytes Absolute Monocytes Absolute Eosinophils Absolute Basophils RBC Morphology VBG Lactate Sodium Potassium Chloride Carbon Dioxide Anion Gap BUN Creatinine Est GFR (CKD-EPI 2020) Glucose Calcium Magnesium Total Bilirubin AST ALT Alkaline Phosphatase Troponin I Total Protein Albumin Urine Color Urine Clarity Urine pH Ur Specific [place] Urine Protein Urine Ketones Urine Blood Urine Nitrite Urine Bilirubin Urine Urobilinogen Ur Leukocyte Esterase Urine RBC Urine WBC Ur Epithelial Cells Urine Crystals Urine Bacteria Urine Casts Urine Mucus Urine Other Ur Culture Indicated? Urine Glucose COVID-19 Source Nasal/Nares Last Vital Signs Temp 37.2 C 12/23/22 16:17 Pulse 79 12/23/22 22:23 Resp 16 12/23/22 22:27 BP 90/45 L 12/23/22 22:23 Pulse Ox 98 12/23/22 16:17 Time Spent Time spent with Patient: 55-74 minutes Time was spent: preparing to see the patient(eg.review tests), obtaining and/or reviewing separately otained hiistory, ordering medications,tests, procedures, referring, communicating with other health team primary care physician, indepentently interpreting results and counseling the patient
[2022-12-23 23:06] LABS: NT-proBNP 7010 pg/mL (<300)
[2022-12-24] VITALS (13 sets, daily range): BP systolic 102–140; BP diastolic 45–56; PULSE 61–90; RESP 16–20; TEMP 36.5–39.2; O2SAT 93–100
--- NOTE | 2022-12-24 | DI.CT_ITS ---
Exam(s) CT CHEST PE ABD PELVIS W EXAM: CT CHEST PE ABD PELVIS W CLINICAL HISTORY: R-sided chest pain (new). TECHNIQUE: Imaging Protocol: Axial CT angiography was performed with multi-slice acquisition and mu lti-planar and/or 3D reconstructions. CONTRAST MATERIAL: Intravenous: Omnipaque 350contrast volume:100 mL COMPARISON: CT CT ABDOMEN PELVIS W from 12/23/2022 FINDINGS: CHEST: Tracheobronchial tree: Patent where visualized. Pulmonary parenchyma: No definite focal new consolidation. Stable pulmonary nodular infiltrate/nodul es. Emphysematous changes are present in the lungs. Pulmonary Arteries: No evidence of filling defect to suggest pulmonary emboli. Mediastinum and Yee: No dominant adenopathy or fluid collection. The esophagus is unremarkable. Visualized thyroid gland: Unremarkable. Pleura: There is a small right pleural effusion. No pneumothorax or left pleural effusion is present . Heart: The heart is not dilated. Mild coronary artery calcification is present. No pericardial effus ion. Aorta: Thoracic aorta non-dilated. No evidence of dissection. There is mild atherosclerosis. Bones: Within normal limits for the patient's age. Soft tissues: Unremarkable. ABDOMEN: Liver: Normal density. No measurable mass. The liver is enlarged. Portal, Superior Mesenteric, and Splenic Veins: Unremarkable. Gallbladder and Biliary Tract: No radiodense calculus or dilation. Pancreas: Normal density, no abnormal calcifications or inflammatory process. Spleen: The spleen is mildly enlarged. Adrenals: No masses seen. Kidneys: Normal size, contour and axis. No radiodense stones or obstructive uropathy. There is a simp le cyst seen in the right kidney. No follow-up is recommended. Abdominal Aorta: Abdominal portion non-dilated. Atherosclerosis is present. Bowel: No obstruction or bowel wall thickening. There is again seen a 8.9 x 7.7 cm mass in the right lower quadrant which appears to be part of the small bowel. Peritoneal Cavity: There is a small amount of ascites in the pelvis. No free air. Lymph Nodes: There is a 1.1 x 2.2 cm enlarged lymph node anterior to the IVC at the level of the panc reas. Bones: Within normal limits for the patient's age. No aggressive osseous lesions are present. There is L5 spondylolysis and grade 1 spondylolisthesis of L5 on S1. Soft Tissues: Unremarkable. PELVIS: Bladder: Symmetric distention, no gross wall thickening. Reproductive Organs: Status post hysterectomy. Lymph Nodes: Within normal limits. Bones: Within normal limits. IMPRESSION: 1. No evidence pulmonary embolism, thoracic aortic dissection or aneurysm. 2. Small right pleural effusion. 3. No acute pulmonary process. 4. 8.9 x 7.7 cm mass associated with the small bowel is again seen. Likely middle leg density. 5. Hepatosplenomegaly. 6. Small amount of a pelvic ascites. RADIATION DOSE DELIVERED: 1,404.81mGy.cm Total DLP DATA REPOSITORY: All CT scans at this facility are submitted to the National Radiology Data Registry (NRDR) Dose Index Registry (DIR) with the [employer] (ACR). RADIATION OPTIMIZATION: All CT scans at this facility use at least one of these dose optimization te chniques: automated exposure control; mA and/or kV adjustment per patient size (includes targeted exa ms where dose is matched to clinical indication); or iterative reconstruction.
[2022-12-24] MEDS: Enoxaparin 40 MG/0.4 ML SYR SC ×2 (00:36→23:08)
[2022-12-24] MEDS: Furosemide 40 MG/4 ML VIAL IVP (00:37)
[2022-12-24] MEDS: MAGNESIUM SULFATE 1 GM/100 ML BAG IVPB (00:37)
[2022-12-24] MEDS: Normal Saline Flush 10 ML SYR IVP ×6 (00:38→19:40)
[2022-12-24] MEDS: fentaNYL 100 MCG/2 ML VIAL 25 MCG IVP ×4 (01:37→19:39)
[2022-12-24] MEDS: Acetaminophen 500 MG TAB 1000 MG PO ×3 (06:03→19:39)
[2022-12-24 06:33] LABS: Abs Immature Grans 1.95 10^3/uL (0.0-0.06); HCT 26.1 % (36.0-46.0); HGB 7.9 g/dL (11.2-15.7); MCH 23.7 pg (27.0-33.0); MCHC 30.3 % (32.0-36.0); MCV 78 fL (80-95); MPV 9.9 fL (8.0-11.0); Platelet Count 496 10^3/uL (130-400); RBC 3.33 10^6/uL (3.93-5.22); RDW 17.4 % (11.7-14.6); RDW-SD 49.3 fL
[2022-12-24 06:36] LABS: WBC 46.07 10^3/uL (4.4-10.8)
[2022-12-24 06:43] LABS: Absolute Neutrophil Count 32.25 10^3/uL (1.2-6.7); Bands % 3
[2022-12-24 06:44] LABS: Absolute Eosinophil Count 7.37 10^3/uL (0.0-0.7); Absolute Lymphocyte Count 4.15 10^3/uL (1.2-3.4)
[2022-12-24 06:46] LABS: Diff Comment Manual Differential; Hypochromasia 1+; Iron 11 ug/dL (50-170); Total Iron Binding Capacity 168 ug/dL (250-450); Transferrin Sat 7 % (15-50)
[2022-12-24 06:47] LABS: Poikilocytes 1+
[2022-12-24 06:56] LABS: Anion Gap 9.5 mmol/L (3-11); BUN 9 mg/dL (7-18); CO2 28.5 mmol/L (21.0-32.0); CREATININE 0.7 mg/dL (0.55-1.02); Calcium 8.3 mg/dL (8.5-10.1); Chloride 97 mmol/L (98-107); Estimated GFR 103.35 (mL/min/1.73m2); Glucose 111 mg/dL (74-106); Magnesium 1.9 mg/dL (1.8-2.4); Potassium 3.3 mmol/L (3.5-5.1); Sodium 135 mmol/L (136-145)
[2022-12-24 07:13] LABS: Vitamin B12 724 pg/mL (193-986)
[2022-12-24] MEDS: Tiotropium/Olodaterol 10 PUFF INHALER 2 PUFF IH (07:47)
[2022-12-24 07:53] LABS: Lab Add On Test DONE
[2022-12-24] MEDS: Pantoprazole 40 MG TABCR PO (08:03)
[2022-12-24] MEDS: cefTRIAXone 1 GM/50 ML BAG IVPB ×2 (08:03→18:01)
[2022-12-24] MEDS: Aspirin 325 MG TAB PO (08:03)
[2022-12-24] MEDS: Potassium Chloride 20 MEQ TABCR 40 MEQ PO (08:04)
[2022-12-24 08:30] LABS: Procalcitonin 0.4 ng/mL
--- NOTE | 2022-12-24 08:54 | INITIAL_ITS ---
- If Service Date Differs Date of service: 12/24/22 Time of Service: 08:54 Care Management Initial Assess REASON FOR HOSPITALIZATION:: Hypotension, Anemia PAST MEDICAL HISTORY/PAST SURGICAL HISTORY:: All Active Problems . Discharge planning issues (Acute). DVT prophylaxis (Acute). Hyponatremia (Acute). Anemia (Chronic). Shortness of breath (Acute). Abdominal ascites (Acute). Smoker (Acute). Elevated troponin (Acute). COPD (chronic obstructive pulmonary disease) (Chronic). Early satiety (Acute). Abnormal weight loss (Acute). Iron deficiency anemia due to chronic blood loss (Acute). Small bowel tumor (Acute). Leukocytosis (leucocytosis) (Acute). Acute myopericarditis (Acute). Abdominal mass, right lower quadrant (Acute). UTI (urinary tract infection) (Acute). Hemorrhoids (Acute). Atypical chest pain (Acute). Carpal tunnel syndrome of right wrist (Acute). Abscess of groin, right (Acute 11/03/15). s/p surgical resection by Dr Douglas. Pt says she is having recurrent abscesses in tract, [place] [facility] [place] concern for nerve involvement but pt went [facility] and was put on abx and told her infections were. Pt extremely disappointed. Cervical disc disease (Acute 11/03/15). MR showed cervical involvement. Status post carpal tunnel release of both wrists (Acute). Mass of right hand (Acute). Status post trigger finger release (Acute). DOS: 11/20/18. Right ring finger. Carpal tunnel syndrome, left (Acute). S/P ECTR 12/16/2019. S/P OCTR 02/10/2020. De Quervain's tenosynovitis, left (Acute). S/P release 12/16/2019. Medical History . COPD (chronic obstructive pulmonary disease). GERD (gastroesophageal reflux disease). Hydradenitis. right groin. Inclusion cyst. Lupus. AR (myocardial infarction). 2015- pt. states she F/U with PCP once a month. Surgical History . Abdominal hysterectomy (~2009). Angiogram. History of carpal tunnel release. History of shoulder surgery. Left rotator cuff. Incision & Drainage, Abscess or Hematoma PREVIOUS FUNCTIONAL STATUS/SOCIAL/FAMILY SUPPORTS:: Gunjan resides in [place], [place], with two adult sons and a dog. She states she has nine children and they are scattered throughout the country. Gunjan shares she has moved numerous times over the past year and recently received an eviction notice at her current place of residence. She is feeling overwhelmed and is unsure where she will move to next. CM will provided her with resources a week ago. CM will follow. CURRENT FUNCTIONAL STATUS:: Gunjan was sitting up in bed when CM met with her. Her sister Audrey is also visiting. Gunjan shares that she currently lives in [place] but is looking for new housing. Gunjan agrees to a referral to [facility]. ADVANCE DIRECTIVES:: None on file Has patient been provided with info about the portal/API?: Yes Did the patient sign up for the portal?: No CODE STATUS:: Full Code INSURANCE COVERAGE / FINANCIAL ISSUES:: [place] Medicaid CURRENT HOME/COMMUNITY SERVICES/EQUIPMENT:: No home services. PRIMARY CARE PHYSICIAN:: [facility] POTENTIAL DISCHARGE NEEDS:: Discharge plan, follow up appointments, follow up with [facility], transportation PATIENT/FAMILY EDUCATION NEEDS:: Review discharge instructions and limitations, discussion of self care needs including ask me three. TRANSPORTATION:: Via [facility] arranged by CM. PLAN:: Gunjan is being closely monitored. Anticipate, she will return home with no services when medically cleared. She will be transported home via [facility] arranged by CM when ready. She will follow up with community providers and discharge plan of care. CM will continue to support patient and any discharge planning needs. Readmission - Within the Past 30 Days Yes or No: Y - Date of First Admission Date of 1st Admission: 12/15/22 - Date of this Admission Date of Admission: 12/23/22 This admission was: Through ED
[2022-12-24] MEDS: Gabapentin 100 MG CAP PO ×2 (10:20→12:14)
[2022-12-24] MEDS: DOXYCYCLINE 100 MG in Normal Saline 100 ML IVPB (11:55)
[2022-12-24] MEDS: Ondansetron 4 MG/2 ML VIAL IVP (15:22)
--- NOTE | 2022-12-24 15:26 | PGE_ITS ---
Date of Service Date of service: 12/24/22 Time of Service: 15:26 Assessment and Plan Assessment and plan (1) Sepsis: Status: Acute Assessment and plan: With GNR bacteremia. Potential sources: necrotic small bowel mass, peritonitis (though the patient is denying abdominal pain), UTI. I have upgraded her antibiotics to high dose ceftriaxone and added flagyl. Will repeat blood cultures in am. Await speciation/sensitivities. (2) Gram-negative bacteremia: Status: Acute Assessment and plan: As above (3) Small bowel tumor: Status: Acute Assessment and plan: Discussed with the general surgery team who is familiar with the patient: the patient needs to be transferred to a tertiary care facility for further workup of her small bowel process. She is not a candidate to have her procedures here. The patient was not interested in pursuing this transfer until Sunday (48 hrs from now). Will approach this subject again tomorrow. (4) UTI (urinary tract infection): Status: Acute Assessment and plan: As above Urine C&S result w/ NGTD at 24 hrs, but UA was c/w a UTI and does have bacteremia. 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 Await echo. Diuresing. Consider a blood transfusion. Not clinically in a COPD exacerbation. (6) Atypical chest pain: Status: Acute Assessment and plan: No ACS on this admission. Continue asa, consider addition of colchicine. Continue prn tylenol, fentanyl. (7) Anemia: Status: Chronic Assessment and plan: Would hold off on transfusion at this time. Agree that this could be related to both GI blood loss and to the suspected hematologic malignancy. Recheck in am. (8) Smoker: Status: Acute Assessment and plan: Nicotrol prn (9) COPD (chronic obstructive pulmonary disease): Status: Chronic Assessment and plan: Continue outpatient therapy (10) Hyponatremia: Status: Acute Assessment and plan: Monitor with diuresis. (11) DVT prophylaxis: Status: Acute Assessment and plan: Lovenox (12) Discharge planning issues: Status: Acute Assessment and plan: Full code C/s palliative care. [place] [facility] [place]when the patient consents. Subjective Subjective Interval history since last seen: Gunjan is in a lot of pain. The pain is in her anterior chest (old) and also on her R side of thorax going to her back. She had requested heat for that. She reports nausea, a little bit of light headedness, denies chest pain, abdominal pain. She does not want to go to [facility] [place]. Maybe Sunday. Agrees to talk to palliative care. Exam Narrative Exam Narrative: General: Pleasant female who appears older than her stated age, pale, looks like she is cold, A&Ox3 HEENT: EOMI, MMM Heart: RRR, no m/r/g Lungs: CTAB; R chest TTP Abdomen: soft, nondistended, nontender Extremities: +1 edema to B ankles Objective Last Vital Signs Temp 36.8 C 12/24/22 11:19 Pulse 61 12/24/22 11:19 Resp 18 12/24/22 11:19 BP 102/56 L 12/24/22 11:19 Pulse Ox 99 12/24/22 11:19 Laboratory Results - last 24 hr 12/23/22 12/23/22 12/23/22 17:08 18:10 18:10 WBC 48.06 H* RBC 3.93 Hgb 9.4 L Hct 30.6 L MCV 78 L MCH 23.9 L MCHC 30.7 L RDW 17.2 H Plt Count 539 H MPV 9.6 Immature Gran % 0.0 Neutrophils % 74.0 Band Neutrophils % 3 Lymphocytes % 3.0 Monocytes % 4.0 Eosinophils % 16.0 Basophils % 0.0 Nucleated RBC % 0.0 Absolute Neutrophils 37.01 H Absolute Lymphocytes 1.44 Absolute Monocytes 1.92 H Absolute Eosinophils 7.69 H Absolute Basophils 0.00 RBC Morphology Normal Hypochromasia Poikilocytosis VBG Lactate Sodium 133 L Potassium 3.3 L Chloride 96 L Carbon Dioxide 26.7 Anion Gap 10.3 BUN 8 Creatinine 0.6 Est GFR (CKD-EPI 2020) 107.26 Glucose 103 Calcium 8.6 Magnesium 1.7 L Iron TIBC Transferrin % Sat Total Bilirubin 0.4 AST 7 L ALT 13 L Alkaline Phosphatase 184 H Troponin I 55 NT-Pro-B Natriuret Pep Total Protein 7.0 Albumin 2.2 L Vitamin B12 Procalcitonin Urine Color Yellow Urine Clarity Clear Urine pH 6.0 Ur Specific [place] 1.020 Urine Protein 100 H Urine Ketones Negative Urine Blood Negative Urine Nitrite Negative Urine Bilirubin Negative Urine Urobilinogen 2.0 H Ur Leukocyte Esterase Small H Urine RBC 0-2 Urine WBC 10-20 H Ur Epithelial Cells Few Urine Crystals Negative Urine Bacteria Few Urine Casts 3-5 Hyaline Urine Mucus Moderate Urine Other Few Trichomonas Ur Culture Indicated? Yes Urine Glucose Negative COVID-19 Source SARS-CoV-2 (PCR) Add-On Test Request 12/23/22 12/23/22 12/23/22 19:06 19:06 22:15 WBC RBC Hgb Hct MCV MCH MCHC RDW Plt Count MPV Immature Gran % Neutrophils % Band Neutrophils % Lymphocytes % Monocytes % Eosinophils % Basophils % Nucleated RBC % Absolute Neutrophils Absolute Lymphocytes Absolute Monocytes Absolute Eosinophils Absolute Basophils RBC Morphology Hypochromasia Poikilocytosis VBG Lactate 1.9 H Sodium Potassium Chloride Carbon Dioxide Anion Gap BUN Creatinine Est GFR (CKD-EPI 2020) Glucose Calcium Magnesium Iron TIBC Transferrin % Sat Total Bilirubin AST ALT Alkaline Phosphatase Troponin I 55 NT-Pro-B Natriuret Pep 7010 H Total Protein Albumin Vitamin B12 Procalcitonin Urine Color Urine Clarity Urine pH Ur Specific [place] Urine Protein Urine Ketones Urine Blood Urine Nitrite Urine Bilirubin Urine Urobilinogen Ur Leukocyte Esterase Urine RBC Urine WBC Ur Epithelial Cells Urine Crystals Urine Bacteria Urine Casts Urine Mucus Urine Other Ur Culture Indicated? Urine Glucose COVID-19 Source SARS-CoV-2 (PCR) Add-On Test Request 12/23/22 12/23/22 12/24/22 22:15 22:15 05:45 WBC 50.61 H* RBC 3.28 L Hgb 7.9 L Hct 25.4 L MCV 77 L MCH 24.1 L MCHC 31.1 L RDW 17.2 H Plt Count 494 H MPV 9.3 Immature Gran % Neutrophils % Band Neutrophils % Lymphocytes % Monocytes % Eosinophils % Basophils % Nucleated RBC % Absolute Neutrophils Absolute Lymphocytes Absolute Monocytes Absolute Eosinophils Absolute Basophils RBC Morphology Hypochromasia Poikilocytosis VBG Lactate Sodium 135 L Potassium 3.3 L Chloride 97 L Carbon Dioxide 28.5 Anion Gap 9.5 BUN 9 Creatinine 0.7 Est GFR (CKD-EPI 2020) 103.35 Glucose 111 H Calcium 8.3 L Magnesium 1.9 Iron TIBC Transferrin % Sat Total Bilirubin AST ALT Alkaline Phosphatase Troponin I NT-Pro-B Natriuret Pep Total Protein Albumin Vitamin B12 Procalcitonin Urine Color Urine Clarity Urine pH Ur Specific [place] Urine Protein Urine Ketones Urine Blood Urine Nitrite Urine Bilirubin Urine Urobilinogen Ur Leukocyte Esterase Urine RBC Urine WBC Ur Epithelial Cells Urine Crystals Urine Bacteria Urine Casts Urine Mucus Urine Other Ur Culture Indicated? Urine Glucose COVID-19 Source Nasal/Nares SARS-CoV-2 (PCR) Negative Add-On Test Request 12/24/22 12/24/22 12/24/22 05:45 05:45 05:45 WBC 46.07 H* RBC 3.33 L Hgb 7.9 L Hct 26.1 L MCV 78 L MCH 23.7 L MCHC 30.3 L RDW 17.4 H Plt Count 496 H MPV 9.9 Immature Gran % 0.0 Neutrophils % 67.0 Band Neutrophils % 3 Lymphocytes % 9.0 Monocytes % 5.0 Eosinophils % 16.0 Basophils % 0.0 Nucleated RBC % 0.0 Absolute Neutrophils 32.25 H Absolute Lymphocytes 4.15 H Absolute Monocytes 2.30 H Absolute Eosinophils 7.37 H Absolute Basophils 0.00 RBC Morphology See Below Hypochromasia 1+ Poikilocytosis 1+ VBG Lactate Sodium Potassium Chloride Carbon Dioxide Anion Gap BUN Creatinine Est GFR (CKD-EPI 2020) Glucose Calcium Magnesium Iron 11 L TIBC 168 L Transferrin % Sat 7 L Total Bilirubin AST ALT Alkaline Phosphatase Troponin I NT-Pro-B Natriuret Pep Total Protein Albumin Vitamin B12 724 Procalcitonin Urine Color Urine Clarity Urine pH Ur Specific [place] Urine Protein Urine Ketones Urine Blood Urine Nitrite Urine Bilirubin Urine Urobilinogen Ur Leukocyte Esterase Urine RBC Urine WBC Ur Epithelial Cells Urine Crystals Urine Bacteria Urine Casts Urine Mucus Urine Other Ur Culture Indicated? Urine Glucose COVID-19 Source SARS-CoV-2 (PCR) Add-On Test Request 12/24/22 12/24/22 05:45 Unknown WBC RBC Hgb Hct MCV MCH MCHC RDW Plt Count MPV Immature Gran % Neutrophils % Band Neutrophils % Lymphocytes % Monocytes % Eosinophils % Basophils % Nucleated RBC % Absolute Neutrophils Absolute Lymphocytes Absolute Monocytes Absolute Eosinophils Absolute Basophils RBC Morphology Hypochromasia Poikilocytosis VBG Lactate Sodium Potassium Chloride Carbon Dioxide Anion Gap BUN Creatinine Est GFR (CKD-EPI 2020) Glucose Calcium Magnesium Iron TIBC Transferrin % Sat Total Bilirubin AST ALT Alkaline Phosphatase Troponin I NT-Pro-B Natriuret Pep Total Protein Albumin Vitamin B12 Procalcitonin 0.4 Urine Color Urine Clarity Urine pH Ur Specific [place] Urine Protein Urine Ketones Urine Blood Urine Nitrite Urine Bilirubin Urine Urobilinogen Ur Leukocyte Esterase Urine RBC Urine WBC Ur Epithelial Cells Urine Crystals Urine Bacteria Urine Casts Urine Mucus Urine Other Ur Culture Indicated? Urine Glucose COVID-19 Source SARS-CoV-2 (PCR) Add-On Test Request DONE Objective Narrative Objective Narrative: CTA chest: 1. No evidence of pulmonary embolus to the segmental level. 2. No aneurysm of the aorta. 3. No dissection of the aorta. 4. Small right pleural effusion. 10 mm simple cyst right kidney CT abdomen/pelvis w/ IV and PO contrast: 1. 8.8 x 7.5 cm heterogeneous mass in the anterior aspect of the right pelvis. Series 12, image 70. Findings consistent with known small bowel mass. Likely malignancy.. 2. Splenomegaly 14.4 cm. Differential diagnosis of splenomegaly is lymphoma/leukemia, mononucleosis, hemolytic anemia, portal hypertension. Time Spent with Patient Time Spent with Patient: 35-49 minutes Time was spent: preparing to see the patient(eg.review tests), obtaining and/or reviewing separately otained hiistory, ordering medications,tests, procedures, referring, communicating with other health aged or disabled care worker, indepentently interpreting results, counseling the patient and care coordination
[2022-12-24] MEDS: Omnipaque 350 MG/ML 100 ML BTL IJ (16:11)
[2022-12-24] MEDS: Normal Saline - Diluent 50 ML VIAL IJ (16:13)
[2022-12-24] MEDS: metroNIDAZOLE 500 MG/100 ML BAG 100 MG IVPB ×2 (16:34→23:08)
--- NOTE | 2022-12-24 16:56 | DI.VRAD_ITS ---
Addendum created by Ermias Archibald MD on 12/24/2022 5:00:24 PM EST: THIS REPORT CONTAINS FINDINGS THAT MAY BE CRITICAL TO PATIENT CARE. The findings were verbally communicated via telephone conference with [employer]TER OPERATOR Samantha Pastrana at 5:00 PM EST on 12/24/2022. The findings were acknowledged and understood. Initial report created on 12/24/2022 4:55:24 PM EST: PROCEDURE INFORMATION: Exam: CTA Chest With Contrast Exam date and time: 12/24/2022 4:12 PM Age: 52 years old Clinical indication: Patient HX: Small bowel mass, r-sided chest pain; Additional info: Best possible iv per nurses RT wrist 18g injection done at 3.5ml/s for PT. To tolerate TECHNIQUE: Imaging protocol: Computed tomographic angiography of the chest with contrast. 3D rendering (Not supervised by radiologist): MIP and/or 3D reconstructed images were created by the technologist. Contrast material: OMNIPAQUE 350; Contrast volume: 100 ml; Contrast route: INTRAVENOUS (IV); COMPARISON: CT CHEST PE CTA 12/15/2022 8:02 PM FINDINGS: Pulmonary arteries: No evidence of pulmonary embolus to the segmental level. Aorta: No aneurysm of the aorta. No dissection of the aorta. Lungs: Moderate panlobular emphysematous changes Pleural spaces: Small right pleural effusion. Heart: Unremarkable. No cardiomegaly. No pericardial effusion. Lymph nodes: Unremarkable. No enlarged lymph nodes. Bones/joints: Unremarkable. No acute fracture. Soft tissues: Unremarkable. IMPRESSION: 1. No evidence of pulmonary embolus to the segmental level. 2. No aneurysm of the aorta. 3. No dissection of the aorta. 4. Small right pleural effusion. 10 mm simple cyst right kidney PROCEDURE INFORMATION: Exam: CT Abdomen And Pelvis With Contrast Exam date and time: 12/24/2022 4:12 PM Age: 52 years old Clinical indication: Patient HX: Small bowel mass, r-sided chest pain; Additional info: Best possible iv per nurses RT wrist 18g injection done at 3.5ml/s for PT. To tolerate TECHNIQUE: Imaging protocol: Computed tomography of the abdomen and pelvis with contrast. Contrast material: OMNIPAQUE 350; Contrast volume: 100 ml; Contrast route: INTRAVENOUS (IV); COMPARISON: CT ABDOMEN PELVIS W 12/23/2022 7:58 PM FINDINGS: Liver: Normal. No mass. Gallbladder and bile ducts: Normal. No calcified stones. No ductal dilation. Pancreas: Normal. No ductal dilation. Spleen: Splenomegaly 14.4 cm. Adrenal glands: Normal. No mass. Kidneys and ureters: Normal. No hydronephrosis. Stomach and bowel: 8.8 x 7.5 cm heterogeneous mass in the anterior aspect of the right pelvis. Series 12, image 70. Findings consistent with known small bowel mass. Likely malignancy.. Appendix: No evidence of appendicitis. Intraperitoneal space: Mild amount of free fluid in the pelvis. Vasculature: Unremarkable. No abdominal aortic aneurysm. Lymph nodes: Unremarkable. No enlarged lymph nodes. Urinary bladder: Unremarkable as visualized. Reproductive: Unremarkable as visualized. Bones/joints: Unremarkable. No acute fracture. Soft tissues: Unremarkable. IMPRESSION: 1. 8.8 x 7.5 cm heterogeneous mass in the anterior aspect of the right pelvis. Series 12, image 70. Findings consistent with known small bowel mass. Likely malignancy.. 2. Splenomegaly 14.4 cm. Differential diagnosis of splenomegaly is lymphoma/leukemia, mononucleosis, hemolytic anemia, portal hypertension. Dictated and Authenticated by: Ermias Archibald MD. Ordering:LIN Cuevas MD
[2022-12-24] MEDS: Gabapentin 300 MG CAP PO (23:08)
[2022-12-25] VITALS (18 sets, daily range): BP systolic 90–110; BP diastolic 40–60; PULSE 63–90; RESP 16–20; TEMP 36.5–38.9; O2SAT 94–98
--- NOTE | 2022-12-25 | DI.US_ITS ---
Exam(s) US EXTREMITY VENOUS BI EXAM: US EXTREMITY VENOUS BI CLINICAL HISTORY: BLE edema, concern for DVT. TECHNIQUE: Bilateral lower extremity venous ultrasound performed using grayscale, color-flow, and sp ectral Doppler analysis. COMPARISON: No exams were available for comparison FINDINGS: The right common femoral, femoral and popliteal veins demonstrate normal compressibility, augmentatio n, and color Doppler. The posterior tibial veins are patent. The saphenofemoral junctions are unremar kable. There is no evidence of a Valdez's cyst. The soft tissues are unremarkable. The left common femoral, femoral and popliteal veins demonstrate normal compressibility, augmentation , and color Doppler. The posterior tibial veins are patent. The saphenofemoral junctions are unremark able. There is no evidence of a Valdez's cyst. The soft tissues are unremarkable. IMPRESSION: 1. No evidence of a right lower extremity DVT. 2. No evidence of a left lower extremity DVT. DATA REPOSITORY:
[2022-12-25] MEDS: fentaNYL 100 MCG/2 ML VIAL 25 MCG IVP ×5 (00:35→21:10)
[2022-12-25] MEDS: Normal Saline Flush 10 ML SYR IVP ×5 (00:36→21:12)
--- NOTE | 2022-12-25 05:00 | DI.US_ITS ---
APPROVED REPORT EXAM: Comprehensive 2D, Doppler, and color-flow Echocardiogram Patient Location: In-Patient Room/Bed: 214 Cmo: Stephanie Berger RDCS (AE) Indications: SOB, orthopnea, elevated BNP, Chest pain, COPD Other Information Study Quality: Fair. Technically limited study due to body habitus. Conclusion Normal left ventricular wall thickness and chamber size. Estimated ejection fraction is 55 to 60%. Wall motion is normal Normal right ventricular size and systolic function Left atrium is mildly dilated. Right atrial size is normal Aortic valve is mildly sclerotic and trileaflet. There is no aortic stenosis. There is mild to mode rate aortic regurgitation Mildly thickened mitral leaflets. Trace to mild mitral regurgitation Normal tricuspid valve with mild regurgitation. Estimated right ventricular systolic pressure is 26 mmHg Wall motion Left Ventricle The left ventricle is normal size. The left ventricular systolic function is normal. The left ventric ular ejection fraction is within the normal range. There is normal left ventricular wall thickness. T here is normal LV segmental wall motion. There is no ventricular septal defect visualized. LVEF is 55 -60%. Right Ventricle The right ventricle is normal size. The right ventricular systolic function is normal. The RVSP is 26 .2 mmHg. Atria Left atrium is mildly dilated. The right atrium size is normal. The interatrial septum is intact with no evidence for an atrial septal defect. Aortic Valve The Aortic valve is mildly sclerotic. Aortic valve is trileaflet. There is no aortic valvular stenosi s. Mild to moderate aortic regurgitation. Mitral Valve Mitral valve leaflets are mildly thickened. No evidence of mitral valve stenosis. Trace to mild meena l regurgitation. Tricuspid Valve The tricuspid valve is normal in structure. There is no tricuspid valve stenosis. Mild tricuspid regu rgitation. Pulmonic Valve The pulmonary valve is normal in structure. There is no pulmonic valvular stenosis. Trace pulmonic re gurgitation. Great Vessels The aortic root is normal in size. The ascending aorta is normal in size. Aortic arch is normal in ca liber. The IVC collapses <50% with inspiration. Pericardium There is no pericardial effusion. 2D Dimensions IVSD d PLAX 0.96 cm F: 0.6-1.0 LV Vol A2C d MOD 139.0 mL LVPW d PLAX 0.95 cm F: 0.6 - 1.0 LV Vol A4C d MOD 134.5 mL LVID d PLAX 5.12 cm F: 3.8 - 5.2 LA vol/ BSA A2C s A-L 45.6 mL/m2 LVDs 3.60 cm F: 2.2 - 3.5 LA vol/ BSA A4C s A-L 30.9 mL/m2 Ao Root d 2.81 cm F: 2.7 - 3.3 LA Vol/ BSA Biplane s A-L 40.1 mL/m2 RA Area A4C 13.95 cm2 LA Area A4C s MOD 19.49 cm2 RA Vol/ BSA A4C s A-L 17.9 mL/m2 LA Area A2C s MOD 25.28 cm2 Ao Asc Diam d 2.74 cm F: 2.3 - 3.1 LV EF A4C MOD 55.4 % LV EF Teichholz 55.3 % LV EF A2C MOD 55.0 % LVEF (Mijares's) 54.98 % F: 54 - 74 LV EF Biplane MOD 55.0 % LV Volume 108.03 mL F: 46 - 106 SV 76.84 mL LV Volume Index 59.03 mL/m2 F: 29 - 61 SV Index 41.94 mL/m2 LV Vol Biplane MOD 139.8 mL FS 28.95 % M-Mode TAPSE 2.25 cm (M/F) >1.7 LV Diastology MV E' medial 0.077 (>0.07 m/s) E/A Ratio 1.3 LV E/e MED 18.90 (<14) MV E Vmax 1.46 (0.4-1.3 m/s) MV E' lateral 0.067 (>0.1 m/s) MV A Vmax 1.15 (0.4-1.3 m/s) LV E/e LAT 21.65 (<14) MV E/A Ratio 1.24 MV E/E' medial 18.91 MV E/E' lateral 21.66 Aortic Valve LVOT Area 3.31 cm2 AoV Area Vmax 2.58 cm2 LVOT Vmax 1.36 m/s AoV Area/ BSA (Vmax) 1.41 cm2/m2 LVOT Mean Eitan. 0.84 m/s JAVID Mean Eitan. 2.45 cm2 LVOT Peak Grad 7.4 mmHg JAVID Mean Eitan. Index 1.34 cm2/m2 LVOT Mean Grad 3.4 mmHg AR DT 1502 msec LVOT VTI 0.313 m AR PHT 436 msec LVOT Diam s 2.05 cm AoV Vmax 1.75 m/s Velocity Ratio 0.78 AoV Mean Eitan. 1.13 m/s AoV Peak Grad 12.3 mmHg LVOT SV 103.81 mL AoV Mean Grad 6.0 mmHg AoV VTI 0.363 m AoV Area VTI 2.86 cm2 AoV Area/ BSA (VTI) 1.56 cm/m2 Mitral Valve MV DT 233 (160-240 msec) MV PHT 68 msec MV Area PHT 3.25 cm2 MV VTI 0.583 m MV Area VTI 1.78 (4.0-6.0 cm2) Pulmonary Valve PV Vmax 1.11 (0.5-1.5 m/s) RVOT Peak Gr. 1.25 mmHg PV Peak Grad 4.9 mmHg RVOT Mean Gr. 0.70 mmHg PV Mean Grad 2.5 mmHg RVOT VTI 0.105 m PV VTI 0.201 m RVOT Vmax 0.56 m/s Tricuspid Valve TR Peak Grad 18.2 mmHg TR Vmax 2.13 m/s RA Pressure 8.00 mmHg RVSP (TR) 26.2 mmHg
[2022-12-25 06:43] LABS: Abs Immature Grans 1.15 10^3/uL (0.0-0.06); HCT 23.8 % (36.0-46.0); HGB 7.2 g/dL (11.2-15.7); MCH 23.7 pg (27.0-33.0); MCHC 30.3 % (32.0-36.0); MCV 78 fL (80-95); MPV 9.7 fL (8.0-11.0); RBC 3.04 10^6/uL (3.93-5.22); RDW 17.2 % (11.7-14.6); RDW-SD 48.7 fL
[2022-12-25 06:55] LABS: Anion Gap 8.1 mmol/L (3-11); BUN 6 mg/dL (7-18); C-Reactive Protein 17.16 mg/dL (0.0-0.3); CO2 26.9 mmol/L (21.0-32.0); CREATININE 0.5 mg/dL (0.55-1.02); Chloride 96 mmol/L (98-107); Estimated GFR 112.08 (mL/min/1.73m2); Glucose 111 mg/dL (74-106); Magnesium 1.7 mg/dL (1.8-2.4); Potassium 3.9 mmol/L (3.5-5.1); Sodium 131 mmol/L (136-145)
[2022-12-25 07:13] LABS: Bands % 4; Platelet Count 443 10^3/uL (130-400); WBC 43.23 10^3/uL (4.4-10.8)
[2022-12-25 07:14] LABS: Absolute Basophil Count 1.73 10^3/uL (0.0-0.2); Absolute Eosinophil Count 9.08 10^3/uL (0.0-0.7); Absolute Lymphocyte Count 2.59 10^3/uL (1.2-3.4); Absolute Monocyte Count 2.16 10^3/uL (0.1-0.8); Atypical Lymphocytes % 1; Diff Comment Manual Differential; Hypochromasia 2+; Metamyelocytes % 1; Polychromasia Present
--- NOTE | 2022-12-25 07:43 | NUR.NOTE ---
Nursing Note: Critical Lab reported by Natasha Morris to Gianna Najera RN. Patient has positive blood culture of propeus Species. CC notified
[2022-12-25] MEDS: Tiotropium/Olodaterol 10 PUFF INHALER 2 PUFF IH (08:00)
--- NOTE | 2022-12-25 08:00 | RT.EKG_ITS ---
APPROVED REPORT Exam: Resting ECG Reason for Exam: chest pain Patient Location: I HR:81 bpm ECG Measurements Heart Rate 81 AXIS ME 130 P 59 QRSd 86 QRS -30 QT 355 T 80 QTc 412 Conclusion Sinus rhythm...normal P axis, V-rate 50- 99 Left atrial enlargement...P, P'>60mS, <-0.15mV V1 Left axis deviation...QRS axis (-30,-90) Borderline low voltage, extremity leads...all extremity leads <0.6mV
[2022-12-25] MEDS: Pantoprazole 40 MG TABCR PO (08:26)
[2022-12-25] MEDS: Aspirin 325 MG TAB PO (08:27)
[2022-12-25] MEDS: Acetaminophen 500 MG TAB 1000 MG PO ×2 (08:28→19:42)
[2022-12-25] MEDS: Furosemide 20 MG/2 ML VIAL IVP ×2 (08:29→17:41)
[2022-12-25] MEDS: metroNIDAZOLE 500 MG/100 ML BAG 100 MG IVPB ×2 (08:30→22:00)
[2022-12-25] MEDS: Normal Saline 500 ML 100 ML IV (08:30)
[2022-12-25 09:06] LABS: Lab Add On Test DONE
--- NOTE | 2022-12-25 09:54 | CMPROGNOTE_ITS ---
- If Service Date Differs Date of service: 12/25/22 Time of Service: 09:54 Care Management Progress Note S/O: Gunjan was sitting up in bed when CM met with her. Per provider, she is appropriate for transfer to Hem/Oncology at a tertiary hospital pending bed availability. Gunjan [facility], not [facility]. Pt is agreeable to transfer. Palliative consult is ordered. Per pt, she currently lives in [facility] with her son. She expresses upcoming concerns with housing and is agreeable to talking with [facility]. [facility] referral is placed and [facility] screened Gunjan over the phone shortly after. Per pt, [facility] is offering support to help reconnect her with [facility]. In addition, Gunjan does not have a working phone or a reliable alternate contact, [facility] is aware. A: 52 year old female admitted to [facility] on 12/23/22 for Hypotension, Anemia P: Gunjan is being closely monitored. Anticipate, she will transfer to a Tertiary Facility via EMS pending bed availability. CM will continue to support patient and any discharge planning needs.
[2022-12-25 09:58] LABS: Iron 13 ug/dL (50-170); Total Iron Binding Capacity 181 ug/dL (250-450); Transferrin Sat 7 % (15-50)
[2022-12-25] MEDS: MAGNESIUM SULFATE 2 GM/50 ML BAG IVPB (10:18)
[2022-12-25 10:19] LABS: Ferritin 387 ng/mL (8-252); Folate 2.1 ng/mL (8.6-20.0)
[2022-12-25] MEDS: Gabapentin 100 MG CAP PO ×2 (12:57→22:33)
--- NOTE | 2022-12-25 15:50 | PHA.REVIEW2 ---
Pharmacy Admission Review - Admission Clinical Review (Last Reviewed 12/24/22 @ 01:55 by Rah Munoz) UTI (urinary tract infection) (Acute) Sepsis (Acute) Gram-negative bacteremia (Acute) Discharge planning issues (Acute) DVT prophylaxis (Acute) Hyponatremia (Acute) Shortness of breath (Acute) Smoker (Acute) Small bowel tumor (Acute) Atypical chest pain (Acute) ibuprofen Allergy (Intermediate, Unverified 12/23/22 16:25) Swelling/Edema ketorolac tromethamine [From Toradol] Allergy (Mild, Unverified 12/23/22 16:25) Hives latex Allergy (Mild, Unverified 12/23/22 16:25) Skin Rash tramadol Allergy (Unverified 12/23/22 16:25) Hives adhesive Adverse Reaction (Mild, Unverified 12/23/22 16:25) Skin Rash PLASTIC TAPE Allergy (Intermediate, Uncoded 12/23/22 16:25) Skin Rash, BLISTERS Resuscitation Status Full Code Height 5 ft 5 in Weight 77.252 kg - Renal Dosing Renal Dosing: BUN 6 mg/dL (7-18) L 12/25/22 06:30 Creatinine 0.5 mg/dL (0.55-1.02) L 12/25/22 06:30 Medications needing adjustments: Reviewed (Crcl ~133.7 mL/min current meds okay) - Anticoagulation Anticoagulation: Hgb 7.2 g/dL (11.2-15.7) L 12/25/22 06:30 Hct 23.8 % (36.0-46.0) L 12/25/22 06:30 Plt Count 443 10^3/uL (130-400) H 12/25/22 06:30 Creatinine 0.5 mg/dL (0.55-1.02) L 12/25/22 06:30 DVT Prophylaxis: Reviewed Medications: Enoxaparin Therapeutic Anticoagulation: N/A - Opiate Usage Evaluate Pain Scale/Pains Meds: Intervened Scheduled Bowel Reg ordered if on Opiates?: No (will mention to provider) - Relevant Labs Sodium 131 mmol/L (136-145) L 12/25/22 06:30 Potassium 3.9 mmol/L (3.5-5.1) 12/25/22 06:30 Chloride 96 mmol/L (98-107) L 12/25/22 06:30 Magnesium 1.7 mg/dL (1.8-2.4) L 12/25/22 06:30 C-Reactive Protein 17.16 mg/dL (0.0-0.3) H 12/25/22 06:30 Electrolytes, C-Reactive P, ESR: Reviewed (IV mag ordered) - DM Control DM Control: Glucose 111 mg/dL (74-106) H 12/25/22 06:30 DM Control: Reviewed (No DM noted in pt's medical history, no A1c on file) - Cardiac Review Cardiac Review: Troponin I 55 ng/L (<or=60) 12/23/22 19:06 NT-Pro-B Natriuret Pep 7010 pg/mL (<300) H 12/23/22 22:15 BP, HR, EF%: Reviewed (BP has been low most of admission so far) - Qtc Review QTc: Reviewed (QTc 412 on EKG done today) - IV to PO Switch IV Medications: Reviewed - Home Meds Home Med List reviewed: Reviewed Relevent Home Meds Not ordered & why?: hydrocortisone (PRN) - Current meds Current Medication Order Review: Reviewed (Discontinued duplicate med orders.) - Comments Comments/Follow Ups: Watch BP, mag, H/H, labs, for culture results and med changes. Antibiotic Review - Pharmacy Antibiotic Review Pharmacy Antibiotic Activity: C/S review (UC growing gram+ chau. One BC is growing proteus, one has no growth @24 hours, two are pending.), Reviewed, no change (ceftriaxone and metronidazole ordered to cover for UTI and bacteremia.) Relevant Labs: Relevant Labs 12/25/22 06:30 C-Reactive Protein 17.16 H
[2022-12-25] MEDS: cefTRIAXone 2 GM/50 ML BAG IVPB (17:50)
--- NOTE | 2022-12-25 18:24 | PCNE_ITS ---
Date of service: 12/25/22 Time of Service: 16:00 History of Present Illness Narrative: Ms. Hollins is a 52 y/o F currently inpatient at [facility] 2/2 sepsis w/GNR bacteremia, plans for transfer to [facility] tomorrow; PMHx sig for COPD, Lupus w/chronic pain, GERD; undiagnosed mass in abdomen w/elevated WBC, d/dx lymphoma, metastatic dz Gunjan has been declining since April. She has had declining energy, doing less, sleeping more, feeling more depressed; since October has had increase in sympt oms, with new onset chest pain and shortness of breath. - Recent HC encounters: 12/07 ED presentation with chief complaint abdominal pain, work-up concerning of metastatic disease versus lymphoma mass identified in right lower quadrant, patient denied work-up and was discharged. - 12/15 ED presentation with chief complaint of chest pain and shortness of breath, [facility] cardiology recommended treatment for pericarditis versus myopericarditis, admitted inpatient, heme-onc consulted, echo scheduled, patient left AMA on 12/17; - 12/[address] Melvin general surgery, decreased hemoglobin, urgent referral to [facility] hem/onc; - 12/23 ED presentation with chief complaint chest pain, [facility] consult recommendations for follow-up outpatient with surgical oncology, colonoscopy. Admitted inpatient for further work-up and observation, CHF? Goal while inpatient to improve respiratory status and anemia, threshold for transfusions hemoglobin 7. - 12/24 sepsis with GNR bacteremia, ceftriaxone and Flagyl; Plan for transfer to [facility] on Tuesday 12/26 Gunjan lives in [place] with 2 adult children, she has a h/o unstable housing, with current addiction on hold temporarily, working on finding more stable housing, preference to not live with children and live alone. Her dog Soco is her greatest support, service animal. She has had 9 children, there is a complicated and long social history, closest with son Henry. She is close with Sister Emely, whom recently went through similar health scares, with colostomy and ostomy, Gunjan was down taking care of her prior to April. She has several grandchildren and she loves them very much. In addition to unstable housing, her finances are tight, herself and is currently not working, she does not have transportation, and feels her legal history limits her housing opportunities. Is a history of substance use disorder with crack, with no use x27yrs. She denies history of opiate misuse, but endorses family history, including some children. She is currently without an RT, due to no availability of patch without latex, cannot to come due to dentures, feels irritated, feels nicotine in system helps control her blood pressure. Gunjan wonders if she is going to be scheduled for a blood transfusion, what the results of her echo were, if she is able to be up and moving around, she is bored, and irritated with lack of direct interaction with staff. 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 Symptoms of intermittent swelling in elbows knees fingers, with increased pain. She is aware of the mass in her stomach, and that it may be cancerous however until she has a confirmation biopsy and work-up she will not feel this is confirmed. She would want to engage in curative therapies, would use chemotherapy and do anything to sustain her life Shaun Lewis: [phone] Gunjan: [phone] Assessment and Plan Assessment and plan (1) Sepsis: Status: Acute Assessment and plan: source? necrotic small bowel mass, peritonitis (no abd pain), UTI continue high dose ceftriaxone, flagyl added repeat blood cultures tomorrow, s/s pending (2) Gram-negative bacteremia: Status: Acute (3) Small bowel tumor: Status: Acute Assessment and plan: transfer to [facility] tomorrow for further work up not candidate for surgical procedures at [facility] (4) Shortness of breath: Status: Acute Assessment and plan: Respirations regular and even throughout visit suspicion of CHF, pericarditis; ECHO results pending continue diuresis, consider blood transfusion COPD exacerbation ruled out (5) Anemia: Status: Chronic Assessment and plan: guidelines for transfusion if hbg 7 or less labs this am (6) Leukocytosis (leucocytosis): Status: Acute (7) Smoker: Status: Acute Assessment and plan: no current NRT therapies reported via patient Nicotrol PRN (8) COPD (chronic obstructive pulmonary disease): Status: Chronic Assessment and plan: did not discuss, need for f/u (9) Atypical chest pain: Status: Acute Assessment and plan: No ACS on this admission. Continue asa, consider addition of colchicine. Continue prn tylenol, fentanyl. (10) Lupus: Assessment and plan: previously f/b [facility] rheum; willing to establish w/rheum again, pending location would consider [facility] rheum referral while down there (11) Advance care planning: Status: Acute Assessment and plan: strong desire to continue living, would want to fight any cancer w/intention for curative therapy; would want all life sustaining treatment, however would NOT want to be put into an induced coma [facility] form completed, son Shaun Lewis identified: [phone] form left w/CM (12) Full code status: Status: Acute Assessment and plan: Discussion regarding Code Status preferences - patient wants to be a Full Code (13) Discharge planning issues: Status: Acute Assessment and plan: unstable housing, transportation, finances; concerns for lost to f/u, w/need for urgent work-up and surgical consults plan for transfer to [facility] for appropriate work-up Preet following, working on finding/establishing respite housing Review of Systems Narrative: as per HPI PFSH All Active Problems Full code status (Acute) Advance care planning (Acute) UTI (urinary tract infection) (Acute) Sepsis (Acute) Gram-negative bacteremia (Acute) Discharge planning issues (Acute) DVT prophylaxis (Acute) Hyponatremia (Acute) Anemia (Chronic) Shortness of breath (Acute) Abdominal ascites (Acute) Smoker (Acute) Elevated troponin (Acute) COPD (chronic obstructive pulmonary disease) (Chronic) Early satiety (Acute) Abnormal weight loss (Acute) Iron deficiency anemia due to chronic blood loss (Acute) Small bowel tumor (Acute) Leukocytosis (leucocytosis) (Acute) Acute myopericarditis (Acute) Abdominal mass, right lower quadrant (Acute) UTI (urinary tract infection) (Acute) Hemorrhoids (Acute) Atypical chest pain (Acute) Carpal tunnel syndrome of right wrist (Acute) Abscess of groin, right (Acute 11/03/15) s/p surgical resection by Dr Douglas. Pt says she is having recurrent abscesses in tract, referred to [facility] Neurology as concern for nerve involvement but pt went to [facility] instead and was put on abx and told her infections were Pt extremely disappointed. Cervical disc disease (Acute 11/03/15) MR showed cervical involvement Status post carpal tunnel release of both wrists (Acute) Mass of right hand (Acute) Status post trigger finger release (Acute) DOS: 11/20/18 Right ring finger Carpal tunnel syndrome, left (Acute) S/P ECTR 12/16/2019 S/P OCTR 02/10/2020 De Quervain's tenosynovitis, left (Acute) S/P release 12/16/2019 Medical History COPD (chronic obstructive pulmonary disease) GERD (gastroesophageal reflux disease) Hydradenitis right groin Inclusion cyst Lupus CA (myocardial infarction) 2015- pt. states she F/U with PCP once a month Surgical History Abdominal hysterectomy (~2009) Angiogram History of carpal tunnel release History of shoulder surgery Left rotator cuff. Incision & Drainage, Abscess or Hematoma Family History Mother Heart disease Father Cancer throat Social History Smoking/Tobacco Use Status: Current every day Tobacco Type: cigarettes Smoking risk assessment performed?: Yes Alcohol Intake: never Drug use: Never Substance use type: does not use Current gender identity: female Do you feel safe at home: Yes Do you feel safe in your relationship?: Yes Additional Social history: Not in a relationship. Living with family in [place] temporarily. 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 Exam Const General: cooperative, comfortable and no acute distress Nutritional Appearance: average body habitus Orientation: alert, awake and oriented x3 HENMT Head: normocephalic, atraumatic and no acral cyanosis Chest Chest: normal inspection of the chest Resp Effort & Inspection: normal respiratory effort, able to speak in complete sentences, no cough and not labored Skin General skin exam: no rashes or lesions noted and dry skin Neuro General: CN's II-XI intact bilaterally Speech: speech normal Psych Speech and Movement: speech and movement normal Mood: congruent mood and irritable mood Affect: labile affect Attitude: cooperative Thought Process: impoverished and loose association Thought Content: normal Insight: limited Judgment: limited Results Last Vital Signs Temp 98.1 F 12/25/22 15:56 Pulse 73 12/25/22 16:50 Resp 18 12/25/22 15:56 BP 96/58 L 12/25/22 15:56 Pulse Ox 98 12/25/22 15:56 Labs Result diagrams: 12/25/22 06:30 12/25/22 06:30 Labs: Laboratory Results - last 24 hr 12/25/22 12/25/22 12/25/22 06:30 06:30 09:02 WBC 43.23 H* RBC 3.04 L Hgb 7.2 L Hct 23.8 L MCV 78 L MCH 23.7 L MCHC 30.3 L RDW 17.2 H Plt Count 443 H MPV 9.7 Immature Gran % See Differential Neutrophils % 58.0 Band Neutrophils % 4 Lymphocytes % 5.0 Atypical Lymphs % 1 Monocytes % 5.0 Eosinophils % 21.0 Basophils % 4.0 Metamyelocytes % 1 Nucleated RBC % 0.0 Absolute Neutrophils 26.80 H Absolute Lymphocytes 2.59 Absolute Monocytes 2.16 H Absolute Eosinophils 9.08 H Absolute Basophils 1.73 H RBC Morphology See Below Polychromasia Present Hypochromasia 2+ Sodium 131 L Potassium 3.9 Chloride 96 L Carbon Dioxide 26.9 Anion Gap 8.1 BUN 6 L Creatinine 0.5 L Est GFR (CKD-EPI 2020) 112.08 Glucose 111 H Calcium 8.0 L Magnesium 1.7 L Iron TIBC Transferrin % Sat Ferritin C-Reactive Protein 17.16 H Folate Add-On Test Request DONE Patient ABO/Rh Antibody Screen Crossmatch 12/25/22 12/25/22 12/25/22 09:02 09:02 10:50 WBC RBC Hgb Hct MCV MCH MCHC RDW Plt Count MPV Immature Gran % Neutrophils % Band Neutrophils % Lymphocytes % Atypical Lymphs % Monocytes % Eosinophils % Basophils % Metamyelocytes % Nucleated RBC % Absolute Neutrophils Absolute Lymphocytes Absolute Monocytes Absolute Eosinophils Absolute Basophils RBC Morphology Polychromasia Hypochromasia Sodium Potassium Chloride Carbon Dioxide Anion Gap BUN Creatinine Est GFR (CKD-EPI 2020) Glucose Calcium Magnesium Iron 13 L TIBC 181 L Transferrin % Sat 7 L Ferritin 387 H C-Reactive Protein Folate 2.1 L Add-On Test Request Patient ABO/Rh O Positive Antibody Screen NEGATIVE Crossmatch See Detail
[2022-12-25] MEDS: Docusate Sodium 100 MG CAP PO (19:42)
--- NOTE | 2022-12-25 22:03 | W.PM.PROGNOT ---
Date of Service Date of service: 12/25/22 Time of Service: 09:30 Assessment and Plan Assessment and plan (1) Sepsis: Status: Acute Assessment and plan: With Proteus bacteremia. Potential sources: necrotic small bowel mass, peritonitis (though the patient is denying abdominal pain), UTI. Urine culture was mixed and had <10,000 CFU. Continue ceftriaxone and flagyl. Repeat blood cultures pending. (2) Gram-negative bacteremia: Status: Acute Assessment and plan: As above (3) Small bowel tumor: Status: Acute Assessment and plan: Discussed with the general surgery team who is familiar with the patient: the patient needs to be transferred to a tertiary care facility for further workup of her small bowel process. No beds at [facility] today. She is not a candidate to have her procedures here. The patient is agreeable to transfer. (4) UTI (urinary tract infection): Status: Suspected Assessment and plan: As above Urine C&S result w/ <10,000 CFU gram positive chau, so perhaps not a UTI. 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 Echo w/o pericardial effusion, without wall motion abnormalities, preserved LVEF. Continue diuresis. Transfuse 1 unit pRBCs today. Not clinically in a COPD exacerbation. (6) Atypical chest pain: Status: Acute Assessment and plan: No ACS on this admission. Continue asa, consider addition of colchicine. Continue prn tylenol, fentanyl. (7) Anemia: Status: Chronic Assessment and plan: Transfuse 1 unit pRBCS today. Agree that this could be related to both GI blood loss and to the suspected hematologic malignancy. (8) Smoker: Status: Acute Assessment and plan: Nicotrol prn (9) COPD (chronic obstructive pulmonary disease): Status: Chronic Assessment and plan: Continue outpatient therapy (10) Hyponatremia: Status: Acute Assessment and plan: Monitor with diuresis. This is worse today. (11) DVT prophylaxis: Status: Acute Assessment and plan: Lovenox (12) Discharge planning issues: Status: Acute Assessment and plan: Full code Seen by palliative care Will attempt to transfer to [facility] when bed available. Subjective Subjective Interval history since last seen: Reported chest pain this morning. Nursing noted hypotension. No dizziness, headache, or nausea. Agrees to go to [facility], but unfortunately, there are no beds available today. Exam Narrative Exam Narrative: General: Pleasant female who appears older than her stated age, pale, A&Ox3 HEENT: EOMI, MMM Heart: RRR, no m/r/g Lungs: CTAB; R chest TTP Abdomen: soft, nondistended, nontender Extremities: trace edema to B ankles Objective Last Vital Signs Temp 37.9 C H 12/25/22 19:42 Pulse 80 12/25/22 19:20 Resp 16 12/25/22 19:20 BP 96/55 L 12/25/22 19:20 Pulse Ox 94 12/25/22 19:20 Laboratory Results - last 24 hr 12/25/22 12/25/22 12/25/22 06:30 06:30 09:02 WBC 43.23 H* RBC 3.04 L Hgb 7.2 L Hct 23.8 L MCV 78 L MCH 23.7 L MCHC 30.3 L RDW 17.2 H Plt Count 443 H MPV 9.7 Immature Gran % See Differential Neutrophils % 58.0 Band Neutrophils % 4 Lymphocytes % 5.0 Atypical Lymphs % 1 Monocytes % 5.0 Eosinophils % 21.0 Basophils % 4.0 Metamyelocytes % 1 Nucleated RBC % 0.0 Absolute Neutrophils 26.80 H Absolute Lymphocytes 2.59 Absolute Monocytes 2.16 H Absolute Eosinophils 9.08 H Absolute Basophils 1.73 H RBC Morphology See Below Polychromasia Present Hypochromasia 2+ Sodium 131 L Potassium 3.9 Chloride 96 L Carbon Dioxide 26.9 Anion Gap 8.1 BUN 6 L Creatinine 0.5 L Est GFR (CKD-EPI 2020) 112.08 Glucose 111 H Calcium 8.0 L Magnesium 1.7 L Iron TIBC Transferrin % Sat Ferritin C-Reactive Protein 17.16 H Folate Add-On Test Request DONE Patient ABO/Rh Antibody Screen Crossmatch 12/25/22 12/25/22 12/25/22 09:02 09:02 10:50 WBC RBC Hgb Hct MCV MCH MCHC RDW Plt Count MPV Immature Gran % Neutrophils % Band Neutrophils % Lymphocytes % Atypical Lymphs % Monocytes % Eosinophils % Basophils % Metamyelocytes % Nucleated RBC % Absolute Neutrophils Absolute Lymphocytes Absolute Monocytes Absolute Eosinophils Absolute Basophils RBC Morphology Polychromasia Hypochromasia Sodium Potassium Chloride Carbon Dioxide Anion Gap BUN Creatinine Est GFR (CKD-EPI 2020) Glucose Calcium Magnesium Iron 13 L TIBC 181 L Transferrin % Sat 7 L Ferritin 387 H C-Reactive Protein Folate 2.1 L Add-On Test Request Patient ABO/Rh O Positive Antibody Screen NEGATIVE Crossmatch See Detail Objective Narrative Objective Narrative: US venous: 1. No evidence of a right lower extremity DVT. 2. No evidence of a left lower extremity DVT. Echo: Normal left ventricular wall thickness and chamber size.? Estimated ejection fraction is 55 to 60%.? Wall motion is normal Normal right ventricular size and systolic function Left atrium is mildly dilated.? Right atrial size is normal Aortic valve is mildly sclerotic and trileaflet.? There is no aortic stenosis.? There is mild to moderate aortic regurgitation Mildly thickened mitral leaflets.? Trace to mild mitral regurgitation Normal tricuspid valve with mild regurgitation.? Estimated right ventricular systolic pressure is 26 mmHg Time Spent with Patient Time Spent with Patient: 25-34 minutes Time was spent: preparing to see the patient(eg.review tests), obtaining and/or reviewing separately otained hiistory, ordering medications,tests, procedures, referring, communicating with other health health care marketing specialist, indepentently interpreting results, counseling the patient and care coordination
[2022-12-26] VITALS (23 sets, daily range): BP systolic 90–110; BP diastolic 42–60; PULSE 64–76; RESP 12–20; TEMP 36.3–37.7; O2SAT 94–100
[2022-12-26] MEDS: Enoxaparin 40 MG/0.4 ML SYR SC (00:41)
[2022-12-26] MEDS: fentaNYL 100 MCG/2 ML VIAL 25 MCG IVP ×5 (02:11→21:22)
[2022-12-26] MEDS: Normal Saline Flush 10 ML SYR IVP ×4 (02:12→16:12)
[2022-12-26 07:22] LABS: Abs Immature Grans 1.11 10^3/uL (0.0-0.06); Absolute Lymphocyte Count 2.23 10^3/uL (1.2-3.4); Basophils % 0.5; HCT 24.7 % (36.0-46.0); HGB 7.8 g/dL (11.2-15.7); Immature Grans % 3.1; Lymphocytes % 6.3; MCH 24.8 pg (27.0-33.0); MCHC 31.6 % (32.0-36.0); MCV 78 fL (80-95); MPV 9.9 fL (8.0-11.0); Neutrophils % 65.1; Platelet Count 445 10^3/uL (130-400); RBC 3.15 10^6/uL (3.93-5.22); RDW 17.2 % (11.7-14.6); RDW-SD 48.7 fL
[2022-12-26 07:27] LABS: Absolute Basophil Count 0.18 10^3/uL (0.0-0.2); Absolute Eosinophil Count 7.07 10^3/uL (0.0-0.7); Absolute Monocyte Count 1.77 10^3/uL (0.1-0.8)
[2022-12-26 07:38] LABS: Diff Comment Diff Reviewed; RBC Morphology Normal
[2022-12-26 07:39] LABS: WBC 35.33 10^3/uL (4.4-10.8)
[2022-12-26 07:42] LABS: Anion Gap 6.2 mmol/L (3-11); BUN 7 mg/dL (7-18); C-Reactive Protein 15.43 mg/dL (0.0-0.3); CO2 28.8 mmol/L (21.0-32.0); CREATININE 0.5 mg/dL (0.55-1.02); Chloride 98 mmol/L (98-107); Estimated GFR 112.08 (mL/min/1.73m2); Glucose 90 mg/dL (74-106); Magnesium 2.1 mg/dL (1.8-2.4); Potassium 3.8 mmol/L (3.5-5.1); Sodium 133 mmol/L (136-145)
[2022-12-26] MEDS: Tiotropium/Olodaterol 10 PUFF INHALER 2 PUFF IH (07:46)
[2022-12-26 08:03] LABS: Procalcitonin 0.2 ng/mL
[2022-12-26] MEDS: Aspirin 325 MG TAB PO (08:03)
[2022-12-26] MEDS: Pantoprazole 40 MG TABCR PO (08:03)
[2022-12-26] MEDS: Acetaminophen 500 MG TAB 1000 MG PO (08:46)
[2022-12-26] MEDS: Gabapentin 100 MG CAP PO ×2 (08:46→12:18)
[2022-12-26] MEDS: Furosemide 20 MG/2 ML VIAL IVP (09:47)
--- NOTE | 2022-12-26 10:04 | CMPROGNOTE_ITS ---
- If Service Date Differs Date of service: 12/26/22 Time of Service: 10:04 Care Management Progress Note S/O: Gunjan was sitting up on the side of her bed when CM met with her. She was polite and agreeable to conversation. Gunjan expressed frustration with the fact that she continues to wait for a bed at [facility]. She has been told that she has cancer but does not understand how that diagnosis can be made without a biopsy. She admitted that she is upset about the possibility. She stated that she just wants to get to [facility] so she can get a diagnosis and treatment. As of this afternoon, there are still no beds available. CM provided her with puzzle books for a distraction which she stated she appreciated. A: 52 year old female admitted to [facility] on 12/23/22 for Hypotension, Anemia P: Gunjan is being closely monitored. Anticipate, she will transfer to a Tertiary Facility via EMS pending bed availability. CM will continue to support patient and any discharge planning needs.
--- NOTE | 2022-12-26 14:49 | W.PM.PROGNOT ---
Date of Service Date of service: 12/26/22 Time of Service: 12:00 Assessment and Plan Assessment and plan (1) Sepsis: Status: Acute Assessment and plan: With Proteus bacteremia. Potential sources: necrotic small bowel mass, urine only grew mixed gram positive chau <10,000 CFU Repeat blood cultures from 12/25 showed no growth. today is day #3 of Rocephin, I would like her to have at least 5 days of parenteral antibiotics but as the Proteus was sensitive to all antibiotics tested, she could go home on Cipro for 5 more days after the Roecphin Professional time spent interviewing and examining patient, discussion of goals of care with hospital team (care management, nursing and consulting professionals) was 60 minutes. (2) Gram-negative bacteremia: Status: Acute Assessment and plan: As above (3) Small bowel tumor: Status: Acute Assessment and plan: Discussed with the general surgery team who is familiar with the patient: the patient needs to be transferred to a tertiary care facility for further workup of her small bowel process. No beds at [facility] again today. She is not a candidate to have her procedures here. The patient is agreeable to transfer but refuses to consider [facility] in [place], [place]. She wants to go to [place] if she can not go to [facility]. I have spoken w/ a surgeon at [facility]. He is willing to take the patient but they are at bed capacity as well.. (4) UTI (urinary tract infection): Status: Ruled-out Assessment and plan: As above Urine C&S result w/ <10,000 CFU gram positive chau, so perhaps not a UTI. (5) Shortness of breath: Status: Acute Assessment and plan: Not in AECOPD, her echo shows normal systolic fxn w/ LVEF 55 to 60% w/ no RWMA, normal RV size and fxn, however she has evidence for diastolic HF w/ increased E/e' (medial 18.9, lateral 21.65, and reduced lateral e' 6.7) although her ADORE is 30 mL/m2 and her TR max is 2.13. (6) Atypical chest pain: Status: Acute Assessment and plan: No ACS on this admission. HOwever, she has small pericardial effusion consider addition of colchicine. Continue prn tylenol, fentanyl. (7) Anemia: Status: Chronic Assessment and plan: will transfuse another unit of blood today as her Hb did not rise adequately, still only 7.6 gm she is down over 2 gm since admission; her iron studies are c/w anemia of acute inflammation, not iron deficiency (i.e. low TIBC and transferrin saturation) (8) Smoker: Status: Acute Assessment and plan: Nicotrol prn (9) COPD (chronic obstructive pulmonary disease): Status: Chronic Assessment and plan: Continue outpatient therapy (10) Hyponatremia: Status: Acute Assessment and plan: Monitor with diuresis. This is worse today. (11) DVT prophylaxis: Status: Acute Assessment and plan: Lovenox (12) Discharge planning issues: Status: Acute Assessment and plan: Full code Seen by palliative care Will attempt to transfer to [facility] when bed available. Subjective Subjective Interval history since last seen: Patient seen w/ her lying in bed, she says that she was trying to get comfortable after being medicated for abdominal pains. No vomiting. She attempted eating some food but has no appetite. I explained to her that [facility] has no beds and can not accept her for transfer at this time and that our surgeons feel that her case is too complicated for any small bowel surgery to be done here at [facility]. She is refusing to consider transfer to [facility] in [place]. She says that it is too far away but when I explain that [facility] has been at capacity for days and she is unlikely to be transferred anytime soon to [facility],, she then requested to be sent to [facility] in [place]. She explained that she is from the [place] area and her sister was recently treated w/ colostomy at [facility] for diverticulitis. Exam Narrative Exam Narrative: Middle age female lying on her right side, appears uncomfortable but not in acute distress Lungs: clear Heart: RRR Abdomen: soft, active bowel sounds but w/ epigastric tenderness No peripheral edema Objective Last Vital Signs Temp 36.3 C L 12/26/22 14:37 Pulse 64 12/26/22 14:37 Resp 18 12/26/22 14:37 BP 110/50 L 12/26/22 14:43 Pulse Ox 97 12/26/22 14:37 Laboratory Results - last 24 hr 12/25/22 12/26/22 12/26/22 10:50 06:35 06:35 WBC RBC Hgb Hct MCV MCH MCHC RDW Plt Count MPV Immature Gran % Neutrophils % Lymphocytes % Monocytes % Eosinophils % Basophils % Nucleated RBC % Absolute Neutrophils Absolute Lymphocytes Absolute Monocytes Absolute Eosinophils Absolute Basophils RBC Morphology Sodium 133 L Potassium 3.8 Chloride 98 Carbon Dioxide 28.8 Anion Gap 6.2 BUN 7 Creatinine 0.5 L Est GFR (CKD-EPI 2020) 112.08 Glucose 90 Calcium 8.0 L Magnesium 2.1 C-Reactive Protein 15.43 H Procalcitonin 0.2 Patient ABO/Rh O Positive Antibody Screen NEGATIVE Crossmatch See Detail 12/26/22 06:35 WBC 35.33 H* RBC 3.15 L Hgb 7.8 L Hct 24.7 L MCV 78 L MCH 24.8 L MCHC 31.6 L RDW 17.2 H Plt Count 445 H MPV 9.9 Immature Gran % 3.1 Neutrophils % 65.1 Lymphocytes % 6.3 Monocytes % 5.0 Eosinophils % 20.0 Basophils % 0.5 Nucleated RBC % 0.0 Absolute Neutrophils 23.00 H Absolute Lymphocytes 2.23 Absolute Monocytes 1.77 H Absolute Eosinophils 7.07 H Absolute Basophils 0.18 RBC Morphology Normal Sodium Potassium Chloride Carbon Dioxide Anion Gap BUN Creatinine Est GFR (CKD-EPI 2020) Glucose Calcium Magnesium C-Reactive Protein Procalcitonin Patient ABO/Rh Antibody Screen Crossmatch Time Spent with Patient Time Spent with Patient: >50 minutes Time was spent: preparing to see the patient(eg.review tests), obtaining and/or reviewing separately otained hiistory, ordering medications,tests, procedures, referring, communicating with other health caregiver assisted living, indepentently interpreting results, counseling the patient and care coordination
[2022-12-26] MEDS: Furosemide 40 MG TAB PO (16:12)
[2022-12-26] MEDS: cefTRIAXone 2 GM/50 ML BAG IVPB (16:13)
[2022-12-26] MEDS: Acetaminophen 325 MG TAB 650 MG PO (17:20)
[2022-12-26] MEDS: Protein Nutritional Supplement 16 GM 1 OUNCE PACKET PO (20:15)
[2022-12-27] MEDS: fentaNYL 100 MCG/2 ML VIAL 25 MCG IVP ×5 (00:05→21:05)
[2022-12-27] MEDS: Enoxaparin 40 MG/0.4 ML SYR SC ×2 (00:06→23:02)
[2022-12-27] MEDS: Normal Saline Flush 10 ML SYR IVP ×2 (03:36→21:06)
[2022-12-27 03:58] VITALS: BP 120/50; PULSE 66; RESP 18; TEMP 37.2; O2SAT 95
[2022-12-27 06:56] LABS: HCT 28.6 % (36.0-46.0); HGB 8.8 g/dL (11.2-15.7); MCH 24.7 pg (27.0-33.0); MCHC 30.8 % (32.0-36.0); MCV 80 fL (80-95); MPV 9.7 fL (8.0-11.0); Platelet Count 498 10^3/uL (130-400); RBC 3.56 10^6/uL (3.93-5.22); RDW 17.2 % (11.7-14.6); RDW-SD 49.6 fL
[2022-12-27 07:19] LABS: INR 1.2 (0.9-1.1); Prothrombin Time 11.9 sec (9.3-11.0)
[2022-12-27 07:34] LABS: ALT 8 U/L (14-59); AST 5 U/L (15-37); Albumin 1.8 g/dL (3.4-5.0); Alkaline Phosphatase 120 U/L (46-116); Anion Gap 7.2 mmol/L (3-11); BUN 8 mg/dL (7-18); Bilirubin, Total 0.4 mg/dL (0.2-1.0); CO2 27.8 mmol/L (21.0-32.0); CREATININE 0.7 mg/dL (0.55-1.02); Calcium 8.2 mg/dL (8.5-10.1); Chloride 98 mmol/L (98-107); Estimated GFR 103.35 (mL/min/1.73m2); Glucose 94 mg/dL (74-106); Magnesium 1.9 mg/dL (1.8-2.4); PHOSPHORUS 3.3 mg/dL (2.6-4.7); Potassium 3.7 mmol/L (3.5-5.1); Sodium 133 mmol/L (136-145); Total Protein 5.8 g/dL (6.4-8.2)
[2022-12-27 07:42] LABS: WBC 34.03 10^3/uL (4.4-10.8)
[2022-12-27 07:45] VITALS: BP 109/58; PULSE 74; TEMP 35.8; O2SAT 96
[2022-12-27] MEDS: Tiotropium/Olodaterol 10 PUFF INHALER 2 PUFF IH (07:56)
[2022-12-27] MEDS: Docusate Sodium 100 MG CAP PO (08:02)
[2022-12-27] MEDS: Colchicine 0.6 MG TAB PO (08:02)
[2022-12-27] MEDS: Spironolactone 25 MG TAB 12.5 MG PO (08:02)
[2022-12-27] MEDS: Furosemide 40 MG TAB PO ×2 (08:04→16:01)
[2022-12-27] MEDS: Pantoprazole 40 MG TABCR PO (08:05)
[2022-12-27] MEDS: Protein Nutritional Supplement 16 GM 1 OUNCE PACKET PO (08:07)
[2022-12-27] MEDS: Insulin Aspart 300 UNITS/3 ML PEN SC (08:23)
--- NOTE | 2022-12-27 08:26 | CMPROGNOTE_ITS ---
- If Service Date Differs Date of service: 12/27/22 Time of Service: 08:26 Care Management Progress Note S/O: Gunjan was busy each time CM attempted to meet with her today. She continues to await transfer to a tertiary care facility. Per provider, still no beds at [facility], [facility] is considering but have no bed availability. Patient continues to refuse transfer to [facility]. A: 52 year old female admitted to [facility] on 12/23/22 for Hypotension, Anemia P: Gunjan is being closely monitored. Anticipate, she will transfer to a Tertiary Facility via EMS pending bed availability. CM will continue to support patient and any discharge planning needs.
[2022-12-27 11:50] VITALS: BP 87/49; PULSE 66; TEMP 36.4; O2SAT 96
[2022-12-27] MEDS: Gabapentin 100 MG CAP PO ×2 (12:28→23:01)
[2022-12-27 12:39] LABS: Leukemia/Lymphoma by FC (Blood (See below)
--- NOTE | 2022-12-27 13:39 | W.NUTCONSULT ---
Date of service: 12/27/22 Time of Service: 13:40 Nutritional Consult ASSESSMENT: Ms. Christen Lewis is admitted with shortness of breath and increasing abdominal and chest pain. 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 Ms. Christen Lewis is 165 cm and 78.3kg. Her BMI is 28.7 kg/m2 which is consistent with overweight. Her weight has been entirely stable since 12/16/22. Looking as far back as 2019 (3 years ago) her weight was the same as it is now. Back in 2019, she was 86 kg which is about 9% more than she is now but is also irrelevant that far back with regard to her current nutritional status. She is ordered for a heart healthy diet. Her PO intake has been excellent all throughout the past two admissions. She does complain of poor appetite however and that food doesn't taste good. Estimated energy needs are 1700 kcal/day (REE x 1.2) Estimated protein needs are 80-94 g/day (1.0 to 1.2 g/kg/day) Estimated fluid needs are 2300 ml/day (30 ml/kg/day) NUTRITIONAL DIAGNOSIS: Altered taste r/t physiologic conditions possibly as evidenced by patient reports of decreased enjoyment of food. INTERVENTION: Ms. Christen Lewis would like to try some milk shakes on her trays to see if she likes the taste of those better. I recommend a diet change to regular from heart healthy so as not to limit her selection of foods that she can have here. I am able to make that change. Calorie counts x 3 days to assess nutritional adequacy of her intake. I do not agree with TPN at this time or any other nutrition support as the objective data indicate that she is taking in adequate nutrition. I would recommend a multivitamin with minerals daily. MONITORING AND EVALUATION: 1. Will monitor calorie counts and tolerance of supplements. 2. Will evaluate nutrition care plan ongoing and adjust as needed. Time Spent in Nutritional Counseling and Treatment: 5 minutes
--- NOTE | 2022-12-27 15:08 | PGE_ITS ---
Date of Service Date of service: 12/27/22 Time of Service: 15:08 Assessment and Plan Assessment and plan (1) Sepsis: Status: Acute Assessment and plan: With Proteus bacteremia. Potential sources: necrotic small bowel mass, urine only grew mixed gram positive chau <10,000 CFU Repeat blood cultures from 12/25 showed no growth. today is day #4 of Rocephin, I would like her to have at least 5 days of parenteral antibiotics but as the Proteus was sensitive to all antibiotics tested, she could go home on Cipro for 5 more days after the Roecphin however anticipate that she will be [place] [facility] [place] and therefore I will keep her on parenteral antibiotics throughout her hospital stay. Professional time spent interviewing and examining patient, discussion of goals of care with hospital team (care management, nursing and consulting professionals) was 30 minutes. (2) Gram-negative bacteremia: Status: Acute Assessment and plan: As above (3) Small bowel tumor: Status: Acute Assessment and plan: Discussed with the general surgery team who is familiar with the patient: the patient needs to be transferred to a tertiary care facility for further workup of her small bowel process. Despite multiple calls to [facility] no beds have been available. Therefore I called [facility] [place] yesterday and they are willing to accept the patient and she has been accepted pending bed availability. She is not a candidate to have her procedures here. (4) Shortness of breath: Status: Acute Assessment and plan: Not in AECOPD, her echo shows normal systolic fxn w/ LVEF 55 to 60% w/ no RWMA, normal RV size and fxn, however she has evidence for diastolic HF w/ increased E/e' (medial 18.9, lateral 21.65, and reduced lateral e' 6.7) although her ADORE is 30 mL/m2 and her TR max is 2.13. (5) Atypical chest pain: Status: Acute Assessment and plan: No ACS on this admission. HOwever, she has small pericardial effusion consider addition of colchicine. Continue prn tylenol, fentanyl. (6) Anemia: Status: Chronic Assessment and plan: Anemia of acute inflammation. Repeat hemoglobin is up to 8.8 g. We will continue to monitor and keep her on gastrointestinal prophylaxis. (7) Smoker: Status: Acute Assessment and plan: Nicotrol prn (8) COPD (chronic obstructive pulmonary disease): Status: Chronic Assessment and plan: Continue outpatient therapy (9) Hyponatremia: Status: Acute Assessment and plan: Stable at 133. Continue to monitor daily labs while on diuretics. (10) DVT prophylaxis: Status: Acute Assessment and plan: Lovenox (11) Discharge planning issues: Status: Acute Assessment and plan: Full code Seen by palliative care Will attempt to transfer to [facility] when bed available. Subjective Subjective Interval history since last seen: Gunjan still has some mild epigastric abdominal pain but it is tolerable. Appetite is fair she is eating about 50% of her meals. She declines to have a central line placed for TPN. Nutritional support services met with her and are going to be bringing her some Ensure. Patient dislikes the taste of her protein supplements. I explained to her that we are still awaiting bed availability at [facility] but she has been accepted to the surgical service at [facility] for evaluation and treatment of her small bowel mass. Exam Narrative Exam Narrative: Gunjan sit up in bed she is in no acute distress she is alert and oriented person place time circumstance. Lungs clear to auscultation with prolonged expiratory phase no rhonchi or wheezes Heart regular rate and rhythm Abdomen nondistended normal bowel sounds mild epigastric tenderness without guarding Lower extremity she has some pitting edema right more so than the left she states that she was sitting up with her legs hanging over the bed for prolonged period time. There are some mild tenderness with palpation of the right calf and pretibial surface. Objective Last Vital Signs Temp 36.4 C L 12/27/22 11:50 Pulse 66 12/27/22 11:50 Resp 18 12/27/22 03:58 BP 87/49 L 12/27/22 11:50 Pulse Ox 96 12/27/22 11:50 Laboratory Results - last 24 hr 12/25/22 12/27/22 12/27/22 10:50 06:20 06:20 WBC 34.03 H* RBC 3.56 L Hgb 8.8 L Hct 28.6 L MCV 80 MCH 24.7 L MCHC 30.8 L RDW 17.2 H Plt Count 498 H MPV 9.7 PT INR Sodium 133 L Potassium 3.7 Chloride 98 Carbon Dioxide 27.8 Anion Gap 7.2 BUN 8 Creatinine 0.7 Est GFR (CKD-EPI 2020) 103.35 Glucose 94 Calcium 8.2 L Phosphorus 3.3 Magnesium 1.9 Total Bilirubin 0.4 AST 5 L ALT 8 L Alkaline Phosphatase 120 H Total Protein 5.8 L Albumin 1.8 L Patient ABO/Rh O Positive Antibody Screen NEGATIVE Crossmatch See Detail 12/27/22 06:20 WBC RBC Hgb Hct MCV MCH MCHC RDW Plt Count MPV PT 11.9 H INR 1.2 H Sodium Potassium Chloride Carbon Dioxide Anion Gap BUN Creatinine Est GFR (CKD-EPI 2020) Glucose Calcium Phosphorus Magnesium Total Bilirubin AST ALT Alkaline Phosphatase Total Protein Albumin Patient ABO/Rh Antibody Screen Crossmatch Time Spent with Patient Time Spent with Patient: 25-34 minutes Time was spent: preparing to see the patient(eg.review tests), ordering medications,tests, procedures, indepentently interpreting results, counseling the patient and care coordination
[2022-12-27 15:11] VITALS: BP 98/58; PULSE 65; RESP 17; TEMP 36.4; O2SAT 98
[2022-12-27] MEDS: cefTRIAXone 2 GM/50 ML BAG IVPB (16:02)
--- NOTE | 2022-12-27 16:16 | NUR.NOTE ---
Nursing Note: Pt is c/o intermittent epigastric pain, radiating to her chest. Pain is reproducible (even to chest) on palpation. Pain has been managed 2x today w/ IV fentanyl as prescribed. Pt reports initial relief then increasing discomfort until it's unbearable. Discussed pain management w/ charge nurse.
--- NOTE | 2022-12-27 16:53 | CHAPLAIN ---
Gunjan was on the phone when I visited but let me introduce myself quickly. I will visit again. According to Care Management notes she is waiting transfer to tertiary center. She also is interested in looking for new housing and has been referred to [facility].
[2022-12-27] MEDS: Acetaminophen 500 MG TAB 1000 MG PO (18:41)
[2022-12-27 23:33] VITALS: BP 96/48; PULSE 65; RESP 16; TEMP 36.8; O2SAT 96
[2022-12-28] MEDS: fentaNYL 100 MCG/2 ML VIAL 25 MCG IVP ×8 (00:19→23:10)
[2022-12-28] MEDS: Normal Saline Flush 10 ML SYR IVP ×9 (00:21→23:09)
[2022-12-28 06:18] LABS: Basophils % 0.5; Eosinophils % 23.2; HCT 31.6 % (36.0-46.0); HGB 9.8 g/dL (11.2-15.7); Immature Grans % 1.9; Lymphocytes % 7.8; MCH 24.9 pg (27.0-33.0); MCV 80 fL (80-95); MPV 9.6 fL (8.0-11.0); Monocytes % 5.4; Neutrophils % 61.2; RBC 3.94 10^6/uL (3.93-5.22); RDW 17.9 % (11.7-14.6); RDW-SD 50.6 fL
[2022-12-28 06:25] LABS: Absolute Basophil Count 0.16 10^3/uL (0.0-0.2); Absolute Eosinophil Count 7.43 10^3/uL (0.0-0.7); Absolute Monocyte Count 1.73 10^3/uL (0.1-0.8); Absolute Neutrophil Count 19.61 10^3/uL (1.2-6.7); WBC 32.04 10^3/uL (4.4-10.8)
[2022-12-28 06:42] LABS: ALT 9 U/L (14-59); AST 7 U/L (15-37); Alkaline Phosphatase 121 U/L (46-116); Anion Gap 6.5 mmol/L (3-11); BUN 9 mg/dL (7-18); Bilirubin, Total 0.3 mg/dL (0.2-1.0); C-Reactive Protein 9.72 mg/dL (0.0-0.3); CO2 28.5 mmol/L (21.0-32.0); CREATININE 0.5 mg/dL (0.55-1.02); Calcium 8.3 mg/dL (8.5-10.1); Chloride 98 mmol/L (98-107); Estimated GFR 112.08 (mL/min/1.73m2); Glucose 103 mg/dL (74-106); Potassium 3.8 mmol/L (3.5-5.1); Sodium 133 mmol/L (136-145); Total Protein 6.4 g/dL (6.4-8.2)
[2022-12-28 06:52] LABS: Diff Comment Agrees w/ Instrument; Platelet Count 510 10^3/uL (130-400); Polychromasia Present
[2022-12-28 07:12] LABS: Procalcitonin 0.1 ng/mL
[2022-12-28] MEDS: Tiotropium/Olodaterol 10 PUFF INHALER 2 PUFF IH (07:44)
[2022-12-28 07:56] VITALS: BP 96/56; PULSE 69; RESP 20; TEMP 37.4; O2SAT 92
[2022-12-28] MEDS: Colchicine 0.6 MG TAB PO (08:21)
[2022-12-28] MEDS: Pantoprazole 40 MG TABCR PO (08:21)
[2022-12-28] MEDS: Gabapentin 100 MG CAP PO ×3 (08:21→23:09)
[2022-12-28] MEDS: Furosemide 40 MG TAB PO ×2 (08:21→16:06)
[2022-12-28] MEDS: Spironolactone 25 MG TAB 12.5 MG PO (08:21)
[2022-12-28] MEDS: Acetaminophen 500 MG TAB 1000 MG PO ×2 (09:27→20:17)
--- NOTE | 2022-12-28 13:39 | CMPROGNOTE_ITS ---
- If Service Date Differs Date of service: 12/28/22 Time of Service: 13:39 Care Management Progress Note S/O: Gunjan was sitting up in bed when CM met with her. She is pleasant and easy to engage in conversation. She continues to await transfer to a tertiary care facility. Still no bed availability at [facility] and the hospitalist will try to contact [facility] again today. Gunjan shares that she would like to relocate to [place] to be closer to family, which is another reason why she prefers [facility]. She continues to refuse transfer to [facility]. Also, Gunjan's cell phone is connected again. CM will follow. A: 52 year old female admitted to [facility] on 12/23/22 for Hypotension, Anemia P: Gunjan is being closely monitored. Anticipate, she will transfer to a Tertiary Facility via EMS pending bed availability. CM will continue to support patient and any discharge planning needs.
--- NOTE | 2022-12-28 15:05 | W.PM.PROGNOT ---
Date of Service Date of service: 12/28/22 Time of Service: 15:05 Assessment and Plan Assessment and plan (1) Bacteremia due to Proteus species: Status: Acute Assessment and plan: initially presented w/ septic picture and grew Proteus on her blood culture from 12/23 and was treated w/ Ceftriaxone and Flagyl but now remains on high dose Ceftriaxone D#5. Source is likely necrotic mass in small bowel in RLQ. I would continue Ceftriaxone for 7 days then put her on oral antibiotics for another 7 days. We are still awaiting [facility] to obtain a bed. She has been accepted for transfer to surgical service for definitive biopsy and diagnosis. Professional time spent interviewing and examining patient, discussion of goals of care with hospital team (care management, nursing and consulting professionals) was 20 minutes. (2) Small bowel tumor: Status: Acute Assessment and plan: Dr. Gaona discussed her case w/ the surgical team here on admission and they feel that her case is too complicated for treatment here and recommended referral to tertiary center. [facility] [place] was called daily since admission and has had no bed availability. I reached out to [facility] 2 days ago and she was accepted but she is currently on hold waiting for bed availability (3) Anemia: Status: Chronic Assessment and plan: Anemia of acute inflammation. Repeat hemoglobin is up to 9.8 g. We will continue to monitor and keep her on gastrointestinal prophylaxis. Stool was negative for occult blood this morning (4) Smoker: Status: Acute Assessment and plan: Nicotrol prn; patient is encouraged to quit smoking (5) COPD (chronic obstructive pulmonary disease): Status: Chronic Assessment and plan: cont. prn albuterol. I will add Spiriva to her regimen (6) DVT prophylaxis: Status: Acute Assessment and plan: Lovenox 40 mg SC daily (7) Discharge planning issues: Status: Acute Assessment and plan: Full code Seen by palliative care Will attempt to transfer to [facility] when bed available. If bed does not become available soon, she may complete her antibiotics here and then be discharged home to follow up w/ [facility] as outpatient for workup of her SB mass. Subjective Subjective Interval history since last seen: Patient states that her appetite has improved and she is eating most of her meals and she is now taking the protein shakes. She is moving her bowels and not having any difficulty voiding. She does have some recurrent epigastric pains and pains in her chest. Exam Narrative Exam Narrative: Alert and oriented x 3, she does not appear to be in any acute distress, sitting up watching TV Lungs: clear Heart: RRR Abdomen: soft, mild epigastric tenderness, normal bowel sounds Legs: edema in her right legs has improved since wearing the support stockings Objective Last Vital Signs Temp 37.4 C 12/28/22 07:56 Pulse 69 12/28/22 07:56 Resp 20 12/28/22 07:56 BP 96/56 L 12/28/22 07:56 Pulse Ox 92 12/28/22 07:56 Laboratory Results - last 24 hr 12/26/22 12/28/22 12/28/22 06:35 06:05 06:05 WBC RBC Hgb Hct MCV MCH MCHC RDW Plt Count MPV Immature Gran % Neutrophils % Lymphocytes % Monocytes % Eosinophils % Basophils % Nucleated RBC % Absolute Neutrophils Absolute Lymphocytes Absolute Monocytes Absolute Eosinophils Absolute Basophils RBC Morphology Polychromasia Sodium 133 L Potassium 3.8 Chloride 98 Carbon Dioxide 28.5 Anion Gap 6.5 BUN 9 Creatinine 0.5 L Est GFR (CKD-EPI 2020) 112.08 Glucose 103 Calcium 8.3 L Total Bilirubin 0.3 AST 7 L ALT 9 L Alkaline Phosphatase 121 H C-Reactive Protein 9.72 H Total Protein 6.4 Albumin 2.0 L Procalcitonin 0.1 Lymph/Leukemia Panel (See below) 12/28/22 06:05 WBC 32.04 H* RBC 3.94 Hgb 9.8 L Hct 31.6 L MCV 80 MCH 24.9 L MCHC 31.0 L RDW 17.9 H Plt Count 510 H MPV 9.6 Immature Gran % 1.9 Neutrophils % 61.2 Lymphocytes % 7.8 Monocytes % 5.4 Eosinophils % 23.2 Basophils % 0.5 Nucleated RBC % 0.0 Absolute Neutrophils 19.61 H Absolute Lymphocytes 2.50 Absolute Monocytes 1.73 H Absolute Eosinophils 7.43 H Absolute Basophils 0.16 RBC Morphology See Below Polychromasia Present Sodium Potassium Chloride Carbon Dioxide Anion Gap BUN Creatinine Est GFR (CKD-EPI 2020) Glucose Calcium Total Bilirubin AST ALT Alkaline Phosphatase C-Reactive Protein Total Protein Albumin Procalcitonin Lymph/Leukemia Panel Time Spent with Patient Time Spent with Patient: <25 minutes Time was spent: preparing to see the patient(eg.review tests), counseling the patient and care coordination
[2022-12-28 15:23] VITALS: BP 109/66; PULSE 63; RESP 16; TEMP 36.7; O2SAT 99
[2022-12-28 16:04] LABS: Source Nasal/Nares
[2022-12-28] MEDS: HYDROmorphone 2 MG TAB PO (16:06)
[2022-12-28] MEDS: fentaNYL 12 MCG PATCH TD (16:07)
[2022-12-28] MEDS: cefTRIAXone 2 GM/50 ML BAG IVPB (16:07)
[2022-12-28 16:38] LABS: COVID-19 PCR Negative (Negative)
--- NOTE | 2022-12-28 16:51 | NUR.NOTE ---
Hadley Hollins the dog that was brought in by her daughter is her chief controller center dog not a service dog that she really just wanted to see her dog Nursing Note:
--- NOTE | 2022-12-28 17:19 | CHAPLAIN ---
I had a brief visit with Gunjan today, after a brief one yesterday. She does not seem interested in further conversations. I let her know I'm available any time if she changes her mind.
[2022-12-28] MEDS: Docusate Sodium 100 MG CAP PO (20:17)
[2022-12-28] MEDS: Enoxaparin 40 MG/0.4 ML SYR SC (23:09)
[2022-12-28 23:38] VITALS: BP 97/57; PULSE 63; RESP 18; TEMP 36.6; O2SAT 93
[2022-12-29] MEDS: Diclofenac 1% Gel 100 GM TUBE TP (01:25)
[2022-12-29] MEDS: fentaNYL 100 MCG/2 ML VIAL 25 MCG IVP ×5 (01:33→22:14)
[2022-12-29] MEDS: Normal Saline Flush 10 ML SYR IVP ×6 (01:33→22:13)
[2022-12-29] MEDS: HYDROmorphone 2 MG TAB PO ×4 (04:00→18:18)
[2022-12-29 07:45] VITALS: BP 103/53; PULSE 67; RESP 14; TEMP 37; O2SAT 96
[2022-12-29] MEDS: Tiotropium/Olodaterol 10 PUFF INHALER 2 PUFF IH (07:53)
[2022-12-29] MEDS: Gabapentin 100 MG CAP PO ×3 (07:57→22:13)
[2022-12-29] MEDS: Docusate Sodium 100 MG CAP PO ×2 (07:58→19:32)
[2022-12-29] MEDS: Furosemide 40 MG TAB PO ×2 (07:58→18:15)
[2022-12-29] MEDS: Colchicine 0.6 MG TAB PO (07:58)
[2022-12-29] MEDS: Pantoprazole 40 MG TABCR PO (07:58)
[2022-12-29] MEDS: Spironolactone 25 MG TAB 12.5 MG PO (07:59)
--- NOTE | 2022-12-29 13:07 | RESPIRATORY ---
RT attempted to give patient two inhalations of Stiolta Respimat this morning, patient stated the inhaler makes her gag and she's only willing to do one inhalation. RT discussed with Dr Sequeira concerning alternative besides an inhaler base medication to solve this issue. Patient stated all inhalers that are powder based and mists cause her to gag but nebulizer are fine This info was relayed to Dr Lazaro who suggested to do inhalations space apart. RT discussed with patient about taking additional inhalation in which she first refused then decided to do so. She then stated this is the only time she's willing to do two inhalations of the inhaler. RT mentioned to Dr Sequeira to see if the medication is changing to a combination of nebulizer solution or staying the same.
--- NOTE | 2022-12-29 14:45 | PDOC.CMPRO ---
- If Service Date Differs Date of service: 12/29/22 Time of Service: 14:45 Care Management Progress Note S/O: Gunjan was sitting up in bed working on a word search puzzle when CM met with her. She is pleasant in interaction and easy to engage in conversation. Per Hospitalist, there continues to be no bed availability at [facility] or [facility] despite efforts to transfer. Per pt, her main reason for not wanting the hospitalist to review her case with [facility] is because she doesn't have family in that area and they can't easily travel there. Gunjan remains firm in her decision to refuse [facility], even if it delays further medical work up. Gunjan is still hopeful she will get to [place] with all her belongings because her twin sister lives there. Gunjan is trying to figure out how to get all her stuff and her pet to that area. Her cell phone is connected again if outpatient follow up appointments are needed. CM will follow. A: 52 year old female admitted to [facility] on 12/23/22 for Hypotension, Anemia P: Gunjan is being closely monitored and treated with IV ABX. Anticipate, she will transfer to a Tertiary Facility (pending bed availability) vs. discharge home with outpatient workup of her SB mass at [facility]. Transportation dependant on dispo, [facility] if going home. CM will continue to support patient and any discharge planning needs.
[2022-12-29 15:13] VITALS: BP 96/44; PULSE 68; RESP 18; TEMP 37.3; O2SAT 94
--- NOTE | 2022-12-29 15:29 | W.PM.PROGNOT ---
Date of Service Date of service: 12/29/22 Time of Service: 15:29 Assessment and Plan Assessment and plan (1) Bacteremia due to Proteus species: Status: Acute Assessment and plan: initially presented w/ septic picture and grew Proteus on her blood culture from 12/23 and was treated w/ Ceftriaxone and Flagyl but now remains on high dose Ceftriaxone D#5. Source is likely necrotic mass in small bowel in RLQ. I would continue Ceftriaxone for 7 days then put her on oral antibiotics for another 7 days. [facility] has taken her off their transfer list as they remain at full capacity. I have asked director long term care to set up outpatient referral to general surgery regarding her small bowel mass. Professional time spent interviewing and examining patient, discussion of goals of care with hospital team (care management, nursing and consulting professionals) was 30 minutes. (2) Small bowel tumor: Status: Acute Assessment and plan: Dr. Gaona discussed her case w/ the surgical team here on admission and they feel that her case is too complicated for treatment here and recommended referral to tertiary center. [facility] was called daily since admission and has had no bed availability. I reached out to [facility] 3 days ago and she was accepted but now has been taken off the waiting list (3) Anemia: Status: Chronic Assessment and plan: Anemia of acute inflammation. Repeat hemoglobin is up to 9.8 g. We will continue to monitor and keep her on gastrointestinal prophylaxis. Stool was negative for occult blood this morning (4) Smoker: Status: Acute Assessment and plan: Nicotrol prn; patient is encouraged to quit smoking (5) COPD (chronic obstructive pulmonary disease): Status: Chronic Assessment and plan: cont. prn albuterol. I added Spiriva to her regimen but she complains of gagging from the mist. I will change her to ipatroprium via an aerochamber. (6) Pruritus: Status: Acute Assessment and plan: Patient is a pruritic rash over both calves but none over her legs or chest or arms. I suspect this is a contact allergy. Patient refuses Benadryl so I will order some hydrocortisone some cream. (7) DVT prophylaxis: Status: Acute Assessment and plan: Lovenox 40 mg SC daily (8) Discharge planning issues: Status: Acute Assessment and plan: Full code Seen by palliative care Will attempt to transfer to [facility] when bed available. If bed does not become available soon, she may complete her antibiotics here and then be discharged home to follow up w/ [facility] as outpatient for workup of her SB mass. Subjective Subjective Interval history since last seen: Patient has noticed increased abdominal pain with some nausea but no emesis. She is still having bowel movements as of this morning. I broke the news to her that [facility] was taken off the transfer list as they have been at full bed capacity and do not anticipate having a bed available anytime soon. Told the patient that we will get a repeat her CT scan of her abdomen today but if there is been no change i.e. no abscess and no evidence of obstruction that we will probably plan on discharge her home tomorrow on 1 more week of oral antibiotics along with narcotic analgesics and we will set her up as an outpatient at [facility]. I have very asked case management to initiate the process of an outpatient referral to general surgery regarding her small bowel mass. Did offer to the patient to try to reach out to other [facility] closer to [facility] such as [facility] or try with [facility] again patient declines to see either 1 of those institutions. Patient prefers to go down to [place] and stay with her twin sister while she awaits her consult with [facility]. Exam Narrative Exam Narrative: Middle-aged white female lying in bed complaining of abdominal aminal pain. Lungs are clear to auscultation Heart is regular rate and rhythm Abdomen slightly distended tender but soft. Tenderness is more pronounced in the epigastrium area where is I can palpate fairly deeply in the right and left lower quadrant without significant pain. Objective Last Vital Signs Temp 37.3 C 12/29/22 15:13 Pulse 68 12/29/22 15:13 Resp 18 12/29/22 15:13 BP 96/44 L 12/29/22 15:13 Pulse Ox 94 12/29/22 15:13 Laboratory Results - last 24 hr 12/28/22 15:55 COVID-19 Source Nasal/Nares SARS-CoV-2 (PCR) Negative Time Spent with Patient Time Spent with Patient: 25-34 minutes Time was spent: preparing to see the patient(eg.review tests), ordering medications,tests, procedures, indepentently interpreting results, counseling the patient and care coordination
[2022-12-29] MEDS: cefTRIAXone 2 GM/50 ML BAG IVPB (16:21)
[2022-12-29] MEDS: Breeza Beverage 473 ML BTL PO (17:38)
--- NOTE | 2022-12-29 17:50 | DI.CT_ITS ---
Exam(s) CT ABDOMEN PELVIS W EXAM: CT ABDOMEN PELVIS W CLINICAL HISTORY: abdominal pain TECHNIQUE: Imaging Protocol: Axial computed tomography images with coronal and sagittal reformatted images were created and reviewed CONTRAST MATERIAL: Intravenous: Omnipaque 350 Contrast volume:100 mL Oral: Yes COMPARISON: CT CT CHEST PE ABD PELVIS W from 12/24/2022 FINDINGS: ABDOMEN: Lung Bases: There is a small right pleural effusion. There is a tiny left pleural effusion. There i s a subjacent infiltrate in the right lower lobe. Emphysematous changes are seen in the lung bases. There is a small pericardial effusion. Liver: The liver is enlarged. No measurable mass. Portal, Superior Mesenteric, and Splenic Veins: Unremarkable. Gallbladder and Biliary Tract: No radiodense calculus or dilation. Pancreas: Normal density, no abnormal calcifications or inflammatory process. Spleen: There is splenomegaly. Adrenals: No masses seen. Kidneys: Normal size, contour and axis. No radiodense stones or obstructive uropathy. Stable cyst. Abdominal Aorta: Abdominal portion non-dilated. Atherosclerosis is present. Bowel: There is no evidence of bowel obstruction. The thick-walled small bowel mass in the right low er quadrant is again seen. No evidence of appendicitis. Peritoneal Cavity: There is a small amount of pelvic ascites. No free air. Lymph Nodes: There are mildly enlarged retroperitoneal lymph nodes. The largest measures 1.3 cm. Bones: Within normal limits for the patient's age. There is spondylolysis and grade 1 spondylolisthe sis of L5 on S1. Soft Tissues: There is edema seen in the soft tissues. PELVIS: Bladder: Symmetric distention, no gross wall thickening. Reproductive Organs: Status post hysterectomy. Lymph Nodes: Within normal limits. Bones: Within normal limits for the patient's age. IMPRESSION: 1. Stable small-bowel mass in the right lower quadrant. 2. Persistent adenopathy and ascites. 3. Hepatosplenomegaly. 4. Interval increase in size of the right pleural effusion and development of a left small pleural ef fusion. Development of a small pericardial effusion. 5. Basilar opacities which may represent atelectasis or infection. Please correlate clinically. RADIATION DOSE DELIVERED: 1,000.7mGy.cm Total DLP DATA REPOSITORY: All CT scans at this facility are submitted to the National Radiology Data Registry (NRDR) Dose Index Registry (DIR) with the [employer] (ACR). RADIATION OPTIMIZATION: All CT scans at this facility use at least one of these dose optimization te chniques: automated exposure control; mA and/or kV adjustment per patient size (includes targeted exa ms where dose is matched to clinical indication); or iterative reconstruction.
[2022-12-29] MEDS: Omnipaque 350 MG/ML 100 ML BTL IJ (17:54)
[2022-12-29] MEDS: Normal Saline - Diluent 50 ML VIAL IJ (17:54)
--- NOTE | 2022-12-29 18:39 | DI.VRAD_ITS ---
Addendum created by Bisi Mcgregor MD on 12/29/2022 6:48:05 PM EST: THIS REPORT CONTAINS FINDINGS THAT MAY BE CRITICAL TO PATIENT CARE. The findings were verbally communicated via telephone conference with Wade Sequeira at 6:41 PM EST on 12/29/2022. The findings were acknowledged and understood. Initial report created on 12/29/2022 6:39:06 PM EST: PROCEDURE INFORMATION: Exam: CT Abdomen And Pelvis With Contrast Exam date and time: 12/29/2022 5:26 PM Age: 52 years old Clinical indication: Other: Abd pain TECHNIQUE: Imaging protocol: Computed tomography of the abdomen and pelvis with contrast. Contrast material: 350; Contrast volume: 100 ml; Contrast route: INTRAVENOUS (IV); COMPARISON: CT ABDOMEN PELVIS W 12/23/2022 7:58 PM FINDINGS: Lungs: Ground-glass opacities in the lung bases may be secondary to atelectasis or inflammation. Pleural spaces: There has been interval development of a right pleural effusion partially visualized. Heart: Prominent pericardial fluid also noted. Liver: The liver is enlarged measuring up to 25 cm in craniocaudal dimension, unchanged. There is a coarsening density of the liver noted, similar to prior examination. Gallbladder and bile ducts: The gallbladder is unremarkable. No calcified stones. No ductal dilation. Pancreas: Normal. No ductal dilation. Spleen: The spleen is upper limits of normal in size. Adrenal glands: The adrenal glands are unremarkable. No defined mass. Kidneys and ureters: No hydronephrosis. A 1.1 cm simple appearing cyst is seen in the right kidney. Stomach and bowel: No significant change in appearance of 8.8 x 7.5 cm ulcerating mass involving the small bowel. Contrast and air are noted within the lumen of the lesion , which is contiguous with the adjacent small bowel. No evidence of small-bowel obstruction. Appendix: No evidence of appendicitis. Intraperitoneal space: There is a small amount of free fluid in the pelvis. Vasculature: No abdominal aortic aneurysm. Lymph nodes: There is redemonstration of retroperitoneal lymphadenopathy significantly changed since the prior examination measuring up to 1.3 cm in the aortocaval region (image 36, series 4). Urinary bladder: Unremarkable urinary bladder. Reproductive: Unremarkable as visualized. Bones/joints: No acute fracture. Bilateral pars interarticularis defects are seen in the L5 vertebral body with associated grade 1 anterolisthesis of L5 on S1. Soft tissues: A small fat containing midline abdominal wall hernia noted anteriorly. IMPRESSION: 1. No significant change in appearance of 8.8 cm small bowel lesion in the right lower quadrant. No bowel obstruction. 2. Stable lymphadenopathy and small amount of free fluid in the pelvis. 3. Hepatomegaly and mild splenomegaly. Correlate with clinical findings. 4. Interval development of right pleural effusion and small pericardial effusion. 5. Mild ground-glass opacities in the bilateral lung coyle may represent atelectasis or mild inflammation. Clinical correlation recommended. Dictated and Authenticated by: Bisi Mcgregor MD. Ordering:[facility] Fabby Olvera MD
[2022-12-29] MEDS: Senna TAB 1 TAB PO (22:12)
[2022-12-29 23:36] VITALS: BP 120/56; PULSE 76; RESP 18; TEMP 36.8; O2SAT 94
[2022-12-30] MEDS: Enoxaparin 40 MG/0.4 ML SYR SC (00:02)
[2022-12-30] MEDS: fentaNYL 100 MCG/2 ML VIAL 25 MCG IVP ×2 (01:12→04:20)
[2022-12-30] MEDS: Normal Saline Flush 10 ML SYR IVP ×2 (01:13→04:20)
[2022-12-30 04:13] VITALS: BP 104/57; PULSE 77; RESP 18; TEMP 36.9; O2SAT 93
--- NOTE | 2022-12-30 04:15 | RT.EKG_ITS ---
APPROVED REPORT Exam: Resting ECG Reason for Exam: chest pain Patient Location: I HR:64 bpm ECG Measurements Heart Rate 64 AXIS ME 133 P 62 QRSd 81 QRS -29 QT 396 T 89 QTc 409 Conclusion Sinus rhythm...normal P axis, V-rate 50- 99 Left atrial enlargement...P, P'>60mS, <-0.15mV V1 Borderline left axis deviation...QRS axis (-15,-29) Low voltage, extremity leads...all extremity leads <0.5mV Nonspecific T abnormalities, lateral leads...T <-0.10mV, I aVL V5 V6
[2022-12-30 04:58] LABS: ALT 9 U/L (14-59); AST 10 U/L (15-37); Albumin 1.9 g/dL (3.4-5.0); Alkaline Phosphatase 110 U/L (46-116); BUN 6 mg/dL (7-18); Bilirubin, Total 0.2 mg/dL (0.2-1.0); CREATININE 0.6 mg/dL (0.55-1.02); Calcium 8.2 mg/dL (8.5-10.1); Chloride 97 mmol/L (98-107); Estimated GFR 107.26 (mL/min/1.73m2); Glucose 97 mg/dL (74-106); Potassium 4.4 mmol/L (3.5-5.1); Sodium 132 mmol/L (136-145); Total Protein 6.2 g/dL (6.4-8.2)
[2022-12-30 05:05] LABS: Abs Immature Grans 0.24 10^3/uL (0.0-0.06); HGB 9.5 g/dL (11.2-15.7); MCHC 30.6 % (32.0-36.0); MCV 82 fL (80-95); MPV 9.2 fL (8.0-11.0); Platelet Count 460 10^3/uL (130-400); RDW 19.2 % (11.7-14.6); RDW-SD 54.1 fL
[2022-12-30 05:10] LABS: Troponin I 62 ng/L (<or=60); WBC 27.37 10^3/uL (4.4-10.8)
[2022-12-30 05:25] LABS: Absolute Eosinophil Count 2.74 10^3/uL (0.0-0.7); Absolute Lymphocyte Count 1.37 10^3/uL (1.2-3.4); Absolute Monocyte Count 1.64 10^3/uL (0.1-0.8); Absolute Neutrophil Count 21.62 10^3/uL (1.2-6.7); Diff Comment Manual Differential; RBC Morphology Normal
[2022-12-30 07:33] VITALS: BP 102/57; PULSE 81; RESP 18; TEMP 37.1; O2SAT 93
[2022-12-30] MEDS: Tiotropium/Olodaterol 10 PUFF INHALER 2 PUFF IH (07:49)
[2022-12-30] MEDS: Furosemide 40 MG TAB PO (08:04)
[2022-12-30] MEDS: Colchicine 0.6 MG TAB PO (08:05)
[2022-12-30] MEDS: Gabapentin 100 MG CAP PO (08:05)
[2022-12-30] MEDS: Pantoprazole 40 MG TABCR PO (08:05)
--- NOTE | 2022-12-30 09:11 | W.PM.DS.N ---
Date of service: 12/30/22 Time of Service: 09:11 DS: Diagnosis Discharge Diagnosis (1) Bacteremia due to Proteus species: Status: Acute Asessment and Plan: She initially presented w/ septic picture and grew Proteus on her blood culture from 12/23 and was treated w/ Ceftriaxone and Flagyl; Flagyl subsequently stopped. Source is likely necrotic mass in small bowel in RLQ. She will continue on cefpodoxime 200mg BID for 7 days. (2) Small bowel tumor: Status: Acute Asessment and Plan: Referral sent to [facility] for evaluation and treatment. Pt has a sister in the [place] area whom she can stay with. (3) Anemia: Status: Chronic Asessment and Plan: GI blood loss; likely from small bowel mass. Hgb stabilized after transfusion of 2 units of RBCs. Stool was heme negative the day prior to discharge. CBC on Sunday, / (4) Smoker: Status: Acute Asessment and Plan: Patient not ready to stop at this juncture. (5) COPD (chronic obstructive pulmonary disease): Status: Chronic Asessment and Plan: Combivent and Stiolto initiated. To continue at home. Cont prn albuterol MDI as per previous home use. Tobacco cessation. (6) Discharge planning issues: Status: Acute (7) Congestive heart failure: Status: Chronic Asessment and Plan: Elevated BNP Diuresed with lasix. Echo w/o pericardial effusion, without wall motion abnormalities, preserved LVEF. Cont oral lasix and low Na diet. Discharge Plan Disposition Patient Disposition: Home W/Home Health Services Condition: Fair Discharge Details Reason For Visit: Hypotension, Anemia Admit Date/Time: 12/23/22 22:47 Admit Provider: Rah Munoz Attending Provider: Rah Munoz Primary Care Provider: KUN LI Hospital Course Hospital Course: This is a 52 yo F smoker with COPD, recently identified abdominal masses, anemia, and leukocytosis concerning for malignancy as well as a recent admission 12/15/22 to 12/17/22 with a diagnosis of perimyocarditis and elevated troponin during which she left early against medical advice. She nowwith increasing shortness of breath and ongoing abdominal and chest pain.? Pain was diffuse across chest, making it hard to breath deep.? [place] pressure that was constant.? Pain described as worse when leaning back or lying; better when leaning forward.? No cough or cold symptoms.? Just using albuterol, only helps a little.? She is taking aspirin.? Abdominal pain in mid to right side, achy.? No change with urination or eating or BM.? No blood in urine or stool.? Has been moving bowels. Of note, the patient [place] [facility] [place], the day prior to admission, and complained of increased SOB and swelling in her body, and that she couldn't breath when lying down.? ED evaluation was recommended but she stated she had to make arrangement for her dog. Also of note, she has a history of SLE and was until recently on leflunomide but discontinued this because she felt it wasn't helping. NTProBNP 7010. IV lasix initiated. EKG showed no acute ischemic changes. Troponin normal. + UA was positive. High dose ceftriaxone initiated, then flagly added. See Diagnosis Home Meds and New Rx's Prescriptions: New diclofenac sodium 1 % Gel 2 g topical QID PRN PRNQty: 0 0RF fentanyl 12 mcg/hr Patch 72 Hour 12 mcg transdermal Q72H Qty: 5 0RF furosemide 40 mg Tablet 40 mg PO DAILY Qty: 30 0RF gabapentin 100 mg Capsule 100 mg PO TID Qty: 90 0RF hydrocortisone 2.5 % Ointment 20 g topical TID Qty: 0 0RF hydromorphone 2 mg Tablet 2 mg PO TID PRN (Reason: Abdominal Discomfort) Qty: 30 0RF Combivent Respimat 20-100 mcg/actuation Mist 1 puff inhalation QID Qty: 0 0RF Nicotrol 10 mg Cartridge 0 cartridge inhalation Q2H PRN PRNQty: 0 0RF polyethylene glycol 3350 17 gram Powder In Packet 17 g PO DAILY PRN PRN (Reason: Constipation) Qty: 0 0RF Stiolto Respimat 2.5-2.5 mcg/actuation Mist 2 puff inhalation DAILY Qty: 0 0RF cefpodoxime 200 mg tablet 200 mg PO BID Qty: 14 0RF Rx Instructions: must administer with a meal/food Continued pantoprazole [Protonix] [address] for susp in packet 40 mg PO HS albuterol sulfate [ProAir HFA] 90 mcg/actuation Hfa Aerosol Inhaler 2 puff INHALATION PRN PRN acetaminophen 500 mg capsule 1,000 mg PO Q8H PRN (Reason: pain) Qty: 90 0RF hydrocortisone [Anusol-HC] 2.5 % cream with perineal applicator 1 applic DE BID-QID PRNQty: 30 0RF aspirin 325 mg Tablet 325 mg PO DAILY Discontinued gabapentin 100 MG capsule 100 mg PO HS Discharge Instructions Instructions: Hypotension (GEN), Anemia (GEN) Stand Alone Forms: Nursing Discharge Form Referrals: [facility] [Other] (Referral has been sent. They will contact you directly to set up follow up care.) KUN LI [Primary Care Provider] - (Please call on Sunday to set up follow up appointment for 1-2 wks.) Activity:: Activity as Tolerated Equipment/Supplies:: No Equipment Needed Diet:: As Tolerated Discharge Orders Discharge Orders: Discharge Order (Routine); Ordered 12/30/22 Ordered By: Ghanshyam Zuniga Other Ambulatory Orders: Complete Blood Count w/Diff (Routine) Timeframe: 3 Days Location: None Selected Ordered By: Ghanshyam Zuniga Discharge Data Discharge Date/Time-TO BE ENTERED AT DEPARTURE: 12/30/22 10:55 DS: Summary Time Spent with Patient providing and/or coordinating discharge services: Greater than 30 minutes Status at Discharge Functional status at discharge: independent ambulation Overall status at discharge: patient is not back to baseline Mental Status: mental status grossly normal Speech and Movement: speech and movement normal Mood: anxious mood Affect: blunted Exam Narrative Exam Narrative: Middle-aged white female sitting on edge of bed. Abd pain with going from lying to sitting. Lungs are clear to auscultation Heart is regular rate and rhythm Abdomen slightly distended tender but soft. Tenderness is more pronounced in the epigastrium area. +BS. Psych Mental Status: mental status grossly normal Speech and Movement: speech and movement normal Mood: anxious mood Affect: blunted DS: Data Vitals/I&O Vitals and I&O: Vital Signs Temperature 37.1 C 12/30/22 07:33 Temperature Source Tympanic 12/30/22 07:33 Pulse 81 12/30/22 07:33 Pulse Rhythm Regular 12/30/22 07:32 Pulse 87 12/23/22 20:00 Respiratory Rate 18 12/30/22 07:33 Respiratory Effort 12/30/22 01:48 Respiratory Depth Normal 12/30/22 01:48 Respiratory Pattern Normal 12/30/22 01:48 Blood Pressure 102/57 L 12/30/22 07:33 Blood Pressure Position Sitting 12/23/22 16:17 Pulse Oximetry 93 12/30/22 07:33 Oxygen Delivery Method Room Air 12/30/22 07:33 Oxygen Flow Rate 0 12/30/22 07:33 Pain Level 10 12/30/22 07:33 Comment 12/30/22 07:33 Intake & Output 12/29/22 12/29/22 12/30/22 11:59 23:59 11:59 Intake Total 180 / 350 170 / 350 50 / 50 Balance 180 / 350 170 / 350 50 / 50 Weight 75.3 kg Intake: IV 50 / 50 50 / 50 Oral 180 / 300 120 / 300 Other: Urine Appearance Clear Clear Comment reports voiding this morning, not seen or measured unable to assess. Voiding Methods Toilet Data Completed and Pending Labs on day of discharge: Labs from last 24 hours 12/30/22 12/30/22 12/30/22 04:36 04:36 04:36 WBC 27.37 H* RBC 3.80 L Hgb 9.5 L Hct 31.0 L MCV 82 MCH 25.0 L MCHC 30.6 L RDW 19.2 H Plt Count 460 H MPV 9.2 Immature Gran % 0.0 Neutrophils % 79.0 Lymphocytes % 5.0 Monocytes % 6.0 Eosinophils % 10.0 Basophils % 0.0 Nucleated RBC % 0.0 Absolute Neutrophils 21.62 H Absolute Lymphocytes 1.37 Absolute Monocytes 1.64 H Absolute Eosinophils 2.74 H Absolute Basophils 0.00 RBC Morphology Normal Sodium 132 L Potassium 4.4 Chloride 97 L Carbon Dioxide 28.0 Anion Gap 7.0 BUN 6 L Creatinine 0.6 Est GFR (CKD-EPI 2020) 107.26 Glucose 97 Calcium 8.2 L Total Bilirubin 0.2 AST 10 L ALT 9 L Alkaline Phosphatase 110 Troponin I 62 H* Total Protein 6.2 L Albumin 1.9 L PFSH All Active Problems Congestive heart failure (Chronic) Pruritus (Acute) Bacteremia due to Proteus species (Acute) Full code status (Acute) Advance care planning (Acute) Sepsis (Acute) Gram-negative bacteremia (Acute) Discharge planning issues (Acute) DVT prophylaxis (Acute) Hyponatremia (Acute) Anemia (Chronic) Shortness of breath (Acute) Abdominal ascites (Acute) Smoker (Acute) Elevated troponin (Acute) COPD (chronic obstructive pulmonary disease) (Chronic) Early satiety (Acute) Abnormal weight loss (Acute) Iron deficiency anemia due to chronic blood loss (Acute) Small bowel tumor (Acute) Leukocytosis (leucocytosis) (Acute) Acute myopericarditis (Acute) Abdominal mass, right lower quadrant (Acute) UTI (urinary tract infection) (Acute) Hemorrhoids (Acute) Atypical chest pain (Acute) Carpal tunnel syndrome of right wrist (Acute) Abscess of groin, right (Acute 11/03/15) s/p surgical resection by Dr Douglas. Pt says she is having recurrent abscesses in tract, referred to [facility] as concern for nerve involvement but pt went to [facility] instead and was put on abx and told her infections were Pt extremely disappointed. Cervical disc disease (Acute 11/03/15) MR showed cervical involvement Status post carpal tunnel release of both wrists (Acute) Mass of right hand (Acute) Status post trigger finger release (Acute) DOS: 11/20/18 Right ring finger Carpal tunnel syndrome, left (Acute) S/P ECTR 12/16/2019 S/P OCTR 02/10/2020 De Quervain's tenosynovitis, left (Acute) S/P release 12/16/2019 Medical History COPD (chronic obstructive pulmonary disease) GERD (gastroesophageal reflux disease) Hydradenitis right groin Inclusion cyst Lupus CT (myocardial infarction) 2015- pt. states she F/U with PCP once a month Surgical History Abdominal hysterectomy (~2009) Angiogram History of carpal tunnel release History of shoulder surgery Left rotator cuff. Incision & Drainage, Abscess or Hematoma Family History Mother Heart disease Father Cancer throat Social History Smoking/Tobacco Use Status: Current every day Tobacco Type: cigarettes Smoking risk assessment performed?: Yes Alcohol Intake: never Drug use: Never Substance use type: does not use Current gender identity: female Do you feel safe at home: Yes Do you feel safe in your relationship?: Yes Additional Social history: Not in a relationship. Living with family in [place] temporarily. 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 Time Spent with Patient Time Spent with Patient: <45 minutes Time was spent: preparing to see the patient(eg.review tests), referring, communicating with other health adult caregiver, indepentently interpreting results and care coordination
--- NOTE | 2022-12-30 11:14 | PDOC.HHF2F ---
Home Health Referral Home Health Orders Clinical synopsis of why skilled professionals are needed: Ms Christen Lewis has a small bowel necrotic mass that has yet to be evaluated by surgery or oncology. She also developed Proteus bactermia and anemia presumtively secondary to the bowel mass. Other chronic dxs include COPD and tobacco abuse syndrome. She is being discharge to complete a course of antibiotics. A request to [facility] has been placed for a surgery consult. She is planning on obtaining her care regardng the small bowel mass in [place] where a sister lives. Medical diagnosis necessitation home health referral: Proteius Bacteremia Small bowel mass; requiring pain and bowel management. Anemia monitoring. Registered Nurse: Check all that apply Instruct on new or changed medication(s)/assess compliance: Ordered Assess for exacerbation of medical condition, instruct patient/caregivers on signs and symptoms to report for early detection: Ordered Immigration Inspector: Assist with community resources: Ordered Home Bound Status Assistance of another person (Describe assistance and medical necessity): Requires assistance of another person when out of the home d/t pain and deconditioned state. Describe why leaving home would require a considerable and taxing effort: Side effects from pain medication (sedation/drowsiness) Encounter Date and Reason: I certify that a FTF encounter for this patient was performed on December 30, 2022 and that such encounter was related to the primary reason the patient requires home health services. The encounter was conducted in the following manner: By me as the certifying physician, GROUND WATER PUMP INSTALLER, PA or By an inpatient physician, GROUND WATER PUMP INSTALLER or PA during an inpatient stay who communicated findings to me, Certification And Authentication I certify that I composed the above information based on my clinical judgment relating to this patient's medical condition and, if applicable, clinical findings communicated to me by the NPP or inpatient physician who performed the FTF encounter. Name of Provider that will be monitoring home health services: Ghanshyam Zuniga
== END 2022-12-30 10:55 | disposition home health service (06) | DRG 872 ==
LOC: ER 23:05 → MS 12-24 07:49
PROVIDERS: Internal Medicine; Admitting Provider Family Medicine; Emergency Provider Registered Nurse Emergency; PCP Nurse Practitioner Family; Visit Provider Family Medicine
DX: A41.59 Other Gram-negative sepsis (principal); E87.1 Hypo-osmolality and hyponatremia; I31.39 Other pericardial effusion (noninflammatory); I50.32 Chronic diastolic (congestive) heart failure; R18.8 Other ascites; A41.4 Sepsis due to anaerobes; R06.02 Shortness of breath; M32.9 Systemic lupus erythematosus, unspecified; R07.89 Other chest pain; J44.9 Chronic obstructive pulmonary disease, unspecified; D49.0 Neoplasm of unspecified behavior of digestive system; R16.1 Splenomegaly, not elsewhere classified; F17.210 Nicotine dependence, cigarettes, uncomplicated; D72.829 Elevated white blood cell count, unspecified; D50.0 Iron deficiency anemia secondary to blood loss (chronic); K21.9 Gastro-esophageal reflux disease without esophagitis; I25.2 Old myocardial infarction; R74.8 Abnormal levels of other serum enzymes; K64.8 Other hemorrhoids; M50.90 Cervical disc disorder, unspecified, unspecified cervical region; L29.8 Other pruritus
CPT/HCPCS: 36410; 36415; 36430; 71275; 74177; 80048; 80053; 84145; 85027; 86850; 86900; 86901; 86920; 87040; 87077; 87635; 88185; 93005; 94640; 96365; 96375; 99285; J1650; 71045; 81003; 81015; 82270; 82607; 82728; 82746; 83540; 83550; 83605; 83735; 83880; 84100; 84484; 85025; 85610; 86140; 87086; 87186; 88184; 88189; 93010; 93306; 93970; 99223; 99231; 99232; 99233; 99239; J0131; J0696; J1940; J1941; J2405; J3010; J3475; J3490; P9016; Q9967

== ENCOUNTER 2023-01-02 16:10 | Outpatient (REF) | payer MEDICAID, SELFPAY ==
[2023-01-02 16:30] LABS: HCT 32.8 % (36.0-46.0); HGB 10.1 g/dL (11.2-15.7); MCH 25.4 pg (27.0-33.0); MCHC 30.8 % (32.0-36.0); MCV 83 fL (80-95); MPV 9.8 fL (8.0-11.0); Platelet Count 493 10^3/uL (130-400); RBC 3.97 10^6/uL (3.93-5.22); RDW 20.2 % (11.7-14.6); RDW-SD 60.1 fL
[2023-01-02 16:54] LABS: WBC 37.76 10^3/uL (4.4-10.8)
[2023-01-02 17:38] LABS: Absolute Lymphocyte Count 3.02 10^3/uL (1.2-3.4); Absolute Neutrophil Count 26.43 10^3/uL (1.2-6.7); Bands % 3
[2023-01-02 17:39] LABS: Absolute Eosinophil Count 7.17 10^3/uL (0.0-0.7); Absolute Monocyte Count 1.13 10^3/uL (0.1-0.8); Anisocytosis 2+; Burr Cells (echinocyte) 2+; Diff Comment Manual Differential; Hypochromasia 1+; Stomatocytes 2+
== END 2023-01-02 16:11 | disposition home or self-care (01) ==
LOC: NCHCN 16:10
PROVIDERS: PCP Nurse Practitioner Family; Visit Provider Nurse Practitioner Family
DX: D64.9 Anemia, unspecified (principal)
CPT/HCPCS: 85025

== ENCOUNTER 2023-01-02 21:06 | Emergency (ER) | payer MEDICAID, SELFPAY ==
[2023-01-02] VITALS (14 sets, daily range): BP systolic 101–122; BP diastolic 35–78; PULSE 88–107; RESP 15–29; TEMP 37.3; O2SAT 95–97
--- NOTE | 2023-01-02 21:00 | RT.EKG_ITS ---
APPROVED REPORT Exam: Resting ECG Reason for Exam: chest pain Patient Location: E HR:95 bpm ECG Measurements Heart Rate 95 AXIS ND 127 P 63 QRSd 76 QRS -15 QT 335 T 88 QTc 420 Conclusion Sinus rhythm...normal P axis, V-rate 60- 99 Probable left atrial enlargement...P >50mS, <-0.10mV V1 Nonspecific T abnrm, anterolateral leads...T <-0.10mV, I aVL V2-V6. Sinus. No STEMI. I have reviewed and interpreted ECG and agree with software generated interpretation.
--- NOTE | 2023-01-02 21:30 | DI.RAD_ITS ---
Exam(s) XR CHEST 2V PA LATERAL EXAM: XR CHEST 2V PA LATERAL CLINICAL HISTORY: chest pain TECHNIQUE: 2D digital imaging was performed of the chest. Two images were obtained. PA and lateral views were obtained. COMPARISON: CR XR CHEST 2V PA LATERAL from 07/16/2020 FINDINGS: MEDIASTINUM: Normal. HEART: Normal. PULMONARY VASCULATURE: Normal. LUNGS: There is no focal consolidating infiltrates. The lungs appear hyperinflated suggesting underl catherine COPD. PLEURAL SPACE: There is a small right pleural effusion. No left pleural effusion is seen. There is no pneumothorax. BONE:Within normal limits for the patient's age. OTHER FINDINGS:Normal. IMPRESSION: Small right pleural effusion. DATA REPOSITORY: RADIATION DOSE DELIVERED:
--- NOTE | 2023-01-02 21:31 | ED.GENADUL_ITS ---
Discharge Plan Discharge Details Chief Complaint: GenMedical Clinical Impression: Leukocytosis (leucocytosis), Small bowel tumor, Shortness of breath, Chest pain, Hyponatremia Primary Care Provider: KUN LI ED Provider: Wade Claros Home Meds and New Rx's Prescriptions: No Action pantoprazole [Protonix] [address] for susp in packet 40 mg PO HS albuterol sulfate [ProAir HFA] 90 mcg/actuation Hfa Aerosol Inhaler 2 puff INHALATION PRN PRN acetaminophen 500 mg capsule 1,000 mg PO Q8H PRN (Reason: pain) Qty: 90 0RF hydrocortisone [Anusol-HC] 2.5 % cream with perineal applicator 1 applic OH BID-QID PRNQty: 30 0RF aspirin 325 mg Tablet 325 mg PO DAILY diclofenac sodium 1 % Gel 2 g topical QID PRN PRNQty: 0 0RF fentanyl 12 mcg/hr Patch 72 Hour 12 mcg transdermal Q72H Qty: 5 0RF furosemide 40 mg Tablet 40 mg PO DAILY Qty: 30 0RF gabapentin 100 mg Capsule 100 mg PO TID Qty: 90 0RF hydrocortisone 2.5 % Ointment 20 g topical TID Qty: 0 0RF hydromorphone 2 mg Tablet 2 mg PO TID PRN (Reason: Abdominal Discomfort) Qty: 30 0RF Nicotrol 10 mg Cartridge 0 cartridge inhalation Q2H PRN PRNQty: 0 0RF polyethylene glycol 3350 17 gram Powder In Packet 17 g PO DAILY PRN PRN (Reason: Constipation) Qty: 0 0RF Stiolto Respimat 2.5-2.5 mcg/actuation Mist 2 puff inhalation DAILY Qty: 0 0RF cefpodoxime 200 mg tablet 200 mg PO BID Qty: 14 0RF Rx Instructions: must administer with a meal/food Medical Decision Making This is a 52-year-old female with recent hospitalization for bacteremia, past medical history of bowel tumor, anemia, current smoker, COPD, CHF, pericardial effusion, pruritus, lupus, presenting to the ER reporting that she still does not feel well, ongoing abdominal pain, right-sided chest pain, bilateral leg rash and swelling, her home nurse told her today that she had an elevated white count. Reports that she plans to follow-up for her bowel tumor at [facility]. Clinically she appears chronically ill but hemodynamically stable. Given her complicated past medical history and multitude of complaints, will initiate both a septic work-up and a chest pain work-up. Given her ongoing chest pain and shortness of breath we will add on a D-dimer. Patient already took full dose aspirin today. She is afebrile without obvious source of infection, she is currently taking oral antibiotics, will hold on IV antibiotics until overall work-up becomes more clear. Given her dry mucous membranes we will provide gentle hydration of 125/h. Laboratory values reveal multiple abnormalities including a white blood cell count of 41.00, hemoglobin 10.6 hematocrit 35.4 platelet count 560. Absolute neutrophils 26.65. Lactate 1.9 sodium 128, unfortunately all of these labs appear to be a chronically abnormal. Troponin is minimally elevated 82, she has no active chest pain. Her BNP is 3985 which is much improved when compared to most recent lab draw. CRP 18.12 ESR 95. D-dimer 4498. We will pursue CTA of the chest. Patient is already on antibiotics, tells me she has been taking them as directed. She is scheduled to see her PCP on who she tells me is going to help along with her care management team to get her set up in [facility] for further evaluation of this bowel tumor. This documentation was generated using [employer] dictation system, please disregard any oddities of phrase or misspellings. Medical Records Medical records reviewed: Yes I reviewed the patient's medical records. Imaging Data Radiologic Study: Attestation: I personally reviewed and interpreted this imaging study as follows: Imaging: X-Ray Radiologist's impression: PROCEDURE INFORMATION: Exam: XR Chest Exam date and time: 01/02/2023 10:17 PM Age: 52 years old Clinical indication: Other: Chest pain TECHNIQUE: Imaging protocol: Radiologic exam of the chest. Views: 2 views. COMPARISON: XR PORTABLE CHEST AP 12/23/2022 5:13 PM FINDINGS: Lungs: Patchy opacification is questioned within the right lower lung. Pleural spaces: Small right-sided pleural effusion. Heart/Mediastinum: Unremarkable. No cardiomegaly. Bones/joints: Unremarkable. IMPRESSION: 1. Patchy opacification is questioned within the right lower lung. An acute airspace process is not excluded. 2. Small right-sided pleural effusion. Lab Data Lab results reviewed: Yes I reviewed the patient's lab results. Labs: 01/02/23 22:25 Blood Blood Culture - Pending 01/02/23 22:00 Blood Blood Culture - Pending Laboratory Tests Range/Units 01/02/23 01/02/23 01/02/23 22:00 22:00 22:00 WBC (4.4-10.8) 10^3/uL 41.00 H* RBC (3.93-5.22) 10^6/uL 4.26 Hgb (11.2-15.7) g/dL 10.6 L Hct (36.0-46.0) % 35.4 L MCV (80-95) fL 83 MCH (27.0-33.0) pg 24.9 L MCHC (32.0-36.0) % 29.9 L RDW (11.7-14.6) % 20.1 H Plt Count (130-400) 10^3/uL 560 H MPV (8.0-11.0) fL 9.1 Immature Gran % 0.0 Neutrophils % 62.0 Band Neutrophils % 3 Lymphocytes % 6.0 Monocytes % 6.0 Eosinophils % 21.0 Basophils % 1.0 Metamyelocytes % 1 Nucleated RBC % (0.0-0.3) % 0.0 Absolute Neutrophils (1.2-6.7) 10^3/uL 26.65 H Absolute Lymphocytes (1.2-3.4) 10^3/uL 2.46 Absolute Monocytes (0.1-0.8) 10^3/uL 2.46 H Absolute Eosinophils (0.0-0.7) 10^3/uL 8.61 H Absolute Basophils (0.0-0.2) 10^3/uL 0.41 H RBC Morphology See Below Anisocytosis 2+ Stomatocytes 2+ ESR (0-30) mm/hr PT (9.3-11.0) sec 11.2 H INR (0.9-1.1) 1.1 APTT (21.5-31.9) sec 31.1 D-Dimer (<500) ng/mlFEU 4498 H VBG Lactate (0.6-1.4) mmol/L Sodium (136-145) mmol/L 128 L Potassium (3.5-5.1) mmol/L 4.2 Chloride (98-107) mmol/L 92 L Carbon Dioxide (21.0-32.0) mmol/L 25.5 Anion Gap (3-11) mmol/L 10.5 BUN (7-18) mg/dL 10 Creatinine (0.55-1.02) mg/dL 0.6 Est GFR (CKD-EPI 2020) (mL/min/1.73m2) 107.26 Glucose (74-106) mg/dL 98 Calcium (8.5-10.1) mg/dL 9.0 Magnesium (1.8-2.4) mg/dL 2.0 Total Bilirubin (0.2-1.0) mg/dL 0.5 AST (15-37) U/L 15 ALT (14-59) U/L 16 Alkaline Phosphatase (46-116) U/L 124 H Troponin I (<or=60) ng/L 82 H* C-Reactive Protein (0.0-0.3) mg/dL NT-Pro-B Natriuret Pep (<300) pg/mL 3985 H Total Protein (6.4-8.2) g/dL 7.9 Albumin (3.4-5.0) g/dL 2.6 L Range/Units 01/02/23 01/02/23 01/02/23 22:00 22:00 22:00 WBC (4.4-10.8) 10^3/uL RBC (3.93-5.22) 10^6/uL Hgb (11.2-15.7) g/dL Hct (36.0-46.0) % MCV (80-95) fL MCH (27.0-33.0) pg MCHC (32.0-36.0) % RDW (11.7-14.6) % Plt Count (130-400) 10^3/uL MPV (8.0-11.0) fL Immature Gran % Neutrophils % Band Neutrophils % Lymphocytes % Monocytes % Eosinophils % Basophils % Metamyelocytes % Nucleated RBC % (0.0-0.3) % Absolute Neutrophils (1.2-6.7) 10^3/uL Absolute Lymphocytes (1.2-3.4) 10^3/uL Absolute Monocytes (0.1-0.8) 10^3/uL Absolute Eosinophils (0.0-0.7) 10^3/uL Absolute Basophils (0.0-0.2) 10^3/uL RBC Morphology Anisocytosis Stomatocytes ESR (0-30) mm/hr 95 H PT (9.3-11.0) sec INR (0.9-1.1) APTT (21.5-31.9) sec D-Dimer (<500) ng/mlFEU VBG Lactate (0.6-1.4) mmol/L 1.9 H Sodium (136-145) mmol/L Potassium (3.5-5.1) mmol/L Chloride (98-107) mmol/L Carbon Dioxide (21.0-32.0) mmol/L Anion Gap (3-11) mmol/L BUN (7-18) mg/dL Creatinine (0.55-1.02) mg/dL Est GFR (CKD-EPI 2020) (mL/min/1.73m2) Glucose (74-106) mg/dL Calcium (8.5-10.1) mg/dL Magnesium (1.8-2.4) mg/dL Total Bilirubin (0.2-1.0) mg/dL AST (15-37) U/L ALT (14-59) U/L Alkaline Phosphatase (46-116) U/L Troponin I (<or=60) ng/L C-Reactive Protein (0.0-0.3) mg/dL 18.12 H NT-Pro-B Natriuret Pep (<300) pg/mL Total Protein (6.4-8.2) g/dL Albumin (3.4-5.0) g/dL ECG Data Attestation: I personally reviewed and interpreted this ECG (s) as follows: Interpretation: Sinus rhythm, ventricular rate 95, no STEMI. HPI General Mode of arrival: ambulatory . Date/Time Provider Initiated Documentation: 01/02/23 21:07 . Limitations to Documentation: no limitations . Information obtained by: patient . HPI Narrative: This is a 52-year-old female with a past medical history of COPD, current smoker, recently diagnosed abdominal mass, anemia, leukocytosis, CHF, pericardial effusion, admission to our facility on 12-15-2022, again on 12-23-2022, presenting to the ER reporting that her home nurse told her today that her blood draw was elevated, ongoing abdominal pain, reports chest pain which was primarily right-sided while driving, has since resolved, shortness of breath, ongoing rash to her bilateral lower extremities. I was able to review the records, she was discharged on 12-30-2022 with bacteremia due to Proteus, discharged on cefpodoxime, received 2 units red blood cells for anemia, referred to [facility] for her bowel tumor. Patient reports that in general she is simply not feeling well but denies any fever. Patient states that she has been taking all of her medications as directed. She is following up with her PCP on . Related Data Home Medications Medication Instructions Recorded Confirmed Protonix 40 mg granules 40 mg PO HS 01/31/13 01/02/23 delayed-release packet (pantoprazole) albuterol sulfate 90 mcg/actuation 2 puff inhalation PRN PRN 12/15/19 01/02/23 aerosol inhaler (ProAir HFA) acetaminophen 500 mg capsule 1,000 mg PO Q8H PRN pain #90 caps 02/10/20 01/02/23 hydrocortisone 2.5 % topical cream 1 applic OH BID-QID PRN #30 grams 12/07/22 01/02/23 with perineal applicator (Anusol-HC) aspirin 325 mg tablet 325 mg PO DAILY 12/23/22 01/02/23 cefpodoxime 200 mg tablet 200 mg PO BID #14 tabs 12/30/22 01/02/23 diclofenac sodium 1 % topical gel 2 g topical QID PRN PRN #0 grams 12/30/22 01/02/23 fentanyl 12 mcg/hr transdermal 12 mcg transdermal Q72H #5 ea 12/30/22 01/02/23 patch furosemide 40 mg tablet 40 mg PO DAILY #30 tabs 12/30/22 01/02/23 gabapentin 100 mg capsule 100 mg PO TID #90 caps 12/30/22 01/02/23 hydrocortisone 2.5 % topical 20 g topical TID #0 grams 12/30/22 01/02/23 ointment hydromorphone 2 mg tablet 2 mg PO TID PRN Abdominal 12/30/22 01/02/23 Discomfort #30 tabs nicotine 10 mg inhalation 0 cartridge inhalation Q2H PRN PRN 12/30/22 01/02/23 cartridge (Nicotrol) #0 ea polyethylene glycol 3350 17 gram 17 g PO DAILY PRN PRN Constipation 12/30/22 01/02/23 oral powder packet #0 ea tiotropium 2.5 mcg-olodaterol 2.5 2 puff inhalation DAILY #0 grams 12/30/22 01/02/23 mcg/actuation mist for inhalation (Stiolto Respimat) Previous Rx's Medication Instructions Recorded acetaminophen 500 mg capsule 1,000 mg PO Q8H PRN pain #90 caps 02/10/20 hydrocortisone 2.5 % topical cream 1 applic OH BID-QID PRN #30 grams 12/07/22 with perineal applicator (Anusol-HC) cefpodoxime 200 mg tablet 200 mg PO BID #14 tabs 12/30/22 diclofenac sodium 1 % topical gel 2 g topical QID PRN PRN #0 grams 12/30/22 fentanyl 12 mcg/hr transdermal 12 mcg transdermal Q72H #5 ea 12/30/22 patch furosemide 40 mg tablet 40 mg PO DAILY #30 tabs 12/30/22 gabapentin 100 mg capsule 100 mg PO TID #90 caps 12/30/22 hydrocortisone 2.5 % topical 20 g topical TID #0 grams 12/30/22 ointment hydromorphone 2 mg tablet 2 mg PO TID PRN Abdominal 12/30/22 Discomfort #30 tabs nicotine 10 mg inhalation 0 cartridge inhalation Q2H PRN PRN 12/30/22 cartridge (Nicotrol) #0 ea polyethylene glycol 3350 17 gram 17 g PO DAILY PRN PRN Constipation 12/30/22 oral powder packet #0 ea tiotropium 2.5 mcg-olodaterol 2.5 2 puff inhalation DAILY #0 grams 12/30/22 mcg/actuation mist for inhalation (Stiolto Respimat) Allergies Allergy/AdvReac Type Severity Reaction Status Date / Time ibuprofen Allergy Intermediate Swelling/Ed Unverified 12/23/22 16:25 mily ketorolac tromethamine Allergy Mild Hives Unverified 12/23/22 16:25 [From Toradol] latex Allergy Mild Skin Rash Unverified 12/23/22 16:25 diphenhydramine Allergy Itching Unverified 12/26/22 18:04 [From Benadryl] tramadol Allergy Hives Unverified 12/23/22 16:25 adhesive AdvReac Mild Skin Rash Unverified 12/23/22 16:25 PLASTIC TAPE Allergy Intermediate Skin Rash, Uncoded 12/23/22 16:25 BLISTERS General Stated Complaint: GenMedical LIZETTE: 3 Review of Systems Constitutional Constitutional: Reports fatigue, Denies fever(s) and Reports weakness (Generalized) ENT Ears, Nose, Mouth, and Throat: Denies neck pain Cardiovascular Cardiovascular: Reports chest pain and Reports dyspnea Respiratory Respiratory: Reports cough (Chronic) and Reports dyspnea Gastrointestinal Gastrointestinal: Reports abdominal pain, Denies melena, Denies hematochezia, Denies diarrhea, Denies nausea and Denies vomiting Genitourinary Genitourinary: Denies dysuria Musculoskeletal Musculoskeletal: Denies back pain and Denies neck pain Integumentary/Breasts Skin/Breast: Reports rash Neurologic Neurologic: Reports weakness (Generalized) Endocrine Endocrine: Reports fatigue Hematologic/Lymphatic Hematologic/Lymphatic: Denies easy bleeding and Denies easy bruising PFSH All Active Problems Chest pain (Acute) Hyponatremia (Acute) Congestive heart failure (Chronic) Pruritus (Acute) Bacteremia due to Proteus species (Acute) Full code status (Acute) Gram-negative bacteremia (Acute) Anemia (Chronic) Shortness of breath (Acute) Abdominal ascites (Acute) Smoker (Acute) Elevated troponin (Acute) COPD (chronic obstructive pulmonary disease) (Chronic) Early satiety (Acute) Abnormal weight loss (Acute) Iron deficiency anemia due to chronic blood loss (Acute) Small bowel tumor (Acute) Leukocytosis (leucocytosis) (Acute) Acute myopericarditis (Acute) Abdominal mass, right lower quadrant (Acute) UTI (urinary tract infection) (Acute) Hemorrhoids (Acute) Atypical chest pain (Acute) Carpal tunnel syndrome of right wrist (Acute) Abscess of groin, right (Acute 11/03/15) s/p surgical resection by Dr Douglas. Pt says she is having recurrent abscesses in tract, referred to [facility] as concern for nerve involvement but pt went to [facility] instead and was put on abx and told her infections were Pt extremely disappointed. Cervical disc disease (Acute 11/03/15) MR showed cervical involvement Status post carpal tunnel release of both wrists (Acute) Mass of right hand (Acute) Status post trigger finger release (Acute) DOS: 11/20/18 Right ring finger Carpal tunnel syndrome, left (Acute) S/P ECTR 12/16/2019 S/P OCTR 02/10/2020 De Quervain's tenosynovitis, left (Acute) S/P release 12/16/2019 Medical History COPD (chronic obstructive pulmonary disease) GERD (gastroesophageal reflux disease) Hydradenitis right groin Inclusion cyst Lupus [place] (myocardial infarction) 2015- pt. states she F/U with PCP once a month Surgical History Abdominal hysterectomy (~2009) Angiogram History of carpal tunnel release History of shoulder surgery Left rotator cuff. Incision & Drainage, Abscess or Hematoma Family History Mother Heart disease Father Cancer throat Social History Smoking/Tobacco Use Status: Current every day Tobacco Type: cigarettes Smoking risk assessment performed?: Yes Alcohol Intake: never Drug use: Never Substance use type: does not use Current gender identity: female Do you feel safe at home: Yes Do you feel safe in your relationship?: Yes Additional Social history: Not in a relationship. Living with family in [place] temporarily. 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 Exam Const General: cooperative, comfortable and no acute distress Orientation: alert, awake and oriented x3 HENMT Head: normal to inspection, normocephalic and atraumatic Mouth: moist mucous membranes abnormal (Slightly dry) Eyes Conjunctivae: conjunctivae normal Neck Neck: normal visual inspection, full ROM, no meningeal signs, trachea midline and supple Resp Effort & Inspection: normal respiratory effort and able to speak in complete sentences Auscultation: diminished lung sounds bilaterally in the lower lung coyle and wheezes (Rare, scattered, mostly clear with coughing) Cardio Rate: regular rate Rhythm: regular rhythm GI Palpation: soft, not firm, no guarding, no pulsatile masses and tender in the RLQ Auscultation: normal bowel sounds Skin Other: Patient with diffuse scattered macular erythema to bilateral lower extremities, multiple areas of excoriation. Without warmth or lymphangitic streaking Neuro General: patient alert, patient awake, moves all extremities and no focal motor deficits Cognition: normal cognition Speech: speech normal Motor: muscle tone normal throughout Sensory Exam: no sensory deficits noted Extrem General: full ROM, capillary refill normal and pedal edema bilaterally pitting and 1+ Psych Appearance: grossly normal Mental Status: mental status grossly normal Course Vital Signs Vital signs: Vital Signs Temperature 37.3 C 01/02/23 21:13 Pulse 97 H 01/02/23 21:13 Respiratory Rate 20 01/02/23 21:13 Blood Pressure 122/40 L 01/02/23 21:13 Pulse Oximetry 96 01/02/23 21:13 Temperature 37.3 C 01/02/23 21:13 Temperature Source Oral 01/02/23 21:13 Pulse 97 H 01/02/23 21:13 Respiratory Rate 20 01/02/23 21:13 Respiratory Effort 01/02/23 21:25 Respiratory Depth Normal 01/02/23 21:25 Respiratory Pattern Normal 01/02/23 21:25 Blood Pressure 122/40 L 01/02/23 21:13 Blood Pressure Position Sitting 01/02/23 21:13 Pulse Oximetry 96 01/02/23 21:13 Oxygen Delivery Method Room Air 01/02/23 21:13 Oxygen Flow Rate 0 01/02/23 21:13 Pain Level 9 01/02/23 21:13
[2023-01-02] MEDS: Normal Saline 1,000 ML 125 ML IV (21:58)
[2023-01-02 22:16] LABS: HCT 35.4 % (36.0-46.0); HGB 10.6 g/dL (11.2-15.7); MCH 24.9 pg (27.0-33.0); MCHC 29.9 % (32.0-36.0); MCV 83 fL (80-95); MPV 9.1 fL (8.0-11.0); Platelet Count 560 10^3/uL (130-400); RBC 4.26 10^6/uL (3.93-5.22); RDW 20.1 % (11.7-14.6); RDW-SD 59.8 fL
[2023-01-02 22:22] LABS: C-Reactive Protein 18.12 mg/dL (0.0-0.3)
[2023-01-02 22:23] LABS: ESR 95 mm/hr (0-30)
[2023-01-02 22:25] LABS: Lactate 1.9 mmol/L (0.6-1.4)
[2023-01-02 22:29] LABS: ALT 16 U/L (14-59); AST 15 U/L (15-37); Albumin 2.6 g/dL (3.4-5.0); Alkaline Phosphatase 124 U/L (46-116); Anion Gap 10.5 mmol/L (3-11); BUN 10 mg/dL (7-18); Bilirubin, Total 0.5 mg/dL (0.2-1.0); CO2 25.5 mmol/L (21.0-32.0); CREATININE 0.6 mg/dL (0.55-1.02); Chloride 92 mmol/L (98-107); Estimated GFR 107.26 (mL/min/1.73m2); Glucose 98 mg/dL (74-106); NT-proBNP 3985 pg/mL (<300); Potassium 4.2 mmol/L (3.5-5.1); Sodium 128 mmol/L (136-145); Total Protein 7.9 g/dL (6.4-8.2)
[2023-01-02 22:30] LABS: Troponin I 82 ng/L (<or=60)
--- NOTE | 2023-01-02 22:30 | NUR.NOTE ---
Pt presents for triage with small dog with appearance of Sarah in her lap. Dog trembling continuously. 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 Explained that dog would not be allowed in hospital, as established during previous hospitalization.
[2023-01-02 22:31] LABS: INR 1.1 (0.9-1.1); PTT Activated 31.1 sec (21.5-31.9); Prothrombin Time 11.2 sec (9.3-11.0)
[2023-01-02 22:38] LABS: Absolute Basophil Count 0.41 10^3/uL (0.0-0.2); Absolute Eosinophil Count 8.61 10^3/uL (0.0-0.7); Absolute Lymphocyte Count 2.46 10^3/uL (1.2-3.4); Absolute Monocyte Count 2.46 10^3/uL (0.1-0.8); Absolute Neutrophil Count 26.65 10^3/uL (1.2-6.7); Bands % 3; Diff Comment Manual Differential; Metamyelocytes % 1
[2023-01-02 22:41] LABS: Anisocytosis 2+; Stomatocytes 2+
[2023-01-02 22:44] LABS: D-Dimer 4498 ng/mlFEU (<500)
--- NOTE | 2023-01-02 22:49 | DI.CT_ITS ---
Exam(s) CT CHEST PE CTA EXAM: CT CHEST PE CTA CLINICAL HISTORY: cp,sob,elevated dimer. TECHNIQUE: Imaging Protocol: Axial CT angiography was performed with multi-slice acquisition and mu lti-planar and/or 3D reconstructions. CONTRAST MATERIAL: Intravenous: Omnipaque 350 contrast volume:100 mL COMPARISON: CT CT CHEST PE ABD PELVIS W from 12/24/[address] ABDOMEN PELVIS W from 12/29/2022 FINDINGS: Tracheobronchial tree: Patent where visualized. Pulmonary parenchyma: Moderately severe emphysematous changes are present in the lungs. There is a 5 .8 mm nodule in the right upper lobe. There is a moderate right pleural effusion with subjacent infi ltrate. There is an irregular 1.7 x 0.8 cm opacity in the right upper lobe. Pulmonary Arteries: No evidence of filling defect to suggest pulmonary emboli. Mediastinum and Yee: No dominant adenopathy or fluid collection. The esophagus is unremarkable. Visualized thyroid gland: Unremarkable. Pleura: There is no left pleural effusion. No pneumothorax is present. Heart: The heart is not dilated. No coronary artery calcifications are seen. There is a small pericar dial effusion. Aorta: Thoracic aorta non-dilated. No evidence of dissection. Atherosclerosis is present. Upper abdomen: Unremarkable. Soft tissues: Unremarkable. Bones: Within normal limits for the patient's age. IMPRESSION: 1. No evidence of pulmonary embolism, thoracic aortic dissection or aneurysm. 2. Persistent 6 mm right upper lobe nodule. For low risk patients, recommend CT chest in 6-12 months , then consider CT chest 18-24 months. For high risk patients (history of smoking or other known ris k factors), CT scan in 6-12 months, then CT scan of at 18-24 months. (Jimbo et al, 2017). 3. Persistent almost 2 cm irregular opacity in the right lung apex. For both low and high risk patie nts, consider CT scan at 3 months, PET/CT or biopsy. (Jimbo et al, 2017). 4. Moderate size right pleural effusion. RADIATION DOSE DELIVERED: 304.08mGy.cm Total DLP DATA REPOSITORY: All CT scans at this facility are submitted to the National Radiology Data Registry (NRDR) Dose Index Registry (DIR) with the [employer] (ACR). RADIATION OPTIMIZATION: All CT scans at this facility use at least one of these dose optimization te chniques: automated exposure control; mA and/or kV adjustment per patient size (includes targeted exa ms where dose is matched to clinical indication); or iterative reconstruction.
--- NOTE | 2023-01-02 22:53 | DI.VRAD_ITS ---
PROCEDURE INFORMATION: Exam: XR Chest Exam date and time: 01/02/2023 10:17 PM Age: 52 years old Clinical indication: Other: Chest pain TECHNIQUE: Imaging protocol: Radiologic exam of the chest. Views: 2 views. COMPARISON: XR PORTABLE CHEST AP 12/23/2022 5:13 PM FINDINGS: Lungs: Patchy opacification is questioned within the right lower lung. Pleural spaces: Small right-sided pleural effusion. Heart/Mediastinum: Unremarkable. No cardiomegaly. Bones/joints: Unremarkable. IMPRESSION: 1. Patchy opacification is questioned within the right lower lung. An acute airspace process is not excluded. 2. Small right-sided pleural effusion. Dictated and Authenticated by: eFi Courtney MD. Ordering:LINDA Olvera MD
[2023-01-02 22:55] LABS: COVID-19 PCR Negative (Negative); Influenza A PCR Negative (Negative); Influenza B PCR Negative (Negative); RSV PCR Negative (Negative)
[2023-01-02 22:55] LABS: Bilirubin Negative (Negative); Blood Negative (Negative); Clarity Sl Cloudy (Clear); Glucose Negative (Negative); Ketones Negative (Negative); Leukocyte Esterase Small (Negative); Nitrite Negative (Negative); Specific Gravity 1.025 (1.005-1.025)
[2023-01-02 22:57] LABS: Source Nasopharynx
[2023-01-02 23:15] LABS: Bacteria Few HPF (Negative); C & S Indicated? No/Sq. Contamination; Crystals Negative HPF (Negative); Epithelial Cells Many HPF (Negative); Mucus Negative (Negative); RBC 0-2 HPF (0-2)
[2023-01-02] MEDS: Omnipaque 350 MG/ML 100 ML BTL IJ (23:29)
[2023-01-02] MEDS: Normal Saline - Diluent 50 ML VIAL IJ (23:29)
[2023-01-02] MEDS: Normal Saline Flush 10 ML SYR IVP (23:30)
--- NOTE | 2023-01-03 00:08 | DI.VRAD_ITS ---
PROCEDURE INFORMATION: Exam: CTA Chest With Contrast Exam date and time: 01/02/2023 11:27 PM Age: 52 years old Clinical indication: Other: Cp, SOB, elevated dimer TECHNIQUE: Imaging protocol: Computed tomographic angiography of the chest with contrast. 3D rendering (Not supervised by radiologist): MIP and/or 3D reconstructed images were created by the technologist. Radiation optimization: All CT scans at this facility use at least one of these dose optimization techniques: automated exposure control; mA and/or kV adjustment per patient size (includes targeted exams where dose is matched to clinical indication); or iterative reconstruction. Contrast material: OMNIPAQUE 350; Contrast volume: 100 ml; Contrast route: INTRAVENOUS (IV); COMPARISON: CT CHEST PE ABD PELVIS W 12/24/2022 4:12 PM FINDINGS: Pulmonary arteries: Normal. No pulmonary emboli. Aorta: Unremarkable. No aortic aneurysm. No aortic dissection. Lungs: Diffuse emphysematous change. There is an irregular opacity in the right lung apex likely representing scar measuring 1.8 x 1.0 cm (series 6, image 159), stable.For both low risk and high risk patients, consider CT Chest at 3 months, PET/CT, or biopsy. (Reference: Connorhofarideh). There is a 0.6 cm soft tissue density pulmonary nodule in the right upper lobe (series 6, image 216), stable. Atelectatic changes noted within the right lower lung. Pleural spaces: Moderate volume right-sided pleural effusion. Heart: Unremarkable. No cardiomegaly. No pericardial effusion. Lymph nodes: Unremarkable. No enlarged lymph nodes. Bones/joints: Unremarkable. No acute fracture. Soft tissues: Unremarkable. IMPRESSION: 1. No evidence of pulmonary embolus. 2. No evidence of thoracic aortic aneurysm or dissection. 3. Moderate volume right-sided pleural effusion. 4. There is a 0.6 cm soft tissue density pulmonary nodule in the right upper lobe (series 6, image 216), stable. For patients at low risk (minimal or absent history of smoking and of other known risk factors), recommend CT Chest at 6-12 months, then consider CT Chest at 18-24 months. For patients at high risk (history of smoking or of other known risk factors), recommend CT Chest at 6-12 months, then CT Chest at 18-24 months. (Reference: Jimbo) 5. There is an irregular opacity in the right lung apex likely representing scar measuring 1.8 x 1.0 cm (series 6, image 159), stable.For both low risk and high risk patients, consider CT Chest at 3 months, PET/CT, or biopsy. (Reference: Jimbo). REFERENCES: 1. Jimbo Díaz et al. Guidelines for Management of Incidental Pulmonary Nodules Detected on CT Images: From the Fleischner Society 2017. Radiology. 2017;284(1):228-243. 2. Jimbo Díaz, et al. Guidelines for Management of Incidental Pulmonary Nodules Detected on CT Images: From the Fleischner Society 2017. Radiology. 2017;284(1):228-243. Dictated and Authenticated by: Fei Courtney MD. Ordering:LINDA Olvera MD
[2023-01-03 00:48] VITALS: BP 105/44; PULSE 88; O2SAT 98
[2023-01-03 00:56] LABS: Troponin I 83 ng/L (<or=60)
--- NOTE | 2023-01-03 01:00 | RT.EKG_ITS ---
APPROVED REPORT Exam: Resting ECG Reason for Exam: chest pain Patient Location: E HR:93 bpm ECG Measurements Heart Rate 93 AXIS ND 125 P 74 QRSd 73 QRS -2 QT 348 T 79 QTc 434 Conclusion Sinus rhythm...normal P axis, V-rate 60- 99 Probable left atrial enlargement...P >50mS, <-0.10mV V1 Low voltage, extremity leads...all extremity leads <0.5mV. Sinus. Normal axis. No STEMI. I have reviewed and interpreted ECG and agree with software generated interpretation.
--- NOTE | 2023-01-03 01:06 | ED.PROG_ITS ---
Date of service: 01/03/23 Time of Service: 01:00 Medical Decision Making 2299 --please see ELISABETH Claros's note for initial presentation, exam and plan. Case endorsed to follow-up on CT chest with plan for repeat troponin. If repeat troponin remains flat or indeterminant, likely plan for discharge to home. 0100 --repeat troponin essentially unchanged at 83. Repeat EKG unchanged. Patient reassessed and she denies any chest pain. Review of recent discharge summary and recent admission records note that patient was diagnosed with likely pericarditis and pericardial effusion and this likely may have been the source of the elevated troponin. She had an echocardiogram which noted an EF of 55 to 60% with normal left ventricular wall motion. Her troponin upon discharge 3 days ago was 62. 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 She was also treated for anemia with 2 units of PRBCs during her recent hospital admission. Review of labs today note that her white blood cell count is 41 and uptrending since her recent discharge from . Her lactate is stable at 1.9 compared to her recent admission. Hemoglobin stable at 10. Her urinalysis notes trichomonas which was also seen on a urine sample from December 23. Fluvid negative. CT chest negative for PE or dissection and notes again a moderate right-sided pleural effusion. She also has a right upper lobe pulmonary nodule and right lung apex scarring with recommend for follow-up CT chest in high risk patients. Assessment of patient at bedside reveals a comfortable nontoxic appearing female. She is hemodynamically stable. She does endorse that just prior to discharge from her recent admission 4 days ago she developed an itchy painful rash on her legs and was prescribed hydrocortisone which she has been using. She does appear to have a diffuse erythematous blanching papular rash to her bilateral lower extremities. This extends up to her right thigh and also has another patch of rash left forearm. Some areas appear consistent with urticaria, other areas appear consistent with smaller papules. No petechaie noted. The areas of the rash are hot to touch but there does not appear to be evidence of cellulitis. History and presentation does not appear consistent with Baldwin- Miki's or TENS this time. She has no evidence of mucosal lesions and denies any known genital lesions. At this point in time, consider allergic reaction although patient advised to continue to monitor for any acute worsening of this rash. Plan is to therefore stop cefpodoxime for possible allergic reaction. Review of her blood culture from her recent admission positive for Proteus note that it was sensitive to ciprofloxacin. We will start ciprofloxacin. She was given 1 dose here and a prescription sent electronically to her pharmacy. We will also treat rash with a course of steroids which was also sent electronically to her pharmacy. We will give a dose of Flagyl 2 g p.o. x1 for trichomonas. She also states she is running low on her Dilaudid and was given 1 dose here and 2 tabs to go. She has a follow-up appointment with her primary care Dr. Natasha Esquivel tomorrow and she is advised to discuss any of her symptoms and help with arrangement for follow-up with [facility]. Usual and customary return precautions given prior to discharge. Medical Records Medical records reviewed: Yes I reviewed the patient's medical records. Medical records narrative: Echocardiogram 12/25/2022 Conclusion Normal left ventricular wall thickness and chamber size.? Estimated ejection fraction is 55 to 60%.? Wall motion is normal Normal right ventricular size and systolic function Left atrium is mildly dilated.? Right atrial size is normal Aortic valve is mildly sclerotic and trileaflet.? There is no aortic stenosis.? There is mild to moderate aortic regurgitation Mildly thickened mitral leaflets.? Trace to mild mitral regurgitation Normal tricuspid valve with mild regurgitation.? Estimated right ventricular systolic pressure is 26 mmHg Imaging Data Radiologic Study: Radiologist's impression: CTA Chest With Contrast Exam date and time: 01/02/2023 11:27 PM Age: 52 years old Clinical indication: Other: Cp, SOB, elevated dimer TECHNIQUE: Imaging protocol: Computed tomographic angiography of the chest with contrast. 3D rendering (Not supervised by radiologist): MIP and/or 3D reconstructed images were created by the technologist. Radiation optimization: All CT scans at this facility use at least one of these dose optimization techniques: automated exposure control; mA and/or kV adjustment per patient size (includes targeted exams where dose is matched to clinical indication); or iterative reconstruction. Contrast material: OMNIPAQUE 350; Contrast volume: 100 ml; Contrast route: INTRAVENOUS (IV);? COMPARISON: CT CHEST PE ABD PELVIS W 12/24/2022 4:12 PM FINDINGS: Pulmonary arteries: Normal. No pulmonary emboli. Aorta: Unremarkable. No aortic aneurysm. No aortic dissection. Lungs: Diffuse emphysematous change. There is an irregular opacity in the right lung apex likely representing scar measuring 1.8 x 1.0 cm (series 6, image 159), stable.For both low risk and high risk patients, consider CT Chest at 3 months, PET/CT, or biopsy. (Reference: [email or web address]). There is a 0.6 cm soft tissue density pulmonary nodule in the right upper lobe (series 6, image 216), stable. Atelectatic changes noted within the right lower lung. Pleural spaces: Moderate volume right-sided pleural effusion. Heart: Unremarkable. No cardiomegaly. No pericardial effusion. Lymph nodes: Unremarkable. No enlarged lymph nodes. Bones/joints: Unremarkable. No acute fracture. Soft tissues: Unremarkable. IMPRESSION: 1. No evidence of pulmonary embolus. 2. No evidence of thoracic aortic aneurysm or dissection. 3. Moderate volume right-sided pleural effusion. 4. There is a 0.6 cm soft tissue density pulmonary nodule in the right upper lobe (series 6, image 216), stable. For patients at low risk (minimal or absent history of smoking and of other known risk factors), recommend CT Chest at 6-12 months, then consider CT Chest at 18-24 months. For patients at high risk (history of smoking or of other known risk factors), recommend CT Chest at 6-12 months, then CT Chest at 18-24 months. (Reference: Connorhofarideh) 5. There is an irregular opacity in the right lung apex likely representing scar measuring 1.8 x 1.0 cm (series 6, image 159), stable.For both low risk and high risk patients, consider CT Chest at 3 months, PET/CT, or biopsy. (Reference: Jimbo). Lab Data Lab results reviewed: Yes I reviewed the patient's lab results. Labs: 01/02/23 22:25 Blood Blood Culture - Pending 01/02/23 22:00 Blood Blood Culture - Pending Laboratory Tests Range/Units 01/02/23 01/02/23 01/02/23 22:00 22:00 22:00 WBC (4.4-10.8) 10^3/uL 41.00 H* RBC (3.93-5.22) 10^6/uL 4.26 Hgb (11.2-15.7) g/dL 10.6 L Hct (36.0-46.0) % 35.4 L MCV (80-95) fL 83 MCH (27.0-33.0) pg 24.9 L MCHC (32.0-36.0) % 29.9 L RDW (11.7-14.6) % 20.1 H Plt Count (130-400) 10^3/uL 560 H MPV (8.0-11.0) fL 9.1 Immature Gran % 0.0 Neutrophils % 62.0 Band Neutrophils % 3 Lymphocytes % 6.0 Monocytes % 6.0 Eosinophils % 21.0 Basophils % 1.0 Metamyelocytes % 1 Nucleated RBC % (0.0-0.3) % 0.0 Absolute Neutrophils (1.2-6.7) 10^3/uL 26.65 H Absolute Lymphocytes (1.2-3.4) 10^3/uL 2.46 Absolute Monocytes (0.1-0.8) 10^3/uL 2.46 H Absolute Eosinophils (0.0-0.7) 10^3/uL 8.61 H Absolute Basophils (0.0-0.2) 10^3/uL 0.41 H RBC Morphology See Below Anisocytosis 2+ Stomatocytes 2+ ESR (0-30) mm/hr PT (9.3-11.0) sec 11.2 H INR (0.9-1.1) 1.1 APTT (21.5-31.9) sec 31.1 D-Dimer (<500) ng/mlFEU 4498 H VBG Lactate (0.6-1.4) mmol/L Sodium (136-145) mmol/L 128 L Potassium (3.5-5.1) mmol/L 4.2 Chloride (98-107) mmol/L 92 L Carbon Dioxide (21.0-32.0) mmol/L 25.5 Anion Gap (3-11) mmol/L 10.5 BUN (7-18) mg/dL 10 Creatinine (0.55-1.02) mg/dL 0.6 Est GFR (CKD-EPI 2020) (mL/min/1.73m2) 107.26 Glucose (74-106) mg/dL 98 Calcium (8.5-10.1) mg/dL 9.0 Magnesium (1.8-2.4) mg/dL 2.0 Total Bilirubin (0.2-1.0) mg/dL 0.5 AST (15-37) U/L 15 ALT (14-59) U/L 16 Alkaline Phosphatase (46-116) U/L 124 H Troponin I (<or=60) ng/L 82 H* C-Reactive Protein (0.0-0.3) mg/dL NT-Pro-B Natriuret Pep (<300) pg/mL 3985 H Total Protein (6.4-8.2) g/dL 7.9 Albumin (3.4-5.0) g/dL 2.6 L Urine Color (Yellow) Urine Clarity (Clear) Urine pH (5-8) Ur Specific [place] (1.005-1.025) Urine Protein (Negative) mg/dL Urine Ketones (Negative) mg/dL Urine Blood (Negative) Urine Nitrite (Negative) Urine Bilirubin (Negative) Urine Urobilinogen (Up TO 0.2) EU/dL Ur Leukocyte Esterase (Negative) Urine RBC (0-2) HPF Urine WBC (0-5) HPF Ur Epithelial Cells (Negative) HPF Urine Crystals (Negative) HPF Urine Bacteria (Negative) HPF Urine Mucus (Negative) Urine Other (Negative) Ur Culture Indicated? Urine Glucose (Negative) mg/dL COVID-19 Source SARS-CoV-2 (PCR) (Negative) Influenza Type A (PCR) (Negative) Influenza Type B (PCR) (Negative) RSV (PCR) (Negative) Range/Units 01/02/23 01/02/23 01/02/23 22:00 22:00 22:00 WBC (4.4-10.8) 10^3/uL RBC (3.93-5.22) 10^6/uL Hgb (11.2-15.7) g/dL Hct (36.0-46.0) % MCV (80-95) fL MCH (27.0-33.0) pg MCHC (32.0-36.0) % RDW (11.7-14.6) % Plt Count (130-400) 10^3/uL MPV (8.0-11.0) fL Immature Gran % Neutrophils % Band Neutrophils % Lymphocytes % Monocytes % Eosinophils % Basophils % Metamyelocytes % Nucleated RBC % (0.0-0.3) % Absolute Neutrophils (1.2-6.7) 10^3/uL Absolute Lymphocytes (1.2-3.4) 10^3/uL Absolute Monocytes (0.1-0.8) 10^3/uL Absolute Eosinophils (0.0-0.7) 10^3/uL Absolute Basophils (0.0-0.2) 10^3/uL RBC Morphology Anisocytosis Stomatocytes ESR (0-30) mm/hr 95 H PT (9.3-11.0) sec INR (0.9-1.1) APTT (21.5-31.9) sec D-Dimer (<500) ng/mlFEU VBG Lactate (0.6-1.4) mmol/L 1.9 H Sodium (136-145) mmol/L Potassium (3.5-5.1) mmol/L Chloride (98-107) mmol/L Carbon Dioxide (21.0-32.0) mmol/L Anion Gap (3-11) mmol/L BUN (7-18) mg/dL Creatinine (0.55-1.02) mg/dL Est GFR (CKD-EPI 2020) (mL/min/1.73m2) Glucose (74-106) mg/dL Calcium (8.5-10.1) mg/dL Magnesium (1.8-2.4) mg/dL Total Bilirubin (0.2-1.0) mg/dL AST (15-37) U/L ALT (14-59) U/L Alkaline Phosphatase (46-116) U/L Troponin I (<or=60) ng/L C-Reactive Protein (0.0-0.3) mg/dL 18.12 H NT-Pro-B Natriuret Pep (<300) pg/mL Total Protein (6.4-8.2) g/dL Albumin (3.4-5.0) g/dL Urine Color (Yellow) Urine Clarity (Clear) Urine pH (5-8) Ur Specific [place] (1.005-1.025) Urine Protein (Negative) mg/dL Urine Ketones (Negative) mg/dL Urine Blood (Negative) Urine Nitrite (Negative) Urine Bilirubin (Negative) Urine Urobilinogen (Up TO 0.2) EU/dL Ur Leukocyte Esterase (Negative) Urine RBC (0-2) HPF Urine WBC (0-5) HPF Ur Epithelial Cells (Negative) HPF Urine Crystals (Negative) HPF Urine Bacteria (Negative) HPF Urine Mucus (Negative) Urine Other (Negative) Ur Culture Indicated? Urine Glucose (Negative) mg/dL COVID-19 Source SARS-CoV-2 (PCR) (Negative) Influenza Type A (PCR) (Negative) Influenza Type B (PCR) (Negative) RSV (PCR) (Negative) Range/Units 01/02/23 01/02/23 01/03/23 22:03 22:36 00:30 WBC (4.4-10.8) 10^3/uL RBC (3.93-5.22) 10^6/uL Hgb (11.2-15.7) g/dL Hct (36.0-46.0) % MCV (80-95) fL MCH (27.0-33.0) pg MCHC (32.0-36.0) % RDW (11.7-14.6) % Plt Count (130-400) 10^3/uL MPV (8.0-11.0) fL Immature Gran % Neutrophils % Band Neutrophils % Lymphocytes % Monocytes % Eosinophils % Basophils % Metamyelocytes % Nucleated RBC % (0.0-0.3) % Absolute Neutrophils (1.2-6.7) 10^3/uL Absolute Lymphocytes (1.2-3.4) 10^3/uL Absolute Monocytes (0.1-0.8) 10^3/uL Absolute Eosinophils (0.0-0.7) 10^3/uL Absolute Basophils (0.0-0.2) 10^3/uL RBC Morphology Anisocytosis Stomatocytes ESR (0-30) mm/hr PT (9.3-11.0) sec INR (0.9-1.1) APTT (21.5-31.9) sec D-Dimer (<500) ng/mlFEU VBG Lactate (0.6-1.4) mmol/L Sodium (136-145) mmol/L Potassium (3.5-5.1) mmol/L Chloride (98-107) mmol/L Carbon Dioxide (21.0-32.0) mmol/L Anion Gap (3-11) mmol/L BUN (7-18) mg/dL Creatinine (0.55-1.02) mg/dL Est GFR (CKD-EPI 2020) (mL/min/1.73m2) Glucose (74-106) mg/dL Calcium (8.5-10.1) mg/dL Magnesium (1.8-2.4) mg/dL Total Bilirubin (0.2-1.0) mg/dL AST (15-37) U/L ALT (14-59) U/L Alkaline Phosphatase (46-116) U/L Troponin I (<or=60) ng/L 83 H* C-Reactive Protein (0.0-0.3) mg/dL NT-Pro-B Natriuret Pep (<300) pg/mL Total Protein (6.4-8.2) g/dL Albumin (3.4-5.0) g/dL Urine Color (Yellow) Yellow Urine Clarity (Clear) Sl Cloudy Urine pH (5-8) 6.0 Ur Specific [place] (1.005-1.025) 1.025 Urine Protein (Negative) mg/dL 100 H Urine Ketones (Negative) mg/dL Negative Urine Blood (Negative) Negative Urine Nitrite (Negative) Negative Urine Bilirubin (Negative) Negative Urine Urobilinogen (Up TO 0.2) EU/dL 1.0 H Ur Leukocyte Esterase (Negative) Small H Urine RBC (0-2) HPF 0-2 Urine WBC (0-5) HPF 5-10 Ur Epithelial Cells (Negative) HPF Many Urine Crystals (Negative) HPF Negative Urine Bacteria (Negative) HPF Few Urine Mucus (Negative) Negative Urine Other (Negative) Moderate Trichomonas Ur Culture Indicated? No/Sq. Contamination Urine Glucose (Negative) mg/dL Negative COVID-19 Source Nasopharynx SARS-CoV-2 (PCR) (Negative) Negative Influenza Type A (PCR) (Negative) Negative Influenza Type B (PCR) (Negative) Negative RSV (PCR) (Negative) Negative ECG Data Attestation: I personally reviewed and interpreted this ECG (s) as follows: Interpretation: #1 -- rate of 95, sinus, no stemi. #2 -- rate of 93, sinus, no stemi. Sign Out Sign Out Data: Sign Out Comment: Patient with complicated past medical history presents for leukocytosis, chest pain, ongoing shortness of breath, abdominal pain, bilateral leg swelling and rash. While she does have multiple abnormal lab values, they appear relatively stable when compared with her recent admissions. At this time awaiting a delta troponin, CTA of her chest, and final disposition. Patient is currently on p.o. antibiotics and is scheduled to be seen by her PCP on . Last updated by Wade Claros PA at 01/02/23 22:58 Discharge Plan Disposition Patient Disposition: Home Condition: Stable Discharge Details Clinical Impression: Small bowel tumor, Rash, Chronic chest pain Primary Care Provider: NATASHA ESQUIVEL ED Provider: Ana Tiwari Home Meds and New Rx's Prescriptions: New ciprofloxacin HCl [Cipro] 500 mg tablet 500 mg PO BID 10 Days Qty: 20 0RF prednisone 20 mg tablet See Rx Instructions .ROUTE .COMPLEX Qty: 18 0RF Rx Instructions: Take 3 tabs daily for 3 days, then 2 tabs daily for 3 days, then 1 tab daily for 3 days. Continued pantoprazole [Protonix] [address] for susp in packet 40 mg PO HS albuterol sulfate [ProAir HFA] 90 mcg/actuation Hfa Aerosol Inhaler 2 puff INHALATION PRN PRN acetaminophen 500 mg capsule 1,000 mg PO Q8H PRN (Reason: pain) Qty: 90 0RF hydrocortisone [Anusol-HC] 2.5 % cream with perineal applicator 1 applic MI BID-QID PRNQty: 30 0RF aspirin 325 mg Tablet 325 mg PO DAILY diclofenac sodium 1 % Gel 2 g topical QID PRN PRNQty: 0 0RF fentanyl 12 mcg/hr Patch 72 Hour 12 mcg transdermal Q72H Qty: 5 0RF furosemide 40 mg Tablet 40 mg PO DAILY Qty: 30 0RF gabapentin 100 mg Capsule 100 mg PO TID Qty: 90 0RF hydrocortisone 2.5 % Ointment 20 g topical TID Qty: 0 0RF hydromorphone 2 mg Tablet 2 mg PO TID PRN (Reason: Abdominal Discomfort) Qty: 30 0RF Nicotrol 10 mg Cartridge 0 cartridge inhalation Q2H PRN PRNQty: 0 0RF polyethylene glycol 3350 17 gram Powder In Packet 17 g PO DAILY PRN PRN (Reason: Constipation) Qty: 0 0RF Stiolto Respimat 2.5-2.5 mcg/actuation Mist 2 puff inhalation DAILY Qty: 0 0RF Discontinued cefpodoxime 200 mg tablet 200 mg PO BID Qty: 14 0RF Rx Instructions: must administer with a meal/food Discharge Instructions Instructions: Chronic Pain (ED), Acute Rash (ED) Additional Instructions: Your blood tests today note multiple chronic abnormalities and may be related to your recent diagnosis of your small bowel tumor and associated complications related to this. There were no significant acute or concerning findings on your blood tests today. Your EKGs today are reassuring. Your CT scan today showed no evidence of blood clot but did show evidence of right lung nodules which should be reassessed with a repeat CT chest in 3 months. Your urine sample today again noted evidence of trichomonas which is a vaginal infection. You were given a dose of metronidazole today in the emergency department for this infection. This was previously noted in your urine on December 23. The source of your rash is unknown but may be related to your antibiotics. It is recommended to stop taking the cefpodoxime and start taking the ciprofloxacin antibiotic as directed until finished. You are also being started on steroids to help improve the redness, swelling and pain associated with the rash. Follow-up with your scheduled appointment with your primary care doctor tomorrow and for assistance with scheduling an appointment with [facility] General surgery for management of your small bowel tumor. Return immediately to the emergency department if you develop any worsening or new concerning symptoms. Discharge Data Discharge Date/Time-TO BE ENTERED AT DEPARTURE: 01/03/23 02:15 Discharge Physician: Ana Tiwari
[2023-01-03] MEDS: HYDROmorphone 2 MG TAB PO (01:40)
[2023-01-03] MEDS: predniSONE 20 MG TAB 60 MG PO (01:41)
[2023-01-03] MEDS: metroNIDAZOLE 500 MG TAB 2000 MG PO (02:00)
[2023-01-03] MEDS: Ciprofloxacin 500 MG TAB PO (02:00)
[2023-01-03 02:10] VITALS: BP 114/52; PULSE 91; RESP 20
== END 2023-01-03 02:15 | disposition home or self-care (01) ==
PROVIDERS: Physician Assistant; Emergency Provider Physician Assistant; PCP Nurse Practitioner Family
DX: D72.829 Elevated white blood cell count, unspecified (principal); D49.0 Neoplasm of unspecified behavior of digestive system; E87.1 Hypo-osmolality and hyponatremia; J44.9 Chronic obstructive pulmonary disease, unspecified; I50.9 Heart failure, unspecified; M79.7 Fibromyalgia; I25.2 Old myocardial infarction; R06.02 Shortness of breath; R07.9 Chest pain, unspecified; Z20.822 Contact with and (suspected) exposure to COVID-19
CPT/HCPCS: 71275; 80053; 85652; 87040; 87637; 93005; 96360; 96361; 99285; 71046; 81003; 81015; 83605; 83735; 83880; 84484; 85025; 85379; 85610; 85730; 86140; 93010; J3490; J7512

== ENCOUNTER 2023-01-09 16:09 | Outpatient (REF) | payer MEDICAID, SELFPAY ==
[2023-01-09 19:22] LABS: ALT 14 U/L (14-59); AST 12 U/L (15-37); Albumin 2.6 g/dL (3.4-5.0); Alkaline Phosphatase 97 U/L (46-116); Anion Gap 8.6 mmol/L (3-11); BUN 14 mg/dL (7-18); Bilirubin, Total 0.2 mg/dL (0.2-1.0); CO2 27.4 mmol/L (21.0-32.0); CREATININE 0.7 mg/dL (0.55-1.02); Calcium 9.2 mg/dL (8.5-10.1); Chloride 98 mmol/L (98-107); Estimated GFR 103.35 (mL/min/1.73m2); Glucose 136 mg/dL (74-106); Potassium 4.8 mmol/L (3.5-5.1); Sodium 134 mmol/L (136-145); Total Protein 7.4 g/dL (6.4-8.2)
[2023-01-09 19:41] LABS: Abs Immature Grans 0.51 10^3/uL (0.0-0.06); HCT 36.1 % (36.0-46.0); HGB 10.8 g/dL (11.2-15.7); MCH 25.2 pg (27.0-33.0); MCHC 29.9 % (32.0-36.0); MCV 84 fL (80-95); MPV 9.5 fL (8.0-11.0); Platelet Count 538 10^3/uL (130-400); RBC 4.28 10^6/uL (3.93-5.22)
[2023-01-09 19:42] LABS: Absolute Lymphocyte Count 2.33 10^3/uL (1.2-3.4); Absolute Neutrophil Count 23.57 10^3/uL (1.2-6.7); Bands % 5
[2023-01-09 19:43] LABS: Absolute Eosinophil Count 2.33 10^3/uL (0.0-0.7); Absolute Monocyte Count 0.87 10^3/uL (0.1-0.8); Anisocytosis 2+; Diff Comment Manual Differential
== END 2023-01-09 16:10 | disposition home or self-care (01) ==
LOC: NCHCN 16:09
PROVIDERS: PCP Nurse Practitioner Family; Visit Provider Nurse Practitioner Family
DX: D72.829 Elevated white blood cell count, unspecified (principal); R19.03 Right lower quadrant abdominal swelling, mass and lump; R10.84 Generalized abdominal pain; L23.89 Allergic contact dermatitis due to other agents
CPT/HCPCS: 80053; 85025

== ENCOUNTER 2023-01-23 13:23 | Outpatient (REF) | payer MEDICAID, SELFPAY ==
[2023-01-23 16:02] LABS: Abs Immature Grans 1.29 10^3/uL (0.0-0.06); Absolute Monocyte Count 1.76 10^3/uL (0.1-0.8); Basophils % 0.6; Eosinophils % 22.1; HCT 28.7 % (36.0-46.0); HGB 8.7 g/dL (11.2-15.7); Immature Grans % 3.7; MCH 25.3 pg (27.0-33.0); MCHC 30.3 % (32.0-36.0); MCV 83 fL (80-95); MPV 9.8 fL (8.0-11.0); Monocytes % 5.1; Neutrophils % 61.5; Platelet Count 484 10^3/uL (130-400); RBC 3.44 10^6/uL (3.93-5.22); RDW 18.6 % (11.7-14.6)
[2023-01-23 16:36] LABS: Absolute Basophil Count 0.21 10^3/uL (0.0-0.2); Absolute Eosinophil Count 7.62 10^3/uL (0.0-0.7); Absolute Lymphocyte Count 2.42 10^3/uL (1.2-3.4); Absolute Neutrophil Count 21.22 10^3/uL (1.2-6.7)
[2023-01-23 16:39] LABS: Diff Comment Agrees w/ Instrument
[2023-01-23 16:40] LABS: Anisocytosis 2+
== END 2023-01-23 13:24 | disposition home or self-care (01) ==
LOC: NCHCN 13:23
PROVIDERS: PCP Nurse Practitioner Family; Visit Provider Nurse Practitioner Family
DX: D72.828 Other elevated white blood cell count (principal)
CPT/HCPCS: 85025

== ENCOUNTER 2023-02-15 15:47 | Emergency (ER) | payer MEDICAID, SELFPAY ==
[2023-02-15] VITALS (74 sets, daily range): BP systolic 55–126; BP diastolic 26–73; PULSE 63–87; RESP 13–28; TEMP 36.6; O2SAT 87–100
--- NOTE | 2023-02-15 16:00 | RT.EKG_ITS ---
APPROVED REPORT Exam: Resting ECG Reason for Exam: hypotension Patient Location: E HR:74 bpm ECG Measurements Heart Rate 74 AXIS ND 146 P 76 QRSd 70 QRS 41 QT 378 T 56 QTc 418 Conclusion Sinus rhythm...normal P axis, V-rate 60- 99 Probable left atrial enlargement...P >50mS, <-0.10mV V1 Low voltage, extremity leads...all extremity leads <0.5mV Borderline ST depression, anterolateral leads...ST <-0.07mV, I aVL V2-V6 sinus rhythm, rosalia axis, normal intervals, consider slight st depressions lateral leads
--- NOTE | 2023-02-15 16:00 | DI.RAD_ITS ---
Exam(s) XR PORTABLE CHEST AP EXAM: XR PORTABLE CHEST AP CLINICAL HISTORY: hypotension TECHNIQUE: 2D digital imaging was performed of the chest. One image was obtained. An AP view was ob tained. COMPARISON: CR,XR XR CHEST 2V PA LATERAL from 01/02/2023 FINDINGS: MEDIASTINUM: Normal. HEART: Normal. PULMONARY VASCULATURE: There is mild prominence of the pulmonary vasculature and interstitium. LUNGS: There is an ovoid opacity in the right lung base. This may be due to overlying structures but a pulmonary nodule cannot be excluded. No focal consolidating infiltrates are seen. PLEURAL SPACE: No pleural effusion or pneumothorax. BONE:Within normal limits for the patient's age. OTHER FINDINGS:Normal. IMPRESSION: 1. Pulmonary venous congestion and interstitial edema. 2. Ovoid opacity in the right lung base laterally. This may be due to overlying structures but a pul monary nodule cannot be excluded. CT scan of the chest should be considered for further evaluation. Unexpected findings DATA REPOSITORY: RADIATION DOSE DELIVERED:
--- NOTE | 2023-02-15 16:16 | W.ED.GENAD ---
Discharge Plan Disposition Patient Disposition: Transfer-Acute Inpatient Care Specific Acute Inpt Facility: [facility] Condition: Serious Discharge Details Clinical Impression: Small bowel tumor, Sepsis, UTI (urinary tract infection) Primary Care Provider: KUN LI ED Provider: Kandice Glover Home Meds and New Rx's Prescriptions: No Action pantoprazole [Protonix] [address] for susp in packet 40 mg PO HS albuterol sulfate [ProAir HFA] 90 mcg/actuation Hfa Aerosol Inhaler 2 puff INHALATION PRN PRN acetaminophen 500 mg capsule 1,000 mg PO Q8H PRN (Reason: pain) Qty: 90 0RF prednisone 20 mg tablet See Rx Instructions .ROUTE .COMPLEX Qty: 18 0RF Rx Instructions: Take 3 tabs daily for 3 days, then 2 tabs daily for 3 days, then 1 tab daily for 3 days. hydrocortisone [Anusol-HC] 2.5 % cream with perineal applicator [address] BID-QID PRNQty: 30 0RF aspirin 325 mg Tablet 325 mg PO DAILY diclofenac sodium 1 % Gel 2 g topical QID PRN PRNQty: 0 0RF fentanyl 12 mcg/hr Patch 72 Hour 12 mcg transdermal Q72H Qty: 5 0RF furosemide 40 mg Tablet 40 mg PO DAILY Qty: 30 0RF gabapentin 100 mg Capsule 100 mg PO TID Qty: 90 0RF Rx Instructions: 100mg morning and mid-day, 300mg at hs hydrocortisone 2.5 % Ointment 20 g topical TID Qty: 0 0RF hydromorphone 2 mg Tablet 2 mg PO TID PRN (Reason: Abdominal Discomfort) Qty: 30 0RF Nicotrol 10 mg Cartridge 0 cartridge inhalation Q2H PRN PRNQty: 0 0RF polyethylene glycol 3350 17 gram Powder In Packet 17 g PO DAILY PRN PRN (Reason: Constipation) Qty: 0 0RF Stiolto Respimat 2.5-2.5 mcg/actuation Mist 2 puff inhalation DAILY Qty: 0 0RF docusate sodium 100 mg capsule 100 mg PO PRN Patient Comments: TAKE ONE CAPSULE BY MOUTH EVERY DAY NEEDED FOR CONSTIPATION oxycodone 5 mg tablet 5 mg PO TID Patient Comments: TAKE ONE TO TWO TABLETS BY MOUTH THREE TIMES A DAY NEEDED FOR PAIN +MAX 6 TABLETS PER DAY+ Rx Instructions: 1-2 tablets three times a day as needed Medical Decision Making 52-year-old female with a past medical history of CHF, COPD, GERD, MT, cytosis, iron deficiency anemia, right lower quadrant abdominal cysts, small bowel tumor, lupus who presents to the ER with feeling as if she cannot tolerate solid foods. She reports for the last 18 days she has only been able to tolerate liquids. She also feels generalized weakness. She does report productive cough. Denies any nausea vomiting diarrhea no fever no chills. Upon initial presentation blood pressure was 70 over 40s she does report increased lightheadedness with standing. She is alert and oriented no focal neurodeficits noted on initial exam. She is a daily smoker. Speaking in full sentences. Work-up ordered including CBC CMP serial troponins, proBNP, chest x-ray 500 cc bolus due to CHF. We will continue to monitor her. Will consider CT chest or barium swallow study if available. CBC Shows WBC 42.11, Hbg 9.1, Hct 31.0 neutrophils 29.06, lactate 1.4, sodium 134, chloride 97, anion gap 15.1 BUN 54 creatinine 2.3, magnesium 1.7, alk phos 144 proBNP greater than 35,000 procalcitonin 0.7, urinalysis shows greater than 300 protein large blood, greater than 50 RBCs 10-20 WBCs, culture is pending at this time. 1939: [facility] Transfer [facility] Called for Cardiology consult. Repeat troponin 196 2009L Spoke with Dr. Kelley with Cardiology who does not think this is not necessarily cardiac in origin, Will speak with Hospitalist. 2041: Spoke with Dr. Sequeira regarding patient he recommends to transfer to [facility]. Spoke with patient regarding plan she request to be transferred to [facility] as she has an appointment on February 27, Will check with [facility] first and then call [facility]. 2105: [facility] called they will call me back. 2140: Spoke with [facility] Critical Care team they recommend an additional 500 ml of saline, target MAP goal of 65 and Levophed if needed, also Vancomycin, SBP greater than 90. Accepting doctor is Dr. Leonid Hernandez she will go to ICU Green team. Will discuss plan with patient. Bed assignment received from accepting facility. 7: At this time MAP is 49 blood pressure is 93/35 Levophed 0.05 mcg/kg/min ordered. 2319: Levophed is infusing, will take patient was complaining of some red spots on her arms so vancomycin was held, patient has received cefepime and Rocephin prior to this. Blood pressure is 101/42 heart rate is 73, 93% on room air. MAP at this time is 56. At this time awaiting transport to [facility] ICU. This text was generated using CMEation system, please disregard any oddities of phrase or misspellings. Medical Records Medical records reviewed: Yes I reviewed the patient's medical records. Lab Data Lab results reviewed: Yes I reviewed the patient's lab results. Labs: 02/15/23 16:40 Urine - Reflex from Ua Urine Culture - Pending 02/15/23 17:30 Blood Blood Culture - Pending 02/15/23 17:15 Blood Blood Culture - Pending Laboratory Tests Range/Units 02/15/23 02/15/23 02/15/23 16:15 16:15 16:15 WBC (4.4-10.8) 10^3/uL 42.11 H* RBC (3.93-5.22) 10^6/uL 3.63 L Hgb (11.2-15.7) g/dL 9.1 L Hct (36.0-46.0) % 31.0 L MCV (80-95) fL 85 MCH (27.0-33.0) pg 25.1 L MCHC (32.0-36.0) % 29.4 L RDW (11.7-14.6) % 17.8 H Plt Count (130-400) 10^3/uL 244 MPV (8.0-11.0) fL 9.6 Immature Gran % See Differential Neutrophils % 49.0 Band Neutrophils % 20 Lymphocytes % 12.0 Monocytes % 4.0 Eosinophils % 15.0 Basophils % 0.0 Nucleated RBC % (0.0-0.3) % 0.0 Absolute Neutrophils (1.2-6.7) 10^3/uL 29.06 H Absolute Lymphocytes (1.2-3.4) 10^3/uL 5.05 H Absolute Monocytes (0.1-0.8) 10^3/uL 1.68 H Absolute Eosinophils (0.0-0.7) 10^3/uL 6.32 H Absolute Basophils (0.0-0.2) 10^3/uL 0.00 RBC Morphology See Below Polychromasia Present Hypochromasia 1+ Anisocytosis 1+ VBG Lactate (0.6-1.4) mmol/L Sodium (136-145) mmol/L 134 L Potassium (3.5-5.1) mmol/L 3.9 Chloride (98-107) mmol/L 97 L Carbon Dioxide (21.0-32.0) mmol/L 21.9 Anion Gap (3-11) mmol/L 15.1 H BUN (7-18) mg/dL 54 H Creatinine (0.55-1.02) mg/dL 2.3 H Est GFR (CKD-EPI 2020) (mL/min/1.73m2) 24.79 Glucose (74-106) mg/dL 93 Calcium (8.5-10.1) mg/dL 8.8 Magnesium (1.8-2.4) mg/dL 1.7 L Total Bilirubin (0.2-1.0) mg/dL 0.5 AST (15-37) U/L 16 ALT (14-59) U/L 16 Alkaline Phosphatase (46-116) U/L 144 H Troponin I (<or=60) ng/L 238 H* NT-Pro-B Natriuret Pep (<300) pg/mL > 78316 H Total Protein (6.4-8.2) g/dL 7.7 Albumin (3.4-5.0) g/dL 1.9 L Procalcitonin ng/mL Urine Color (Yellow) Urine Clarity (Clear) Urine pH (5-8) Ur Specific [place] (1.005-1.025) Urine Protein (Negative) mg/dL Urine Ketones (Negative) mg/dL Urine Blood (Negative) Urine Nitrite (Negative) Urine Bilirubin (Negative) Urine Urobilinogen (Up to 0.2) mg/dL Ur Leukocyte Esterase (Negative) Urine RBC (0-2) HPF Urine WBC (0-5) HPF Ur Epithelial Cells (Negative) HPF Urine Crystals (Negative) HPF Urine Bacteria (Negative) HPF Urine Casts (Negative) LPF Urine Mucus (Negative) Ur Culture Indicated? Urine Glucose (Negative) mg/dL COVID-19 Source Range/Units 02/15/23 02/15/23 02/15/23 16:15 16:40 17:15 WBC (4.4-10.8) 10^3/uL RBC (3.93-5.22) 10^6/uL Hgb (11.2-15.7) g/dL Hct (36.0-46.0) % MCV (80-95) fL MCH (27.0-33.0) pg MCHC (32.0-36.0) % RDW (11.7-14.6) % Plt Count (130-400) 10^3/uL MPV (8.0-11.0) fL Immature Gran % Neutrophils % Band Neutrophils % Lymphocytes % Monocytes % Eosinophils % Basophils % Nucleated RBC % (0.0-0.3) % Absolute Neutrophils (1.2-6.7) 10^3/uL Absolute Lymphocytes (1.2-3.4) 10^3/uL Absolute Monocytes (0.1-0.8) 10^3/uL Absolute Eosinophils (0.0-0.7) 10^3/uL Absolute Basophils (0.0-0.2) 10^3/uL RBC Morphology Polychromasia Hypochromasia Anisocytosis VBG Lactate (0.6-1.4) mmol/L 1.4 Sodium (136-145) mmol/L Potassium (3.5-5.1) mmol/L Chloride (98-107) mmol/L Carbon Dioxide (21.0-32.0) mmol/L Anion Gap (3-11) mmol/L BUN (7-18) mg/dL Creatinine (0.55-1.02) mg/dL Est GFR (CKD-EPI 2020) (mL/min/1.73m2) Glucose (74-106) mg/dL Calcium (8.5-10.1) mg/dL Magnesium (1.8-2.4) mg/dL Total Bilirubin (0.2-1.0) mg/dL AST (15-37) U/L ALT (14-59) U/L Alkaline Phosphatase (46-116) U/L Troponin I (<or=60) ng/L NT-Pro-B Natriuret Pep (<300) pg/mL Total Protein (6.4-8.2) g/dL Albumin (3.4-5.0) g/dL Procalcitonin ng/mL 0.7 Urine Color (Yellow) Yellow Urine Clarity (Clear) Cloudy Urine pH (5-8) 5.5 Ur Specific [place] (1.005-1.025) >= 1.030 H Urine Protein (Negative) mg/dL >=300 H Urine Ketones (Negative) mg/dL Negative Urine Blood (Negative) Large H Urine Nitrite (Negative) Negative Urine Bilirubin (Negative) Negative Urine Urobilinogen (Up to 0.2) mg/dL 1.0 H Ur Leukocyte Esterase (Negative) Negative Urine RBC (0-2) HPF >50 H Urine WBC (0-5) HPF 10-20 H Ur Epithelial Cells (Negative) HPF Few Urine Crystals (Negative) HPF Negative Urine Bacteria (Negative) HPF Moderate Urine Casts (Negative) LPF 3-5 Hyaline Urine Mucus (Negative) Heavy Ur Culture Indicated? Yes Urine Glucose (Negative) mg/dL Negative COVID-19 Source Range/Units 02/15/23 02/15/23 19:05 19:59 WBC (4.4-10.8) 10^3/uL RBC (3.93-5.22) 10^6/uL Hgb (11.2-15.7) g/dL Hct (36.0-46.0) % MCV (80-95) fL MCH (27.0-33.0) pg MCHC (32.0-36.0) % RDW (11.7-14.6) % Plt Count (130-400) 10^3/uL MPV (8.0-11.0) fL Immature Gran % Neutrophils % Band Neutrophils % Lymphocytes % Monocytes % Eosinophils % Basophils % Nucleated RBC % (0.0-0.3) % Absolute Neutrophils (1.2-6.7) 10^3/uL Absolute Lymphocytes (1.2-3.4) 10^3/uL Absolute Monocytes (0.1-0.8) 10^3/uL Absolute Eosinophils (0.0-0.7) 10^3/uL Absolute Basophils (0.0-0.2) 10^3/uL RBC Morphology Polychromasia Hypochromasia Anisocytosis VBG Lactate (0.6-1.4) mmol/L Sodium (136-145) mmol/L Potassium (3.5-5.1) mmol/L Chloride (98-107) mmol/L Carbon Dioxide (21.0-32.0) mmol/L Anion Gap (3-11) mmol/L BUN (7-18) mg/dL Creatinine (0.55-1.02) mg/dL Est GFR (CKD-EPI 2020) (mL/min/1.73m2) Glucose (74-106) mg/dL Calcium (8.5-10.1) mg/dL Magnesium (1.8-2.4) mg/dL Total Bilirubin (0.2-1.0) mg/dL AST (15-37) U/L ALT (14-59) U/L Alkaline Phosphatase (46-116) U/L Troponin I (<or=60) ng/L 196 H* NT-Pro-B Natriuret Pep (<300) pg/mL Total Protein (6.4-8.2) g/dL Albumin (3.4-5.0) g/dL Procalcitonin ng/mL Urine Color (Yellow) Urine Clarity (Clear) Urine pH (5-8) Ur Specific [place] (1.005-1.025) Urine Protein (Negative) mg/dL Urine Ketones (Negative) mg/dL Urine Blood (Negative) Urine Nitrite (Negative) Urine Bilirubin (Negative) Urine Urobilinogen (Up to 0.2) mg/dL Ur Leukocyte Esterase (Negative) Urine RBC (0-2) HPF Urine WBC (0-5) HPF Ur Epithelial Cells (Negative) HPF Urine Crystals (Negative) HPF Urine Bacteria (Negative) HPF Urine Casts (Negative) LPF Urine Mucus (Negative) Ur Culture Indicated? Urine Glucose (Negative) mg/dL COVID-19 Source Nasal/Nares HPI General Mode of arrival: wheelchair. Date/Time Provider Initiated Documentation: 02/15/23 15:56. Limitations to Documentation: no limitations. Information obtained by: patient, RN notes reviewed and old records reviewed. HPI Narrative: 52-year-old female with a past medical history of CHF, COPD, GERD, MT, cytosis, iron deficiency anemia, right lower quadrant abdominal cysts, small bowel tumor, lupus who presents to the ER with feeling as if she cannot tolerate solid foods. She reports for the last 18 days she has only been able to tolerate liquids. She also feels generalized weakness. She does report productive cough. Denies any nausea vomiting diarrhea no fever no chills. Upon initial presentation blood pressure was 70 over 40s she does report increased lightheadedness with standing. She is alert and oriented no focal neurodeficits noted on initial exam. She is a daily smoker. Speaking in full sentences. Related Data Home Medications Medication Instructions Recorded Confirmed Protonix 40 mg granules 40 mg PO HS 01/31/13 02/15/23 delayed-release packet (pantoprazole) albuterol sulfate 90 mcg/actuation 2 puff inhalation PRN PRN 12/15/19 02/15/23 aerosol inhaler (ProAir HFA) acetaminophen 500 mg capsule 1,000 mg PO Q8H PRN pain #90 caps 02/10/20 02/15/23 hydrocortisone 2.5 % topical cream [address] BID-QID PRN #30 grams 12/07/22 01/02/23 with perineal applicator (Anusol-HC) aspirin 325 mg tablet 325 mg PO DAILY 12/23/22 02/15/23 diclofenac sodium 1 % topical gel 2 g topical QID PRN PRN #0 grams 12/30/22 02/15/23 fentanyl 12 mcg/hr transdermal 12 mcg transdermal Q72H #5 ea 12/30/22 01/02/23 patch furosemide 40 mg tablet 40 mg PO DAILY #30 tabs 12/30/22 02/15/23 gabapentin 100 mg capsule 100 mg PO TID #90 caps 12/30/22 02/15/23 hydrocortisone 2.5 % topical 20 g topical TID #0 grams 12/30/22 01/02/23 ointment hydromorphone 2 mg tablet 2 mg PO TID PRN Abdominal 12/30/22 01/02/23 Discomfort #30 tabs nicotine 10 mg inhalation 0 cartridge inhalation Q2H PRN PRN 12/30/22 01/02/23 cartridge (Nicotrol) #0 ea polyethylene glycol 3350 17 gram 17 g PO DAILY PRN PRN Constipation 12/30/22 01/02/23 oral powder packet #0 ea tiotropium 2.5 mcg-olodaterol 2.5 2 puff inhalation DAILY #0 grams 12/30/22 02/15/23 mcg/actuation mist for inhalation (Stiolto Respimat) prednisone 20 mg tablet See Rx Instructions .Route 01/03/23 .COMPLEX #18 tabs docusate sodium 100 mg capsule 100 mg PO PRN 02/15/23 oxycodone 5 mg tablet 5 mg PO TID 02/15/23 02/15/23 Previous Rx's Medication Instructions Recorded acetaminophen 500 mg capsule 1,000 mg PO Q8H PRN pain #90 caps 02/10/20 hydrocortisone 2.5 % topical cream [address] BID-QID PRN #30 grams 12/07/22 with perineal applicator (Anusol-HC) diclofenac sodium 1 % topical gel 2 g topical QID PRN PRN #0 grams 12/30/22 fentanyl 12 mcg/hr transdermal 12 mcg transdermal Q72H #5 ea 12/30/22 patch furosemide 40 mg tablet 40 mg PO DAILY #30 tabs 12/30/22 gabapentin 100 mg capsule 100 mg PO TID #90 caps 12/30/22 hydrocortisone 2.5 % topical 20 g topical TID #0 grams 12/30/22 ointment hydromorphone 2 mg tablet 2 mg PO TID PRN Abdominal 12/30/22 Discomfort #30 tabs nicotine 10 mg inhalation 0 cartridge inhalation Q2H PRN PRN 12/30/22 cartridge (Nicotrol) #0 ea polyethylene glycol 3350 17 gram 17 g PO DAILY PRN PRN Constipation 12/30/22 oral powder packet #0 ea tiotropium 2.5 mcg-olodaterol 2.5 2 puff inhalation DAILY #0 grams 12/30/22 mcg/actuation mist for inhalation (Stiolto Respimat) prednisone 20 mg tablet See Rx Instructions .Route 01/03/23 .COMPLEX #18 tabs Allergies Allergy/AdvReac Type Severity Reaction Status Date / Time ibuprofen Allergy Intermediate Swelling/Ed Unverified 02/15/23 15:54 mily ketorolac tromethamine Allergy Mild Hives Unverified 02/15/23 15:54 [From Toradol] latex Allergy Mild Skin Rash Unverified 02/15/23 15:54 calamine Allergy Unverified 02/15/23 15:54 diphenhydramine Allergy Itching Unverified 02/15/23 15:54 [From Benadryl] tramadol Allergy Hives Unverified 02/15/23 15:54 adhesive AdvReac Mild Skin Rash Unverified 02/15/23 15:54 PLASTIC TAPE Allergy Intermediate Skin Rash, Uncoded 03/23/23 15:54 BLISTERS General Stated Complaint: GenMedical LIZETTE: 3 Review of Systems All systems reviewed & are unremarkable except as noted in HPI and below ENT Ears, Nose, Mouth, and Throat: Reports as per HPI and Reports dysphagia Cardiovascular Cardiovascular: Reports leg edema (Chronic bilaterally, does have her legs wrapped sees home health for this.) and Reports lightheadedness Gastrointestinal Gastrointestinal: Reports dysphagia PFSH All Active Problems Sepsis (Acute) UTI (urinary tract infection) (Acute) Congestive heart failure (Chronic) Pruritus (Acute) Bacteremia due to Proteus species (Acute) Full code status (Acute) Gram-negative bacteremia (Acute) Anemia (Chronic) Shortness of breath (Acute) Abdominal ascites (Acute) Smoker (Acute) Elevated troponin (Acute) COPD (chronic obstructive pulmonary disease) (Chronic) Early satiety (Acute) Abnormal weight loss (Acute) Iron deficiency anemia due to chronic blood loss (Acute) Small bowel tumor (Acute) Leukocytosis (leucocytosis) (Acute) Acute myopericarditis (Acute) Abdominal mass, right lower quadrant (Acute) Atypical chest pain (Acute) Carpal tunnel syndrome of right wrist (Acute) Abscess of groin, right (Acute 11/03/15) s/p surgical resection by Dr Douglas. Pt says she is having recurrent abscesses in tract, referred to [facility] Neurology as concern for nerve involvement but pt went to [facility] instead and was put on abx and told her infections were Pt extremely disappointed. Cervical disc disease (Acute 11/03/15) MR showed cervical involvement Status post carpal tunnel release of both wrists (Acute) Mass of right hand (Acute) Status post trigger finger release (Acute) DOS: 11/20/18 Right ring finger Carpal tunnel syndrome, left (Acute) S/P ECTR 12/16/2019 S/P OCTR 02/10/2020 De Quervain's tenosynovitis, left (Acute) S/P release 12/16/2019 Medical History COPD (chronic obstructive pulmonary disease) GERD (gastroesophageal reflux disease) Hydradenitis right groin Inclusion cyst Lupus MT (myocardial infarction) 2015- pt. states she F/U with PCP once a month Surgical History Abdominal hysterectomy (~2009) Angiogram History of carpal tunnel release History of shoulder surgery Left rotator cuff. Incision & Drainage, Abscess or Hematoma Family History Mother Heart disease Father Cancer throat Social History Smoking/Tobacco Use Status: Current every day Tobacco Type: cigarettes Smoking risk assessment performed?: Yes Alcohol Intake: never Drug use: Never Substance use type: does not use Current gender identity: female Do you feel safe at home: Yes Do you feel safe in your relationship?: Yes Additional Social history: Not in a relationship. Living with family in [place] temporarily. 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 Exam Narrative Exam Narrative: Constitutional: Alert and oriented x3. Appears older than stated age. Normal body habitus. Head: Normocephalic, no trauma. Eyes: Pupils PERRL, Red reflex noted, EOM's intact. Eyelids symmetrical without lesions, discharge, or swelling. ENT: Bilateral TM's WNL, External ear normal to inspection, no mastoid TTP, swelling, or erythema, Nasal turbinates WNL, no nasal discharge. Poor dentition, Posterior pharynx WNL, no exudate. Chest: RRR, Normal S1, S2, distal pulses intact. Blood pressure 77/47, 90/37. Resp: Lungs diminished to auscultation bilaterally, no wheezes, rales, or rhonchi. Abdomen: Soft, non-distended, Normoactive bowel sounds all 4 quads. Musculoskeletal: Normal gait, 5/5 strength to all four extremities. Skin: She does have pictures on her phone from yesterday, she does have multiple wounds noted to the dorsum of her bilateral feet and calves. 2+ pitting edema to the bilateral lower extremities bilateral lower extremity edema, they are wrapped with Krishna bandage. Does appear chronic. Neurologic: Cranial nerves II-XII intact. Alert and oriented x 3. Motor: No deficits noted. Sensory: Intact bilaterally all 4 extremities. Reflexes: DTR's intact bilaterally.. Hematologic/Lymphatic: No ecchymosis, no lymphadenopathy. Course Vital Signs Vital signs: Vital Signs Pulse 77 02/15/23 15:51 Respiratory Rate 18 02/15/23 15:51 Pulse Oximetry 100 02/15/23 15:51 Temperature 36.6 C 02/15/23 15:54 Temperature Source Oral 02/15/23 15:54 Pulse 77 02/15/23 15:51 Respiratory Rate 18 02/15/23 15:51 Respiratory Effort Normal, Non-Labored 02/15/23 15:52 Blood Pressure 77/47 L 02/15/23 15:54 Pulse Oximetry 100 02/15/23 15:51 Oxygen Delivery Method Room Air 02/15/23 15:51 Oxygen Flow Rate 0 02/15/23 15:51 Critical Care Time Critical Care Time Critical Care Time: Yes Total Critical Care Time: 60 Attestation: I spent greater than 35 minutes addressing this patient's acute life threatening illness. This time was spent engaged in actions directly related to the patient's care. Failure to initiate these interventions would have likely resulted in clinically significant or life threatening deterioration in the patients condition.
[2023-02-15 16:28] LABS: Abs Immature Grans 1.26 10^3/uL (0.0-0.06); HGB 9.1 g/dL (11.2-15.7); MCH 25.1 pg (27.0-33.0); MCHC 29.4 % (32.0-36.0); MCV 85 fL (80-95); MPV 9.6 fL (8.0-11.0); Platelet Count 244 10^3/uL (130-400); RBC 3.63 10^6/uL (3.93-5.22); RDW 17.8 % (11.7-14.6); RDW-SD 55.4 fL
[2023-02-15] MEDS: Normal Saline 500 ML IV ×2 (16:29→22:09)
[2023-02-15 16:49] LABS: Absolute Eosinophil Count 6.32 10^3/uL (0.0-0.7); Absolute Lymphocyte Count 5.05 10^3/uL (1.2-3.4); Absolute Monocyte Count 1.68 10^3/uL (0.1-0.8); Absolute Neutrophil Count 29.06 10^3/uL (1.2-6.7); Bands % 20
[2023-02-15 16:50] LABS: Diff Comment Manual Differential; WBC 42.11 10^3/uL (4.4-10.8)
[2023-02-15 16:51] LABS: Anisocytosis 1+; Hypochromasia 1+; Polychromasia Present
[2023-02-15 16:54] LABS: NT-proBNP > 35000 pg/mL (<300); Troponin I 238 ng/L (<or=60)
[2023-02-15 17:13] LABS: Bilirubin Negative (Negative); Blood Large (Negative); Clarity Cloudy (Clear); Glucose Negative (Negative); Ketones Negative (Negative); Leukocyte Esterase Negative (Negative); Nitrite Negative (Negative); Specific Gravity >= 1.030 (1.005-1.025); pH 5.5 (5-8)
[2023-02-15 17:23] LABS: Lactate 1.4 mmol/L (0.6-1.4)
[2023-02-15 17:32] LABS: Bacteria Moderate HPF (Negative); Crystals Negative HPF (Negative); Epithelial Cells Few HPF (Negative); Mucus Heavy (Negative); RBC >50 HPF (0-2)
[2023-02-15 17:33] LABS: C & S Indicated? Yes; Casts 3-5 Hyaline LPF (Negative)
[2023-02-15 17:43] LABS: ALT 16 U/L (14-59); AST 16 U/L (15-37); Albumin 1.9 g/dL (3.4-5.0); Alkaline Phosphatase 144 U/L (46-116); Anion Gap 15.1 mmol/L (3-11); BUN 54 mg/dL (7-18); Bilirubin, Total 0.5 mg/dL (0.2-1.0); CO2 21.9 mmol/L (21.0-32.0); CREATININE 2.3 mg/dL (0.55-1.02); Calcium 8.8 mg/dL (8.5-10.1); Chloride 97 mmol/L (98-107); Estimated GFR 24.79 (mL/min/1.73m2); Glucose 93 mg/dL (74-106); Magnesium 1.7 mg/dL (1.8-2.4); Potassium 3.9 mmol/L (3.5-5.1); Sodium 134 mmol/L (136-145); Total Protein 7.7 g/dL (6.4-8.2)
--- NOTE | 2023-02-15 17:49 | DI.VRAD_ITS ---
PROCEDURE INFORMATION: Exam: XR Chest Exam date and time: 02/15/2023 4:49 PM Age: 52 years old Clinical indication: Other: Hypotension TECHNIQUE: Imaging protocol: Radiologic exam of the chest. Views: 1 view. COMPARISON: CR XR CHEST 2V PA LATERAL 01/02/2023 10:17 PM FINDINGS: Lungs: [id number] diffuse interstitial prominence and/or edema, worse at the bases. Pleural spaces: Unremarkable. No pleural effusion. No pneumothorax. Heart/Mediastinum: Unremarkable. No cardiomegaly. Bones/joints: Unremarkable. IMPRESSION: [id number] diffuse interstitial prominence and/or edema, worse at the bases. Dictated and Authenticated by: Miguel Wiggins MD. Ordering:RACHEL Woodson MD
--- NOTE | 2023-02-15 18:15 | DI.CT_ITS ---
Exam(s) CT CHEST/ABD/PEL WO EXAM: CT CHEST/ABD/PEL WO CLINICAL HISTORY: Hypotension, Weakness TECHNIQUE: Imaging Protocol: Axial computed tomography images with coronal and sagittal reformatted images were created and reviewed COMPARISON: CT CT ABDOMEN PELVIS W from 12/29/[address] CHEST PE CTA from 01/02/2023 FINDINGS: CHEST: Tracheobronchial tree: Patent where visualized. Pulmonary parenchyma: There are marked centrilobular emphysematous changes present. The opacity in t he central upper right upper lobe is unchanged. There is a stable 6 mm nodule in the lateral aspect of the right upper lobe. There is a new infiltrate in the lateral aspect of the right middle lobe. No new pulmonary nodules are seen. Mediastinum and Yee: There is stable mediastinal lymph nodes. The esophagus is unremarkable. Thyroid gland: Unremarkable. Pleura: There are small bilateral pleural effusions, right greater than left. No pneumothorax. Heart: The heart is not dilated. Mild coronary artery calcification is present. No pericardial effus ion. Aorta: Thoracic aorta non-dilated. Atherosclerosis is present. Lymph nodes: No significant axillary adenopathy. Bones:Within normal limits for the patient's age. Soft tissues: Unremarkable. ABDOMEN: Liver: Normal density. No measurable mass. The liver is enlarged. Gallbladder and Biliary Tract: There is layering debris in the gallbladder which may represent noncal cified stones and or sludge. Pancreas: Normal density, no abnormal calcifications or inflammatory process. Spleen: Splenomegaly. Adrenals: Stable nodularity of the limbs of the adrenal glands. Kidneys: Normal size, contour and axis. No radiodense stones or obstructive uropathy. There is a stab le simple cyst in the right kidney. No follow-up is recommended. Abdominal Aorta: Abdominal portion non-dilated. Atherosclerosis is present. Bowel: There is again seen a small bowel mass in the pelvis it is shown interval increase in size francisco suring 10.1 x 9.7 cm. There is no evidence of bowel obstruction. No evidence of appendicitis. Peritoneal Cavity: There is a small amount of pelvic ascites. No free air. Lymph Nodes: Within normal limits. Bones: Within normal limits for the patient's age. There is L5 spondylolysis and grade 1 spondylolis thesis of L5 on S1. No aggressive osseous lesions are seen. Soft Tissues: Unremarkable. PELVIS: Bladder: Symmetric distention, no gross wall thickening. Reproductive Organs: Status post hysterectomy. Lymph Nodes: Within normal limits. Bones: Within normal limits for the patient's age. IMPRESSION: 1. Stable right upper lobe pulmonary nodule. 2. New infiltrate in the lateral aspect of the right middle lobe. This may represent atelectasis or pneumonia. 3. Small bilateral pleural effusions. 4. Interval increase in size of the necrotic mass in the pelvis now measuring 2.1 x 9.7 cm. 5. Small amount of a pelvic ascites. RADIATION DOSE DELIVERED: 1,025.55mGy.cm Total DLP 1,025.55mGy.cm Total DLP DATA REPOSITORY: All CT scans at this facility are submitted to the National Radiology Data Registry (NRDR) Dose Index Registry (DIR) with the [employer] ([employer]). RADIATION OPTIMIZATION: All CT scans at this facility use at least one of these dose optimization te chniques: automated exposure control; mA and/or kV adjustment per patient size (includes targeted exa ms where dose is matched to clinical indication); or iterative reconstruction.
[2023-02-15 18:23] LABS: Procalcitonin 0.7 ng/mL
--- NOTE | 2023-02-15 19:00 | RT.EKG_ITS ---
APPROVED REPORT Exam: Resting ECG Reason for Exam: Repeat EKG Patient Location: E HR:74 bpm ECG Measurements Heart Rate 74 AXIS MD 143 P 75 QRSd 68 QRS 23 QT 375 T 34 QTc 415 Conclusion Sinus rhythm...normal P axis, V-rate 60- 99 Probable left atrial enlargement...P >50mS, <-0.10mV V1 Anteroseptal infarct, old...Q >40mS, V1-V2
[2023-02-15 19:54] LABS: Troponin I 196 ng/L (<or=60)
[2023-02-15] MEDS: cefTRIAXone 1 GM/50 ML BAG IVPB (19:56)
[2023-02-15 20:10] LABS: Source Nasal/Nares
--- NOTE | 2023-02-15 20:32 | DI.VRAD_ITS ---
PROCEDURE INFORMATION: Exam: CT Chest Without Contrast; Diagnostic Exam date and time: 02/15/2023 7:41 PM Age: 52 years old Clinical indication: Other: Hypotension, weakness TECHNIQUE: Imaging protocol: Diagnostic computed tomography of the chest without contrast. Radiation optimization: All CT scans at this facility use at least one of these dose optimization techniques: automated exposure control; mA and/or kV adjustment per patient size (includes targeted exams where dose is matched to clinical indication); or iterative reconstruction. COMPARISON: CT CHEST/ABD/PEL W 12/07/2022 6:02 PM FINDINGS: Lungs: Paraseptal and centrilobular emphysematous changes. Stable 5 mm nodule right upper lobe. Mild patchy airspace disease/consolidation right middle lobe. Pleural spaces: Small right and minimal left pleural effusions. Heart: Unremarkable. No cardiomegaly. No pericardial effusion. Coronary arteries: Mild atherosclerotic calcification coronary arteries. Lymph nodes: Prominent mediastinal nodes up to 15 x 17 mm similar. Vasculature: Aorta demonstrates mild atherosclerotic calcification. Bones/joints: Unremarkable. No acute fracture. Soft tissues: Unremarkable. IMPRESSION: 1. Stable 5 mm nodule right upper lobe. 2. Mild patchy airspace disease/consolidation right middle lobe. 3. Small right and minimal left pleural effusions. 4. Prominent mediastinal nodes up to 15 x 17 mm similar. PROCEDURE INFORMATION: Exam: CT Abdomen And Pelvis Without Contrast Exam date and time: 02/15/2023 7:41 PM Age: 52 years old Clinical indication: Other: Hypotension, weakness TECHNIQUE: Imaging protocol: Computed tomography of the abdomen and pelvis without contrast. Radiation optimization: All CT scans at this facility use at least one of these dose optimization techniques: automated exposure control; mA and/or kV adjustment per patient size (includes targeted exams where dose is matched to clinical indication); or iterative reconstruction. COMPARISON: CT ABDOMEN PELVIS W 12/29/2022 5:26 PM FINDINGS: Liver: Normal. No mass. Gallbladder and bile ducts: Gallbladder demonstrates layering density consistent with noncalcified stones or sludge. Pancreas: Normal. No ductal dilation. Spleen: Normal. No splenomegaly. Adrenal glands: Normal. No mass. Kidneys and ureters: 1 cm cyst right kidney. No hydronephrosis. Stomach and bowel: Unremarkable. No obstruction. No mucosal thickening. Appendix: No evidence of appendicitis. Intraperitoneal space: Mild free fluid at the pelvis. Necrotic mass at the pelvis and small bowel mesentery larger than previous, 11.6 x 7.6 x 11.6 cm. Vasculature: Aorta demonstrates mild atherosclerotic calcification. Lymph nodes: Mild upper abdominal adenopathy similar. Urinary bladder: Unremarkable as visualized. Reproductive: Unremarkable as visualized. Bones/joints: Bilateral pars defects L5. Grade 1 anterolisthesis L5-S1. Soft tissues: Unremarkable. IMPRESSION: Necrotic mass at the pelvis and small bowel mesentery larger than previous, 11.6 x 7.6 x 11.6 cm. Dictated and Authenticated by: Miguel Wiggins MD. Ordering:RACHEL Woodson MD
[2023-02-15 20:42] LABS: COVID-19 PCR Negative (Negative)
[2023-02-15] MEDS: CEFEPIME 1 GM in Normal Saline 50 ML IVPB (20:59)
[2023-02-15] MEDS: VANCOMYCIN 1,000 MG in Normal Saline 250 ML 166.6666 MG IVPB (22:17)
--- NOTE | 2023-02-15 22:23 | NUR.NOTE ---
Nursing Note: report from TIEN Wilson. Pt observed sitting upright in bed (position of comfort) has no new complaints. 2nd IV access obtained, NS bolus and vancomycin started. [place] to [place] [facility] [place] available. Pt updated with plan.
[2023-02-15] MEDS: Norepinephrine in D5W 8 MG/250 ML BAG 6.804 MG IV (23:00)
--- NOTE | 2023-02-15 23:24 | NUR.NOTE ---
Nursing Note: report called to TIEN Crump at [facility] [place]. Awaiting EMS for transfer.
== END 2023-02-16 00:03 | disposition short-term general hospital (02) ==
PROVIDERS: Emergency Provider Registered Nurse Emergency; PCP Nurse Practitioner Family
DX: A41.9 Sepsis, unspecified organism (principal); N39.0 Urinary tract infection, site not specified; C17.9 Malignant neoplasm of small intestine, unspecified; J44.9 Chronic obstructive pulmonary disease, unspecified; Z20.822 Contact with and (suspected) exposure to COVID-19
CPT/HCPCS: 71250; 80053; 84145; 87040; 87635; 93005; 96361; 96365; 96367; 99291; 71045; 74176; 81003; 81015; 83605; 83735; 83880; 84484; 85025; 87086; 93010; J0696